=== PATIENT | male | born 1950 | race Caucasian/White ===

== ENCOUNTER 2020-09-20 13:28 | Outpatient (CLI) | payer OTHER, SELFPAY ==
--- NOTE | 2020-09-20 13:32 | US_ITS ---
WS: [id number] ULTRASOUND RENAL TECHNIQUE: Ultrasound examination of both kidneys. CLINICAL INFORMATION: CHRONIC KIDNEY DZ-STAGE 4 COMPARISON: None. FINDINGS: RIGHT: Right kidney is normal in size and appearance. Echogenicity: Normal. Cortical thickness: 1.3 cm; Normal. Hydronephrosis: None. Perinephric fluid: None. Right kidney measures: 10.4 cm x 4.6 cm x 5.7 cm. LEFT: Small left renal cyst measuring 1.1 x 0.8 x 0.9 cm Left kidney is normal in size and appearance. Echogenicity: Normal. Cortical thickness: 1.1 cm; Normal. Hydronephrosis: None. Perinephric fluid: None. Left kidney measures: 12.1 cm x 4.2 cm x 5.7 cm. Normal visualized aorta. Diffuse bladder wall thickening can be seen with chronic cystitis or bladder outlet obstruction. Enlarged prostate measuring 4.1 x 2.9 x 4.3 cm. Recommend correlation PSA. US/US renal BI* [id number] IMPRESSION: 1. No hydronephrosis in either kidney. 2. Diffuse bladder wall thickening can be seen with chronic cystitis or bladde r outlet obstruction. 3. Enlarged prostate measuring 4.1 x 2.9 x 4.3 CM. Recommend correlation PSA. 4. Small left renal cyst measuring 1.1 x 0.8 x 0.9 cm
== END 2020-09-20 13:29 | disposition home or self-care (01) ==
LOC: RAD 13:30
PROVIDERS: Visit Provider Internal Medicine Nephrology
DX: N18.4 Chronic kidney disease, stage 4 (severe) (principal); N40.0 Benign prostatic hyperplasia without lower urinary tract symptoms; N28.1 Cyst of kidney, acquired
CPT/HCPCS: 76770

== ENCOUNTER → 2023-02-15 08:50 | Outpatient (BNVA) | payer OTHER, SELFPAY | PROVIDERS: Visit Provider Podiatrist Foot & Ankle Surgery | DX: I73.9 Peripheral vascular disease, unspecified (principal); B35.1 Tinea unguium; G62.9 Polyneuropathy, unspecified | CPT/HCPCS: 11721; 99203 ==

== ENCOUNTER → 2023-03-30 12:38 | Outpatient (BNVA) | payer OTHER, SELFPAY | PROVIDERS: Visit Provider Internal Medicine Pulmonary Disease | DX: R06.02 Shortness of breath (principal); R63.5 Abnormal weight gain; Z68.35 Body mass index [BMI] 35.0-35.9, adult; Z99.81 Dependence on supplemental oxygen | CPT/HCPCS: 99204 ==

== ENCOUNTER 2023-04-22 09:01 | Outpatient (CLI) | payer OTHER, SELFPAY ==
[2023-04-22 09:24] VITALS: PULSE 56; RESP 18; O2SAT 98
[2023-04-22] MEDS: albuterol 2.5 mg/3 mL Neb INHALATION (09:24)
[2023-04-22 09:29] VITALS: PULSE 55
== END 2023-04-22 09:02 | disposition home or self-care (01) ==
PROVIDERS: PCP Emergency Medicine Emergency Medical Services; Visit Provider Internal Medicine Pulmonary Disease
DX: J98.8 Other specified respiratory disorders (principal)
CPT/HCPCS: 94060; 94618; 94729; 99204; J7613

== ENCOUNTER → 2023-04-26 10:55 | Outpatient (BNVA) | payer OTHER, SELFPAY | PROVIDERS: PCP Emergency Medicine Emergency Medical Services; Visit Provider Podiatrist Foot & Ankle Surgery | DX: I73.9 Peripheral vascular disease, unspecified (principal); B35.1 Tinea unguium; G62.9 Polyneuropathy, unspecified; L84 Corns and callosities; E11.9 Type 2 diabetes mellitus without complications; Z79.4 Long term (current) use of insulin | CPT/HCPCS: 11056; 11721 ==

== ENCOUNTER → 2023-05-11 11:15 | Outpatient (BNVA) | payer OTHER, SELFPAY | PROVIDERS: PCP Emergency Medicine Emergency Medical Services; Visit Provider Internal Medicine Pulmonary Disease | DX: J44.9 Chronic obstructive pulmonary disease, unspecified (principal); Z99.81 Dependence on supplemental oxygen; R63.5 Abnormal weight gain; Z68.35 Body mass index [BMI] 35.0-35.9, adult | CPT/HCPCS: 99214 ==

== ENCOUNTER → 2023-07-05 07:47 | Outpatient (BNVA) | payer OTHER, SELFPAY | PROVIDERS: PCP Emergency Medicine Emergency Medical Services; Visit Provider Podiatrist Foot & Ankle Surgery | DX: B35.1 Tinea unguium (principal); I73.9 Peripheral vascular disease, unspecified; G62.9 Polyneuropathy, unspecified; L84 Corns and callosities; E11.42 Type 2 diabetes mellitus with diabetic polyneuropathy; Z79.4 Long term (current) use of insulin | CPT/HCPCS: 11056; 11721 ==

== ENCOUNTER → 2023-12-13 10:05 | Outpatient (BNVA) | payer OTHER, SELFPAY | PROVIDERS: PCP Emergency Medicine Emergency Medical Services; Visit Provider Internal Medicine Pulmonary Disease | DX: J44.89 Other specified chronic obstructive pulmonary disease (principal); Z87.891 Personal history of nicotine dependence | CPT/HCPCS: 99214 ==

== ENCOUNTER 2024-10-18 11:21 | Emergency (ER) | payer OTHER, SELFPAY ==
[2024-10-18] VITALS (8 sets, daily range): BP systolic 141–172; BP diastolic 80–107; PULSE 80–93; RESP 17–22; TEMP 36.6; O2SAT 93–96; BMI 36.4
--- NOTE | 2024-10-18 11:51 | PC.PHAR ---
[facility], [facility] fax at [id number] will follow up when they send that back
--- NOTE | 2024-10-18 12:08 | XR_ITS ---
WS: [id number] XR chest 1V portable [id number] REASON FOR EXAM: dyspnea FINDINGS: Chest is unchanged compared to 09/18/2022. Thoracic aorta and mediastinum are within normal limits. Mild cardiomegaly. Calcified granulomas disease bilaterally. No acute pulmonary parenchymal or pleural disease noted. XR/XR chest 1V portable [id number] IMPRESSION: Mild cardiomegaly without acute chest abnormality.
--- NOTE | 2024-10-18 12:28 | ECG_ITS ---
[facility]24[facility]18 Pat Name: Roberta Rouse Department: Room: Gender: Male Zipper Measurer: : 1950 Requested By: Quintin Armstrong Order Number: [id number] Adam MD: Michael Lynne M.D. Measurements Intervals [place] Rate: 89 P: 0 DC: 0 QRS: 54 QRSD: 144 T: 32 QT: 358 QTc: 438 Interpretive Statements ATRIAL FIBRILLATION RIGHT BUNDLE BRANCH BLOCK [120+ ms QRS DURATION, UPRIGHT V1, 40+ ms S IN I/aVL/V4/V5/V6] No previous ECG available for comparison Electronically Signed On 10-18-2024 19:30:27 CABLE BRAIDER by Michael Lynne M.D. [email or web address]
--- NOTE | 2024-10-18 13:02 | ED_ITS ---
HPI - SOB/Dyspnea 2 General: Chief Complaint: Shortness of Breath/Dyspnea Stated Complaint: SOB Time Seen by Provider: 10/18/24 11:24 History of Present Illness: HPI Narrative: 74-year-old male former smoker with a hi story of COPD asthma overlap syndrome who presents to the emergency department with shortness of breath that is slowly been getting worse for about 1 month. Patient reports he did run out of his inhalers. [facility]. He called them and they are sending in refills for him. Patient reports clear sputum production. He does not weigh himself daily. He feels like he is slowly been gaining fluid weight for several weeks now. He does not know whether he has congestive heart failure but does take furosemide 20 mg daily and takes diltiazem. Patient denies any history of DVT or PE. No hemoptysis. No fever or chills. He feels better sitting up to breathe. He denies using a CPAP or BiPAP. He does use oxygen at home periodically. Lately he has been having to use it more often. Related Data Home Medications Medication Instructions Recorded Confirmed atorvastatin 80 mg tablet 80 mg PO DAILY 02/15/23 10/18/24 cetirizine 10 mg capsule (All Day 10 mg PO DAILY PRN allergies 02/15/23 10/18/24 Allergy (cetirizine)) cholecalciferol (vitamin D3) 50 50 mcg PO DAILY 02/15/23 10/18/24 mcg (2,000 unit) capsule diltiazem HCl 240 mg 240 mg PO DAILY 02/15/23 10/18/24 capsule,extended release 24 hr fluoxetine 20 mg capsule 20 mg PO DAILY 02/15/23 10/18/24 fluticasone furoate 50 1 inh inhalation DAILY 02/15/23 10/18/24 mcg/actuation blister powder for inhalation furosemide 20 mg tablet 20 mg PO DAILY 02/15/23 10/18/24 insulin lispro 100 unit/mL 5 unit SUBCUT BID 02/15/23 10/18/24 subcutaneous solution (Humalog U-100 Insulin) mirtazapine 30 mg tablet 30 mg PO DAILY 02/15/23 10/18/24 mometasone 110 mcg/actuation(30 2 inh inhalation DAILY 02/15/23 10/18/24 doses) breath activated powder inhaler tamsulosin 0.4 mg capsule 0.4 mg PO DAILY 02/15/23 10/18/24 empagliflozin 10 mg tablet 10 mg PO DAILY 12/13/23 10/18/24 (Jardiance) calcitriol 0.25 mcg capsule See Rx Instructions .Route .COMPLEX 10/18/24 10/18/24 insulin glargine-yfgn 100 unit/mL 85 unit SUBCUT DAILY 10/18/24 10/18/24 (3 mL) subcutaneous pen lisinopril 10 mg tablet 10 mg PO DAILY 10/18/24 10/18/24 Previous Rx's Medication Instructions Recorded fluticasone 250 mcg-salmeterol 50 1 inh inhalation BID #60 ea 03/30/23 mcg/dose blistr powdr for inhalation (Wixela Inhub) furosemide 20 mg tablet 20 mg PO BID 7 days #14 tabs 10/18/24 Allergies Allergy/AdvReac Type Severity Reaction Status Date / Time codeine Allergy Unknown rash Verified 10/18/24 11:35 Review of Systems 2 General: Reports: 10 or more systems reviewed and unremarkable except in HPI and below PFSH ED 2 PFSH: Medical History Chronic kidney disease Type 2 diabetes mellitus with diabetic neuropathy, unspecified Physical Exam 2 Const: COMMON NORMALS: no limitations, alert and well nourished EXAM LIMITATIONS: no altered mental status HENMT: COMMON NORMALS: normocephalic, atraumatic and external ears normal H EAD & SCALP: normocephalic and atraumatic EXTERNAL EAR: Yes external ears normal MOUTH: no muffled voice Eye: COMMON NORMALS: conjunctivae normal and no scleral icterus C ONJUNCTIVA: Yes conjunctivae normal Neck/C-Spine: GENERAL: Yes normal visual inspection and Yes trachea midline Resp: OTHER: Increased respiratory rate, use of accessory muscles, diminished breath sounds, wheezing Cardio: COMMON NORMALS: regular rate RATE: regular rate RHYTHM: abnormal rhythm GI: COMMON NORMALS: Soft to palpation and non-tender PALPATION: Yes Soft to palpation and No Guarding due to palpation present (GI) Extremity: OTHER: Bilateral lower extremity pitting edema 1+ to the midshin. Neuro: COMMON NORMALS: moves all extremities, no focal motor deficits and no sensory deficits noted SENSORIUM/ORIENTATION: Yes alert SPEECH: speech normal Psych: COMMON NORMALS: mental status grossly normal, Normal thought process present, cooperative, normal affect and speech normal SPEECH: Yes normal speech THOUGHT PROCESS: Normal thought process present Skin: COMMON NORMALS: no rashes or lesions noted, turgor normal and no jaundice GENERAL SKIN EXAM: no rashes or lesions noted and turgor normal Course 2 Vital Signs: Vital signs: Vital Signs Temperature 97.9 F 10/18/24 11:25 Pulse Rate 88 10/18/24 13:37 Respiratory Rate 22 H 10/18/24 13:31 Blood Pressure 172/83 10/18/24 11:25 Pulse Oximetry 94 10/18/24 13:31 Oxygen Delivery Me thod Nasal Cannula 10/18/24 13:31 Oxygen Flow Rate 2 10/18/24 13:31 MDM - SOB/Dyspnea Medical Decision Making Differential diagnosis includes asthma, COPD, pulmonary hypertension, pleural effusion, congestive heart failure exacerbation, arrhythmia, renal failure, electrolyte disturbances, chronic respiratory failure, obesity hypoventilation syndrome, other. EKG obtained at 11:39 AM. EP interpretation. This appears to be coarse atrial fibrillation or possibly ventricular flutter. Ventricular rate is 89. There is a right bundle branch block with a QRS duration of the 144 ms, no overtly concerning ischemic ST or T changes. Unfortunately, we do not have a lot of the patient's records because he goes to the [place]. He does not know his medical history very well. It is unclear if this is new or chronic A-fib. Patient is on diltiazem which would make me think it is chronic. I do not see any anticoagulants. His [id number] score would be elevated. It appears to me that the patient's symptoms are due in part to fluid retention and congestive heart failure. I am going to get his kidney function and electrolytes. If he can tolerate it, we will put him on furosemide 20 mg twice daily instead of daily. I will then have him follow[facility] with [facility] with a diagnosis of atrial fibrillation, congestive heart failure exacerbation, and COPD with chronic hypoxic respiratory failure. Update Creatinine 1.3. BUN 16. We do not have any comparison. Potassium 3.9. I think patient can handle taking Lasix 20 mg twice a day as the benefit outweighs the risk at this time. We will initiate this for 1 week. He is informed to weigh himself daily. He was given specific return precautions. In regards to his atrial fibrillation and possible need for anticoagulation; [facility] He says he is in contact with them frequently, including today. I am going to have him call them and inquire whether this is new or chronic and let his primary care team decide about anticoagulation. Lab Data 10/18/24 12:47 10/18/24 12:47 Labs/Radiology: Radiology Impressions Chest X-Ray 10/18/24 12:08 IMPRESSION: Mild cardiomegaly without acute chest abnormality. Laboratory Results WBC 5.56 10^3/uL (3.29-11.43) 10/18/24 12:47 RBC 4.20 10^6/uL (3.85-5.65) 10/18/24 12:47 Hgb 12.20 g/dL (11.27-16.99) 10/18/24 12:47 Hct 40.4 % (37-53) 10/18/24 12:47 MCV 96.2 fl (82-101) 10/18/24 12:47 MCH 29.0 pg (27-33) 10/18/24 12:47 MCHC 30.2 g/dL (30-55) 10/18/24 12:47 RDW 14.1 % (12.1-15.1) 10/18/24 12:47 Plt Count 214 10^3/cmm (157-399) 10/18/24 12:47 MPV 10.1 fL (7.4-10.4) 10/18/24 12:47 Neut % (Auto) 69.7 % 10/18/24 12:47 Lymph % (Auto) 13.8 % 10/18/24 12:47 Walker % (Auto) 14.7 % 10/18/24 12:47 Eos % (Auto) 0.9 % 10/18/24 12:47 Baso % (Auto) 0.2 % 10/18/24 12:47 Neut # (Auto) 3.87 10^3/uL (1.8-7.7) 10/18/24 12:47 Lymph # (Auto) 0.8 10^3/uL (0.8-4.8) 10/18/24 12:47 Walker # (Auto) 0.8 10^3/uL (0.2-0.9) 10/18/24 12:47 Eos # (Auto) 0.1 10^3/uL (0.0-0.8) 10/18/24 12:47 Baso # (Auto) 0.0 10^3/uL (0.0-0.1) 10/18/24 12:47 Nucleated RBC % (auto) 0 % 10/18/24 12:47 Nucleated RBCs # 0.0 /100WBC 10/18/24 12:47 Sodium 139 mmol/L (136-145) 10/18/24 12:47 Potassium 3.9 mmol/L (3.5-5.1) 10/18/24 12:47 Chloride 98 mmol/L (98-107) 10/18/24 12:47 Carbon Dioxide 29 mmol/L (22-29) 10/18/24 12:47 Anion Gap 15.9 (5-19) 10/18/24 12:47 BUN 16 mg/dL (8-23) 10/18/24 12:47 Creatinine 1.3 mg/dL (0.7-1.2) H 10/18/24 12:47 GFR Calculation Not Reportable 10/18/24 12:47 Glucose 46 mg/dL (65-115) L 10/18/24 12:47 Calculated Osmolality 286 mOsm/kg (285-295) 10/18/24 12:47 Calcium 8.7 mg/dL (8.5-10.5) 10/18/24 12:47 Total Bilirubin 0.4 mg/dL (0.15-1.2) 10/18/24 12:47 AST 18 U/L (0-40) 10/18/24 12:47 ALT 16 U/L (0-41) 10/18/24 12:47 Alkaline Phosphatase 95 U/L (40-130) 10/18/24 12:47 NT-Pro-B Natriuret Pep 463 pg/mL (0-450) H 10/18/24 12:47 Total Protein 6.7 g/dL (6.6-8.7) 10/18/24 12:47 Albumin 3.8 g/dL (3.5-5.2) 10/18/24 12:47 Globulin 2.9 g/dL (1.3-4.6) 10/18/24 12:47 All radiology interpretation(s) finalized by discharge ED provider radiology interpretation(s): Chest x-ray 1 view. EP interpretation. Mild cardiomegaly. No significant effusions, no pneumothorax. No focal infiltrates. Discharge Plan Discharge Patient Disposition: Home Clinical Impression: Atrial fibrillation by electrocardiogram, Asthma-COPD overlap syndrome, Diastolic congestive heart failure, Body fluid retention, Wheezing Condition: Stable Prescriptions: New furosemide 20 mg tablet 20 mg PO BID 7 Days Qty: 14 0RF No Action fluticasone propion-salmeterol [Wixela Inhub] 250-50 mcg/dose blister with device 1 inh inhalation BID Qty: 60 6RF atorvastatin 80 mg tablet 80 mg PO DAILY cholecalciferol (vitamin D3) 50 mcg (2,000 unit) capsule 50 mcg PO DAILY fluoxetine 20 mg capsule 20 mg PO DAILY insulin lispro [Humalog U-100 Insulin] 100 unit/mL solution 5 unit SUBCUT BID Rx Instructions: inject 5 units under the skin 2 times daily before meals give 30 mins before food, do not give dose if sugar is under 100 mometasone 110 mcg/ actuation (30) aerosol powdr breath activated 2 inh inhalation DAILY Rx Instructions: administer 1 hour before bedtime All Day Allergy (cetirizine) 10 mg capsule 10 mg PO DAILY PRN (Reason: allergies) diltiazem HCl 240 mg capsule,extended release 24hr 240 mg PO DAILY fluticasone furoate 50 mcg/actuation blister with device 1 inh inhalation DAILY furosemide 20 mg tablet 20 mg PO DAILY mirtazapine 30 mg tablet 30 mg PO DAILY tamsulosin 0.4 mg capsule 0.4 mg PO DAILY Jardiance 10 mg tablet 10 mg PO DAILY lisinopril 10 mg Tablet 10 mg PO DAILY calcitriol 0.25 mcg Capsule See Rx Instructions .ROUTE .COMPLEX Rx Instructions: take 1 capsule by mouth on mondays and wednesday insulin glargine-yfgn 100 unit/mL (3 mL) Insulin Pen 85 unit SUBCUT DAILY Discharge Orders: Discharge ED (Routine); Ordered 10/18/24 Ordered By: Quintin Armstrong Referrals: Adán Lino, [Primary Care Provider] - Activity Restrictions/Additional Instructions: Please call the [facility] clinic. Please speak with your doctor or nurse about your ER visit. We found that you have signs of atrial fibrillation. It is unclear whether this abnormal heart rhythm is new or old. It can lead to shortness of breath, fluid retention, and wheezing. Additionally, most patients with atrial fibrillation take blood thinners. We do not see a blood thinner on your medication list. Please inquire with your [facility] team whether your atrial fibrillation is new or not and whether you need to be on a blood thinner. Please take furosemide (Lasix) 20 mg twice a day for 1 week. After 1 week, you may back go back down to 20 mg daily. In 7 to 10 days you should have your electrolytes and kidney function re-checked with a basic metabolic panel Return to the emergency department if you have worsening shortness of breath, chest pain, poor urine output, passing out, or other emergent symptoms. 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
[2024-10-18 13:11] LABS: Basophils % 0.2 %; Eosinophils # 0.1 10^3/uL (0.0-0.8); Eosinophils % 0.9 %; Hematocrit 40.4 % (37-53); Lymphocytes # 0.8 10^3/uL (0.8-4.8); Lymphocytes % 13.8 %; Mean Corpuscular HGB Conc 30.2 g/dL (30-55); Mean Corpuscular Volume 96.2 fl (82-101); Mean Platelet Volume 10.1 fL (7.4-10.4); Monocytes # 0.8 10^3/uL (0.2-0.9); Monocytes % 14.7 %; Neutrophils # 3.87 10^3/uL (1.8-7.7); Neutrophils % 69.7 %; Nucleated Red Blood Cells % 0 %; Platelet Count 214 10^3/cmm (157-399); Red Cell Distribution Width 14.1 % (12.1-15.1); White Blood Count 5.56 10^3/uL (3.29-11.43)
[2024-10-18] MEDS: methylPREDNISolone sod succ 125 mg/2 mL INJ IV (13:11)
[2024-10-18] MEDS: ipratropium-albuterol 3 mL Neb INHALATION (13:25)
[2024-10-18 13:47] LABS: Alanine Aminotransferase 16 U/L (0-41); Albumin Level 3.8 g/dL (3.5-5.2); Alkaline Phosphatase 95 U/L (40-130); Anion Gap 15.9 (5-19); Aspartate Amino Transferase 18 U/L (0-40); Blood Urea Nitrogen 16 mg/dL (8-23); Calcium 8.7 mg/dL (8.5-10.5); Carbon Dioxide 29 mmol/L (22-29); Chloride 98 mmol/L (98-107); Creatinine Clr Calc Pharmacy 65.2078; Globulin 2.9 g/dL (1.3-4.6); Glucose 46 mg/dL (65-115); NT Pro B Type Natriuretic Pept 463 pg/mL (0-450); Osmolality Calculated 286 mOsm/kg (285-295); Potassium 3.9 mmol/L (3.5-5.1); Sodium 139 mmol/L (136-145); Total Bilirubin 0.4 mg/dL (0.15-1.2); Total Protein 6.7 g/dL (6.6-8.7)
[2024-10-18] MEDS: FUROsemide 20 mg Tablet PO (14:10)
== END 2024-10-18 15:09 | disposition home or self-care (01) ==
PROVIDERS: Emergency Provider Emergency Medicine; PCP Emergency Medicine Emergency Medical Services
DX: I48.91 Unspecified atrial fibrillation (principal); J44.89 Other specified chronic obstructive pulmonary disease; E11.22 Type 2 diabetes mellitus with diabetic chronic kidney disease; N18.9 Chronic kidney disease, unspecified; I50.30 Unspecified diastolic (congestive) heart failure; R60.9 Edema, unspecified; R06.2 Wheezing; Z79.4 Long term (current) use of insulin
CPT/HCPCS: 36415; 71045; 80053; 83880; 85025; 93005; 94640; 96374; 99285; J2919

== ENCOUNTER 2024-11-16 16:32 | Inpatient (IN) | payer OTHER, SELFPAY ==
[2024-11-16] VITALS (33 sets, daily range): BP systolic 114–145; BP diastolic 41–60; PULSE 29–83; RESP 7–32; TEMP 36.1–36.8; O2SAT 85–97; BMI 35.6; BMI 37.0
--- NOTE | 2024-11-16 16:40 | PC.PHAR ---
[facility] is [facility] list 11/16/23 4:40pm. Last completed Med rec done on 10/18/24 with [facility].
--- NOTE | 2024-11-16 16:41 | XRR_ITS ---
PROCEDURE INFORMATION: Exam: XR Chest Exam date and time: 11/16/2024 4:52 PM Age: 74 years old Clinical indication: Shortness of breath TECHNIQUE: Imaging protocol: Radiologic exam of the chest. Views: 1 view. COMPARISON: CR XR chest 1V portable [id number] 10/18/2024 12:15 PM FINDINGS: Lungs: Unremarkable. No consolidation or mass. Pleural spaces: Unremarkable. No pleural effusion. No pneumothorax. Heart/Mediastinum: Unremarkable. No cardiomegaly. Bones/joints: Unremarkable. XR/XR chest 1V portable [id number] IMPRESSION: No acute findings.
--- NOTE | 2024-11-16 16:42 | ECG_ITS ---
[facility]16 Pat Name: Roberta Rouse Department: Room: Gender: Male Environmental Advisor: : 1950 Requested By: Sofiya Carranza Order Number: [id number] Adam MD: Michael Lynne M.D. Measurements Intervals [place] Rate: 35 P: 0 TX: 0 QRS: 84 QRSD: 150 T: 58 QT: 483 QTc: 369 Interpretive Statements ATRIAL FLUTTER/TACHYCARDIA WITH SLOW VENTRICULAR RESPONSE RIGHT BUNDLE BRANCH BLOCK [120+ ms QRS DURATION, UPRIGHT V1, 40+ ms S IN I/aVL/V4/V5/V6] CRITICAL TEST RESULT Compared to ECG 10/18/2024 11:39:29 Atrial fibrillation no longer present Electronically Signed On 11-17-2024 21:37:31 RURAL ELECTRIFICATION ENGINEER by Michael Lynne M.D. [email or web address]
--- NOTE | 2024-11-16 16:55 | W.ED.SOB ---
HPI - SOB/Dyspnea General: Chief Complaint: Shortness of Breath/Dyspnea Stated Complaint: a flutter, blue Time Seen by Provider: 11/16/24 16:37 History of Present Illness: HPI Narrative: 74-year-old man with a history of obesity, diabetes, hypertension and he says just a single episode of A-fib in the past but looking at his med list he is on diltiazem, however no blood thinners who presents the emergency room by ambulance with complaint of shortness of breath. He says this been going on for the last 2 days. Orthopnea and exertional dyspnea. No chest pain. No abdominal pain. No nausea or vomiting. No altered mental status. No fevers. No cough. No dysuria. EMS reports heart rate was in the 30s on their arrival. His blood pressure initially was soft in the 90s. They had given atropine with no change in symptoms or heart rate. On arrival here his blood pressures in the 130s systolic with a rate ranging between 39 and 45. He is in A- flutter with slow ventricular response. No confusion. No altered mental status. No increased work of breathing. Has some mild edema in his lower extremities. He says this is maybe a little different than usual. Related Data Home Medications Medication Instructions Recorded Confirmed atorvastatin 80 mg tablet 80 mg PO DAILY 02/15/23 10/18/24 cetirizine 10 mg capsule (All Day 10 mg PO DAILY PRN allergies 02/15/23 10/18/24 Allergy (cetirizine)) cholecalciferol (vitamin D3) 50 50 mcg PO DAILY 02/15/23 10/18/24 mcg (2,000 unit) capsule diltiazem HCl 240 mg 240 mg PO DAILY 02/15/23 10/18/24 capsule,extended release 24 hr fluoxetine 20 mg capsule 20 mg PO DAILY 02/15/23 10/18/24 fluticasone furoate 50 1 inh inhalation DAILY 02/15/23 10/18/24 mcg/actuation blister powder for inhalation furosemide 20 mg tablet 20 mg PO DAILY 02/15/23 10/18/24 insulin lispro 100 unit/mL 5 unit SUBCUT BID 02/15/23 10/18/24 subcutaneous solution (Humalog U-100 Insulin) mirtazapine 30 mg tablet 30 mg PO DAILY 02/15/23 10/18/24 mometasone 110 mcg/actuation(30 2 inh inhalation DAILY 02/15/23 10/18/24 doses) breath activated powder inhaler tamsulosin 0.4 mg capsule 0.4 mg PO DAILY 02/15/23 10/18/24 empagliflozin 10 mg tablet 10 mg PO DAILY 12/13/23 10/18/24 (Jardiance) calcitriol 0.25 mcg capsule See Rx Instructions .Route .COMPLEX 10/18/24 10/18/24 insulin glargine-yfgn 100 unit/mL 85 unit SUBCUT DAILY 10/18/24 10/18/24 (3 mL) subcutaneous pen lisinopril 10 mg tablet 10 mg PO DAILY 10/18/24 10/18/24 Previous Rx's Medication Instructions Recorded fluticasone 250 mcg-salmeterol 50 1 inh inhalation BID #60 ea 03/30/23 mcg/dose blistr powdr for inhalation (Wixela Inhub) Allergies Allergy/AdvReac Type Severity Reaction Status Date / Time codeine Allergy Unknown rash Verified 10/18/24 11:35 Review of Systems Narrative: Constitutional symptoms: Negative except as documented in HPI. Skin symptoms: Negative except as documented in HPI. Eye symptoms: Negative except as documented in HPI. ENMT symptoms: Negative except as documented in HPI. Respiratory symptoms: Negative except as documented in HPI. Cardiovascular symptoms: Negative except as documented in HPI. Gastrointestinal symptoms: Negative except as documented in HPI. Genitourinary symptoms: Negative except as documented in HPI. Musculoskeletal symptoms: Negative except as documented in HPI. Neurologic symptoms: Negative except as documented in HPI. Psychiatric symptoms: Negative except as documented in HPI. Endocrine symptoms: Negative except as documented in HPI. [facility] ED PFSH: Medical History Chronic kidney disease Type 2 diabetes mellitus with diabetic neuropathy, unspecified Physical Exam Narrative: EXAM NARRATIVE: General: Alert, no acute distress. Skin: Warm, dry. Head: Normocephalic, atraumatic. Neck: Supple, trachea midline. Eye: Extraocular movements are intact. Ears, nose, mouth and throat: mucosa moist. Cardiovascular: Irregular, bradycardic, normal peripheral perfusion. Respiratory: Lungs are clear to auscultation, respirations are non-labored, breath sounds are equal, Symmetrical chest wall expansion. Gastrointestinal: Soft, Nontender, Non distended Musculoskeletal: Normal ROM, no deformity. Neurological: Alert and oriented, No focal neurological deficit observed. Psychiatric: Cooperative, appropriate mood & affect. Course Vital Signs: Vital signs: Vital Signs Temperature 98.2 F 11/16/24 16:36 Pulse Rate 37 L 11/16/24 18:10 Respiratory Rate 25 H 11/16/24 18:10 Blood Pressure 126/41 11/16/24 18:15 Pulse Oximetry 88 L 11/16/24 18:10 Oxygen Delivery Me thod Nasal Cannula 11/16/24 16:36 Oxygen Flow Rate 2 11/16/24 16:36 MDM - SOB/Dyspnea Medical Decision Making Differential diagnosis for patient with shortness of breath includes but is not limited to and based on the above HPI, review of systems and physical exam: Pneumonia. Bronchitis. Asthma or COPD with acute exacerbation. Acute coronary syndrome / CT. Pulmonary embolism. Anxiety. Congestive heart failure. Viral infections including influenza and Covid-19. Atrial fibrillation. Anxiety. Pleural effusion. Pneumothorax. Orders placed to evaluate differential diagnosis based on the above differential, HPI and physical exam EKG: Time 1636. Rate 35. Atrial flutter with significant bradycardia. No ST-T changes, no ectopy, This was reviewed and interpreted by myself the ER physician at 1637. Consultation: I spoke with Dr. Lynne. He does recommend dopamine if pressure drops again. Initially it was elevated but has dropped. Dopamine has been ordered. He recommends admission to the hospitalist service for now. Chest x-ray: No acute process. No infiltrate. No pneumothorax. This was reviewed and interpreted by myself the emergency room physician. I also reviewed the radiology report. Repeat EKG: Time 1844. Rate 40. Atrial flutter with significant bradycardia. No ST-T changes, no ectopy, This was reviewed and interpreted by myself the ER physician at 1850. No significant changes from EKG done earlier today in the emergency room. Lab Review: Laboratory results were reviewed and interpreted by myself the emergency room physician. No leukocytosis. No anemia. Patient does have significant renal failure with a BUN and creatinine of 63 and 6.3. Last measurement here was 1.3 for his creatinine. I reviewed the patient's medical record. Reexamination: Patient has remained asymptomatic throughout. He has exertional dyspnea but no dyspnea at rest. He has no chest pain. He has not been lightheaded or altered at all while he has been here. Has required some dopamine as his pressure got a little bit low. Even then he says he did not feel dizzy or have any symptoms. Consultation: I spoke with Dr. Boudreaux who is on-call for the hospitalist service who agrees to admission. Admitting to the ICU. Assessment and plan: Bradycardia Atrial flutter Acute on chronic renal failure Hypotension ?2 L normal saline bolus and a dopamine drip at been initiated. -I discussed the patient with the hospitalist on-call who is admitting the patient. - Discussed findings and plan with patient. Answered any questions. - All laboratory values were reviewed and interpreted personally by myself, the ER physician - All imaging was reviewed and interpreted personally by myself, the ER physician. - Evaluation and treatment of this problem were appropriate in the emergency setting Critical care -I spent a total of >35 minutes of critical care time managing the patient, independent of any other practitioner. -The time involved in the performance of separately reportable procedures was not counted towards critical care time. Lab Data 11/16/24 16:45 11/16/24 16:45 Labs/Radiology: Radiology Impressions Chest X-Ray 11/16/24 16:41 IMPRESSION: No acute findings. Abdomen/Pelvis CT 11/16/24 17:54 IMPRESSION: 1. No acute findings. 2. Prostate enlargement with chronic bladder wall thickening 3. Umbilical hernia 4. Cholelithiasis Laboratory Results WBC 6.25 10^3/uL (3.29-11.43) 11/16/24 16:45 RBC 3.51 10^6/uL (3.85-5.65) L 11/16/24 16:45 Hgb 10.30 g/dL (11.27-16.99) L 11/16/24 16:45 Hct 34.1 % (37-53) L 11/16/24 16:45 MCV 97.2 fl (82-101) 11/16/24 16:45 MCH 29.3 pg (27-33) 11/16/24 16:45 MCHC 30.2 g/dL (30-55) 11/16/24 16:45 RDW 13.9 % (12.1-15.1) 11/16/24 16:45 Plt Count 189 10^3/cmm (157-399) 11/16/24 16:45 MPV 11.3 fL (7.4-10.4) H 11/16/24 16:45 Neut % (Auto) 67.5 % 11/16/24 16:45 Lymph % (Auto) 20.3 % 11/16/24 16:45 Frio % (Auto) 10.7 % 11/16/24 16:45 Eos % (Auto) 0.5 % 11/16/24 16:45 Baso % (Auto) 0.2 % 11/16/24 16:45 Neut # (Auto) 4.22 10^3/uL (1.8-7.7) 11/16/24 16:45 Lymph # (Auto) 1.3 10^3/uL (0.8-4.8) 11/16/24 16:45 Frio # (Auto) 0.7 10^3/uL (0.2-0.9) 11/16/24 16:45 Eos # (Auto) 0.0 10^3/uL (0.0-0.8) 11/16/24 16:45 Baso # (Auto) 0.0 10^3/uL (0.0-0.1) 11/16/24 16:45 Nucleated RBC % (auto) 0 % 11/16/24 16:45 Nucleated RBCs # 0.0 /100WBC 11/16/24 16:45 Sodium 140 mmol/L (136-145) 11/16/24 16:45 Potassium 5.3 mmol/L (3.5-5.1) H 11/16/24 16:45 Chloride 103 mmol/L (98-107) 11/16/24 16:45 Carbon Dioxide 24 mmol/L (22-29) 11/16/24 16:45 Anion Gap 18.3 (5-19) 11/16/24 16:45 BUN 63 mg/dL (8-23) H 11/16/24 16:45 Creatinine 6.3 mg/dL (0.7-1.2) H* 11/16/24 16:45 GFR Calculation Not Reportable 11/16/24 16:45 Glucose 108 mg/dL (65-115) 11/16/24 16:45 Calculated Osmolality 309 mOsm/kg (285-295) H 11/16/24 16:45 Lactic Acid 1.7 mmol/L (0.5-2.2) 11/16/24 16:45 Calcium 8.1 mg/dL (8.5-10.5) L 11/16/24 16:45 Phosphorus 5.2 mg/dL (2.5-4.5) H 11/16/24 16:45 Magnesium 1.4 mg/dL (1.7-2.3) L 11/16/24 16:45 Total Bilirubin 0.3 mg/dL (0.15-1.2) 11/16/24 16:45 AST 24 U/L (0-40) 11/16/24 16:45 ALT 23 U/L (0-41) 11/16/24 16:45 Alkaline Phosphatase 90 U/L (40-130) 11/16/24 16:45 Troponin T Baseline 74 ng/L (0-15) H 11/16/24 16:45 NT-Pro-B Natriuret Pep 1936 pg/mL (0-450) H 11/16/24 16:45 Total Protein 5.8 g/dL (6.6-8.7) L 11/16/24 16:45 Albumin 3.6 g/dL (3.5-5.2) 11/16/24 16:45 Globulin 2.2 g/dL (1.3-4.6) 11/16/24 16:45 TSH 1.85 uIU/mL (0.27-4.20) 11/16/24 16:45 All radiology interpretation(s) finalized by discharge Discharge Plan Discharge Patient Disposition: Admitted As Inpatient Admit Provider: Dimas Boudreaux Clinical Impression: Bradycardia, Atrial flutter, Hypotension, Acute on chronic renal failure Condition: Stable Coding Level of Care Code 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
[2024-11-16 17:00] LABS: Basophils % 0.2 %; Eosinophils % 0.5 %; Hematocrit 34.1 % (37-53); Lymphocytes # 1.3 10^3/uL (0.8-4.8); Lymphocytes % 20.3 %; Mean Corpuscular HGB Conc 30.2 g/dL (30-55); Mean Corpuscular Hemoglobin 29.3 pg (27-33); Mean Corpuscular Volume 97.2 fl (82-101); Mean Platelet Volume 11.3 fL (7.4-10.4); Monocytes # 0.7 10^3/uL (0.2-0.9); Monocytes % 10.7 %; Neutrophils # 4.22 10^3/uL (1.8-7.7); Neutrophils % 67.5 %; Nucleated Red Blood Cells % 0 %; Platelet Count 189 10^3/cmm (157-399); Red Blood Count 3.51 10^6/uL (3.85-5.65); Red Cell Distribution Width 13.9 % (12.1-15.1); White Blood Count 6.25 10^3/uL (3.29-11.43)
[2024-11-16] MEDS: DOPamine drip 400 MG/250 ML PREMIX 22.96 MG IV (17:23)
[2024-11-16 17:25] LABS: Lactic Sepsis W/Reflex 1.7 mmol/L (0.5-2.2)
[2024-11-16 17:29] LABS: Troponin(5th) Baseline 74 ng/L (0-15)
[2024-11-16 17:38] LABS: Alanine Aminotransferase 23 U/L (0-41); Albumin Level 3.6 g/dL (3.5-5.2); Alkaline Phosphatase 90 U/L (40-130); Anion Gap 18.3 (5-19); Aspartate Amino Transferase 24 U/L (0-40); Blood Urea Nitrogen 63 mg/dL (8-23); Calcium 8.1 mg/dL (8.5-10.5); Carbon Dioxide 24 mmol/L (22-29); Chloride 103 mmol/L (98-107); Creatinine Clr Calc Pharmacy 13.6759; Globulin 2.2 g/dL (1.3-4.6); Glucose 108 mg/dL (65-115); Magnesium 1.4 mg/dL (1.7-2.3); NT Pro B Type Natriuretic Pept 1936 pg/mL (0-450); Osmolality Calculated 309 mOsm/kg (285-295); Phosphorus 5.2 mg/dL (2.5-4.5); Potassium 5.3 mmol/L (3.5-5.1); Sodium 140 mmol/L (136-145); Thyroid Stimulating Hormone 1.85 uIU/mL (0.27-4.20); Total Bilirubin 0.3 mg/dL (0.15-1.2); Total Protein 5.8 g/dL (6.6-8.7)
--- NOTE | 2024-11-16 17:54 | CTR_ITS ---
PROCEDURE INFORMATION: Exam: CT Abdomen And Pelvis Without Contrast Exam date and time: 11/16/2024 6:17 PM Age: 74 years old Clinical indication: Condition or disease; Kidney or ureter condition; Acute renal insufficiency; Additional info: Renal failure, R/O obstructive uropathy per hospitalist TECHNIQUE: Imaging protocol: Computed tomography of the abdomen and pelvis without contrast. Radiation optimization: All CT scans at this facility use at least one of these dose optimization techniques: automated exposure control; mA and/or kV adjustment per patient size (includes targeted exams where dose is matched to clinical indication); or iterative reconstruction. COMPARISON: US renal BI* [id number] 09/20/2020 1:54 PM RADIATION DOSE METRICS: Total DLP (mGy-cm): 1138.03 FINDINGS: Lungs: Lung bases are clear. No pleural effusion. Liver: Normal. No mass. Gallbladder and biliary ducts: Multiple gallstones are noted in the gallbladder but the gallbladder does not appear inflamed and demonstrates normal wall thickness. Pancreas: Normal. No ductal dilation. Spleen: Normal. No splenomegaly. Adrenal glands: Normal. No mass. Kidneys and ureters: Normal. No hydronephrosis. Stomach and bowel: Unremarkable. No obstruction. No mucosal thickening. Appendix: No evidence of appendicitis. Intraperitoneal space: Unremarkable. No free air. No significant fluid collection. Vasculature: Unremarkable. No abdominal aortic aneurysm. Lymph nodes: Unremarkable. No enlarged lymph nodes. Urinary bladder: There is diffuse bladder wall thickening. Reproductive: The prostate gland is abnormally enlarged. Bones/joints: Unremarkable. No acute fracture. Soft tissues: There is a small umbilical hernia containing mesenteric fat. CT/CT abdomen pelvis wo con [id number] IMPRESSION: 1. No acute findings. 2. Prostate enlargement with chronic bladder wall thickening 3. Umbilical hernia 4. Cholelithiasis
[2024-11-16] MEDS: sodium chloride 0.9% 1,000 ML 999 ML IV ×2 (18:12→20:22)
--- NOTE | 2024-11-16 18:44 | ECG_ITS ---
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 Measurements Intervals [place] Rate: 40 P: 0 MN: 0 QRS: 81 QRSD: 140 T: 36 QT: 450 QTc: 370 Interpretive Statements ATRIAL FLUTTER/TACHYCARDIA WITH SLOW VENTRICULAR RESPONSE RIGHT BUNDLE BRANCH BLOCK [120+ ms QRS DURATION, UPRIGHT V1, 40+ ms S IN I/aVL/V4/V5/V6] CRITICAL TEST RESULT Compared to ECG 11/16/2024 16:36:02 No significant changes Electronically Signed On 11-18-2024 21:37:36 FITNESS SALES ASSOCIATE by Michael Lynne M.D. [email or web address]
--- NOTE | 2024-11-16 19:24 | P.HP_ITS ---
Providers/Chief Complaint 2 Admitting Physician: Dimas Boudreaux Primary Care Provider: Adán Lino DO Chief Complaint: a flutter, blue History of Present Illness Pleasant 74-year-old gentleman with history of atrial fibrillation, diabetes, hypertension, BPH, CKD, presents to the hospital due to dyspnea on exertion over the last 2 days, orthopnea, and ER found to have heart rates in the 30s, systolic blood pressure in the 90s, he received atropine by EMS and route, with no change in heart rate. Remains in atrial flutter with slow ventricular response. In ER he denies chest pain or pressure. Started on dopamine drip. He is found to have acute kidney injury on chronic kidney disease, BUN 63, creatinine 6.3, potassium 5.3. Phosphorus 5.2. Magnesium 1.4. Review of Systems 2 Const: Denies: fever(s), chills, body aches or malaise ENMT: Denies: throat pain Card: Reports: dyspnea on exertion; Denies: chest pain, edema or pre-syncope Resp: Denies: productive cough, change in phlegm color or hemoptysis GI: Denies: abdominal pain, nausea, vomiting, diarrhea, constipation, hematochezia or melena : Denies: flank pain, difficulty urinating, urinary frequency or hematuria Musc: Denies: back pain, joint swelling or joint redness Skin/Breast: Denies: rash Neuro: Denies: headache(s) or confusion Endo: Denies: polyuria Medications/Allergies Home Medications Medication Instructions Recorded Confirmed Last Taken Type atorvastatin 80 mg tablet 80 mg PO DAILY 02/15/23 10/18/24 Unknown History cetirizine 10 mg capsule (All Day 10 mg PO DAILY PRN allergies 02/15/23 10/18/24 Unknown History Allergy (cetirizine)) cholecalciferol (vitamin D3) 50 50 mcg PO DAILY 02/15/23 10/18/24 Unknown History mcg (2,000 unit) capsule diltiazem HCl 240 mg 240 mg PO DAILY 02/15/23 10/18/24 Unknown History capsule,extended release 24 hr fluoxetine 20 mg capsule 20 mg PO DAILY 02/15/23 10/18/24 Unknown History fluticasone furoate 50 1 inh inhalation DAILY 02/15/23 10/18/24 Unknown History mcg/actuation blister powder for inhalation furosemide 20 mg tablet 20 mg PO DAILY 02/15/23 10/18/24 Unknown History insulin lispro 100 unit/mL 5 unit SUBCUT BID 02/15/23 10/18/24 Unknown History subcutaneous solution (Humalog U-100 Insulin) mirtazapine 30 mg tablet 30 mg PO DAILY 02/15/23 10/18/24 Unknown History mometasone 110 mcg/actuation(30 2 inh inhalation DAILY 02/15/23 10/18/24 Unknown History doses) breath activated powder inhaler tamsulosin 0.4 mg capsule 0.4 mg PO DAILY 02/15/23 10/18/24 Unknown History fluticasone 250 mcg-salmeterol 50 1 inh inhalation BID #60 ea 03/30/23 10/18/24 Unknown Rx mcg/dose blistr powdr for inhalation (Wixela Inhub) empagliflozin 10 mg tablet 10 mg PO DAILY 12/13/23 10/18/24 Unknown History (Jardiance) calcitriol 0.25 mcg capsule See Rx Instructions .Route .COMPLEX 10/18/24 10/18/24 Unknown History insulin glargine-yfgn 100 unit/mL 85 unit SUBCUT DAILY 10/18/24 10/18/24 Unknown History (3 mL) subcutaneous pen lisinopril 10 mg tablet 10 mg PO DAILY 10/18/24 10/18/24 Unknown History Allergies Allergy/AdvReac Type Severity Reaction Status Date / Time codeine Allergy Unknown rash Verified 10/18/24 11:35 PFSH Acute 2 PFSH: Medical History Chronic kidney disease Type 2 diabetes mellitus with diabetic neuropathy, unspecified Vitals/I&O/Wt Last Vital Signs Temp 98.2 F 11/16/24 16:36 Pulse 37 L 11/16/24 18:10 Resp 25 H 11/16/24 18:10 BP 126/41 11/16/24 18:15 Pulse Ox 88 L 11/16/24 18:10 O2 Del Method Nasal Cannula 11/16/24 16:36 O2 Flow Rate 2 11/16/24 16:36 11/16/24 11/16/24 11/16/24 06:59 14:59 22:59 Intake Total 60.854 / 60.854 Balance 60.854 / 60.854 Weight last 48 hrs Weight 122.47 kg Physical Exam 2 Const: COMMON NORMALS: patient oriented x3 and alert GENERAL APPEARANCE: c ooperative ORIENTATION/CONSCIOUSNESS: Yes awake HENMT: COMMON NORMALS: oropharynx normal Neck/C-Spine: COMMON NORMALS: no JVD Resp: COMMON NORMALS: normal respiratory effort and clear to auscultation bilaterally AUSCULTATION: clear to auscultation bilaterally Cardio: COMMON NORMALS: no JVD, regular rhythm, S1 normal heart sound present, S2 normal heart sound present and No murmurs present (Cardio) RHYTHM: regular rhythm HEART SOUNDS: S1 normal heart sound present and S2 normal heart sound present GI: COMMON NORMALS: Normal to inspection, nondistended, normoactive bowel sounds present, Soft to palpation and non-tender PALPATION: Yes Soft to palpation Extremity: COMMON NORMALS: no joint enlargement OTHER: Bilateral chronic stasis dermatitis. Trace edema. Neuro: COMMON NORMALS: patient oriented x3 and moves all extremities S ENSORIUM/ORIENTATION: Yes alert Skin: COMMON NORMALS: no rashes or lesions noted GENERAL SKIN EXAM: no rashes or lesions noted Data 11/16/24 16:45 11/16/24 16:45 Micro: Microbiology 11/16/24 17:20 Blood Culture - Preliminary Blood SPECIMEN COLLECTED 11/16/24 17:20 Blood Culture - Preliminary Blood SPECIMEN COLLECTED A&P Assessment and plan (1) Diastolic congestive heart failure: Acutely decompensated suspected diastolic congestive heart failure secondary to severe bradycardia also with hypotension, monitor for development of cardiogenic shock. Complicated by acute kidney injury. Monitor for progression to acute renal failure. Started on dobutamine drip, monitor heart rates. Hold diltiazem. Support hemodynamics, monitor oxygenation. Monitor for risk of tachycardia, hypertension with dopamine drip. (2) Bradycardia: Severe bradycardia, heart rate down into the 30s. With hypotension. Complicated by acute kidney injury. On diltiazem at home. Hold diltiazem. Started on dopamine. Continue infusion in ICU. Hold lisinopril with mild hyperkalemia.Supplements hypomagnesemia. Reviewed vitals, CBC, CMP, magnesium, TSH, troponin, NT proBNP, chest x-ray, CT abdomen pelvis, EKG, on my interpretation atrial flutter with slow ventricular response, right bundle branch block, pending official read. Reviewed ER provider note, discussed with ER provider. (3) Hypotension: Monitor for risk of development of cardiogenic shock. Continue dopamine in the ICU. (4) Acute kidney injury superimposed on CKD: Possible acute renal failure, monitor intake and output. Reassess chemistry. Phosphorus. Magnesium. Noted BUN 63, creatinine 6.3, hyperkalemia 5.3, phosphorus 5.2. CT abdomen pelvis without obstructive uropathy. Continue Flomax for BPH. Hold lisinopril, Lasix. Hold statin, check CK. Continue hemodynamic support as above. (5) Hypomagnesemia: Supplement. Recheck follow-up with (6) Anemia: Normocytic anemia, hemoglobin 10.3. Not on anticoagulation. Repeat CBC. (7) BPH (benign prostatic hyperplasia): Continue Flomax Attestations 2 Medical Necessity Statement*: Admission of over 2 midnights anticipated for assessment and management of severe bradycardia with hypotension, acute decompensated diastolic congestive heart failure, AIDA. Coding Level of Care Code Critical Care >/= 30 minutes Critical care time (in minutes): 35 The high probability of a clinically significant, sudden or life threatening deterioration, as referenced in this documentation, required my full and direct attention, intervention and personal management. The critical care time shown is in addition to time spent performing any reported separately billable procedures and includes the following: [x] Data and vital sign review and interpretation [x ] Patient assessment, examination and intervention [x] Medication orders and management [x] Patient/Family updates as able [x] Care Coordination and Documentation. Diagnoses Diastolic congestive heart failure I50.30 Bradycardia R00.1 Hypotension I95.9 Acute kidney injury superimposed on CKD N17.9; N18.9 Hypomagnesemia E83.42 Anemia D64.9 BPH (benign prostatic hyperplasia) N40.0
[2024-11-16 19:26] LABS: Troponin 5 2HR 79.34 ng/L (0-15); Troponin 5 2HR Delta 5.34 ABS# (0-10)
--- NOTE | 2024-11-16 19:45 | PC.NURSE ---
Patient refused tracey catheter.
[2024-11-16] MEDS: magnesium sulfate premix 1 GM/100 ML PIGGYBACK IV (20:11)
[2024-11-16] MEDS: enoxaparin 30 mg/0.3 mL Syringe SUBCUT (20:11)
[2024-11-16 20:34] LABS: Creatine Phosphokinase 200 U/L (39-308)
--- NOTE | 2024-11-16 20:37 | PC.NURSE ---
Patient restless in bed. Attempted to help patient reposition and patient pulled away and tried to get out of bed. Patient stated just leave me alone.
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
[2024-11-16] MEDS: LORazepam 2 mg/mL INJ 1 mL 1 MG IVP (21:27)
[2024-11-16] MEDS: DOPamine drip 400 MG/250 ML PREMIX 68.89 MG IV (21:43)
--- NOTE | 2024-11-16 22:29 | PC.NURSE ---
Patient IV catheter out from right arm. Site ok. no bleeding or swelling.
[2024-11-16] MEDS: OLANZapine 10 mg VIAL 5 MG IM ×2 (22:35→22:40)
--- NOTE | 2024-11-16 22:42 | ECG_ITS ---
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 Measurements Intervals [place] Rate: 44 P: 0 SD: 0 QRS: 105 QRSD: 134 T: 76 QT: 410 QTc: 354 Interpretive Statements ATRIAL FLUTTER/TACHYCARDIA WITH SLOW VENTRICULAR RESPONSE RIGHT AXIS DEVIATION [QRS AXIS > 100] RIGHT BUNDLE BRANCH BLOCK [120+ ms QRS DURATION, UPRIGHT V1, 40+ ms S IN I/aVL/V4/V5/V6] SEPTAL MYOCARDIAL INFARCTION , OF INDETERMINATE AGE [40+ ms Q WAVE IN V1/V2] Compared to ECG 11/16/2024 18:44:50 Right-axis deviation now present Myocardial infarct finding now present Electronically Signed On 11-18-2024 21:37:52 SUPPORT WORKER by Michael Lynne M.D. [email or web address]
--- NOTE | 2024-11-16 22:51 | PC.NURSE ---
Attempted to slide patient up in bed with the asistance of another nurse. Patient say leave me alone. go away . Still unable to obtain BP readings as patient swings his arm out and around when inflating the BP cuff.
[2024-11-16 23:17] LABS: Glucose Point of Care 199 mg/dL (70-110)
[2024-11-17] VITALS (73 sets, daily range): BP systolic 107–202; BP diastolic 42–102; PULSE 34–65; RESP 7–36; TEMP 36.1–37; O2SAT 85–100
[2024-11-17] MEDS: DOPamine drip 400 MG/250 ML PREMIX 68.89 MG IV (01:13)
--- NOTE | 2024-11-17 03:30 | PC.NURSE ---
Physician notified that patient is more restless, having hallucinations and O2 saturations are 85%. Order received for Abg's.
[2024-11-17 03:49] LABS: ABG PCO2 55.8 mmHg (35-45); Alveolar-Arterial Oxygen Gradi 2.9 mmHg (5-10); Arterial Blood Gas Hematocrit 34.1 % (42-52); Base Excess ABG -6.7 mmol/L (-2.0-2.0); Blood Gas Operator Identificat JDB; Blood Gas Sample Site Brachial, right; Blood Gas Sample Type Arterial; Carboxyhemoglobin 0.9 %THgb (0.4-20.1); HCO3 ABG 21.7 mmol/L (22-26); HGB O2 Sat 87.2 % (95-100); Ionized Calcium Level - ABG 1.1 mmol/L (1.1-1.4); Methemoglobin 1.2 % (0.4-1.5); Oxygen Device NC; PO2 ABG 61.3 mmHg (80.0-100.0); Potassium Level - ABG 5.7 mmol/L (3.5-5.0); Total Hemoglobin 11.1 g/dL (14-18)
[2024-11-17] MEDS: DOPamine drip 400 MG/250 ML PREMIX 57.41 MG IV ×2 (04:42→08:38)
[2024-11-17] MEDS: morphine 4 mg/mL SDV 1 mL 2 MG IVP (05:16)
--- NOTE | 2024-11-17 05:28 | PC.NURSE ---
Physician notified of patient's continued restlessness / agitation. Patient now has skin tear on left elbow. Optifoam dressing placed. Order rec'd for MS 2mg IVP.
[2024-11-17 06:44] LABS: ABG PCO2 57.3 mmHg (35-45); Arterial Blood Gas Hematocrit 33.8 % (42-52); Base Excess ABG -5.8 mmol/L (-2.0-2.0); Blood Gas Allen Test Pos; Blood Gas Sample Type Arterial; Carboxyhemoglobin 0.7 %THgb (0.4-20.1); HCO3 ABG 22.5 mmol/L (22-26); HGB O2 Sat 96.9 % (95-100); Ionized Calcium Level - ABG 1.1 mmol/L (1.1-1.4); Methemoglobin 1.3 % (0.4-1.5); Oxygen Saturation ABG 98.9
[2024-11-17 06:45] LABS: Alveolar-Arterial Oxygen Gradi 20.7 mmHg (5-10); Blood Gas Operator Identificat JDB; Blood Gas Sample Site Radial, right; Oxygen Device BIPAP; PO2 FiO2 Ratio Arterial Blood 262
[2024-11-17 07:26] LABS: Troponin 5 6HR 111.6 ng/L (0-15)
[2024-11-17 07:27] LABS: Troponin 5 6HR Delta 62.4 ng/L (0-12)
[2024-11-17 08:19] LABS: Basophils % 0.2 %; Lymphocytes # 1.6 10^3/uL (0.8-4.8); Lymphocytes % 15.6 %; Mean Corpuscular HGB Conc 30.9 g/dL (30-55); Mean Corpuscular Hemoglobin 29.8 pg (27-33); Mean Corpuscular Volume 96.4 fl (82-101); Mean Platelet Volume 11.3 fL (7.4-10.4); Monocytes # 1.2 10^3/uL (0.2-0.9); Neutrophils # 7.22 10^3/uL (1.8-7.7); Neutrophils % 71.3 %; Nucleated Red Blood Cells % 0 %; Platelet Count 228 10^3/cmm (157-399); Red Blood Count 3.63 10^6/uL (3.85-5.65); Red Cell Distribution Width 13.6 % (12.1-15.1); White Blood Count 10.13 10^3/uL (3.29-11.43)
[2024-11-17 08:37] LABS: Alanine Aminotransferase 22 U/L (0-41); Albumin Level 3.6 g/dL (3.5-5.2); Alkaline Phosphatase 93 U/L (40-130); Anion Gap 22.9 (5-19); Aspartate Amino Transferase 17 U/L (0-40); Blood Urea Nitrogen 74 mg/dL (8-23); Calcium 8.2 mg/dL (8.5-10.5); Carbon Dioxide 22 mmol/L (22-29); Chloride 99 mmol/L (98-107); Glucose 231 mg/dL (65-115); Magnesium 1.7 mg/dL (1.7-2.3); Osmolality Calculated 315 mOsm/kg (285-295); Potassium 5.9 mmol/L (3.5-5.1); Sodium 138 mmol/L (136-145); Total Bilirubin 0.4 mg/dL (0.15-1.2); Total Protein 6.6 g/dL (6.6-8.7)
[2024-11-17] MEDS: insulin lispro 100 unit/1 mL SUBCUT ×2 (08:38→20:43)
[2024-11-17 08:40] LABS: Creatinine Clr Calc Pharmacy 13.2568
[2024-11-17 09:17] LABS: Glucose Point of Care 228 mg/dL (70-110)
[2024-11-17 09:21] LABS: ABG PCO2 58.7 mmHg (35-45); ABG PH Result 7.19 (7.35-7.45); Alveolar-Arterial Oxygen Gradi 11.5 mmHg (5-10); Arterial Blood Gas Hematocrit 33.9 % (42-52); Base Excess ABG -6.1 mmol/L (-2.0-2.0); Blood Gas Allen Test Pos; Blood Gas Operator Identificat GD; Blood Gas Sample Site Radial, right; Blood Gas Sample Type Arterial; Carboxyhemoglobin 0.9 %THgb (0.4-20.1); HCO3 ABG 22.5 mmol/L (22-26); HGB O2 Sat 88.3 % (95-100); Ionized Calcium Level - ABG 1.1 mmol/L (1.1-1.4); Methemoglobin 1.3 % (0.4-1.5); Oxygen Device BIPAP; Oxygen Saturation ABG 90.3; PO2 ABG 64.4 mmHg (80.0-100.0); PO2 FiO2 Ratio Arterial Blood 207; Potassium Level - ABG 5.6 mmol/L (3.5-5.0); Total Hemoglobin 11.1 g/dL (14-18)
[2024-11-17 09:35] LABS: Bilirubin Urine Negative (Negative); Blood Urine 3+ (Negative); Glucose Urine UA 3+ (Normal); Ketones Urine Trace (Negative); Leukocyte Esterase Urine Trace (Negative); Nitrate Urine Negative (Negative); Protein Urine 2+ (Negative); Specific Gravity, Urine 1.017 (1.005-1.030); Urine Appearance Cloudy (CLEAR); Urine Color Yellow (Yellow)
[2024-11-17 09:40] LABS: Bacteria Urine Trace /hpf; Hyaline Casts Urine 43.84 /lpf; RBC Urine >100 /hpf (0-2)
--- NOTE | 2024-11-17 09:49 | XRR_ITS ---
PROCEDURE INFORMATION: Exam: XR Chest Exam date and time: 11/17/2024 10:06 AM Age: 74 years old Clinical indication: Device placement; Ett placement (vent status); Additional info: Intubation TECHNIQUE: Imaging protocol: Radiologic exam of the chest. Views: 1 view. COMPARISON: CR (CHEST, ) 11/16/2024 4:52 PM FINDINGS: Tubes, catheters and devices: Patient has undergone placement of an ET tube situated proximally 5 cm above the corazon in adequate position. There is an NG tube coursing below the GE junction into the proximal portion of the stomach. Lungs: Visualized lung irizarry are aerated and clear. Pleural spaces: Unremarkable. No pleural effusion. No pneumothorax. Heart/Mediastinum: Cardiac silhouette is mildly enlarged, unchanged. Bones/joints: No acute bony abnormalities detected. XR/XR chest 1V portable [id number] IMPRESSION: 1. Interval placement of ET tube in satisfactory position. 2. NG tube appears to terminate a few cm below the GE junction in the proximal stomach. Consider advancing tube and additional 10 cm for more optimal placement.
[2024-11-17] MEDS: propofol 1,000 MG/100 ML INJ 3.68 MG IV (09:56)
[2024-11-17] MEDS: fentaNYL 1,000 MCG/100 ML BAG 2.5 MCG IV (09:56)
--- NOTE | 2024-11-17 10:00 | P.CONIM_ITS ---
Providers/Reason For Consult 2 Consulting Physician/Specialty*: tammi spencer md / telenephrology Reason for Consult*: AIDA, hyperkalemia Requesting Physician: Dr Sousa Attending Physician: Dimas Boudreaux Primary Care Provider: Adán Lino DO History of Present Illness History of Present Illness Roberta Rouse is a 74 year old male w/ past med hx of a fib, DM, HTN, BPH. Pt presented w/ weakness, lethargy, orthopnea, dyspnea. In ER he was found to have AIDA, k 5.3 and bradycardic to 30's w/ SBP of 90. He was started on a dopamine drip, given ivf. he was oon bipap. he has been oliguric. He was just intubated for hypercapneic resp acidosis. He remains bradycarduc. Review of Systems 2 Narrative: unable to obtain as intubated Medications/Allergies Home Medications Medication Instructions Recorded Confirmed Last Taken Type cetirizine 10 mg capsule (All Day 10 mg PO DAILY PRN allergies 02/15/23 11/17/24 Unknown History Allergy (cetirizine)) cholecalciferol (vitamin D3) 50 50 mcg PO DAILY 02/15/23 11/17/24 Unknown History mcg (2,000 unit) capsule diltiazem HCl 240 mg 240 mg PO DAILY 02/15/23 11/17/24 Unknown History capsule,extended release 24 hr fluoxetine 20 mg capsule 20 mg PO DAILY 02/15/23 11/17/24 Unknown History fluticasone furoate 50 1 inh inhalation BID 02/15/23 11/17/24 Unknown History mcg/actuation blister powder for inhalation furosemide 20 mg tablet 20 mg PO DAILY 02/15/23 11/17/24 Unknown History insulin lispro 100 unit/mL 5 unit SUBCUT BID 02/15/23 11/17/24 Unknown History subcutaneous solution (Humalog U-100 Insulin) mirtazapine 30 mg tablet 30 mg PO DAILY 02/15/23 11/17/24 Unknown History tamsulosin 0.4 mg capsule 0.4 mg PO DAILY 02/15/23 11/17/24 Unknown History fluticasone 250 mcg-salmeterol 50 1 inh inhalation BID #60 ea 03/30/23 11/17/24 Unknown Rx mcg/dose blistr powdr for inhalation (Wixela Inhub) empagliflozin 10 mg tablet 10 mg PO DAILY 12/13/23 11/17/24 Unknown History (Jardiance) calcitriol 0.25 mcg capsule See Rx Instructions .Route .COMPLEX 10/18/24 11/17/24 Unknown History insulin glargine-yfgn 100 unit/mL 85 unit SUBCUT DAILY 10/18/24 11/17/24 Unknown History (3 mL) subcutaneous pen lisinopril 10 mg tablet 10 mg PO DAILY 10/18/24 11/17/24 Unknown History albuterol sulfate 90 mcg/actuation 2 puff inhalation QID 11/17/24 11/17/24 Unknown History aerosol inhaler atorvastatin 40 mg tablet 40 mg PO QPM 11/17/24 11/17/24 Unknown History Allergies Allergy/AdvReac Type Severity Reaction Status Date / Time codeine Allergy Unknown rash Verified 10/18/24 11:35 Current Medications Generic Name Dose Route Start Last Admin Trade Name Freq PRN Reason Stop Dose Admin Enoxaparin Sodium 30 mg 11/16/24 19:45 11/16/24 20:11 Enoxaparin 30 Mg/0.3 Ml Syringe SUBCUT 30 mg Q24H COREY Administration Dopamine HCl/Dextrose 400 mg in 250 mls @ 22.963 mls/hr 11/16/24 17:15 11/17/24 08:38 Intropin Drip IV 12.5 mcg/kg/min CONT COREY 57.41 mls/hr Administration Protocol 5 MCG/KG/MIN Insulin Human Lispro 0 unit 11/16/24 21:00 11/17/24 08:38 Insulin Lispro 100 Unit/1 Ml SUBCUT 8 unit WM&BEDTIME COREY Administration Protocol PFSH Acute 2 PFSH: Medical History Chronic kidney disease Type 2 diabetes mellitus with diabetic neuropathy, unspecified Vitals/I&O/Wt Last Vital Signs Temp 97.0 F L 11/17/24 06:00 Pulse 45 L 11/17/24 07:40 Resp 19 H 11/17/24 06:00 BP 113/98 11/17/24 06:00 Pulse Ox 99 11/17/24 07:40 O2 Del Method BiPAP 11/17/24 04:00 O2 Flow Rate 2 11/16/24 16:36 FiO2 30 01/03/25 07:40 11/16/24 11/17/24 11/17/24 22:59 06:59 14:59 Intake Total 1243.413 / 1243.413 577.150 / 1820.563 144.669 / 144.669 Balance 1243.413 / 1243.413 577.150 / 1820.563 144.669 / 144.669 Weight last 48 hrs Weight 122.5 kg Weight 127.5 kg Weight 122.47 kg Physical Exam 2 Narrative: intubated, obese, dopamine bradycardic heent- nc/a lungs clear heart irreg + bradycardic abd soft, + bs ext no edema neuro sedated Urinary Catheter Management: Solomon: Cath Placed During This Visit: yes Urinary Catheter Date of Insertion: 11/17/24 Urinary Catheter Time of Insertion: 07:10 Data 11/17/24 08:00 11/17/24 08:00 Micro: Microbiology 11/16/24 17:20 Blood Culture - Preliminary Blood SPECIMEN COLLECTED 11/16/24 17:20 Blood Culture - Preliminary Blood SPECIMEN COLLECTED CT Abd/Pel: My impression: no hydronephrsois, chronic baldder wall thickening A&P Assessment and plan (1) Acute kidney injury superimposed on CKD: 74 year old male w/ past med hx of a fib, DM, HTN, BPH. Pt presented w/ weakness, lethargy, orthopnea, dyspnea. In ER he was found to have AIDA, k 5.3 and bradycardic to 30's w/ SBP of 90. He was started on a dopamine drip, given ivf. 1. resp acidosis and metabolic acidosis from aida- aG of 17 -lactate only 1.7- inc AGMA from AIDA -await urine studies -glucose 231- unlikely DKA 2. AIDA- no hydronephrosis. send urine studies, ur electrolytes, ur microalbumin, ur pr, cr check ck -meds and not eating are a risk for AIDA 3. CKD stage 3- based on cr 1.3 in oct 2024- try to get old labs- risks are obesity, htn, dm 4. bradycardia- unlikely from hyperkalemia- as k was 5.3 on admission plan- ivf -as he is oliguric, bradycardic- discussed w/ Dr Sousa- will attempt HD to see if helps clear meds and can help w/ bradycardia seen and examined with the aide of a nurse using A/V equipment I called his son Ashish Rouse -[phone]- I left a message Plan as above Consult Attestations 2 Medical Necessity Statement: hyperkalemia, aida, met acidosis Time Spent in Patient Care: Greater than 35 minutes (>than 50% of time spent in counselling and/or direct pt care on unit) . Coding Level of Care Code Acute Code for Chg Fwd Diagnoses Acute kidney injury superimposed on CKD N17.9; N18.9
[2024-11-17 10:11] LABS: Add Urine Culture? Yes
[2024-11-17] MEDS: pantoprazole 40 mg SDV IVP (10:25)
[2024-11-17] MEDS: etomidate 2 mg/mL INJ SDV 10 mL 25 MG IVP (10:25)
[2024-11-17] MEDS: lactated ringers 500 ML 999 ML IV (10:26)
[2024-11-17] MEDS: rocuronium 10 mg/mL INJ 5mL 75 MG IVP (10:26)
[2024-11-17 10:50] LABS: Hepatitis B Surface AB < 3.5 (11.5-1000); Hepatitis B Surface Antigen Non-Reactive (Nonreactive); Hepatitis C Virus Antibody Non-Reactive (Nonreactive)
[2024-11-17 10:56] LABS: Creatine Phosphokinase 242 U/L (39-308); Uric Acid 8.9 mg/dL (3.4-7.0)
[2024-11-17 11:02] LABS: Complement C3 145 mg/dL (90-180)
--- NOTE | 2024-11-17 11:19 | P.CONIM_ITS ---
Providers/Reason For Consult 2 Consulting Physician/Specialty*: Dr. Markham general surgery Reason for Consult*: Dialysis catheter placement Attending Physician: Dimas Boudreaux Primary Care Provider: Adán Lino DO History of Present Illness History of Present Illness Roberta Rouse is a 74 year old male whom surgery got consulted for temporary dialysis placement. Patient is intubated and fluid overloaded. Nephrology recommended dialysis. Discussed with son who agreed to proceed with dialysis catheter placement. Medications/Allergies Home Medications Medication Instructions Recorded Confirmed Last Taken Type cetirizine 10 mg capsule (All Day 10 mg PO DAILY PRN allergies 02/15/23 11/17/24 Unknown History Allergy (cetirizine)) cholecalciferol (vitamin D3) 50 50 mcg PO DAILY 02/15/23 11/17/24 Unknown History mcg (2,000 unit) capsule diltiazem HCl 240 mg 240 mg PO DAILY 02/15/23 11/17/24 Unknown History capsule,extended release 24 hr fluoxetine 20 mg capsule 20 mg PO DAILY 02/15/23 11/17/24 Unknown History fluticasone furoate 50 1 inh inhalation BID 02/15/23 11/17/24 Unknown History mcg/actuation blister powder for inhalation furosemide 20 mg tablet 20 mg PO DAILY 02/15/23 11/17/24 Unknown History insulin lispro 100 unit/mL 5 unit SUBCUT BID 02/15/23 11/17/24 Unknown History subcutaneous solution (Humalog U-100 Insulin) mirtazapine 30 mg tablet 30 mg PO DAILY 02/15/23 11/17/24 Unknown History tamsulosin 0.4 mg capsule 0.4 mg PO DAILY 02/15/23 11/17/24 Unknown History fluticasone 250 mcg-salmeterol 50 1 inh inhalation BID #60 ea 03/30/23 11/17/24 Unknown Rx mcg/dose blistr powdr for inhalation (Wixela Inhub) empagliflozin 10 mg tablet 10 mg PO DAILY 12/13/23 11/17/24 Unknown History (Jardiance) calcitriol 0.25 mcg capsule See Rx Instructions .Route .COMPLEX 10/18/24 11/17/24 Unknown History insulin glargine-yfgn 100 unit/mL 85 unit SUBCUT DAILY 10/18/24 11/17/24 Unknown History (3 mL) subcutaneous pen lisinopril 10 mg tablet 10 mg PO DAILY 10/18/24 11/17/24 Unknown History albuterol sulfate 90 mcg/actuation 2 puff inhalation QID 11/17/24 11/17/24 Unknown History aerosol inhaler atorvastatin 40 mg tablet 40 mg PO QPM 11/17/24 11/17/24 Unknown History Allergies Allergy/AdvReac Type Severity Reaction Status Date / Time codeine Allergy Unknown rash Verified 10/18/24 11:35 Current Medications Generic Name Dose Route Start Last Admin Trade Name Delia PRN Reason Stop Dose Admin Enoxaparin Sodium 30 mg 11/16/24 19:45 11/16/24 20:11 Enoxaparin 30 Mg/0.3 Ml Syringe SUBCUT 30 mg Q24H COREY Administration Dopamine HCl/Dextrose 400 mg in 250 mls @ 22.963 mls/hr 11/16/24 17:15 11/17/24 08:38 Intropin Drip IV 12.5 mcg/kg/min CONT COREY 57.41 mls/hr Administration Protocol 5 MCG/KG/MIN Propofol 1,000 mg in 100 mls @ 0 mls/hr 11/17/24 09:45 11/17/24 10:32 Diprivan IV 10 mcg/kg/min .Q0M COREY 7.35 mls/hr Titration Protocol Per Protocol Fentanyl 1,000 mcg in 100 mls @ 0 mls/hr 11/17/24 09:45 11/17/24 10:32 Sublimaze IV 50 mcg/hr .Q0M COREY 5 mls/hr Titration Protocol Per Protocol Insulin Glargine 40 unit 11/17/24 09:00 11/17/24 10:20 Insulin Glargine 100 Units/1 Ml SUBCUT Not Given DAILY COREY Insulin Human Lispro 0 unit 11/16/24 21:00 11/17/24 08:38 Insulin Lispro 100 Unit/1 Ml SUBCUT 8 unit WM&BEDTIME COREY Administration Protocol Pantoprazole Sodium 40 mg 11/17/24 09:50 11/17/24 10:25 Pantoprazole 40 Mg Sdv IVP 40 mg DAILY COREY Administration Tamsulosin HCl 0.4 mg 11/17/24 09:00 11/17/24 10:21 Tamsulosin 0.4 Mg Capsule PO Not Given DAILY COREY PFSH Acute 2 PFSH: Medical History Chronic kidney disease Type 2 diabetes mellitus with diabetic neuropathy, unspecified Vitals/I&O/Wt Last Vital Signs Temp 97.0 F L 11/17/24 06:00 Pulse 45 L 11/17/24 07:40 Resp 16 11/17/24 10:15 BP 113/98 11/17/24 06:00 Pulse Ox 100 11/17/24 10:15 O2 Del Method BiPAP 11/17/24 04:00 O2 Flow Rate 2 11/16/24 16:36 FiO2 100 11/17/24 10:15 11/16/24 11/17/24 11/17/24 22:59 06:59 14:59 Intake Total 1243.413 / 1243.413 577.150 / 1820.563 148.377 / 148.377 Balance 1243.413 / 1243.413 577.150 / 1820.563 148.377 / 148.377 Weight last 48 hrs Weight 270 lb 1.06 oz Weight 281 lb 1.43 oz Weight 270 lb Physical Exam 2 Narrative: On vent Heart: bradycardic Abdomen: Soft, nontender, distended Urinary Catheter Management: Solomon: Cath Placed During This Visit: yes Urinary Catheter Date of Insertion: 11/17/24 Urinary Catheter Time of Insertion: 07:10 Data 11/17/24 08:00 11/17/24 08:00 Micro: Microbiology 11/16/24 17:20 Blood Culture - Preliminary Blood SPECIMEN COLLECTED 11/16/24 17:20 Blood Culture - Preliminary Blood SPECIMEN COLLECTED A&P Assessment and plan (1) Acute renal failure: Plan 74-year-old male whom surgery was consulted for placement of temporary dialysis catheter. I have discussed the risks and benefits of temporary dialysis catheter placement with the son and he agrees to proceed. Patient is intubated and therefore cannot consent for himself. Coding Level of Care Code 13637 Diagnoses Acute renal failure N17.9 Time Spent (min) 30
--- NOTE | 2024-11-17 11:21 | PM.ACPR ---
Procedure/Consent Time out: Time Out Performed: Yes Consent: Consent for Procedure: Consent obtained from other (indicate) (son) Procedure Narrative: Left groin was prepped and draped in the usual sterile fashion. The left common femoral vein was visualized using ultrasound. A finder needle was used to gain access to the left common femoral vein. I then threaded a guidewire through the finder needle. I confirmed the location of the guidewire using ultrasound (left common femoral vein). I then proceeded to make a small cut next of the guidewire. I serially dilated the tract using 2 dilators. I then placed a 20 cm temporary dialysis catheter using the Seldinger technique. I was able to draw from both channels easily and I flushed easily as well. Catheter was secured with sutures and a sterile dressing was applied. Catheter is ready for immediate use. Acute Procedures Epistaxis Control: Time out performed: Yes
[2024-11-17 11:24] LABS: Potassium, Radom Urine 43 mmol/L; Urine Creatinine 151 mg/dL (39-259); Urine Random Chloride 21 mmol/L; Urine Random Sodium 27 mmol/L
[2024-11-17 11:25] LABS: Creatinine Urine, Random 148 mg/dL (39-259)
[2024-11-17 11:41] LABS: Microalbum Creatinine Ratio Ur 574 mg/dL (0-20); Microalbumin Random Urine 85 ug/dL (0-20); Urine Protein Random 144 mg/dL
[2024-11-17 11:53] LABS: ABG PCO2 51.7 mmHg (35-45); ABG PH Result 7.26 (7.35-7.45); Alveolar-Arterial Oxygen Gradi 45.7 mmHg (5-10); Arterial Blood Gas Hematocrit 35.9 % (42-52); Base Excess ABG -4.1 mmol/L (-2.0-2.0); Blood Gas Operator Identificat GD; Blood Gas Sample Site Brachial, right; Blood Gas Sample Type Arterial; Blood Gas Tidal Volume 0.55; Carboxyhemoglobin 0.6 %THgb (0.4-20.1); HCO3 ABG 23.3 mmol/L (22-26); HGB O2 Sat 98.3 % (95-100); Ionized Calcium Level - ABG 1.1 mmol/L (1.1-1.4); Methemoglobin 1.2 % (0.4-1.5); Oxygen Device VENT; Oxygen Saturation ABG > 99.1; PO2 FiO2 Ratio Arterial Blood 302; Potassium Level - ABG 5.7 mmol/L (3.5-5.0); Total Hemoglobin 11.7 g/dL (14-18)
[2024-11-17] MEDS: lactated ringers 1,000 ML 100 ML IV (11:53)
[2024-11-17] MEDS: ipratropium-albuterol 3 mL Neb INHALATION ×4 (12:01→23:42)
[2024-11-17] MEDS: heparin, porcine 1,000 unit/mL INJ 10 mL 2000 UNIT HE (12:20)
[2024-11-17 13:01] LABS: Glucose Point of Care 140 mg/dL (70-110)
[2024-11-17] MEDS: heparin, porcine 1,000 unit/mL INJ 10 mL 10000 UNIT INTRACATH (13:04)
[2024-11-17] MEDS: DOPamine drip 400 MG/250 ML PREMIX 22.96 MG IV ×2 (13:39→19:23)
--- NOTE | 2024-11-17 13:48 | PC.NURSE ---
699 -- Received report from PAVITHRA Reyes. 709 -- 16 F tracey placed as ordered without difficulty. 744 -- Notified Dr. Boudreaux of critical troponin level. Patient not responsive with tremors and just kicking around in the bed with no purposeful movement. 0800 -- 18 G IV started to right upper forearm by PAVITHRA Russell via ultrasound. 844 -- Creatinine 6.5 and patient has only produced approx 225mL urine total over night and this morning. Notified Dr. Boudreaux of these findings. Dr. Boudreaux consulted Dr. Rowan for nephrology. 912 -- Dr. Boudreaux to bedside, spoke with eLsly Perkins, sister in law. Called Ashish Rouse, patients son and updated on plan of care and patient condition. 924 -- Dr. Laguna to bedside via telanephrology tablet, patient assessed. 944 -- 25mg Etomidate and 75mg Rocuronium given IVP pre intubation. Dr. Boudreaux and RT x 2 at bedside. Intubated with 8.[address] De Anda without difficulty. Placement verified via, auscultation over epigastric region, bilat lungs, capnography, and chest x-ray. 55 -- NG tube placed to Right nare w/o difficulty. 1005 -- 20 G IV started to right wrist. 1044 -- Dr. Markham to bedside, patients son called and consent obtained to place temporary dialysis cath, consent obtained. Time out performed, HD cath placed to left femoral vein w/o difficulty. Notified Delmy that patient has a line and is ready for dialysis. 1141 -- HD started 1400 -- HD complete, tolerated well.
--- NOTE | 2024-11-17 14:39 | PM.ACPR ---
Acute Procedures Intubation: Sedative: etomidate Mg given: 25 Paralytic: rocuronium Mg given: 75 Laryngoscope: Edmund ET tube size: 8 Tube secured depth (cm): 23 Tube secured location: teeth Tube placement confirmation: visualized tube passing through cords, equal breath sounds bilaterally, no breath sounds over epigastrium and color change noted Patient tolerated procedure: well and no complications
--- NOTE | 2024-11-17 14:42 | P.PN_ITS ---
Subjective 2 Subjective: This morning very confused, restless, swinging arms, legs, moving about in bed. Vitals/I&O/Wt Last Vital Signs Temp 97.8 F 11/17/24 12:00 Pulse 37 L 11/17/24 14:00 Resp 16 11/17/24 14:21 BP 151/59 11/17/24 13:15 Pulse Ox 94 11/17/24 14:21 O2 Del Method Mechanical Ventilation 11/17/24 12:00 O2 Flow Rate 2 11/16/24 16:36 FiO2 50 11/17/24 14:21 11/16/24 11/17/24 11/17/24 22:59 06:59 14:59 Intake Total 1243.413 / 1243.413 577.150 / 1820.563 929.396 / 929.396 Balance 1243.413 / 1243.413 577.150 / 1820.563 929.396 / 929.396 Weight last 48 hrs Weight 122.5 kg Weight 127.5 kg Weight 122.47 kg Physical Exam 2 Const: COMMON NORMALS: negative for patient oriented x3 and negative for alert GENERAL APPEARANCE: cooperative ORIENTATION/CONSCIOUSNESS: Yes confused; not awake HENMT: COMMON NORMALS: oropharynx normal Neck/C-Spine: COMMON NORMALS: no JVD Resp: COMMON NORMALS: normal respiratory effort and clear to auscultation bilaterally AUSCULTATION: clear to auscultation bilaterally Cardio: COMMON NORMALS: no JVD, regular rhythm, S1 normal heart sound present, S2 normal heart sound present and No murmurs present (Cardio) RHYTHM: regular rhythm HEART SOUNDS: S1 normal heart sound present and S2 normal heart sound present GI: COMMON NORMALS: Normal to inspection, nondistended, normoactive bowel sounds present, Soft to palpation and non-tender PALPATION: Yes Soft to palpation Extremity: COMMON NORMALS: no joint enlargement OTHER: Bilateral chronic stasis dermatitis. Trace edema. Neuro: COMMON NORMALS: moves all extremities; negative for patient oriented x3 SENSORIUM/ORIENTATION: No alert Skin: COMMON NORMALS: no rashes or lesions noted GENERAL SKIN EXAM: no rashes or lesions noted Urinary Catheter Management: Solomon: Cath Placed During This Visit: yes Urinary Catheter Date of Insertion: 11/17/24 Urinary Catheter Time of Insertion: 07:10 Data 11/17/24 08:00 11/17/24 08:00 Micro: Microbiology 11/16/24 17:20 Blood Culture - Preliminary Blood SPECIMEN COLLECTED 11/16/24 17:20 Blood Culture - Preliminary Blood SPECIMEN COLLECTED A&P Assessment and plan (1) Acute renal failure: Worsened renal function. Oliguria, overnight produced 200 mL of urine. This morning on review of BUN, creatinine, bicarb, anion gap, potassium, with metabolic acidosis, hyperkalemia. Progressing to acute renal failure. BUN up to 74, creatinine up 6.5. Potassium up to 5.9. ABG was decompensated respiratory failure on review. Discussed with nursing, discussed with respite therapist, discussed with health manager, discussed with the surgeon for consultation for placement of dialysis catheter. Underwent dialysis with plasma exchange earlier today. So far produced about [address] abdomen pelvis without obstructive uropathy. Continue Flomax for BPH. Hold lisinopril, Lasix. Hold statin, reviewed CK. Continue hemodynamic support (2) Respiratory failure: Acute respiratory failure this morning, on review of ABG worsening respiratory on top of metabolic acidosis despite adjustments from BiPAP to AVAPS. Acute encephalopathy, restless in bed. Discussed his condition including respiratory and renal failure with his [id number] as well as his son. As per discussion with his qiebsd-sh-yns, she defers to his son is the next of kin and decision maker. Son's phone number is [phone]. After discussion of risks, benefits, alternatives son is agreeable for intubation, mechanical ventilatory support. Tolerated intubation well. Chest x-ray ordered, reviewed. On reassessment maintaining oxygenation, vitals. Restlessness resolved with sedation with propofol, fentanyl. Later on in the afternoon/early evening with rising pressures, with suspected bronchospasm. Requested additional DuoNebs. Start Solu-Medrol. Also some rise in plateau pressure from 19-29. Stopped LR. Requested repeat chest x-ray. In case of congestive changes on chest x-ray, may benefit from additional dialysis with volume removal. (3) Acute encephalopathy: Acute metabolic encephalopathy with acute renal failure, worsening respiratory cytosis with acute hypercapnic respiratory failure. Treat underlying conditions as above. Improved with sedation after intubation with peripheral, fentanyl. Patient able to provide his own consents. Initially discussed condition with his [id number], but as his condition is worsening, requiring further measures, as per discussion with his [id number]-lde is okay to contact his son to home she defers decision-making. (4) Diastolic congestive heart failure: Continue hemodynamic support. Continue dopamine infusion. Underwent dialysis, for the above reasons. Without improvement in bradycardia as Cardizem is not dialyzable. Continue supportive measures. In case of developing congestive changes/fluid overload may require additional dialysis with volume removal. Acutely decompensated suspected diastolic congestive heart failure secondary to severe bradycardia also with hypotension, monitor for development of cardiogenic shock. Complicated by acute kidney injury. Monitor for progression to acute renal failure. Started on dobutamine drip, monitor heart rates. Hold diltiazem. Support hemodynamics, monitor oxygenation. Monitor for risk of tachycardia, hypertension with dopamine drip. (5) Bradycardia: Continue to hold diltiazem. Continue dopamine infusion. Monitor for risk of tachycardia, hypertension. Severe bradycardia, heart rate down into the 30s. With hypotension. Complicated by acute kidney injury. On diltiazem at home. Hold diltiazem. Started on dopamine. Continue infusion in ICU. Hold lisinopril with mild hyperkalemia.Supplements hypomagnesemia. Reviewed vitals, CBC, CMP, magnesium, TSH, troponin, NT proBNP, chest x-ray, CT abdomen pelvis, EKG, on my interpretation atrial flutter with slow ventricular response, right bundle branch block, pending official read. Reviewed ER provider note, discussed with ER provider. (6) Hypotension: Monitor for risk of development of cardiogenic shock. Continue dopamine in the ICU. (7) Hypomagnesemia: Supplement additional magnesium. Recheck follow-up with (8) Anemia: Normocytic anemia, hemoglobin 10.3. Not on anticoagulation. Repeat CBC. (9) BPH (benign prostatic hyperplasia): Continue Flomax Attestations 2 Medical Necessity Statement*: Continue admission for assessment management of acute renal failure, acute respiratory failure requiring ventilatory support, acute encephalopathy requiring intravenous sedation, cardiac dysfunction with severe bradycardia, hypotension requiring hemodynamic support. Coding Level of Care Code Critical Care >/= 30 minutes Critical care time (in minutes): 85 The high probability of a clinically significant, sudden or life threatening deterioration, as referenced in this documentation, required my full and direct attention, intervention and personal management. The critical care time shown is in addition to time spent performing any reported separately billable procedures and includes the following: [x] Data and vital sign review and interpretation [x ] Patient assessment, examination and intervention [x] Medication orders and management [x] Patient/Family updates as able [x] Care Coordination and Documentation. Diagnoses Acute renal failure N17.9 Respiratory failure J96.90 Acute encephalopathy G93.40 Diastolic congestive heart failure I50.30 Bradycardia R00.1 Hypotension I95.9 Hypomagnesemia E83.42 Anemia D64.9 BPH (benign prostatic hyperplasia) N40.0
[2024-11-17] MEDS: propofol 1,000 MG/100 ML INJ 18.38 MG IV (16:02)
[2024-11-17 16:29] LABS: Base Excess ABG -3.8 mmol/L (-2.0-2.0); Blood Gas Operator Identificat GD; Blood Gas Sample Site Brachial, right; Blood Gas Sample Type Arterial; Ionized Calcium Level - ABG 1.1 mmol/L (1.1-1.4); Oxygen Device VENT; Oxygen Saturation ABG 93.7; Potassium Level - ABG 4.7 mmol/L (3.5-5.0)
[2024-11-17 16:31] LABS: ABG PCO2 46.6 mmHg (35-45); Alveolar-Arterial Oxygen Gradi 30.3 mmHg (5-10); Arterial Blood Gas Hematocrit 34.2 % (42-52); Carboxyhemoglobin 0.8 %THgb (0.4-20.1); HCO3 ABG 22.7 mmol/L (22-26); HGB O2 Sat 92.6 % (95-100); Methemoglobin 0.3 % (0.4-1.5); PO2 ABG 70.9 mmHg (80.0-100.0); PO2 FiO2 Ratio Arterial Blood 141; Total Hemoglobin 11.2 g/dL (14-18)
[2024-11-17] MEDS: fentaNYL 1,000 MCG/100 ML BAG 10 MCG IV (18:20)
[2024-11-17] MEDS: albuterol 2.5 mg/3 mL Neb INHALATION (18:21)
--- NOTE | 2024-11-17 18:24 | XRR_ITS ---
PROCEDURE INFORMATION: Exam: XR Chest Exam date and time: 11/17/2024 6:41 PM Age: 74 years old Clinical indication: Patient HX: Increased vent requirement; Og tube adjustment TECHNIQUE: Imaging protocol: Radiologic exam of the chest. Views: 1 view. COMPARISON: CR XR chest 1V portable [id number] 11/17/2024 10:06 AM FINDINGS: Limitations: Evaluation limited by patient body habitus. Tubes, catheters and devices: Tip of the endotracheal tube projects at least 3.5 cm above the corazon. Enteric tube terminates appropriately in the stomach. Multiple external electrodes are overlying the chest. Lungs: Unchanged minimal bibasilar atelectasis. Pleural spaces: Unremarkable. No pleural effusion. No pneumothorax. Heart/Mediastinum: Cardiomediastinal silhouette is stable. Bones/joints: No acute osseous abnormality. XR/XR chest 1V portable [id number] IMPRESSION: 1. Enteric tube terminates appropriately in the stomach. 2. Unchanged minimal bibasilar atelectasis. 3. Tip of the endotracheal tube projects at least 3.5 cm above the corazon.
[2024-11-17 18:29] LABS: Glucose Point of Care 155 mg/dL (70-110)
[2024-11-17] MEDS: methylPREDNISolone sod succ 125 mg/2 mL INJ 60 MG IVP (18:33)
--- NOTE | 2024-11-17 18:35 | PC.NURSE ---
patient with increased peak pressures and increased plateau pressures on vent despite suctioning, repositioning, breathing treatments, and sedation. Notified Dr. Boudreaux. Order given to stop LR, holf fentanyl, duoneb treatments, and steroids ordered. Dr. Hagan to bedside.
[2024-11-17] MEDS: propofol 1,000 MG/100 ML INJ 25.73 MG IV (20:08)
[2024-11-17] MEDS: enoxaparin 30 mg/0.3 mL Syringe SUBCUT (20:09)
[2024-11-17 20:44] LABS: Glucose Point of Care 162 mg/dL (70-110)
[2024-11-17] MEDS: magnesium sulfate premix 1 GM/100 ML PIGGYBACK IV (22:00)
[2024-11-18] VITALS (85 sets, daily range): BP systolic 88–213; BP diastolic 39–104; PULSE 35–71; RESP 16; TEMP 36.1–36.7; O2SAT 90–98
[2024-11-18] MEDS: propofol 1,000 MG/100 ML INJ 25.73 MG IV (00:23)
[2024-11-18] MEDS: methylPREDNISolone sod succ 125 mg/2 mL INJ 60 MG IVP ×4 (00:45→17:11)
[2024-11-18] MEDS: DOPamine drip 400 MG/250 ML PREMIX 22.96 MG IV ×2 (02:40→14:18)
[2024-11-18] MEDS: hyDRALAzine 20 mg/mL INJ 1 mL 10 MG IVP (03:08)
[2024-11-18] MEDS: ipratropium-albuterol 3 mL Neb INHALATION ×6 (03:48→23:09)
[2024-11-18] MEDS: propofol 1,000 MG/100 ML INJ 22.05 MG IV ×5 (05:00→20:59)
[2024-11-18 05:16] LABS: Basophils % 0.1 %; Hematocrit 34.2 % (37-53); Lymphocytes # 0.2 10^3/uL (0.8-4.8); Lymphocytes % 2.8 %; Mean Corpuscular HGB Conc 31.9 g/dL (30-55); Mean Corpuscular Hemoglobin 29.5 pg (27-33); Mean Corpuscular Volume 92.4 fl (82-101); Mean Platelet Volume 11.2 fL (7.4-10.4); Monocytes # 0.1 10^3/uL (0.2-0.9); Monocytes % 1.2 %; Neutrophils # 8.22 10^3/uL (1.8-7.7); Nucleated Red Blood Cells % 0 %; Platelet Count 204 10^3/cmm (157-399); Red Cell Distribution Width 13.3 % (12.1-15.1); White Blood Count 8.65 10^3/uL (3.29-11.43)
[2024-11-18 05:48] LABS: Parathyroid Hormone 301.2 pg/mL (15-65)
[2024-11-18 05:50] LABS: Calcium 8.4 mg/dL (8.5-10.5)
[2024-11-18 06:06] LABS: 25 Hydroxy Vitamin D 35 ng/mL (30-100); Alanine Aminotransferase 22 U/L (0-41); Albumin Level 3.3 g/dL (3.5-5.2); Alkaline Phosphatase 86 U/L (40-130); Aspartate Amino Transferase 17 U/L (0-40); Blood Urea Nitrogen 57 mg/dL (8-23); Calcium 8.5 mg/dL (8.5-10.5); Carbon Dioxide 19 mmol/L (22-29); Chloride 98 mmol/L (98-107); Creatinine Clr Calc Pharmacy 11.6153; Ferritin 272 ng/mL (30-400); Globulin 3.1 g/dL (1.3-4.6); Glucose 275 mg/dL (65-115); Iron 26 ug/dL (59-158); Magnesium 1.8 mg/dL (1.7-2.3); Osmolality Calculated 304 mOsm/kg (285-295); Percent Saturation 10.1 % (20-50); Phosphorus 5.2 mg/dL (2.5-4.5); Sodium 134 mmol/L (136-145); Total Bilirubin 0.4 mg/dL (0.15-1.2); Total Iron Binding Capacity 255 mcg/dl; Total Protein 6.4 g/dL (6.6-8.7); Unsaturated Iron Binding 229 ug/dL (112-347)
[2024-11-18 06:07] LABS: Anion Gap 22.2 (5-19); Potassium 5.2 mmol/L (3.5-5.1)
[2024-11-18 07:10] LABS: Glucose Point of Care 258 mg/dL (70-110)
[2024-11-18] MEDS: fentaNYL 1,000 MCG/100 ML BAG 10 MCG IV ×3 (07:50→17:47)
[2024-11-18] MEDS: pantoprazole 40 mg SDV IVP (08:11)
[2024-11-18] MEDS: insulin lispro 100 unit/1 mL SUBCUT ×4 (08:12→20:49)
[2024-11-18] MEDS: tamsulosin 0.4 mg Capsule PO (09:13)
[2024-11-18] MEDS: insulin glargine 100 units/1 mL 10 UNIT SUBCUT (10:01)
[2024-11-18] MEDS: FUROsemide 10 mg/mL SDV 10mL 60 MG IVP ×2 (10:08→21:00)
--- NOTE | 2024-11-18 10:19 | P.PN_ITS ---
Subjective 2 Subjective: seen intubated in icu. Hr 48-52. can not obtain a ROS Medications: Reviewed: Yes Medication Review Details: Current Medications Acetaminophen (Acetaminophen 325 Mg Tablet) 650 mg PO Q6H PRN PRN Reason: Mild/Mod Pain Or Temp >/= 101 Albuterol Sulfate (Albuterol 2.5 Mg/3 Ml Neb) 2.5 mg INHALATION Q6H.RESP PRN PRN Reason: SHORTNESS OF BREATH Last Admin: 11/17/24 18:21 Dose: 2.5 mg Albuterol/Ipratropium (Ipratropium-Albuterol 3 Ml Neb) 3 ml INHALATION Q4H.RESPIRATORY COREY Last Admin: 11/18/24 08:16 Dose: 3 ml Enoxaparin Sodium (Enoxaparin 30 Mg/0.3 Ml Syringe) 30 mg SUBCUT Q24H C[facility] Last Admin: 11/17/24 20:09 Dose: 30 mg Furosemide (Furosemide 10 Mg/Ml Sdv 10ml) 60 mg IVP Q12H C[facility] Last Admin: 11/18/24 10:08 Dose: 60 mg Glucagon (Glucagon 1 Mg/Ml Kit 1 Ml) 1 mg IM ONCE PRN; Protocol PRN Reason: Adult Acute Hypoglycemia Nursing Prot. Dopamine HCl/Dextrose (Intropin Drip) 400 mg in 250 mls @ 22.963 mls/hr IV CONT C[facility]; Protocol Last Admin: 11/18/24 02:40 Dose: 5 mcg/kg/min, 22.96 mls/hr Dextrose (D5w) 500 mls @ 0 mls/hr IV ONCE PRN; Protocol PRN Reason: Adult Acute Hypoglycemia Prot Dextrose (D10w) 125 mls @ 750 mls/hr IV PRN PRN; Protocol PRN Reason: Adult Acute Hypoglycemia Nursing Protocol Dextrose (D10w) 250 mls @ 1,000 mls/hr IV PRN PRN; Protocol PRN Reason: Adult Acute Hypoglycemia Nursing Protocol Propofol (Diprivan) 1,000 mg in 100 mls @ 0 mls/hr IV .Q0M [facility]; Protocol Last Admin: 11/18/24 08:10 Dose: 30 mcg/kg/min, 22.05 mls/hr Fentanyl (Sublimaze) 1,000 mcg in 100 mls @ 0 mls/hr IV .Q0M [facility]; Protocol Last Admin: 11/18/24 08:11 Dose: 100 mcg/hr, 10 mls/hr Albumin Human (Albumin) 12.5 gm in 50 mls @ 60 mls/hr IV PRN PRN PRN Reason: Hypotension and/or symptomatic Insulin Glargine (Insulin Glargine 100 Units/1 Ml) 10 unit SUBCUT DAILY [facility] Last Admin: 11/18/24 10:01 Dose: 10 unit Insulin Human Lispro (Insulin Lispro 100 Unit/1 Ml) 0 unit SUBCUT WM&BEDTIME C[facility]; Protocol Last Admin: 11/18/24 08:12 Dose: 8 unit Methylprednisolone Sodium Succinate (Methylprednisolone Sod Succ 125 Mg/2 Ml Inj) 60 mg IVP Q6H C[facility] Last Admin: 11/18/24 06:42 Dose: 60 mg Ondansetron HCl (Ondansetron 2 Mg/Ml Sdv 2 Ml) 4 mg IVP Q8H PRN PRN Reason: vomiting, or N/V if npo Pantoprazole Sodium (Pantoprazole 40 Mg Sdv) 40 mg IVP DAILY [facility] Last Admin: 11/18/24 08:11 Dose: 40 mg Tamsulosin HCl (Tamsulosin 0.4 Mg Capsule) 0.4 mg PO DAILY [facility] Last Admin: 11/18/24 09:13 Dose: 0.4 mg Vitals/I&O/Wt Last Vital Signs Temp 98.1 F 11/18/24 04:00 Pulse 53 L 11/18/24 09:30 Resp 16 11/18/24 08:17 BP 188/71 11/18/24 09:30 Pulse Ox 96 11/18/24 09:30 O2 Del Method Mechanical Ventilation 11/18/24 08:17 O2 Flow Rate 50 11/18/24 02:00 FiO2 50 11/18/24 08:17 11/17/24 11/18/24 11/18/24 22:59 06:59 14:59 Intake Total 985.914 / 1962.840 510.599 / 2473.439 93.325 / 93.325 Output Total 1597 / 1597 500 / 2097 Balance -611.086 / 365.840 10.599 / 376.439 93.325 / 93.325 Weight last 48 hrs Weight 72.892 kg Weight 118 kg Weight 122.5 kg Weight 127.5 kg Weight 122.47 kg Physical Exam 2 Narrative: intubated, obese, dopamine bradycardic heent- nc/a lungs clear heart irreg + bradycardic abd soft, + bs ext no edema neuro sedated Urinary Catheter Management: Solomon: Cath Placed During This Visit: yes Reason for Continuing Indwelling Catheter: Accurate Measurement of Urinary Output in Critically Ill Patients Urinary Catheter Date of Insertion: 11/17/24 Urinary Catheter Time of Insertion: 07:10 Data 11/18/24 04:52 11/18/24 04:52 Micro: Microbiology 11/16/24 17:20 Blood Culture - Preliminary Blood NEGATIVE TO DATE 11/16/24 17:20 Blood Culture - Preliminary Blood NEGATIVE TO DATE 11/17/24 10:03 Gram Stain - Final Sputum - Endotracheal Tube Aspirate A&P Assessment and plan (1) Acute kidney injury superimposed on CKD: 74 year old male w/ past med hx of a fib, DM, HTN, BPH. Pt presented w/ weakness, lethargy, orthopnea, dyspnea. In ER he was found to have AIDA, k 5.3 and bradycardic to 30's w/ SBP of 90. He was started on a dopamine drip, given ivf. 1. bradycardia- would consult cardiology. k is now 5.2- should not cause arrythmia 2. AIDA- no hydronephrosis. low ur na - can be cardio-renal syndrome -ur microalb/ cr 574 -u/a cloudy, 2+ protein, 3+ glu, 3+ blood, >100 rbc, 11-20 wbc -normal complements hep negative check anca, abti-gbm studies, ur electrolytes, ur microalbumin, ur pr, cr check ck -meds and not eating are a risk for AIDA -give lasix and monitor for renal recovery 3. CKD stage 3- based on cr 1.3 in oct 2024- try to get old labs- risks are obesity, htn, dm pth 301- repeat in 4 weeks 4. bradycardia- unlikely from hyperkalemia- as k was 5.3 on admission 5. anemia- iv iron plan- lasix monitor uop and labs seen and examined with the aide of a nurse using A/V equipment I called his son Ashish Rouse -[phone]- he consulted to dialysis yesterday Plan as above Attestations 2 Medical Necessity Statement*: VDRF, aida, bradycardia Time Spent in Patient Care: 16 - 35 minutes (>than 50% of time sp ent in counselling and/or direct pt care on unit) . Coding Level of Care Code Acute Code for Chg Fwd Diagnoses Acute kidney injury superimposed on CKD N17.9; N18.9
[2024-11-18 11:03] LABS: Creatine Phosphokinase 133 U/L (39-308)
[2024-11-18 11:23] LABS: Glucose Point of Care 349 mg/dL (70-110)
--- NOTE | 2024-11-18 13:59 | PC.NUTR ---
Received consult for tube feeding recommendations. Nepro 1.8 to begin at 20mls/hr increasing 10 mls Q8H as tolerated to goal rate of 40mls/hr with water flushes 120mls Q4H or per MD discretion. If Nepro 1.8 unavailable, recommend Glucerna 1.5 beginning at 15mls/hr increasing 15mls Q8H as tolerated until goal rate of 45 mls/hr is reached with water flushes of 150mls Q6H or per MD discretion.
[2024-11-18 17:13] LABS: Glucose Point of Care 267 mg/dL (70-110)
--- NOTE | 2024-11-18 19:31 | P.PN_ITS ---
Subjective 2 Subjective: Intubated, sedated, mechanically ventilated. Vitals/I&O/Wt Last Vital Signs Temp 97 F L 11/18/24 11:30 Pulse 36 L 11/18/24 16:18 Resp 16 11/18/24 17:24 BP 208/76 11/18/24 16:00 Pulse Ox 98 11/18/24 17:24 O2 Del Method Mechanical Ventilation 11/18/24 15:58 O2 Flow Rate 50 11/18/24 02:00 FiO2 50 11/18/24 17:24 11/18/24 11/18/24 11/18/24 06:59 14:59 22:59 Intake Total 510.599 / 2473.439 1426.747 / 1426.747 185.303 / 1612.050 Output Total 500 / 2097 1075 / 1075 Balance 10.599 / 336.416 4004.747 / 1426.747 -889.697 / 537.050 Weight last 48 hrs Weight 72.892 kg Weight 118 kg Weight 122.5 kg Physical Exam 2 Narrative: On second visit accompanied by his son and [id number]. Const: COMMON NORMALS: negative for patient oriented x3 and negative for alert GENERAL APPEARANCE: cooperative ORIENTATION/CONSCIOUSNESS: Yes confused; not awake HENMT: COMMON NORMALS: oropharynx normal Neck/C-Spine: COMMON NORMALS: no JVD Resp: COMMON NORMALS: normal respiratory effort and clear to auscultation bilaterally AUSCULTATION: clear to auscultation bilaterally Cardio: COMMON NORMALS: no JVD, regular rhythm, S1 normal heart sound present, S2 normal heart sound present and No murmurs present (Cardio) RHYTHM: regular rhythm HEART SOUNDS: S1 normal heart sound present and S2 normal heart sound present GI: COMMON NORMALS: Normal to inspection, nondistended, normoactive bowel sounds present, Soft to palpation and non-tender PALPATION: Yes Soft to palpation Extremity: COMMON NORMALS: no joint enlargement OTHER: Bilateral chronic stasis dermatitis. Neuro: COMMON NORMALS: moves all extremities; negative for patient oriented x3 SENSORIUM/ORIENTATION: No alert Skin: COMMON NORMALS: no rashes or lesions noted GENERAL SKIN EXAM: no rashes or lesions noted Urinary Catheter Management: Solomon: Cath Placed During This Visit: yes Reason for Continuing Indwelling Catheter: Accurate Measurement of Urinary Output in Critically Ill Patients Urinary Catheter Date of Insertion: 11/17/24 Urinary Catheter Time of Insertion: 07:10 Data 11/18/24 04:52 11/18/24 04:52 Micro: Microbiology 11/17/24 10:03 Gram Stain - Final Sputum - Endotracheal Tube Aspirate Sputum Culture - Preliminary 11/17/24 09:15 Urine Culture - Preliminary Urine,Clean Catch 11/16/24 17:20 Blood Culture - Preliminary Blood NEGATIVE TO DATE 11/16/24 17:20 Blood Culture - Preliminary Blood NEGATIVE TO DATE A&P Assessment and plan (1) Respiratory failure: Yesterday with bronchospasm, required additional nebulization treatments. Started on IV steroid. Reviewed chest x-ray. Today with improvement, wheezing with improvement. Pressures with improvement on review of mechanical ventilation. Airway resistance with improvement. Continue Solu-Medrol. DuoNebs. Still on 50% FiO2. Continue treatment. Reassess. Obtain echocardiogram. Lung compliance with some decrease. He is in positive balance. Receiving Lasix today. Started trophic tube feeds. Has been NPO. Did not receive insulin yesterday. Adjusted first dose of Lantus to 10 units for now. Continue sliding scale. Reassess. Prophylactic PPI. Lovenox DVT prophylaxis. (2) Acute encephalopathy: Continue management of underlying issues with renal failure, respiratory failure, bradycardia. Will obtain CT head. Has history of PTSD, depression. Remote history of alcohol use disorder, many years ago. Wean sedation daily to reassess mental status. Breathing trials. Acute metabolic encephalopathy with acute renal failure, worsening respiratory cytosis with acute hypercapnic respiratory failure. Treat underlying conditions as above. Improved with sedation after intubation with peripheral, fentanyl. Patient able to provide his own consents. Initially discussed condition with his [id number], but as his condition is worsening, requiring further measures, as per discussion with his [id number] is okay to contact his son to home she defers decision-making. Son's phone number is [phone]. (3) Bradycardia: Continue to hold diltiazem. Continue dopamine infusion. Monitor for risk of tachycardia, hypertension. Today with worsening hypertension, received hydralazine overnight. Bradycardia with some improvement as he was able to come down to 5 mcg/kg/min on dopamine. Not dialyzable. Continue supportive measures. Started on low rate tube feeds as well. Continue with scheduled hydralazine for hypertension. In case lack of improvement over the next day or so may need pacemaker for which he would need transfer. Severe bradycardia, heart rate down into the 30s. With hypotension. Complicated by acute kidney injury. On diltiazem at home. Hold diltiazem. Started on dopamine. Continue infusion in ICU. Hold lisinopril with mild hyperkalemia.Supplements hypomagnesemia. Reviewed vitals, CBC, CMP, magnesium, TSH, troponin, NT proBNP, chest x-ray, CT abdomen pelvis, EKG, on my interpretation atrial flutter with slow ventricular response, right bundle branch block, pending official read. Reviewed ER provider note, discussed with ER provider. (4) Acute renal failure: Status post dialysis catheter placement and plasma exchange. Reviewed intake and output, BUN, creatinine, potassium, bicarb and anion gap, phosphorus, and exam. Noted with some improvement in renal function today, producing urine. Reviewed nephrology note. Given a dose of Lasix. Continue to monitor intake and output. Recheck chemistry, Phos, mag. He is still confused. BUN with improvement down to 57. CT abdomen pelvis without obstructive uropathy. Continue Flomax for BPH. Hold lisinopril, Lasix. Hold statin, reviewed CK. Continue hemodynamic support (5) Diastolic congestive heart failure: Continue hemodynamic support. Continue dopamine infusion. Underwent dialysis, for the above reasons. Without improvement in bradycardia as Cardizem is not dialyzable. Continue supportive measures. In case of developing congestive changes/fluid overload may require additional dialysis with volume removal. Acutely decompensated suspected diastolic congestive heart failure secondary to severe bradycardia also with hypotension, monitor for development of cardiogenic shock. Complicated by acute kidney injury. Monitor for progression to acute renal failure. Started on dobutamine drip, monitor heart rates. Hold diltiazem. Support hemodynamics, monitor oxygenation. Monitor for risk of tachycardia, hypertension with dopamine drip. (6) Hypotension: Monitor for risk of development of cardiogenic shock. Continue dopamine in the ICU. (7) Hypomagnesemia: Supplement additional magnesium. Recheck follow-up with (8) Anemia: Normocytic anemia, hemoglobin 10.3. Not on anticoagulation. Repeat CBC. (9) BPH (benign prostatic hyperplasia): Continue Flomax Plan Atrial flutter: With slow ventricular response as above. Diltiazem on hold currently. Was not on anticoagulation, on presentation with renal failure, uremia, consider for increased risk of bleeding. Currently renal function appears to be showing some gradual improvement. Will add aspirin for now, check INR. Consider anticoagulation for stroke risk reduction. Appears new diagnosis with moderate troponin elevation. Unknown possible underlying coronary disease. Would benefit from further risk stratification once able to. Obtain echocardiogram. DM2: Continue Lantus, started at 10 units as he has been n.p.o. and with yesterday's Lantus not administered blood glucose in the 200s. Sliding scale insulin. Increase Lantus dose based on blood glucose/response. Started on low rate tube feeds. Monitor for risk of hyperglycemia with methylprednisolone. CKD History of depression, PTSD Discussed with patient's son and [id number]. Attestations 2 Medical Necessity Statement*: Continue admission for assessment management of respiratory failure, renal failure, encephalopathy, severe bradycardia. Coding Level of Care Code Critical Care >/= 30 minutes Critical care time (in minutes): 45 The high probability of a clinically significant, sudden or life threatening deterioration, as referenced in this documentation, required my full and direct attention, intervention and personal management. The critical care time shown is in addition to time spent performing any reported separately billable procedures and includes the following: [x] Data and vital sign review and interpretation [x ] Patient assessment, examination and intervention [x] Medication orders and management [x] Patient/Family updates as able [x] Care Coordination and Documentation. Diagnoses Respiratory failure J96.90 Acute encephalopathy G93.40 Bradycardia R00.1 Acute renal failure N17.9 Diastolic congestive heart failure I50.30 Hypotension I95.9 Hypomagnesemia E83.42 Anemia D64.9 BPH (benign prostatic hyperplasia) N40.0
--- NOTE | 2024-11-18 19:52 | CTR_ITS ---
PROCEDURE INFORMATION: Exam: CT Head Without Contrast Exam date and time: 11/19/2024 3:39 AM Age: 74 years old Clinical indication: Altered mental status/memory loss; Patient HX: Persistent AMS despite weaning sedation; Additional info: Encephalopathy, persistent AMS TECHNIQUE: Imaging protocol: Computed tomography of the head without contrast. Radiation optimization: All CT scans at this facility use at least one of these dose optimization techniques: automated exposure control; mA and/or kV adjustment per patient size (includes targeted exams where dose is matched to clinical indication); or iterative reconstruction. COMPARISON: No relevant prior studies available. RADIATION DOSE METRICS: Total DLP (mGy-cm): 1211.08 FINDINGS: Brain: Periventricular white matter lucency represents atherosclerotic encephalopathic changes. No abnormal blood, edema, mass effect, or midline shift. No encephalomalacia. Cerebral ventricles: No ventriculomegaly. Ventricular prominence disproportionate to the degree of atrophy observed. Paranasal sinuses: Visualized sinuses are unremarkable. No fluid levels. Mastoid air cells: Visualized mastoid air cells are well aerated. Bones: Unremarkable. No acute fracture. Soft tissues: Unremarkable. CT/CT head wo con* [id number] IMPRESSION: No acute intracranial pathology.
[2024-11-18] MEDS: hyDRALAzine 20 mg/mL INJ 1 mL 5 MG IVP (20:40)
[2024-11-18] MEDS: enoxaparin 30 mg/0.3 mL Syringe SUBCUT (20:41)
--- NOTE | 2024-11-18 22:30 | PC.NURSE ---
Patient with hypoactive bowel sounds x 4 quadrants on assessment, abd distended compared to yesterday pm shift. Tube feeding going at 25 ml /hr. Residual checked 250 ml stomache contents aspirated then returned. Tube feeding stopped at this time. Plan to contact md after medication rounds. Post rounds residual rechecked now 285 contents returned to stomache. Dr. Nascimento called and updated with situation. Instructions to continue to hold tube feedings at this time.
[2024-11-18 23:16] LABS: Glucose Point of Care 261 mg/dL (70-110)
[2024-11-19] VITALS (93 sets, daily range): BP systolic 96–150; BP diastolic 38–81; PULSE 48–75; RESP 16; TEMP 36.4–37; O2SAT 92–99
[2024-11-19] MEDS: methylPREDNISolone sod succ 125 mg/2 mL INJ 60 MG IVP ×4 (00:13→17:26)
[2024-11-19] MEDS: propofol 1,000 MG/100 ML INJ 18.38 MG IV ×4 (01:55→18:13)
[2024-11-19] MEDS: ipratropium-albuterol 3 mL Neb INHALATION ×5 (03:15→20:04)
[2024-11-19] MEDS: fentaNYL 1,000 MCG/100 ML BAG 7.5 MCG IV ×2 (05:27→16:54)
[2024-11-19 05:36] LABS: Basophils % 0.1 %; Hematocrit 32.6 % (37-53); Lymphocytes # 0.3 10^3/uL (0.8-4.8); Lymphocytes % 3.4 %; Mean Corpuscular HGB Conc 32.5 g/dL (30-55); Mean Corpuscular Volume 95.3 fl (82-101); Mean Platelet Volume 11.2 fL (7.4-10.4); Monocytes # 0.3 10^3/uL (0.2-0.9); Neutrophils # 7.28 10^3/uL (1.8-7.7); Neutrophils % 91.5 %; Nucleated Red Blood Cells % 0 %; Platelet Count 227 10^3/cmm (157-399); Red Blood Count 3.42 10^6/uL (3.85-5.65); Red Cell Distribution Width 13.7 % (12.1-15.1); White Blood Count 7.96 10^3/uL (3.29-11.43)
[2024-11-19 05:53] LABS: Albumin Level 2.7 g/dL (3.5-5.2); Alkaline Phosphatase 76 U/L (40-130); Anion Gap 31.4 (5-19); Blood Urea Nitrogen 70 mg/dL (8-23); Calcium 8.3 mg/dL (8.5-10.5); Carbon Dioxide 18 mmol/L (22-29); Chloride 89 mmol/L (98-107); Glucose 305 mg/dL (65-115); Magnesium 1.9 mg/dL (1.7-2.3); Osmolality Calculated 310 mOsm/kg (285-295); Potassium 4.4 mmol/L (3.5-5.1); Sodium 134 mmol/L (136-145); Total Bilirubin 0.3 mg/dL (0.15-1.2); Total Protein 5.7 g/dL (6.6-8.7)
[2024-11-19 05:59] LABS: Phosphorus 5.7 mg/dL (2.5-4.5)
[2024-11-19 06:06] LABS: Alanine Aminotransferase < 5 U/L (0-41); Aspartate Amino Transferase 5 U/L (0-40)
[2024-11-19 07:37] LABS: Glucose Point of Care 302 mg/dL (70-110)
[2024-11-19] MEDS: aspirin 81 mg EC Tablet 162 MG PO (08:11)
[2024-11-19] MEDS: pantoprazole 40 mg SDV IVP (08:12)
[2024-11-19] MEDS: insulin glargine 100 units/1 mL 10 UNIT SUBCUT (08:12)
[2024-11-19] MEDS: tamsulosin 0.4 mg Capsule PO (08:12)
[2024-11-19] MEDS: insulin lispro 100 unit/1 mL SUBCUT ×4 (08:12→20:33)
--- NOTE | 2024-11-19 09:48 | PM.PN ---
Subjective Subjective: remains intubated, awake, remains bradycardic- HR 36-72 a fib Medications: Reviewed: Yes Medication Review Details: Current Medications Acetaminophen (Acetaminophen 325 Mg Tablet) 650 mg PO Q6H PRN PRN Reason: Mild/Mod Pain Or Temp >/= 101 Albuterol Sulfate (Albuterol 2.5 Mg/3 Ml Neb) 2.5 mg INHALATION Q6H.RESP PRN PRN Reason: SHORTNESS OF BREATH Last Admin: 11/17/24 18:21 Dose: 2.5 mg Albuterol/Ipratropium (Ipratropium-Albuterol 3 Ml Neb) 3 ml INHALATION Q4H.RESPIRATORY COREY Last Admin: 11/19/24 08:10 Dose: 3 ml Aspirin (Aspirin 81 Mg Ec Tablet) 162 mg PO DAILY [facility] Last Admin: 11/19/24 08:11 Dose: 162 mg Enoxaparin Sodium (Enoxaparin 30 Mg/0.3 Ml Syringe) 30 mg SUBCUT Q24H [facility] Last Admin: 11/18/24 20:41 Dose: 30 mg Furosemide (Furosemide 10 Mg/Ml Sdv 10ml) 60 mg IVP Q12H [facility] Last Admin: 11/18/24 21:00 Dose: 60 mg Glucagon (Glucagon 1 Mg/Ml Kit 1 Ml) 1 mg IM ONCE PRN; Protocol PRN Reason: Adult Acute Hypoglycemia Nursing Prot. Hydralazine HCl (Hydralazine 20 Mg/Ml Inj 1 Ml) 5 mg IVP Q4H [facility] Last Admin: 11/19/24 04:28 Dose: Not Given Dopamine HCl/Dextrose (Intropin Drip) 400 mg in 250 mls @ 22.963 mls/hr IV CONT [facility]; Protocol Last Titration: 11/18/24 23:00 Dose: Infused Dextrose (D5w) 500 mls @ 0 mls/hr IV ONCE PRN; Protocol PRN Reason: Adult Acute Hypoglycemia Prot Dextrose (D10w) 125 mls @ 750 mls/hr IV PRN PRN; Protocol PRN Reason: Adult Acute Hypoglycemia Nursing Protocol Dextrose (D10w) 250 mls @ 1,000 mls/hr IV PRN PRN; Protocol PRN Reason: Adult Acute Hypoglycemia Nursing Protocol Propofol (Diprivan) 1,000 mg in 100 mls @ 0 mls/hr IV .Q0M [facility]; Protocol Last Admin: 11/19/24 07:23 Dose: 25 mcg/kg/min, 18.38 mls/hr Fentanyl (Sublimaze) 1,000 mcg in 100 mls @ 0 mls/hr IV .Q0M [facility]; Protocol Last Admin: 11/19/24 05:27 Dose: 75 mcg/hr, 7.5 mls/hr Albumin Human (Albumin) 12.5 gm in 50 mls @ 60 mls/hr IV PRN PRN PRN Reason: Hypotension and/or symptomatic Insulin Glargine (Insulin Glargine 100 Units/1 Ml) 10 unit SUBCUT DAILY [facility] Last Admin: 11/19/24 08:12 Dose: 10 unit Insulin Human Lispro (Insulin Lispro 100 Unit/1 Ml) 0 unit SUBCUT WM&BEDTIME ON [facility]; Protocol Last Admin: 11/19/24 08:12 Dose: 12 unit Methylprednisolone Sodium Succinate (Methylprednisolone Sod Succ 125 Mg/2 Ml Inj) 60 mg IVP Q6H [facility] Last Admin: 11/19/24 05:38 Dose: 60 mg Ondansetron HCl (Ondansetron 2 Mg/Ml Sdv 2 Ml) 4 mg IVP Q8H PRN PRN Reason: vomiting, or N/V if npo Pantoprazole Sodium (Pantoprazole 40 Mg Sdv) 40 mg IVP DAILY [facility] Last Admin: 11/19/24 08:12 Dose: 40 mg Tamsulosin HCl (Tamsulosin 0.4 Mg Capsule) 0.4 mg PO DAILY [facility] Last Admin: 11/19/24 08:12 Dose: 0.4 mg Vitals/I&O/Wt Last Vital Signs Temp 97.6 F 11/19/24 04:30 Pulse 66 11/19/24 08:30 Resp 16 11/19/24 08:11 BP 135/52 11/19/24 08:30 Pulse Ox 97 11/19/24 08:30 O2 Del Method Mechanical Ventilation 11/19/24 08:11 O2 Flow Rate 50 11/18/24 02:00 FiO2 50 11/19/24 08:11 11/18/24 11/19/24 11/19/24 22:59 06:59 14:59 Intake Total 509.135 / 1935.882 244.007 / 2179.889 100 / 100 Output Total 1525 / 1525 400 / 1925 Balance -1015.865 / 410.882 -155.993 / 254.889 100 / 100 Weight last 48 hrs Weight 119 kg Weight 72.892 kg Weight 118 kg Physical Exam Narrative: intubated, obese, awake on dopamine vent settings PEEP 8, RR 14, Fio2=50% heent- nc/at, anicteric lungs dull bases and diminished heart irreg + bradycardic abd soft, + bs ext - b/l trace leg edema neuro -awake, responsive to voice and touch Urinary Catheter Management: Solomon: Cath Placed During This Visit: yes Reason for Continuing Indwelling Catheter: Accurate Measurement of Urinary Output in Critically Ill Patients Urinary Catheter Date of Insertion: 11/17/24 Urinary Catheter Time of Insertion: 07:10 Data 11/19/24 05:16 11/19/24 05:16 Micro: Microbiology 11/17/24 10:03 Gram Stain - Final Sputum - Endotracheal Tube Aspirate Sputum Culture - Preliminary 11/17/24 09:15 Urine Culture - Preliminary Urine,Clean Catch A&P Assessment and plan (1) Acute kidney injury superimposed on CKD: 74 year old male w/ past med hx of a fib, DM, HTN, BPH. Pt presented w/ weakness, lethargy, orthopnea, dyspnea. In ER he was found to have AIDA, k 5.3 and bradycardic to 30's w/ SBP of 90. He was started on a dopamine drip, given ivf. 1. bradycardia- would consult cardiology. k is now 4.4- should not cause arrythmia 2. AIDA- no hydronephrosis. low ur na - can be cardio-renal syndrome -ur microalb/ cr 574 -u/a cloudy, 2+ protein, 3+ glu, 3+ blood, >100 rbc, 11-20 wbc -normal complements hep b and C are negative -anca, anti-gbm are pending studies, ur electrolytes, ur microalbumin, ur pr, cr check ck -meds and not eating are a risk for AIDA -dec lasix and monitor for renal recovery -phos improving -cont to hold dialysis 3. CKD stage 3- based on cr 1.3 in oct 2024- try to get old labs- risks are obesity, htn, dm pth 301- repeat in 4 weeks 4. bradycardia- unlikely from hyperkalemia- as k was 5.3 on admission 5. anemia- iv iron plan- lasix monitor uop and labs 6. hyponatemia from AIDA seen and examined with the aide of a nurse using A/V equipment I called his son Ashish Rouse -[phone]- he consulted to dialysis yesterday Plan as above Attestations Medical Necessity Statement*: VDR, bradycardia, AIDA Time Spent in Patient Care: 16 - 35 minutes (>than 50% of time spent in counselling and/or direct pt care on unit). Coding Level of Care Code Acute Code for Chg Fwd Diagnoses Acute kidney injury superimposed on CKD N17.9; N18.9
[2024-11-19] MEDS: FUROsemide 10 mg/mL SDV 10mL 60 MG IVP (09:51)
[2024-11-19 11:40] LABS: Glucose Point of Care 326 mg/dL (70-110)
[2024-11-19 17:17] LABS: Glucose Point of Care 321 mg/dL (70-110)
[2024-11-19] MEDS: FUROsemide 10 mg/mL SDV 4mL 40 MG IVP (17:26)
--- NOTE | 2024-11-19 17:58 | P.PN_ITS ---
Subjective 2 Subjective: Intubated, sedated, weaning down sedation to reassess mental status. Has been still appearing confused. Currently not in distress. Vitals/I&O/Wt Last Vital Signs Temp 97.6 F 11/19/24 04:30 Pulse 67 11/19/24 16:15 Resp 16 11/19/24 17:12 BP 134/60 11/19/24 16:15 Pulse Ox 96 11/19/24 17:12 O2 Del Method Mechanical Ventilation 11/19/24 15:52 O2 Flow Rate 50 11/18/24 02:00 FiO2 50 11/19/24 17:12 11/19/24 11/19/24 11/19/24 06:59 14:59 22:59 Intake Total 244.007 / 2179.889 270 / 270 85.875 / 355.875 Output Total 400 / 1925 400 / 400 250 / 650 Balance -155.993 / 254.889 -130 / -130 -164.125 / -294.125 Weight last 48 hrs Weight 119 kg Weight 72.892 kg Weight 118 kg Physical Exam 2 Const: GENERAL APPEARANCE: cooperative ORIENTATION/CONSCIOUSNESS: Yes confused; not awake HENMT: COMMON NORMALS: oropharynx normal Neck/C-Spine: COMMON NORMALS: no JVD Resp: COMMON NORMALS: normal respiratory effort AUSCULTATION: diminished lung sounds (Slightly better entry, without wheezing today.) Cardio: COMMON NORMALS: no JVD, regular rhythm, S1 normal heart sound present, S2 normal heart sound present and No murmurs present (Cardio) RHYTHM: regular rhythm HEART SOUNDS: S1 normal heart sound present and S2 normal heart sound present GI: COMMON NORMALS: Normal to inspection, nondistended, normoactive bowel sounds present, Soft to palpation and non-tender PALPATION: Yes Soft to palpation Extremity: COMMON NORMALS: no joint enlargement OTHER: Bilateral chronic stasis dermatitis. Neuro: COMMON NORMALS: moves all extremities Skin: COMMON NORMALS: no rashes or lesions noted GENERAL SKIN EXAM: no rashes or lesions noted Urinary Catheter Management: Solomon: Cath Placed During This Visit: yes Reason for Continuing Indwelling Catheter: Accurate Measurement of Urinary Output in Critically Ill Patients Urinary Catheter Date of Insertion: 11/17/24 Urinary Catheter Time of Insertion: 07:10 Data 11/19/24 05:16 11/19/24 05:16 Micro: Microbiology 11/17/24 10:03 Gram Stain - Final Sputum - Endotracheal Tube Aspirate Sputum Culture - Preliminary 11/17/24 09:15 Urine Culture - Final Urine,Clean Catch A&P Assessment and plan (1) Respiratory failure: With slightly improved air entry, today no wheezing. Reviewed ventilator settings. Slightly improved lung compliance. He is still having confusion. Will try to come down on Solu-Medrol dose to 40 mg. Weaning down on sedation to reassess mental status. CT head reviewed, unremarkable. Reassess mental status, breathing trial in the morning. Chest x-ray reviewed, with minimal bibasilar atelectasis. On 11/17 with bronchospasm, required additional nebulization treatments. Started on IV steroid. Reviewed chest x-ray. Continue DuoNebs. Still on 50% FiO2. Continue treatment. Reassess. Wean O2 as tolerating. Reviewed echocardiogram. EF 60 [place], no gross wall motion normality. Mild biatrial enlargement. Trivial pericardial effusion. Tube feeds were held overnight. Attempt to restart low rate feeds. Monitor for intolerance. Increase Lantus dose to 15 units. Continue sliding scale. Reassess POC glucose. Prophylactic PPI. Lovenox DVT prophylaxis. (2) Acute encephalopathy: Continue management of underlying issues with renal failure, respiratory failure, bradycardia. Reviewed CT head, unremarkable. Wean down sedation to reassess mental status, wean sedation, reassess mental status, breathing trial in the morning as well. Will attempt to decrease steroid dose. Has history of PTSD, depression. Remote history of alcohol use disorder, many years ago. Wean sedation daily to reassess mental status. Breathing trials. Acute metabolic encephalopathy with acute renal failure, worsening respiratory cytosis with acute hypercapnic respiratory failure. Treat underlying conditions as above. Improved with sedation after intubation with peripheral, fentanyl. Patient able to provide his own consents. Initially discussed condition with his [id number], but as his condition is worsening, requiring further measures, as per discussion with his [id number] is okay to contact his son to home she defers decision-making. Son's phone number is [phone]. (3) Bradycardia: Continue to hold diltiazem. Heart rate with gradual improvement. Now into the 60s. Consideration was given to possibly needing a pacemaker, however, dopamine could be discontinued. Continue supportive measures. Started on low rate tube feeds as well. Monitor for intolerance. Continue with scheduled hydralazine for hypertension. Atrial flutter with slow ventricular response. With uremia, had not been started on anticoagulation. Pending reassessment, today with worsening BUN up to 70, creatinine up to 6.1. Possible dialysis tomorrow. With uremia, risk of bleeding, for now anticoagulation has not been initiated beyond renally dosed prophylactic Lovenox dose, aspirin has been added. But once this is improving, consider anticoagulation for stroke risk reduction as well. (4) Acute renal failure: Still producing urine. Today with some worsening renal parameters. BUN up to 70, creatinine of 6.1. Bicarb 18, anion gap 31.4. Phosphorus 5.7. Reviewed nephrology note. CT abdomen pelvis without obstructive uropathy. Continue Flomax for BPH. Hold lisinopril, Lasix. Hold statin, reviewed CK. Continue hemodynamic support as needed, although so far was able to wean off dopamine with improving bradycardia with gradual clearance of Cardizem. (5) Diastolic congestive heart failure: Bradycardia so far improved. Came off dopamine. Maintaining blood pressure. Producing urine, but still with some worsening renal function. Pending reassessment. In case of developing congestive changes/fluid overload may require additional dialysis with volume removal. On presentation with component of acutely decompensated suspected diastolic congestive heart failure secondary to severe bradycardia also with hypotension, monitor for development of cardiogenic shock. Complicated by acute kidney injury. Monitor for progression to acute renal failure. Was on dopamine drip. Hold diltiazem. (6) Hypotension: Resolved with improving bradycardia. Last night very hypertensive, small dose hydralazine was added, but blood pressure subsequently soft so no longer requiring it. Hydralazine discontinued. (7) Hypomagnesemia: Replaced. Recheck follow-up (8) Anemia: Normocytic anemia, hemoglobin 10.3. Not on anticoagulation. Repeat CBC. (9) BPH (benign prostatic hyperplasia): Continue Flomax Plan Atrial flutter: With slow ventricular response as above. With uremia, had not been started on anticoagulation. Pending reassessment, today with worsening BUN up to 70, creatinine up to 6.1. Possible dialysis tomorrow. With uremia, risk of bleeding, for now anticoagulation has not been initiated beyond renally dosed prophylactic Lovenox dose, aspirin has been added. But once this is improving, consider anticoagulation for stroke risk reduction as well. Added aspirin for now. Consider anticoagulation for stroke risk reduction. Appears new diagnosis with moderate troponin elevation. Unknown possible underlying coronary disease. Would benefit from further risk stratification once able to. Reviewed echocardiogram. No regional wall motion abnormality. DM2: Increased Lantus dose to 15 units. Increase Lantus dose based on blood glucose/response. Started on low rate tube feeds but they were paused last night. Monitor for risk of hyperglycemia with methylprednisolone. CKD History of depression, PTSD Attestations 2 Medical Necessity Statement*: Continue admission for assessment and management of respiratory failure, renal failure, encephalopathy, severe bradycardia. Coding Level of Care Code Critical Care >/= 30 minutes Critical care time (in minutes): 40 The high probability of a clinically significant, sudden or life threatening deterioration, as referenced in this documentation, required my full and direct attention, intervention and personal management. The critical care time shown is in addition to time spent performing any reported separately billable procedures and includes the following: [x] Data and vital sign review and interpretation [x ] Patient assessment, examination and intervention [x] Medication orders and management [x] Patient/Family updates as able [x] Care Coordination and Documentation. Diagnoses Respiratory failure J96.90 Acute encephalopathy G93.40 Bradycardia R00.1 Acute renal failure N17.9 Diastolic congestive heart failure I50.30 Hypotension I95.9 Hypomagnesemia E83.42 Anemia D64.9 BPH (benign prostatic hyperplasia) N40.0
--- NOTE | 2024-11-19 20:08 | USCV_ITS ---
Roberta Rouse Age: 74 Gender: M : 1950 Exam Date: 11/19/2024 09:05 Ordering Phys: Dimas Boudreaux MD Technologist: Deacon Alvarado Exam Location: [facility] – [place] Indication: bradycardia a flutter BP: 134 / 56 HR: 67 Rhythm: Atrial flutter Technical Quality: Adequate MEASUREMENTS (Male / Female) Normal Values 2D ECHO LV Diastolic Diameter PLAX 3.6 cm 4.2 - 5.9 / 3.9 - 5.3 cm IVS Diastolic Thickness 1.5 cm 0.6 - 1.0 / 0.6 - 0.9 cm IVS Systolic Thickness 2.2 cm LVPW Diastolic Thickness 2.0 cm 0.6 - 1.0 / 0.6 - 0.9 cm LVPW Systolic Thickness 2.1 cm LVOT Diameter 2.2 cm LV Ejection Fraction 2D Teich 82.8 % LV Ejection Fraction MOD 4C 82.4 % LV Ejection Fraction MOD 2C 65.5 % LV Ejection Fraction 2C AL 65.1 % RA Systolic Volume 4C AL 71.6 ml RA Systolic Volume 4C MOD 69.3 ml LA Sys Volume AL 76.6 cm cubed LA Sys Volume Index AL 30.7 cm cubed/m squared IVC Diameter 1.8 cm M-MODE LA Ao Ratio MM 1.6 AV Cusp Separation MM 2.0 cm DOPPLER AV Peak Velocity 153.0 cm/s LVOT Peak Velocity 140.0 cm/s AV Area Cont Eq vti 2.7 cm squared AV Area Cont Eq pk 3.4 cm squared MV Peak Velocity 120.0 cm/s MV Area PHT 5.2 cm squared Mitral E to A Ratio 2.3 TV Peak Velocity 134.0 cm/s TR Peak Velocity 144.0 cm/s TR Peak Gradient 8.3 mmHg TR Mean Velocity 109.0 cm/s TR Mean Gradient 4.9 mmHg TR Velocity Time Integral 30.7 cm PV Peak Velocity 93.0 cm/s RV Ejection Time 0.2 s FINDINGS Left Ventricle Normal left ventricular size and systolic function, EF 66%.. No regional wall motion abnormalities. Right Ventricle Normal right ventricular size and systolic function. Right Atrium Mildly increased right atrial size. Left Atrium Mildly increased left atrial size. Mitral Valve Mild mitral annular calcification. Aortic Valve No gross abnormalities noted Tricuspid Valve No gross abnormalities noted Pulmonic Valve Pulmonic valve not well visualized. Pericardium Trivial pericardial effusion. Aorta Normal aortic annulus size. IVC Inferior vena cava not visualized. CONCLUSIONS Normal left ventricular size and systolic function, EF 66%.. No gross wall motion abnormalities Mild biatrial enlargement Mild mitral annular calcification. Trivial pericardial effusion. No similar previous studies are available for comparison Dr Michael Lynne MD [facility] (Electronically Signed) Final Date: 19 November 2024 14:01 S
[2024-11-19] MEDS: enoxaparin 30 mg/0.3 mL Syringe SUBCUT (20:15)
[2024-11-19 20:54] LABS: Glucose Point of Care 310 mg/dL (70-110)
[2024-11-19] MEDS: methylPREDNISolone sod succ 40 mg/mL INJ IVP (22:30)
[2024-11-19] MEDS: propofol 1,000 MG/100 ML INJ 22.05 MG IV (23:30)
[2024-11-20] VITALS (110 sets, daily range): BP systolic 129–173; BP diastolic 52–126; PULSE 67–84; RESP 16–705; TEMP 36.4–37.3; O2SAT 94–98; BMI 35.3
[2024-11-20] MEDS: ipratropium-albuterol 3 mL Neb INHALATION ×7 (00:14→23:46)
[2024-11-20] MEDS: propofol 1,000 MG/100 ML INJ 22.05 MG IV ×5 (04:21→22:30)
[2024-11-20] MEDS: fentaNYL 1,000 MCG/100 ML BAG 7.5 MCG IV (05:04)
[2024-11-20] MEDS: FUROsemide 10 mg/mL SDV 4mL 40 MG IVP (05:19)
[2024-11-20] MEDS: methylPREDNISolone sod succ 40 mg/mL INJ IVP ×3 (05:19→21:13)
[2024-11-20 05:55] LABS: Basophils % 0.1 %; Hematocrit 31.2 % (37-53); Lymphocytes # 0.3 10^3/uL (0.8-4.8); Lymphocytes % 4.5 %; Mean Corpuscular HGB Conc 32.7 g/dL (30-55); Mean Corpuscular Hemoglobin 29.7 pg (27-33); Mean Corpuscular Volume 90.7 fl (82-101); Mean Platelet Volume 11.5 fL (7.4-10.4); Monocytes # 0.3 10^3/uL (0.2-0.9); Monocytes % 3.5 %; Neutrophils # 6.35 10^3/uL (1.8-7.7); Neutrophils % 89.6 %; Nucleated Red Blood Cells % 0.3 %; Platelet Count 240 10^3/cmm (157-399); Red Blood Count 3.44 10^6/uL (3.85-5.65); Red Cell Distribution Width 14.3 % (12.1-15.1); White Blood Count 7.09 10^3/uL (3.29-11.43)
[2024-11-20 06:10] LABS: Alanine Aminotransferase 22 U/L (0-41); Albumin Level 3.2 g/dL (3.5-5.2); Alkaline Phosphatase 66 U/L (40-130); Anion Gap 21.8 (5-19); Aspartate Amino Transferase 11 U/L (0-40); Calcium 8.6 mg/dL (8.5-10.5); Carbon Dioxide 21 mmol/L (22-29); Chloride 97 mmol/L (98-107); Creatinine Clr Calc Pharmacy 14.1541; Globulin 2.9 g/dL (1.3-4.6); Glucose 311 mg/dL (65-115); Osmolality Calculated 318 mOsm/kg (285-295); Phosphorus 5.9 mg/dL (2.5-4.5); Potassium 4.8 mmol/L (3.5-5.1); Sodium 135 mmol/L (136-145); Total Bilirubin 0.2 mg/dL (0.15-1.2); Total Protein 6.1 g/dL (6.6-8.7)
[2024-11-20 06:35] LABS: Blood Urea Nitrogen 86 mg/dL (8-23)
[2024-11-20] MEDS: pantoprazole 40 mg SDV IVP (08:18)
[2024-11-20] MEDS: aspirin 81 mg EC Tablet 162 MG PO (08:19)
[2024-11-20] MEDS: tamsulosin 0.4 mg Capsule PO (08:19)
[2024-11-20] MEDS: insulin lispro 100 unit/1 mL SUBCUT ×4 (08:19→22:51)
[2024-11-20] MEDS: insulin glargine 100 units/1 mL 15 UNIT SUBCUT (09:20)
--- NOTE | 2024-11-20 10:22 | P.PN_ITS ---
Subjective 2 Subjective: still intubated, swollen, controlled a flutter at 71 not able to geta ROS Medications: Reviewed: Yes Medication Review Details: Current Medications Acetaminophen (Acetaminophen 325 Mg Tablet) 650 mg PO Q6H PRN PRN Reason: Mild/Mod Pain Or Temp >/= 101 Albuterol Sulfate (Albuterol 2.5 Mg/3 Ml Neb) 2.5 mg INHALATION Q6H.RESP PRN PRN Reason: SHORTNESS OF BREATH Last Admin: 11/17/24 18:21 Dose: 2.5 mg Albuterol/Ipratropium (Ipratropium-Albuterol 3 Ml Neb) 3 ml INHALATION Q4H.RESPIRATORY COREY Last Admin: 11/20/24 07:56 Dose: 3 ml Aspirin (Aspirin 81 Mg Ec Tablet) 162 mg PO DAILY COREY Last Admin: 11/20/24 08:19 Dose: 162 mg Enoxaparin Sodium (Enoxaparin 30 Mg/0.3 Ml Syringe) 30 mg SUBCUT Q24H CORE[facility] Last Admin: 11/19/24 20:15 Dose: 30 mg Furosemide (Furosemide 10 Mg/Ml Sdv 4ml) 40 mg IVP Q12H C[facility] Last Admin: 11/20/24 05:19 Dose: 40 mg Glucagon (Glucagon 1 Mg/Ml Kit 1 Ml) 1 mg IM ONCE PRN; Protocol PRN Reason: Adult Acute Hypoglycemia Nursing Prot. Hydralazine HCl (Hydralazine 20 Mg/Ml Inj 1 Ml) 5 mg IVP Q4H CORE[facility] Last Admin: 11/19/24 04:28 Dose: Not Given Dopamine HCl/Dextrose (Intropin Drip) 400 mg in 250 mls @ 22.963 mls/hr IV CONT COREY; Protocol Last Titration: 11/18/24 23:00 Dose: 0 mcg/kg/min, 0 mls/hr Dextrose (D5w) 500 mls @ 0 mls/hr IV ONCE PRN; Protocol PRN Reason: Adult Acute Hypoglycemia Prot Dextrose (D10w) 125 mls @ 750 mls/hr IV PRN PRN; Protocol PRN Reason: Adult Acute Hypoglycemia Nursing Protocol Dextrose (D10w) 250 mls @ 1,000 mls/hr IV PRN PRN; Protocol PRN Reason: Adult Acute Hypoglycemia Nursing Protocol Propofol (Diprivan) 1,000 mg in 100 mls @ 0 mls/hr IV .Q0M [facility]; Protocol Last Admin: 11/20/24 09:20 Dose: 30 mcg/kg/min, 22.05 mls/hr Fentanyl (Sublimaze) 1,000 mcg in 100 mls @ 0 mls/hr IV .Q0M [facility]; Protocol Last Titration: 11/20/24 05:45 Dose: 50 mcg/hr, 5 mls/hr Albumin Human (Albumin) 12.5 gm in 50 mls @ 60 mls/hr IV PRN PRN PRN Reason: Hypotension and/or symptomatic Insulin Glargine (Insulin Glargine 100 Units/1 Ml) 15 unit SUBCUT DAILY [facility] Last Admin: 11/20/24 09:20 Dose: 15 unit Insulin Human Lispro (Insulin Lispro 100 Unit/1 Ml) 0 unit SUBCUT WM&BEDTIME [facility]; Protocol Last Admin: 11/20/24 08:19 Dose: 12 unit Methylprednisolone Sodium Succinate (Methylprednisolone Sod Succ 40 Mg/Ml Inj) 40 mg IVP Q6H [facility] Last Admin: 11/20/24 05:19 Dose: 40 mg Ondansetron HCl (Ondansetron 2 Mg/Ml Sdv 2 Ml) 4 mg IVP Q8H PRN PRN Reason: vomiting, or N/V if npo Pantoprazole Sodium (Pantoprazole 40 Mg Sdv) 40 mg IVP DAILY [facility] Last Admin: 11/20/24 08:18 Dose: 40 mg Tamsulosin HCl (Tamsulosin 0.4 Mg Capsule) 0.4 mg PO DAILY [facility] Last Admin: 11/20/24 08:19 Dose: 0.4 mg Vitals/I&O/Wt Last Vital Signs Temp 98.5 F 11/20/24 07:15 Pulse 71 11/20/24 08:45 Resp 16 11/20/24 10:13 BP 132/108 11/20/24 08:45 Pulse Ox 97 11/20/24 10:13 O2 Del Method Mechanical Ventilation 11/20/24 07:45 O2 Flow Rate 50 11/18/24 02:00 FiO2 50 11/20/24 10:13 11/19/24 11/20/24 11/20/24 22:59 06:59 14:59 Intake Total 220.968 / 490.968 267.752 / 758.720 100 / 100 Output Total 250 / 650 525 / 1175 Balance -29.032 / -159.032 -257.248 / -416.280 100 / 100 Weight last 48 hrs Weight 121.5 kg Weight 119 kg Physical Exam 2 Narrative: intubated, obese, awake on dopamine vent settings PEEP 8, RR 14, Fio2=50% [id number] heent- nc/at, anicteric lungs dull bases and diminished heart irreg +s1, s2 abd soft, + bs ext - b/l 1+ leg edema neuro -more lethargic then yesterday + femoral dialysis catheter Urinary Catheter Management: Solomon: Cath Placed During This Visit: yes Reason for Continuing Indwelling Catheter: Accurate Measurement of Urinary Output in Critically Ill Patients Urinary Catheter Date of Insertion: 11/17/24 Urinary Catheter Time of Insertion: 07:10 Data 11/20/24 05:19 11/20/24 05:19 Micro: Microbiology 11/17/24 10:03 Gram Stain - Final Sputum - Endotracheal Tube Aspirate Sputum Culture - Preliminary 11/17/24 09:15 Urine Culture - Final Urine,Clean Catch A&P Assessment and plan (1) Acute kidney injury superimposed on CKD: 74 year old male w/ past med hx of a fib, DM, HTN, BPH. Pt presented w/ weakness, lethargy, orthopnea, dyspnea. In ER he was found to have AIDA, k 5.3 and bradycardic to 30's w/ SBP of 90. He was started on a dopamine drip, given ivf. 1. bradycardia- improved- now a flutter at 72 2. AIDA- no hydronephrosis. low ur na - can be cardio-renal syndrome -ur microalb/ cr 574 -u/a cloudy, 2+ protein, 3+ glu, 3+ blood, >100 rbc, 11-20 wbc -normal complements hep b and C are negative -anca, anti-gbm are pending -normal ck 133 -meds and not eating are a risk for AIDA -dc lasix and monitor for renal recovery and check cxr- if in chf- consider repeat dialysis -hyperphosphatemia- from AIDA 3. CKD stage 3- based on cr 1.3 in oct 2024- try to get old labs- risks are obesity, htn, dm pth 301- repeat in 4 weeks 4. anemia- iv iron 5. hyponatremia from AIDA-na stable repeat ur electrolytes seen and examined with the aide of a nurse using A/V equipment I called his son Ashish Rouse -[phone]- he consulted to dialysis yesterday Plan as above Attestations 2 Medical Necessity Statement*: aida, vdrf Time Spent in Patient Care: 16 - 35 minutes (>than 50% of time sp ent in counselling and/or direct pt care on unit) . Coding Level of Care Code Acute Code for Chg Fwd Diagnoses Acute kidney injury superimposed on CKD N17.9; N18.9
--- NOTE | 2024-11-20 10:29 | XRR_ITS ---
PROCEDURE INFORMATION: Exam: XR Chest Exam date and time: 11/20/2024 10:35 AM Age: 74 years old Clinical indication: Condition or disease; Other: Leodan; Additional info: Leodan, vdrf TECHNIQUE: Imaging protocol: Radiologic exam of the chest. Views: 1 view. COMPARISON: CR (CHEST, ) 11/17/2024 6:41 PM FINDINGS: Lungs: Slightly increased bibasilar infiltrates. Pleural spaces: Unremarkable. No pleural effusion. No pneumothorax. Heart/Mediastinum: Unremarkable. No cardiomegaly. Bones/joints: Unremarkable. Other findings: Support lines unchanged. XR/XR chest 1V portable [id number] IMPRESSION: Slightly increased bibasilar infiltrates.
--- NOTE | 2024-11-20 11:45 | PC.NURSE ---
Solomon flushed per order
[2024-11-20] MEDS: magnesium hydroxide 30 mL UDC PO (12:03)
[2024-11-20] MEDS: sodium chloride 0.9% 1,000 ML 100 ML IV ×2 (12:04→21:13)
[2024-11-20 12:11] LABS: Estmated Average Glucose 174; Hemoglobin A1C 7.7 % (4.0-6.0)
[2024-11-20 12:20] LABS: Potassium, Radom Urine 43 mmol/L; Urine Creatinine 107 mg/dL (39-259); Urine Random Chloride 22 mmol/L; Urine Random Sodium 24 mmol/L
[2024-11-20 12:34] LABS: Procalcitonin 0.82 ng/mL (0-0.5); Vitamin B12 433 pg/mL (232-1245)
[2024-11-20 12:47] LABS: ABG PCO2 43.4 mmHg (35-45); ABG PH Result 7.33 (7.35-7.45); Alveolar-Arterial Oxygen Gradi 19.2 mmHg (5-10); Base Excess ABG -2.9 mmol/L (-2.0-2.0); Blood Gas Operator Identificat GD; Blood Gas Sample Site Brachial, right; Blood Gas Sample Type Arterial; Blood Gas Tidal Volume 0.62; Carboxyhemoglobin 0.6 %THgb (0.4-20.1); HCO3 ABG 22.9 mmol/L (22-26); HGB O2 Sat 93.6 % (95-100); Ionized Calcium Level - ABG 1.1 mmol/L (1.1-1.4); Methemoglobin 1.5 % (0.4-1.5); Oxygen Device VENT; Oxygen Saturation ABG 95.7; PO2 ABG 85.4 mmHg (80.0-100.0); PO2 FiO2 Ratio Arterial Blood 213; Potassium Level - ABG 4.6 mmol/L (3.5-5.0); Total Hemoglobin 10.4 g/dL (14-18)
--- NOTE | 2024-11-20 14:31 | PC.SOCIAL ---
IMM updated IMM dated and initialed, copy given to patient and copy placed in chart.
--- NOTE | 2024-11-20 17:23 | P.PN_ITS ---
Subjective 2 Subjective: Hospital course, labs appreciated. On examination today patient is awake, alert, comfortable. On minimal ventilator settings. Dopamine has been weaned off. Heart rate running in 70s. Blood pressures appreciated. Vitals/I&O/Wt Last Vital Signs Temp 99.1 F 11/20/24 12:00 Pulse 70 11/20/24 16:15 Resp 16 11/20/24 15:59 BP 149/62 11/20/24 16:15 Pulse Ox 95 11/20/24 16:15 O2 Del Method Mechanical Ventilation 11/20/24 15:37 O2 Flow Rate 50 11/18/24 02:00 FiO2 40 11/20/24 15:59 11/20/24 11/20/24 11/20/24 06:59 14:59 22:59 Intake Total 267.752 / 758.720 182.688 / 182.688 Output Total 525 / 1175 Balance -257.248 / -416.280 182.688 / 182.688 Weight last 48 hrs Weight 121.5 kg Weight 119 kg Physical Exam 2 Narrative: General: Intubated, sedated, comfortable, AOx3, following directions HEENT: PERRLA, pupils bilaterally equal and reactive Chest: Normal vesicular breath sounds, no added sounds, equal good air entry bilaterally CVS: S1-S2 irregularly irregular, no murmurs, no tachycardia, no gallops, no rubs Abdomen: Soft, nontender, no organomegaly, bowel sounds present Neuro: No focal deficits, no facial deformity, AO x3, power 5/5 in all limbs Urinary Catheter Management: Solomon: Cath Placed During This Visit: yes Reason for Continuing Indwelling Catheter: Accurate Measurement of Urinary Output in Critically Ill Patients Urinary Catheter Date of Insertion: 11/17/24 Urinary Catheter Time of Insertion: 07:10 Data 11/20/24 05:19 11/20/24 05:19 Micro: Microbiology 11/17/24 10:03 Gram Stain - Final Sputum - Endotracheal Tube Aspirate Sputum Culture - Preliminary A&P Assessment and plan (1) Respiratory failure: Most likely in setting of COPD exacerbation along with respiratory failure in setting of severe bradycardia on admission. Currently on mechanical ventilation. Minimal ventilator settings. Continue sedation with propofol and fentanyl. Plan for sedation vacation today. Wean off propofol in a.m. with possibility of extubation if RSBI is sufficient. Oxygen supplementation keeping saturation over 90%. Daily ABGs. Pulmicort twice daily, DuoNeb every 4 hour. Wean Solu-Medrol to 40 mg every 8 hourly. Will plan to wean aggressively within next 24 to 48 hours. (2) Bradycardia: Unknown cause. Currently improving while holding Cardizem. Cardiology on board. Does seem to have baseline a flutter. Dopamine weaned off. Target heart rate more than 60. Will discuss with patient regarding anticoagulation once more awake given concerns for baseline a flutter. Echocardiogram shows EF of 66% with no regional wall motion abnormality, mild MR, biatrial enlargement. (3) Acute renal failure: Baseline creatinine around 1.3. CKD stage III. Worsening acute kidney injury most likely in setting of bradycardia. Hemodialysis as per nephrology. Does have mild uremia. Start on normal saline at 100 cc/h. Appreciate urine output. Medical reconciliation done for nephrotoxic drugs. Holding off on lisinopril and Lasix. Continue with Flomax. (4) Acute encephalopathy: Most likely in setting of bradycardia along with acute kidney injury. Continue to monitor. Plan to extubate within next 24 to 48 hours. (5) Diastolic congestive heart failure: Currently slightly dehydrated. IV fluid as above. Watch for fluid overload. Chest x-ray in a.m. (6) Hypotension: Resolved with improving bradycardia. Last night very hypertensive, small dose hydralazine was added, but blood pressure subsequently soft so no longer requiring it. Hydralazine discontinued. (7) Hypomagnesemia: Replaced. Recheck follow-up (8) Anemia: Normocytic anemia, hemoglobin 10.3. Not on anticoagulation. Repeat CBC. (9) BPH (benign prostatic hyperplasia): Continue Flomax Plan Atrial flutter: With slow ventricular response as above. With uremia, had not been started on anticoagulation. Pending reassessment, today with worsening BUN up to 70, creatinine up to 6.1. Possible dialysis tomorrow. With uremia, risk of bleeding, for now anticoagulation has not been initiated beyond renally dosed prophylactic Lovenox dose, aspirin has been added. But once this is improving, consider anticoagulation for stroke risk reduction as well. Added aspirin for now. Consider anticoagulation for stroke risk reduction. Elevated troponin: On admission. Could be in setting of type II AR from bradycardia. No regional wall motion abnormality on echo. Will benefit from outpatient stress test. DM2: A1c of 7.7. Continue with Lantus 15 units every morning, lispro Q6 hourly. Monitor for hyperglycemia. Hypertension: Goal blood pressure less than 140/90 mmHg. Blood pressure slightly elevated today. Restart hydralazine 5 mg every 4-hour as needed for systolic blood pressure of more than 160 mmHg. Full code N.p.o. Lovenox for DVT prophylaxis Protonix OPD prophylaxis Patient able to provide his own consents. Initially discussed condition with his [id number], but as his condition is worsening, requiring further measures, as per discussion with his [id number] is okay to contact his son to home she defers decision-making. Son's phone number is [phone]. Attestations 2 Medical Necessity Statement*: Requires further hospitalization for management of respiratory failure in setting of severe bradycardia with baseline A-flutter, acute kidney injury requiring hemodialysis Critical Care Time: The high probability of a clinically significant, sudden or life threatening deterioration of the patient's [cardiac, renal, pulmonary, neurological] s ystem(s) required my full and direct attention, intervention and personal management. The critical care time is as shown. This time is in addition to time spent performing any reported procedures but includes the following: [x] Data and vital sign review and interpretation [x] Patient assessment, examination and intervention [x] Documentation [x] Medication orders and management Critical Care Time (min): 90 Coding Level of Care Code Critical Care >/= 30 minutes Critical care time (in minutes): 90 The high probability of a clinically significant, sudden or life threatening deterioration, as referenced in this documentation, required my full and direct attention, intervention and personal management. The critical care time shown is in addition to time spent performing any reported separately billable procedures and includes the following: [x] Data and vital sign review and interpretation [x ] Patient assessment, examination and intervention [x] Medication orders and management [x] Patient/Family updates as able [x] Care Coordination and Documentation. Other Coding Information This patient has a high probability of clinically significant, sudden or life threatening deterioration of the patient's (neurological/pulmonary/cardiac/renal/ID/endocrine) systems required my full, direct attention, the highest level of physician preparedness for urgent intervention and personal management. I managed/supervised life or organ supporting interventions that required frequent physician assessment. I devoted my full attention in the ICU to the direct care of this patient for the period of time indicated above. Time I spent with family or surrogate(s) is included only if the patient was incapable of providing necessary information or participating in decision making. This time includes the following services provided: Telemetry review Mechanical Ventilation Hemodynamic interpretation, assessment and management Review and interpretation of CXR Review and interpretation of lab values Review and interpretation of microbiologic data and culture results Review of medications and administration Review and interpretation of Nutrition requirements and management Discussion of management with other consultants and services Clinical update to family members Diagnoses Respiratory failure J96.90 Bradycardia R00.1 Acute renal failure N17.9 Acute encephalopathy G93.40 Diastolic congestive heart failure I50.30 Hypotension I95.9 Hypomagnesemia E83.42 Anemia D64.9 BPH (benign prostatic hyperplasia) N40.0
[2024-11-20] MEDS: enoxaparin 30 mg/0.3 mL Syringe SUBCUT (21:13)
[2024-11-20] MEDS: fentaNYL 1,000 MCG/100 ML BAG 5 MCG IV (23:42)
[2024-11-20] MEDS: hyDRALAzine 20 mg/mL INJ 1 mL 5 MG IVP (23:52)
[2024-11-21] VITALS (111 sets, daily range): BP systolic 115–180; BP diastolic 54–89; PULSE 66–90; RESP 14–17; TEMP 36.3–38; O2SAT 76–99
[2024-11-21] MEDS: propofol 1,000 MG/100 ML INJ 18.38 MG IV ×2 (03:51→18:47)
[2024-11-21] MEDS: ipratropium-albuterol 3 mL Neb INHALATION ×6 (04:30→23:06)
[2024-11-21 04:49] LABS: Basophils % 0.1 %; Hematocrit 33.4 % (37-53); Lymphocytes # 0.3 10^3/uL (0.8-4.8); Mean Corpuscular HGB Conc 31.4 g/dL (30-55); Mean Corpuscular Hemoglobin 29.6 pg (27-33); Mean Corpuscular Volume 94.1 fl (82-101); Mean Platelet Volume 10.8 fL (7.4-10.4); Monocytes # 0.5 10^3/uL (0.2-0.9); Monocytes % 6.2 %; Neutrophils # 7.34 10^3/uL (1.8-7.7); Neutrophils % 87.3 %; Nucleated Red Blood Cells % 0 %; Platelet Count 249 10^3/cmm (157-399); Red Blood Count 3.55 10^6/uL (3.85-5.65); Red Cell Distribution Width 14.4 % (12.1-15.1); White Blood Count 8.41 10^3/uL (3.29-11.43)
[2024-11-21 05:17] LABS: Alanine Aminotransferase 17 U/L (0-41); Albumin Level 3.3 g/dL (3.5-5.2); Alkaline Phosphatase 71 U/L (40-130); Anion Gap 24.1 (5-19); Aspartate Amino Transferase 6 U/L (0-40); Calcium 8.4 mg/dL (8.5-10.5); Carbon Dioxide 22 mmol/L (22-29); Chloride 99 mmol/L (98-107); Creatinine Clr Calc Pharmacy 14.3022; Globulin 2.8 g/dL (1.3-4.6); Glucose 273 mg/dL (65-115); Magnesium 2.2 mg/dL (1.7-2.3); Osmolality Calculated 331 mOsm/kg (285-295); Phosphorus 7.4 mg/dL (2.5-4.5); Potassium 5.1 mmol/L (3.5-5.1); Sodium 140 mmol/L (136-145); Total Bilirubin 0.2 mg/dL (0.15-1.2); Total Protein 6.1 g/dL (6.6-8.7)
[2024-11-21 05:33] LABS: Folate Level 4.7 ng/mL (4.5-32.2)
[2024-11-21 05:38] LABS: Blood Urea Nitrogen 101 mg/dL (8-23)
--- NOTE | 2024-11-21 06:00 | XRR_ITS ---
PROCEDURE INFORMATION: Exam: XR Chest Exam date and time: 11/21/2024 7:10 AM Age: 74 years old Clinical indication: Device placement; Ett placement (vent status); Additional info: Intubated TECHNIQUE: Imaging protocol: Radiologic exam of the chest. Views: 1 view. COMPARISON: CR XR chest 1V portable [id number] 11/20/2024 10:35 AM FINDINGS: Tubes, catheters and devices: Endotracheal tube tip terminates 3.2 cm above the corazon. Enteric tube side port overlies the stomach with tip out of the field of view. Lungs: Bibasilar atelectasis/collapse. Pleural spaces: Small bilateral pleural effusions. Heart/Mediastinum: No cardiomegaly. Bones/joints: Unremarkable. XR/XR chest 1V portable [id number] IMPRESSION: No interval change.
[2024-11-21 06:14] LABS: ABG PCO2 48.9 mmHg (35-45); ABG PH Result 7.26 (7.35-7.45); Alveolar-Arterial Oxygen Gradi 18.2 mmHg (5-10); Arterial Blood Gas Hematocrit 37.5 % (42-52); Base Excess ABG -5.5 mmol/L (-2.0-2.0); Blood Gas Operator Identificat SAM; Blood Gas Sample Site Brachial, right; Blood Gas Sample Type Arterial; Carboxyhemoglobin 0.5 %THgb (0.4-20.1); HCO3 ABG 21.8 mmol/L (22-26); Ionized Calcium Level - ABG 1.1 mmol/L (1.1-1.4); Methemoglobin 0.2 % (0.4-1.5); Oxygen Device VENT; Oxygen Saturation ABG 95.7; PO2 FiO2 Ratio Arterial Blood 222; Potassium Level - ABG 4.9 mmol/L (3.5-5.0); Total Hemoglobin 12.2 g/dL (14-18)
[2024-11-21] MEDS: methylPREDNISolone sod succ 40 mg/mL INJ IVP ×3 (06:33→18:28)
[2024-11-21] MEDS: insulin lispro 100 unit/1 mL SUBCUT ×4 (06:37→23:20)
[2024-11-21] MEDS: sodium chloride 0.9% 1,000 ML 100 ML IV (07:20)
--- NOTE | 2024-11-21 08:21 | PM.PN ---
Subjective Subjective: intubated. not giving a ros. does respond and follow some simple commands. Medications: Reviewed: Yes Medication Review Details: Current Medications Acetaminophen (Acetaminophen 325 Mg Tablet) 650 mg PO Q6H PRN PRN Reason: Mild/Mod Pain Or Temp >/= 101 Albuterol Sulfate (Albuterol 2.5 Mg/3 Ml Neb) 2.5 mg INHALATION Q6H.RESP PRN PRN Reason: SHORTNESS OF BREATH Last Admin: 11/17/24 18:21 Dose: 2.5 mg Albuterol/Ipratropium (Ipratropium-Albuterol 3 Ml Neb) 3 ml INHALATION Q4H.RESPIRATORY COREY Last Admin: 11/21/24 04:30 Dose: 3 ml Aspirin (Aspirin 81 Mg Ec Tablet) 162 mg PO DAILY C[facility] Last Admin: 11/20/24 08:19 Dose: 162 mg Enoxaparin Sodium (Enoxaparin 30 Mg/0.3 Ml Syringe) 30 mg SUBCUT Q24H [facility] Last Admin: 11/20/24 21:13 Dose: 30 mg Fluoxetine HCl (Fluoxetine 20 Mg Capsule) 20 mg PO DAILY [facility] Glucagon (Glucagon 1 Mg/Ml Kit 1 Ml) 1 mg IM ONCE PRN; Protocol PRN Reason: Adult Acute Hypoglycemia Nursing Prot. Hydralazine HCl (Hydralazine 20 Mg/Ml Inj 1 Ml) 5 mg IVP Q4H PRN PRN Reason: Systolic blood pressure more than 160 mmHg Last Admin: 11/20/24 23:52 Dose: 5 mg Dopamine HCl/Dextrose (Intropin Drip) 400 mg in 250 mls @ 22.963 mls/hr IV CONT COREY; Protocol Last Titration: 11/18/24 23:00 Dose: 0 mcg/kg/min, 0 mls/hr Dextrose (D5w) 500 mls @ 0 mls/hr IV ONCE PRN; Protocol PRN Reason: Adult Acute Hypoglycemia Prot Dextrose (D10w) 125 mls @ 750 mls/hr IV PRN PRN; Protocol PRN Reason: Adult Acute Hypoglycemia Nursing Protocol Dextrose (D10w) 250 mls @ 1,000 mls/hr IV PRN PRN; Protocol PRN Reason: Adult Acute Hypoglycemia Nursing Protocol Propofol (Diprivan) 1,000 mg in 100 mls @ 0 mls/hr IV .Q0M [facility]; Protocol Last Titration: 11/21/24 06:27 Dose: 15 mcg/kg/min, 11.03 mls/hr Fentanyl (Sublimaze) 1,000 mcg in 100 mls @ 0 mls/hr IV .Q0M [facility]; Protocol Last Admin: 11/20/24 23:42 Dose: 50 mcg/hr, 5 mls/hr Albumin Human (Albumin) 12.5 gm in 50 mls @ 60 mls/hr IV PRN PRN PRN Reason: Hypotension and/or symptomatic Sodium Chloride (Sodium Chloride 0.9%) 1,000 mls @ 100 mls/hr IV .Q10H [facility] Last Admin: 11/21/24 07:20 Dose: 100 mls/hr Insulin Glargine (Insulin Glargine 100 Units/1 Ml) 15 unit SUBCUT DAILY [facility] Last Admin: 11/20/24 09:20 Dose: 15 unit Insulin Human Lispro (Insulin Lispro 100 Unit/1 Ml) 0 unit SUBCUT Q6H [facility]; Protocol Last Admin: 11/21/24 06:37 Dose: 8 unit Methylprednisolone Sodium Succinate (Methylprednisolone Sod Succ 40 Mg/Ml Inj) 40 mg IVP Q8H [facility] Last Admin: 11/21/24 06:33 Dose: 40 mg Ondansetron HCl (Ondansetron 2 Mg/Ml Sdv 2 Ml) 4 mg IVP Q8H PRN PRN Reason: vomiting, or N/V if npo Pantoprazole Sodium (Pantoprazole 40 Mg Sdv) 40 mg IVP DAILY [facility] Last Admin: 11/20/24 08:18 Dose: 40 mg Tamsulosin HCl (Tamsulosin 0.4 Mg Capsule) 0.4 mg PO DAILY [facility] Last Admin: 11/20/24 08:19 Dose: 0.4 mg Vitals/I&O/Wt Last Vital Signs Temp 97.4 F L 11/21/24 04:00 Pulse 90 11/21/24 06:15 Resp 17 11/21/24 06:28 BP 132/72 11/21/24 06:15 Pulse Ox 93 11/21/24 06:28 O2 Del Method Mechanical Ventilation 11/21/24 05:00 O2 Flow Rate 50 11/18/24 02:00 FiO2 40 11/21/24 06:28 01/06/25 01/07/25 01/07/25 22:59 06:59 14:59 Intake Total 1115 / 1297.688 236.284 / 2358.132 7249 / 1000 Output Total 850 / 850 350 / 1200 Balance 265 / 447.688 -113.716 / 540.036 7334 / 1000 Weight last 48 hrs Weight 123 kg Weight 121.5 kg Physical Exam Narrative: intubated, obese, awake on dopamine vent Fio2=50% heent- nc/at, anicteric lungs dull bases and diminished heart irreg +s1, s2 abd soft, + bs ext - b/l 1+ leg edema neuro -responsive + femoral dialysis catheter Urinary Catheter Management: Solomon: Cath Placed During This Visit: yes Reason for Continuing Indwelling Catheter: Accurate Measurement of Urinary Output in Critically Ill Patients Urinary Catheter Date of Insertion: 11/17/24 Urinary Catheter Time of Insertion: 07:10 Data 11/21/24 04:34 11/21/24 04:34 A&P Assessment and plan (1) Acute kidney injury superimposed on CKD: 74 year old male w/ past med hx of a fib, DM, HTN, BPH. Pt presented w/ weakness, lethargy, orthopnea, dyspnea. In ER he was found to have AIDA, k 5.3 and bradycardic to 30's w/ SBP of 90. He was started on a dopamine drip, given ivf. 1. bradycardia- improved- now a flutter at 72 2. AIDA- no hydronephrosis. low ur na - can be cardio-renal syndrome -ur microalb/ cr 574 -u/a cloudy, 2+ protein, 3+ glu, 3+ blood, >100 rbc, 11-20 wbc -normal complements hep b and C are negative -anca, anti-gbm are pending -hyperphosphatemia- from AIDA -as bun, phos rising. having difficulty w/ vent- attempt HD and see if helps 3. CKD stage 3- based on cr 1.3 in oct 2024- try to get old labs- risks are obesity, htn, dm pth 301- repeat in 4 weeks 4. anemia- iv iron 5. hyponatremia from AIDA-na stable -normalized seen and examined with the aide of a nurse using A/V equipment I called his son Ashish Rouse -[phone]- he consulted to dialysis yesterday Plan as above Attestations Medical Necessity Statement*: vdrf Time Spent in Patient Care: 16 - 35 minutes Coding Level of Care Code Acute Code for Chg Fwd Diagnoses Acute kidney injury superimposed on CKD N17.9; N18.9
[2024-11-21] MEDS: aspirin 81 mg EC Tablet 162 MG PO (09:25)
[2024-11-21] MEDS: tamsulosin 0.4 mg Capsule PO (09:25)
[2024-11-21] MEDS: pantoprazole 40 mg SDV IVP (09:25)
[2024-11-21] MEDS: fluoxetine 20 mg Capsule PO (09:25)
[2024-11-21] MEDS: insulin glargine 100 units/1 mL 15 UNIT SUBCUT (09:26)
[2024-11-21] MEDS: propofol 1,000 MG/100 ML INJ 11.03 MG IV (10:19)
[2024-11-21 11:26] LABS: Glucose Point of Care 281 mg/dL (70-110)
[2024-11-21 11:26] LABS: Glucose Point of Care 259 mg/dL (70-110)
[2024-11-21 11:26] LABS: Glucose Point of Care 269 mg/dL (70-110)
[2024-11-21 11:45] LABS: Glucose Point of Care 342 mg/dL (70-110)
[2024-11-21 11:45] LABS: Glucose Point of Care 348 mg/dL (70-110)
[2024-11-21 11:45] LABS: Glucose Point of Care 326 mg/dL (70-110)
[2024-11-21 11:45] LABS: Glucose Point of Care 236 mg/dL (70-110)
[2024-11-21 12:15] LABS: Glucose Point of Care 266 mg/dL (70-110)
[2024-11-21] MEDS: heparin, porcine 1,000 unit/mL INJ 10 mL 1000 UNIT IV (12:48)
--- NOTE | 2024-11-21 17:00 | P.PN_ITS ---
Subjective 2 Subjective: No acute events overnight. Patient has remained hemodynamically stable and afebrile. Heart rate has remained stable. No need for pressors. Continues to remain on 15 of propofol, 50 of fentanyl. Undergoing dialysis today. Appreciate ABG on FiO2 of 40%, PEEP of 8, tidal volume of 620. Showing respiratory acidosis. Vitals/I&O/Wt Last Vital Signs Temp 100.4 F H 11/21/24 12:58 Pulse 70 11/21/24 15:24 Resp 16 11/21/24 15:24 BP 122/64 11/21/24 14:15 Pulse Ox 94 11/21/24 15:24 O2 Del Method Mechanical Ventilation 11/21/24 15:24 O2 Flow Rate 50 11/18/24 02:00 FiO2 35 11/21/24 15:24 11/21/24 11/21/24 11/21/24 06:59 14:59 22:59 Intake Total 236.284 / 1849.463 1206.982 / 1440.982 Output Total 350 / 1200 Balance -113.716 / 409.665 4281.982 / 1440.982 Weight last 48 hrs Weight 123 kg Weight 121.5 kg Physical Exam 2 Narrative: General: Intubated, sedated, comfortable, AOx3, following directions HEENT: PERRLA, pupils bilaterally equal and reactive Chest: Normal vesicular breath sounds, no added sounds, equal good air entry bilaterally CVS: S1-S2 irregularly irregular, no murmurs, no tachycardia, no gallops, no rubs Abdomen: Soft, nontender, no organomegaly, bowel sounds present Neuro: No focal deficits, no facial deformity, AO x3, power 5/5 in all limbs Urinary Catheter Management: Solomon: Cath Placed During This Visit: yes Reason for Continuing Indwelling Catheter: Accurate Measurement of Urinary Output in Critically Ill Patients Urinary Catheter Date of Insertion: 11/17/24 Urinary Catheter Time of Insertion: 07:10 Data 11/21/24 04:34 11/21/24 04:34 Micro: Microbiology 11/17/24 10:03 Gram Stain - Final Sputum - Endotracheal Tube Aspirate Sputum Culture - Final Staphylococcus lugdunensis A&P Assessment and plan (1) Respiratory failure: Most likely in setting of COPD exacerbation along with respiratory failure in setting of severe bradycardia on admission. Currently on mechanical ventilation. Minimal ventilator settings. Continue sedation with propofol and fentanyl. Plan for sedation vacation today. Wean off propofol in a.m. with possibility of extubation if RSBI is sufficient. Oxygen supplementation keeping saturation over 90%. Daily ABGs. Pulmicort twice daily, DuoNeb every 4 hour. Wean Solu-Medrol to 40 mg every 8 hourly. Will plan to wean aggressively within next 24 to 48 hours. (2) Bradycardia: Unknown cause. Currently improving while holding Cardizem. Cardiology on board. Does seem to have baseline a flutter. Dopamine weaned off. Target heart rate more than 60. Will discuss with patient regarding anticoagulation once more awake given concerns for baseline a flutter. Echocardiogram shows EF of 66% with no regional wall motion abnormality, mild MR, biatrial enlargement. (3) Acute renal failure: Baseline creatinine around 1.3. CKD stage III. Worsening acute kidney injury most likely in setting of bradycardia. Hemodialysis as per nephrology. Does have mild uremia. Start on normal saline at 100 cc/h. Appreciate urine output. Medical reconciliation done for nephrotoxic drugs. Holding off on lisinopril and Lasix. Continue with Flomax. (4) Acute encephalopathy: Most likely in setting of bradycardia along with acute kidney injury. Continue to monitor. Plan to extubate within next 24 to 48 hours. (5) Diastolic congestive heart failure: Currently slightly dehydrated. IV fluid as above. Watch for fluid overload. Chest x-ray in a.m. (6) Hypotension: Resolved with improving bradycardia. Last night very hypertensive, small dose hydralazine was added, but blood pressure subsequently soft so no longer requiring it. Hydralazine discontinued. (7) Hypomagnesemia: Replaced. Recheck follow-up (8) Anemia: Normocytic anemia, hemoglobin 10.3. Not on anticoagulation. Repeat CBC. (9) BPH (benign prostatic hyperplasia): Continue Flomax Plan Atrial flutter: With slow ventricular response as above. With uremia, had not been started on anticoagulation. Pending reassessment, today with worsening BUN up to 70, creatinine up to 6.1. Possible dialysis tomorrow. With uremia, risk of bleeding, for now anticoagulation has not been initiated beyond renally dosed prophylactic Lovenox dose, aspirin has been added. But once this is improving, consider anticoagulation for stroke risk reduction as well. Added aspirin for now. Consider anticoagulation for stroke risk reduction. Elevated troponin: On admission. Could be in setting of type II CT from bradycardia. No regional wall motion abnormality on echo. Will benefit from outpatient stress test. DM2: A1c of 7.7. Continue with Lantus 15 units every morning, lispro Q6 hourly. Monitor for hyperglycemia. Hypertension: Goal blood pressure less than 140/90 mmHg. Blood pressure slightly elevated today. Restart hydralazine 5 mg every 4-hour as needed for systolic blood pressure of more than 160 mmHg. Full code N.p.o. Lovenox for DVT prophylaxis Protonix OPD prophylaxis Patient able to provide his own consents. Initially discussed condition with his [id number], but as his condition is worsening, requiring further measures, as per discussion with his [id number] is okay to contact his son to home she defers decision-making. Son's phone number is [phone]. Plan for the day: Continue mechanical ventilation for now. Sedation medication. Will plan to transfer back to full sedation at night for patient to rest. Patient again developed metabolic acidosis with uremia and worsening renal functions today. Potassium 5.1. Plan for dialysis today. Will confirm with nephrology before extubation about possible need for tunneled catheter placement for long-term dialysis. Will extubate accordingly. If no plan for tunneled catheter can plan to extubate within next 24 hours. Patient has remained hemodynamically stable. Heart rate stable. Continue to monitor. Continue to hold off on antiarrhythmic. Continue with home dose of Prozac. Insulin sliding scale. Sputum culture growing Staphylococcus lugdunensis. Blood cultures negative. Start on linezolid 600 mg twice daily. Will plan to cover for at least 5 to 7 days. Stop IV fluids. Attestations 2 Medical Necessity Statement*: Requires further hospitalization for management of respiratory failure in setting of acute kidney injury requiring hemodialysis, bradycardia in setting of Cardizem, Staphylococcus pneumonia as patient remains ventilator dependent Critical Care Time: The high probability of a clinically significant, sudden or life threatening deterioration of the patient's [ cardiac, pulmonary, renal] system(s) required my full and direct attention, intervention and personal management. The critical care time is as shown. This time is in addition to time spent performing any reported procedures but includes the following: [x] Data and vital sign review and interpretation [x] Patient assessment, examination and intervention [x] Documentation [x] Medication orders and management Critical Care Time (min): 90 Coding Level of Care Code Critical Care >/= 30 minutes Critical care time (in minutes): 90 The high probability of a clinically significant, sudden or life threatening deterioration, as referenced in this documentation, required my full and direct attention, intervention and personal management. The critical care time shown is in addition to time spent performing any reported separately billable procedures and includes the following: [x] Data and vital sign review and interpretation [x ] Patient assessment, examination and intervention [x] Medication orders and management [x] Patient/Family updates as able [x] Care Coordination and Documentation. Other Coding Information This patient has a high probability of clinically significant, sudden or life threatening deterioration of the patient's (neurological/pulmonary/cardiac/renal/ID/endocrine) systems required my full, direct attention, the highest level of physician preparedness for urgent intervention and personal management. I managed/supervised life or organ supporting interventions that required frequent physician assessment. I devoted my full attention in the ICU to the direct care of this patient for the period of time indicated above. Time I spent with family or surrogate(s) is included only if the patient was incapable of providing necessary information or participating in decision making. This time includes the following services provided: Telemetry review Mechanical Ventilation Hemodynamic interpretation, assessment and management Review and interpretation of CXR Review and interpretation of lab values Review and interpretation of microbiologic data and culture results Review of medications and administration Review and interpretation of Nutrition requirements and management Discussion of management with other consultants and services Clinical update to family members Diagnoses Respiratory failure J96.90 Bradycardia R00.1 Acute renal failure N17.9 Acute encephalopathy G93.40 Diastolic congestive heart failure I50.30 Hypotension I95.9 Hypomagnesemia E83.42 Anemia D64.9 BPH (benign prostatic hyperplasia) N40.0
[2024-11-21] MEDS: linezolid premix 600 MG/300 ML PREMIX 300 MG IV (17:23)
[2024-11-21 17:41] LABS: Glucose Point of Care 179 mg/dL (70-110)
[2024-11-21] MEDS: fentaNYL 1,000 MCG/100 ML BAG 5 MCG IV (18:47)
[2024-11-21] MEDS: enoxaparin 30 mg/0.3 mL Syringe SUBCUT (20:13)
--- NOTE | 2024-11-21 22:22 | PC.NURSE ---
Patient is increasingly agitated and uncooperative with treatment. PO medications and lovenox refused, telemetry refused, BP cuff frequently pulled off. Dr. Nascimento notified.
[2024-11-21] MEDS: propofol 1,000 MG/100 ML INJ 36.75 MG IV (22:35)
[2024-11-21 23:25] LABS: Glucose Point of Care 243 mg/dL (70-110)
[2024-11-22] VITALS (101 sets, daily range): BP systolic 137–201; BP diastolic 54–138; PULSE 66–106; RESP 11–32; TEMP 36.9–37.7; O2SAT 89–96
[2024-11-22] MEDS: hyDRALAzine 20 mg/mL INJ 1 mL 5 MG IVP ×2 (00:20→20:04)
[2024-11-22] MEDS: propofol 1,000 MG/100 ML INJ 40.43 MG IV ×3 (00:51→05:35)
[2024-11-22] MEDS: ipratropium-albuterol 3 mL Neb INHALATION ×5 (04:20→20:05)
[2024-11-22 04:44] LABS: ABG PCO2 40.5 mmHg (35-45); ABG PH Result 7.39 (7.35-7.45); Alveolar-Arterial Oxygen Gradi 17.8 mmHg (5-10); Arterial Blood Gas Hematocrit 34.4 % (42-52); Base Excess ABG -0.4 mmol/L (-2.0-2.0); Blood Gas Operator Identificat SAM; Blood Gas Sample Site Brachial, right; Blood Gas Sample Type Arterial; Blood Gas Tidal Volume 0.62; Carboxyhemoglobin 0.6 %THgb (0.4-20.1); HCO3 ABG 24.5 mmol/L (22-26); HGB O2 Sat 90.3 % (95-100); Ionized Calcium Level - ABG 1.1 mmol/L (1.1-1.4); Methemoglobin 1.3 % (0.4-1.5); Oxygen Device VENT; PO2 FiO2 Ratio Arterial Blood 188; Potassium Level - ABG 4.9 mmol/L (3.5-5.0); Total Hemoglobin 11.2 g/dL (14-18)
[2024-11-22 05:05] LABS: Glucose Point of Care 257 mg/dL (70-110)
[2024-11-22] MEDS: insulin lispro 100 unit/1 mL SUBCUT ×3 (05:05→22:52)
[2024-11-22] MEDS: linezolid premix 600 MG/300 ML PREMIX 300 MG IV ×2 (05:06→17:39)
[2024-11-22 05:32] LABS: Alanine Aminotransferase 14 U/L (0-41); Albumin Level 3.1 g/dL (3.5-5.2); Alkaline Phosphatase 59 U/L (40-130); Anion Gap 22.1 (5-19); Aspartate Amino Transferase 7 U/L (0-40); Calcium 8.1 mg/dL (8.5-10.5); Carbon Dioxide 22 mmol/L (22-29); Chloride 95 mmol/L (98-107); Creatinine Clr Calc Pharmacy 19.0696; Globulin 2.7 g/dL (1.3-4.6); Glucose 261 mg/dL (65-115); Magnesium 2.4 mg/dL (1.7-2.3); Osmolality Calculated 313 mOsm/kg (285-295); Phosphorus 6.5 mg/dL (2.5-4.5); Potassium 5.1 mmol/L (3.5-5.1); Sodium 134 mmol/L (136-145); Total Bilirubin 0.3 mg/dL (0.15-1.2); Total Protein 5.8 g/dL (6.6-8.7)
[2024-11-22 05:56] LABS: Blood Urea Nitrogen 84 mg/dL (8-23)
--- NOTE | 2024-11-22 06:00 | XRR_ITS ---
PROCEDURE INFORMATION: Exam: XR Chest Exam date and time: 11/22/2024 5:25 AM Age: 74 years old Clinical indication: Other: Intubated TECHNIQUE: Imaging protocol: Radiologic exam of the chest. Views: 1 view. COMPARISON: CR XR chest 1V portable [id number] 11/21/2024 7:10 AM FINDINGS: Lungs: Stable life-support lines. Stable infiltrates plus effusions, right greater than left. Pleural spaces: Unremarkable. No pleural effusion. No pneumothorax. Heart/Mediastinum: See Vasculature finding. Vasculature: Mild cardiomegaly and uncoiling of thoracic aorta unchanged. Bones/joints: Unremarkable. XR/XR chest 1V portable [id number] IMPRESSION: No significant change.
--- NOTE | 2024-11-22 08:15 | PM.PN ---
Subjective Subjective: intubated, sedated on vent Medications: Reviewed: Yes Medication Review Details: Current Medications Acetaminophen (Acetaminophen 325 Mg Tablet) 650 mg PO Q6H PRN PRN Reason: Mild/Mod Pain Or Temp >/= 101 Albuterol Sulfate (Albuterol 2.5 Mg/3 Ml Neb) 2.5 mg INHALATION Q6H.RESP PRN PRN Reason: SHORTNESS OF BREATH Last Admin: 11/17/24 18:21 Dose: 2.5 mg Albuterol/Ipratropium (Ipratropium-Albuterol 3 Ml Neb) 3 ml INHALATION Q4H.[facility] Last Admin: 11/22/24 04:20 Dose: 3 ml Aspirin (Aspirin 81 Mg Ec Tablet) 162 mg PO DAILY [facility] Last Admin: 11/21/24 09:25 Dose: 162 mg Enoxaparin Sodium (Enoxaparin 30 Mg/0.3 Ml Syringe) 30 mg SUBCUT Q24H [facility] Last Admin: 11/21/24 20:13 Dose: 30 mg Fluoxetine HCl (Fluoxetine 20 Mg Capsule) 20 mg PO DAILY [facility] Last Admin: 11/21/24 09:25 Dose: 20 mg Glucagon (Glucagon 1 Mg/Ml Kit 1 Ml) 1 mg IM ONCE PRN; Protocol PRN Reason: Adult Acute Hypoglycemia Nursing Prot. Hydralazine HCl (Hydralazine 20 Mg/Ml Inj 1 Ml) 5 mg IVP Q4H PRN PRN Reason: Systolic blood pressure more than 160 mmHg Last Admin: 11/22/24 00:20 Dose: 5 mg Dopamine HCl/Dextrose (Intropin Drip) 400 mg in 250 mls @ 22.963 mls/hr IV CONT [facility]; Protocol Last Admin: 11/21/24 17:20 Dose: Not Given Dextrose (D5w) 500 mls @ 0 mls/hr IV ONCE PRN; Protocol PRN Reason: Adult Acute Hypoglycemia Prot Dextrose (D10w) 125 mls @ 750 mls/hr IV PRN PRN; Protocol PRN Reason: Adult Acute Hypoglycemia Nursing Protocol Dextrose (D10w) 250 mls @ 1,000 mls/hr IV PRN PRN; Protocol PRN Reason: Adult Acute Hypoglycemia Nursing Protocol Propofol (Diprivan) 1,000 mg in 100 mls @ 0 mls/hr IV .Q0M [facility]; Protocol Last Titration: 11/22/24 07:15 Dose: 40 mcg/kg/min, 29.4 mls/hr Fentanyl (Sublimaze) 1,000 mcg in 100 mls @ 0 mls/hr IV .Q0M [facility]; Protocol Last Admin: 11/21/24 18:47 Dose: 50 mcg/hr, 5 mls/hr Albumin Human (Albumin) 12.5 gm in 50 mls @ 60 mls/hr IV PRN PRN PRN Reason: Hypotension and/or symptomatic Linezolid (Zyvox Premix) 600 mg in 300 mls @ 300 mls/hr IV Q12H [facility]; Protocol Last Admin: 11/22/24 05:06 Dose: 300 mls/hr Insulin Glargine (Insulin Glargine 100 Units/1 Ml) 15 unit SUBCUT DAILY [facility] Last Admin: 11/21/24 09:26 Dose: 15 unit Insulin Human Lispro (Insulin Lispro 100 Unit/1 Ml) 0 unit SUBCUT Q6H [facility]; Protocol Last Admin: 11/22/24 05:05 Dose: 8 unit Methylprednisolone Sodium Succinate (Methylprednisolone Sod Succ 40 Mg/Ml Inj) 40 mg IVP BID [facility] Last Admin: 11/21/24 18:28 Dose: 40 mg Ondansetron HCl (Ondansetron 2 Mg/Ml Sdv 2 Ml) 4 mg IVP Q8H PRN PRN Reason: vomiting, or N/V if npo Pantoprazole Sodium (Pantoprazole 40 Mg Sdv) 40 mg IVP DAILY [facility] Last Admin: 11/21/24 09:25 Dose: 40 mg Tamsulosin HCl (Tamsulosin 0.4 Mg Capsule) 0.4 mg PO DAILY [facility] Last Admin: 11/21/24 09:25 Dose: 0.4 mg Vitals/I&O/Wt Last Vital Signs Temp 98.5 F 11/22/24 04:00 Pulse 68 11/22/24 06:00 Resp 16 11/22/24 04:20 BP 151/70 11/22/24 06:00 Pulse Ox 94 11/22/24 06:00 O2 Del Method Mechanical Ventilation 11/22/24 06:00 O2 Flow Rate 50 11/18/24 02:00 FiO2 35 11/22/24 07:15 11/21/24 11/22/24 11/22/24 22:59 06:59 14:59 Intake Total 1095.417 / 2536.399 330.077 / 2866.476 29.772 / 29.772 Output Total 2300 / 2300 200 / 2500 Balance -1204.583 / 236.399 130.077 / 366.476 29.772 / 29.772 Weight last 48 hrs Weight 121.5 kg Weight 121.5 kg Weight 123 kg Physical Exam Narrative: intubated, obese, vent Fio2=35% peep 8 tv 620 heent- nc/at, anicteric lungs improved air movement b/l heart irreg +s1, s2 abd soft, + bs ext - b/l 1+ leg edema neuro -responsive + femoral dialysis catheter Urinary Catheter Management: Solomon: Cath Placed During This Visit: yes Reason for Continuing Indwelling Catheter: Accurate Measurement of Urinary Output in Critically Ill Patients Urinary Catheter Date of Insertion: 11/17/24 Urinary Catheter Time of Insertion: 07:10 Data 11/21/24 04:34 11/22/24 04:57 Micro: Microbiology 11/16/24 17:20 Blood Culture - Final Blood NO GROWTH AFTER 5 DAYS 11/16/24 17:20 Blood Culture - Final Blood NO GROWTH AFTER 5 DAYS 11/17/24 10:03 Gram Stain - Final Sputum - Endotracheal Tube Aspirate Sputum Culture - Final Staphylococcus lugdunensis A&P Assessment and plan (1) Acute kidney injury superimposed on CKD: 74 year old male w/ past med hx of a fib, DM, HTN, BPH. Pt presented w/ weakness, lethargy, orthopnea, dyspnea. In ER he was found to have AIDA, k 5.3 and bradycardic to 30's w/ SBP of 90. He was started on a dopamine drip, given ivf. 1. AIDA- no hydronephrosis. low ur na - can be cardio-renal syndrome -ur microalb/ cr 574 -u/a cloudy, 2+ protein, 3+ glu, 3+ blood, >100 rbc, 11-20 wbc -normal complements hep b and C are negative -anca, anti-gbm are pending -most likely atn and should improve. however, we need do not know how long it will take for renal recovery 3. CKD stage 3- based on cr 1.3 in oct 2024- try to get old labs- risks are obesity, htn, dm pth 301- repeat in 4 weeks 4. anemia- iv iron 5. hyponatremia from AIDA-monitor na seen and examined with the aide of a nurse using A/V equipment I called his son Ashish Rouse -[phone]- he consulted to dialysis yesterday Plan as above monitor uop and chemistries for renal recovery vs further HD needs Attestations Medical Necessity Statement*: VDRF, AIDA Time Spent in Patient Care: 16 - 35 minutes (>than 50% of time spent in counselling and/or direct pt care on unit). Coding Level of Care Code Acute Code for [facility] F[facility] Diagnoses Acute kidney injury superimposed on CKD N17.9; N18.9
[2024-11-22 08:18] LABS: Glucose Point of Care 286 mg/dL (70-110)
[2024-11-22] MEDS: methylPREDNISolone sod succ 40 mg/mL INJ IVP (08:55)
[2024-11-22] MEDS: fluoxetine 20 mg Capsule PO (08:55)
[2024-11-22] MEDS: tamsulosin 0.4 mg Capsule PO (08:55)
[2024-11-22] MEDS: pantoprazole 40 mg SDV IVP (08:55)
[2024-11-22] MEDS: aspirin 81 mg EC Tablet 162 MG PO (08:55)
[2024-11-22] MEDS: insulin glargine 100 units/1 mL 15 UNIT SUBCUT (08:55)
[2024-11-22] MEDS: propofol 1,000 MG/100 ML INJ 29.4 MG IV (08:59)
[2024-11-22] MEDS: fentaNYL 1,000 MCG/100 ML BAG 5 MCG IV (10:01)
--- NOTE | 2024-11-22 11:32 | P.PN_ITS ---
Subjective 2 Subjective: No events overnight. Underwent dialysis yesterday. Tolerated well. Has remained hemodynamically stable and afebrile. On ventilator setting with FiO2 of 30%, PEEP of 8, tidal volume of 620. Currently on propofol of 30 coming down from 40 with fentanyl 50. Urine output improving. Vitals/I&O/Wt Last Vital Signs Temp 98.8 F 11/22/24 10:45 Pulse 68 11/22/24 10:45 Resp 16 11/22/24 10:19 BP 153/71 11/22/24 10:45 Pulse Ox 94 11/22/24 10:45 O2 Del Method Mechanical Ventilation 11/22/24 10:45 O2 Flow Rate 50 11/18/24 02:00 FiO2 35 11/22/24 10:45 11/21/24 11/22/24 11/22/24 22:59 06:59 14:59 Intake Total 1095.417 / 2536.399 330.077 / 2866.476 162.330 / 162.330 Output Total 2300 / 2300 200 / 2500 Balance -1204.583 / 236.399 130.077 / 366.476 162.330 / 162.330 Weight last 48 hrs Weight 121.5 kg Weight 121.5 kg Weight 123 kg Physical Exam 2 Narrative: General: Intubated, sedated, comfortable, AOx3, following directions HEENT: PERRLA, pupils bilaterally equal and reactive Chest: Normal vesicular breath sounds, no added sounds, equal good air entry bilaterally CVS: S1-S2 irregularly irregular, no murmurs, no tachycardia, no gallops, no rubs Abdomen: Soft, nontender, no organomegaly, bowel sounds present Neuro: No focal deficits, no facial deformity, AO x3, power 5/5 in all limbs Urinary Catheter Management: Solomon: Cath Placed During This Visit: yes Reason for Continuing Indwelling Catheter: Accurate Measurement of Urinary Output in Critically Ill Patients Urinary Catheter Date of Insertion: 11/17/24 Urinary Catheter Time of Insertion: 07:10 Data 11/21/24 04:34 11/22/24 04:57 Micro: Microbiology 11/16/24 17:20 Blood Culture - Final Blood NO GROWTH AFTER 5 DAYS 11/16/24 17:20 Blood Culture - Final Blood NO GROWTH AFTER 5 DAYS 11/17/24 10:03 Gram Stain - Final Sputum - Endotracheal Tube Aspirate Sputum Culture - Final Staphylococcus lugdunensis A&P Assessment and plan (1) Respiratory failure: Most likely in setting of COPD exacerbation along with respiratory failure in setting of severe bradycardia on admission. Currently on mechanical ventilation. Minimal ventilator settings. Continue sedation with propofol and fentanyl. Plan for sedation vacation today. Wean off propofol in a.m. with possibility of extubation if RSBI is sufficient. Oxygen supplementation keeping saturation over 90%. Daily ABGs. Pulmicort twice daily, DuoNeb every 4 hour. Wean Solu-Medrol to 40 mg every 8 hourly. Will plan to wean aggressively within next 24 to 48 hours. (2) Bradycardia: Unknown cause. Currently improving while holding Cardizem. Cardiology on board. Does seem to have baseline a flutter. Dopamine weaned off. Target heart rate more than 60. Will discuss with patient regarding anticoagulation once more awake given concerns for baseline a flutter. Echocardiogram shows EF of 66% with no regional wall motion abnormality, mild MR, biatrial enlargement. (3) Acute renal failure: Baseline creatinine around 1.3. CKD stage III. Worsening acute kidney injury most likely in setting of bradycardia. Hemodialysis as per nephrology. Does have mild uremia. Start on normal saline at 100 cc/h. Appreciate urine output. Medical reconciliation done for nephrotoxic drugs. Holding off on lisinopril and Lasix. Continue with Flomax. (4) Acute encephalopathy: Most likely in setting of bradycardia along with acute kidney injury. Continue to monitor. Plan to extubate within next 24 to 48 hours. (5) Diastolic congestive heart failure: Currently slightly dehydrated. IV fluid as above. Watch for fluid overload. Chest x-ray in a.m. (6) Hypotension: Resolved with improving bradycardia. Last night very hypertensive, small dose hydralazine was added, but blood pressure subsequently soft so no longer requiring it. Hydralazine discontinued. (7) Hypomagnesemia: Replaced. Recheck follow-up (8) Anemia: Normocytic anemia, hemoglobin 10.3. Not on anticoagulation. Repeat CBC. (9) BPH (benign prostatic hyperplasia): Continue Flomax Plan Atrial flutter: With slow ventricular response as above. With uremia, had not been started on anticoagulation. Pending reassessment, today with worsening BUN up to 70, creatinine up to 6.1. Possible dialysis tomorrow. With uremia, risk of bleeding, for now anticoagulation has not been initiated beyond renally dosed prophylactic Lovenox dose, aspirin has been added. But once this is improving, consider anticoagulation for stroke risk reduction as well. Added aspirin for now. Consider anticoagulation for stroke risk reduction. Elevated troponin: On admission. Could be in setting of type II KS from bradycardia. No regional wall motion abnormality on echo. Will benefit from outpatient stress test. DM2: A1c of 7.7. Continue with Lantus 15 units every morning, lispro Q6 hourly. Monitor for hyperglycemia. Hypertension: Goal blood pressure less than 140/90 mmHg. Blood pressure slightly elevated today. Restart hydralazine 5 mg every 4-hour as needed for systolic blood pressure of more than 160 mmHg. Full code N.p.o. Lovenox for DVT prophylaxis Protonix OPD prophylaxis Patient able to provide his own consents. Initially discussed condition with his [id number], but as his condition is worsening, requiring further measures, as per discussion with his [id number] is okay to contact his son to home she defers decision-making. Son's phone number is [phone]. Plan for the day: Discussed in detail with nephrology. Will like to wait to see if his renal functions improved. For now no plans for long-term dialysis. Review labs every day and decide about dialysis accordingly. Plan for weaning of sedation and weaning trial to possible extubation today. Monitor BMP daily. Heart rate stable. Blood sugars elevated. Most likely in setting of Solu-Medrol. Wean to 50 mg IV daily. For now continue with current dose of Lantus and sliding scale. Continue with linezolid for Staphylococcus lugdunensis pneumonia. Will finish her 7-day course. Attestations 2 Medical Necessity Statement*: Requires further hospitalization for management of AIDA requiring temporary dialysis in a patient admitted for significant bradycardia with cardiogenic shock as patient is ventilator dependent for respiratory failure Coding Level of Care Code Critical Care >/= 30 minutes Critical care time (in minutes): 70 The high probability of a clinically significant, sudden or life threatening deterioration, as referenced in this documentation, required my full and direct attention, intervention and personal management. The critical care time shown is in addition to time spent performing any reported separately billable procedures and includes the following: [x] Data and vital sign review and interpretation [x ] Patient assessment, examination and intervention [x] Medication orders and management [x] Patient/Family updates as able [x] Care Coordination and Documentation. Other Coding Information This patient has a high probability of clinically significant, sudden or life threatening deterioration of the patient's (neurological/pulmonary/cardiac/renal/ID/endocrine) systems required my full, direct attention, the highest level of physician preparedness for urgent intervention and personal management. I managed/supervised life or organ supporting interventions that required frequent physician assessment. I devoted my full attention in the ICU to the direct care of this patient for the period of time indicated above. Time I spent with family or surrogate(s) is included only if the patient was incapable of providing necessary information or participating in decision making. This time includes the following services provided: Telemetry review Mechanical Ventilation Hemodynamic interpretation, assessment and management Review and interpretation of CXR Review and interpretation of lab values Review and interpretation of microbiologic data and culture results Review of medications and administration Review and interpretation of Nutrition requirements and management Discussion of management with other consultants and services Clinical update to family members Diagnoses Respiratory failure J96.90 Bradycardia R00.1 Acute renal failure N17.9 Acute encephalopathy G93.40 Diastolic congestive heart failure I50.30 Hypotension I95.9 Hypomagnesemia E83.42 Anemia D64.9 BPH (benign prostatic hyperplasia) N40.0
[2024-11-22 12:03] LABS: Glucose Point of Care 268 mg/dL (70-110)
--- NOTE | 2024-11-22 13:47 | PC.NURSE ---
Patient was extubated successfully at 1347 by respiratory therapist.
--- NOTE | 2024-11-22 15:19 | PC.NURSE ---
This nurse along with Kenan RN, waisted: Propofol-39.288 mls Fentanyl-82.5 mls
[2024-11-22 17:24] LABS: Glucose Point of Care 192 mg/dL (70-110)
[2024-11-22] MEDS: enoxaparin 30 mg/0.3 mL Syringe SUBCUT (19:49)
[2024-11-22 21:07] LABS: Glucose Point of Care 236 mg/dL (70-110)
[2024-11-22 22:52] LABS: Glucose Point of Care 216 mg/dL (70-110)
[2024-11-23] VITALS (64 sets, daily range): BP systolic 114–199; BP diastolic 56–131; PULSE 71–102; RESP 2–30; TEMP 37.1–37.2; O2SAT 88–96; BMI 35.2
[2024-11-23] MEDS: ipratropium-albuterol 3 mL Neb INHALATION ×7 (00:25→23:34)
[2024-11-23] MEDS: hyDRALAzine 20 mg/mL INJ 1 mL 5 MG IVP (00:39)
[2024-11-23 04:54] LABS: Glucose Point of Care 105 mg/dL (70-110)
[2024-11-23] MEDS: linezolid premix 600 MG/300 ML PREMIX 300 MG IV ×2 (04:54→16:18)
[2024-11-23 05:27] LABS: Hematocrit 35.3 % (37-53); Mean Corpuscular HGB Conc 30.9 g/dL (30-55); Mean Corpuscular Hemoglobin 29.2 pg (27-33); Mean Corpuscular Volume 94.6 fl (82-101); Mean Platelet Volume 11.2 fL (7.4-10.4); Platelet Count 277 10^3/cmm (157-399); Red Blood Count 3.73 10^6/uL (3.85-5.65); Red Cell Distribution Width 14.3 % (12.1-15.1); White Blood Count 13.56 10^3/uL (3.29-11.43)
[2024-11-23 05:52] LABS: Alanine Aminotransferase 18 U/L (0-41); Albumin Level 3.3 g/dL (3.5-5.2); Alkaline Phosphatase 61 U/L (40-130); Anion Gap 24.1 (5-19); Aspartate Amino Transferase 14 U/L (0-40); Calcium 8.7 mg/dL (8.5-10.5); Carbon Dioxide 22 mmol/L (22-29); Chloride 98 mmol/L (98-107); Creatinine Clr Calc Pharmacy 18.2203; Glucose 101 mg/dL (65-115); Magnesium 2.5 mg/dL (1.7-2.3); Osmolality Calculated 321 mOsm/kg (285-295); Phosphorus 7.3 mg/dL (2.5-4.5); Potassium 5.1 mmol/L (3.5-5.1); Sodium 139 mmol/L (136-145); Total Bilirubin 0.4 mg/dL (0.15-1.2); Total Protein 6.3 g/dL (6.6-8.7)
--- NOTE | 2024-11-23 06:00 | XRR_ITS ---
PROCEDURE INFORMATION: Exam: XR Chest Exam date and time: 11/23/2024 5:32 AM Age: 74 years old Clinical indication: Shortness of breath; Additional info: Et tube removed, on cpap/bipap now, f/u TECHNIQUE: Imaging protocol: Radiologic exam of the chest. Views: 1 view. COMPARISON: CR (CHEST, ) 11/22/2024 5:25 AM FINDINGS: Tubes, catheters and devices: Query placement of left-sided PICC tube with tip not visualized. Interval removal of endotracheal and enteric tube. Lungs: Unremarkable. No consolidation. Pleural spaces: Small bilateral pleural effusions, [id number]-left with associated compressive atelectasis. Heart/Mediastinum: Unremarkable. No cardiomegaly. Bones/joints: Unremarkable. XR/XR chest 1V portable [id number] IMPRESSION: Interval removal of endotracheal and enteric tubes. Query placement of left-sided PICC tube with tip not visualized secondary to cardiac leads at the center of the chest. Stable bilateral pleural effusions , [id number]-left with associated compressive atelectasis, grossly similar to prior. Superimposed infection is not excluded.
[2024-11-23 06:04] LABS: Slide Review Slide Review Perform
[2024-11-23 06:05] LABS: Absolute Segmented Neutrophil 9.5 10/cmm (1.6-7.1); Eosinophils 0 %; Lymphocytes 11 %; Monocytes Absolute 1.8 10^3/cmm (0.1-0.6); Platelet Estimate Normal (Normal); Segmented Neutrophils 70 %; Total Cells Counted 100 (0-100)
[2024-11-23 06:13] LABS: Blood Urea Nitrogen 105 mg/dL (8-23)
[2024-11-23 06:16] LABS: ABG PH Result 7.35 (7.35-7.45); Alveolar-Arterial Oxygen Gradi 17.9 mmHg (5-10); Arterial Blood Gas Hematocrit 39.1 % (42-52); Base Excess ABG -1.5 mmol/L (-2.0-2.0); Blood Gas Operator Identificat SAM; Blood Gas Sample Site Brachial, left; Blood Gas Sample Type Arterial; Carboxyhemoglobin 0.5 %THgb (0.4-20.1); HCO3 ABG 24.2 mmol/L (22-26); HGB O2 Sat 96.6 % (95-100); Ionized Calcium Level - ABG 1.1 mmol/L (1.1-1.4); Oxygen Device BIPAP; PO2 FiO2 Ratio Arterial Blood 237; Potassium Level - ABG 4.8 mmol/L (3.5-5.0); Total Hemoglobin 12.7 g/dL (14-18)
[2024-11-23 07:57] LABS: Glucose Point of Care 136 mg/dL (70-110)
--- NOTE | 2024-11-23 08:26 | P.PN_ITS ---
Subjective 2 Subjective: extubated on bipap. responds to voice and touch. not following commands Medications: Reviewed: Yes Medication Review Details: Current Medications Acetaminophen (Acetaminophen 325 Mg Tablet) 650 mg PO Q6H PRN PRN Reason: Mild/Mod Pain Or Temp >/= 101 Albuterol Sulfate (Albuterol 2.5 Mg/3 Ml Neb) 2.5 mg INHALATION Q6H.RESP PRN PRN Reason: SHORTNESS OF BREATH Last Admin: 11/17/24 18:21 Dose: 2.5 mg Albuterol/Ipratropium (Ipratropium-Albuterol 3 Ml Neb) 3 ml INHALATION Q4H.RESPIRATORY [facility] Last Admin: 11/23/24 08:24 Dose: 3 ml Aspirin (Aspirin 81 Mg Ec Tablet) 162 mg PO DAILY ON [facility] OF [facility] Last Admin: 11/22/24 08:55 Dose: 162 mg Enoxaparin Sodium (Enoxaparin 30 Mg/0.3 Ml Syringe) 30 mg SUBCUT Q24H [facility] Last Admin: 11/22/24 19:49 Dose: 30 mg Fluoxetine HCl (Fluoxetine 20 Mg Capsule) 20 mg PO DAILY [facility] Last Admin: 11/22/24 08:55 Dose: 20 mg Glucagon (Glucagon 1 Mg/Ml Kit 1 Ml) 1 mg IM ONCE PRN; Protocol PRN Reason: Adult Acute Hypoglycemia Nursing Prot. Hydralazine HCl (Hydralazine 20 Mg/Ml Inj 1 Ml) 5 mg IVP Q4H PRN PRN Reason: Systolic blood pressure more than 160 mmHg Last Admin: 11/23/24 00:39 Dose: 5 mg Dextrose (D5w) 500 mls @ 0 mls/hr IV ONCE PRN; Protocol PRN Reason: Adult Acute Hypoglycemia Prot Dextrose (D10w) 125 mls @ 750 mls/hr IV PRN PRN; Protocol PRN Reason: Adult Acute Hypoglycemia Nursing Protocol Dextrose (D10w) 250 mls @ 1,000 mls/hr IV PRN PRN; Protocol PRN Reason: Adult Acute Hypoglycemia Nursing Protocol Propofol (Diprivan) 1,000 mg in 100 mls @ 0 mls/hr IV .Q0M ON [facility]; Protocol Last Titration: 11/22/24 15:20 Dose: Infused Albumin Human (Albumin) 12.5 gm in 50 mls @ 60 mls/hr IV PRN PRN PRN Reason: Hypotension and/or symptomatic Linezolid (Zyvox Premix) 600 mg in 300 mls @ 300 mls/hr IV Q12H ON [facility]; Protocol Last Admin: 11/23/24 04:54 Dose: 300 mls/hr Insulin Glargine (Insulin Glargine 100 Units/1 Ml) 15 unit SUBCUT DAILY ON [facility] Last Admin: 11/22/24 08:55 Dose: 15 unit Insulin Human Lispro (Insulin Lispro 100 Unit/1 Ml) 0 unit SUBCUT Q6H ON [facility]; Protocol Last Admin: 11/23/24 04:56 Dose: Not Given Methylprednisolone Sodium Succinate (Methylprednisolone Sod Succ 40 Mg/Ml Inj) 40 mg IVP DAILY ON [facility] Ondansetron HCl (Ondansetron 2 Mg/Ml Sdv 2 Ml) 4 mg IVP Q8H PRN PRN Reason: vomiting, or N/V if npo Pantoprazole Sodium (Pantoprazole 40 Mg Sdv) 40 mg IVP DAILY ON [facility] Last Admin: 11/22/24 08:55 Dose: 40 mg Tamsulosin HCl (Tamsulosin 0.4 Mg Capsule) 0.4 mg PO DAILY ON [facility] Last Admin: 11/22/24 08:55 Dose: 0.4 mg Vitals/I&O/Wt Last Vital Signs Temp 99.0 F 11/23/24 04:15 Pulse 77 11/23/24 06:15 Resp 21 H 11/23/24 06:15 BP 172/91 11/23/24 06:15 Pulse Ox 95 11/23/24 06:15 O2 Del Method BiPAP 11/23/24 06:15 O2 Flow Rate 4 11/23/24 04:30 FiO2 40 11/23/24 06:15 11/22/24 11/23/24 11/23/24 22:59 06:59 14:59 Intake Total 300 / 524.302 Output Total 750 / 1550 Balance 300 / -275.698 -750 / -1025.698 Weight last 48 hrs Weight 121 kg Weight 121.5 kg Weight 121.5 kg Physical Exam 2 Narrative: obese man in bed on bipap heent- nc/at, anicteric neck supple lungs - good air movement b/l heart irreg +s1, s2 abd soft, + bs ext - b/l 1+ leg edema neuro: lethargic on bipap + femoral dialysis catheter Urinary Catheter Management: Solomon: Cath Placed During This Visit: yes Reason for Continuing Indwelling Catheter: Accurate Measurement of Urinary Output in Critically Ill Patients Urinary Catheter Date of Insertion: 11/17/24 Urinary Catheter Time of Insertion: 07:10 Data 11/23/24 04:15 11/23/24 04:15 A&P Assessment and plan (1) Acute kidney injury superimposed on CKD: 74 year old male w/ past med hx of a fib, DM, HTN, BPH. Pt presented w/ weakness, lethargy, orthopnea, dyspnea. In ER he was found to have AIDA, k 5.3 and bradycardic to 30's w/ SBP of 90. He was started on a dopamine drip, given ivf. 1. AIDA- no hydronephrosis. low ur na - can be cardio-renal syndrome -ur microalb/ cr 574 -u/a cloudy, 2+ protein, 3+ glu, 3+ blood, >100 rbc, 11-20 wbc -normal complements hep b and C are negative -anca, anti-gbm are pending -most likely atn and should improve. -cr dora from 4.5 to 4.7- monitor. hold hd for now -if he is not eating and drinking, then please give ivf 3. CKD stage 3- based on cr 1.3 in oct 2024- try to get old labs- risks are obesity, htn, dm pth 301- repeat in 4 weeks 4. anemia- iv iron 5. hyponatremia from AIDA-improved lower steroids as able seen and examined with the aide of a nurse using A/V equipment Plan as above monitor uop and chemistries for renal recovery Attestations 2 Medical Necessity Statement*: AIDA, Bipap dependent Time Spent in Patient Care: 16 - 35 minutes (>than 50% of time sp ent in counselling and/or direct pt care on unit) . Coding Level of Care Code Acute Code for [facility] Fwd Diagnoses Acute kidney injury superimposed on CKD N17.9; N18.9
[2024-11-23] MEDS: methylPREDNISolone sod succ 40 mg/mL INJ IVP (08:28)
[2024-11-23] MEDS: pantoprazole 40 mg SDV IVP (08:28)
[2024-11-23] MEDS: aspirin 81 mg EC Tablet 162 MG PO (08:28)
[2024-11-23] MEDS: fluoxetine 20 mg Capsule PO (08:29)
[2024-11-23] MEDS: tamsulosin 0.4 mg Capsule PO (08:29)
[2024-11-23] MEDS: insulin glargine 100 units/1 mL 15 UNIT SUBCUT (08:42)
[2024-11-23] MEDS: sennosides-docusate Tablet 1 TAB PO (08:49)
[2024-11-23] MEDS: magnesium hydroxide 30 mL UDC PO (08:49)
[2024-11-23] MEDS: sodium chloride 0.45% 1,000 ML 75 ML IV (08:51)
--- NOTE | 2024-11-23 09:01 | XR_ITS ---
WS: [id number] Portable AP semiupright chest, 11/23/2024, 0923 hours Clinical Data: dr order Comparison: Portable chest, 11/23/2024, 0535 hours Findings: Bilateral lower lobe opacities remain the same. Again this may represent effusion, atelecta sis and/or pneumonia. The heart is enlarged. The aortic arch shows calcification and tortuosity. No p neumothorax is seen. The left PICC line and monitor leads remain in position. XR/XR chest 1V portable [id number] Impression: No change from earlier portable chest.
[2024-11-23] MEDS: hyDRALAzine 20 mg/mL INJ 1 mL 10 MG IVP ×2 (11:13→15:21)
[2024-11-23 11:23] LABS: Glucose Point of Care 136 mg/dL (70-110)
--- NOTE | 2024-11-23 12:44 | P.PN_ITS ---
Subjective 2 Subjective: Patient was extubated yesterday to 4 L of oxygen supplementation. Overnight has remained on BiPAP. Today morning on examination is comfortable on 4 L with some level of difficulty in breathing. Complaining of back pain. Not too much conversant is aggravated. Blood pressure is elevated. Saturation has maintained over 90%. Appreciate urine output of around 700 cc. Vitals/I&O/Wt Last Vital Signs Temp 99.0 F 11/23/24 04:15 Pulse 89 11/23/24 11:31 Resp 16 11/23/24 11:30 BP 187/68 11/23/24 10:00 Pulse Ox 93 11/23/24 11:30 O2 Del Method BiPAP 11/23/24 11:30 O2 Flow Rate 4 11/23/24 08:00 FiO2 40 11/23/24 11:30 11/22/24 11/23/24 11/23/24 22:59 06:59 14:59 Intake Total 300 / 524.302 Output Total 750 / 1550 Balance 300 / -275.698 -750 / -1025.698 Weight last 48 hrs Weight 121 kg Weight 121.5 kg Weight 121.5 kg Physical Exam 2 Narrative: General: No acute distress, AO x 3, aggravated HEENT: PERRLA, pupils bilaterally equal and reactive Chest: Normal vesicular breath sounds, no added sounds, equal good air entry bilaterally CVS: S1-S2 irregularly irregular, no murmurs, no tachycardia, no gallops, no rubs Abdomen: Soft, nontender, no organomegaly, bowel sounds present Neuro: No focal deficits, no facial deformity, AO x3, power 5/5 in all limbs Urinary Catheter Management: Solomon: Cath Placed During This Visit: yes Reason for Continuing Indwelling Catheter: Accurate Measurement of Urinary Output in Critically Ill Patients Urinary Catheter Date of Insertion: 11/17/24 Urinary Catheter Time of Insertion: 07:10 Data 11/23/24 04:15 11/23/24 04:15 A&P Assessment and plan (1) Respiratory failure: Most likely in setting of COPD exacerbation along with respiratory failure in setting of severe bradycardia on admission. Extubated 11/22. Oxygen supplementation keeping saturation over 90%. BiPAP as needed. Pulmicort twice daily, DuoNeb every 4 hour. Continue with Solu-Medrol 40 mg daily. Continue with treatment for Staphylococcus lugdunensis and sputum culture. Plan for linezolid overall for 5 to 7-day course. (2) Bradycardia: Unknown cause. Stable. Continue to hold off on Cardizem. Appreciate cardiology recommendations. Not on pressors. Target heart rate more than 60. Will discuss with patient regarding anticoagulation once more awake given concerns for baseline a flutter. Echocardiogram shows EF of 66% with no regional wall motion abnormality, mild MR, biatrial enlargement. (3) Acute renal failure: Baseline creatinine around 1.3. CKD stage III. Worsening acute kidney injury most likely in setting of bradycardia. Hemodialysis as needed as per nephrology. Continues to have uremia. Potassium of 5.1. Creatinine stable around 4.7. IV fluids as per nephrology team. Watch for fluid overload. Medical reconciliation done for nephrotoxic drugs. Holding off on lisinopril and Lasix. Continue with Flomax. (4) Acute encephalopathy: Most likely in setting of bradycardia along with acute kidney injury. Currently resolved. Continue to monitor. (5) Diastolic congestive heart failure: Currently slightly dehydrated. IV fluid as above. Watch for fluid overload. Chest x-ray in a.m. (6) Hypotension: Resolved with improving bradycardia. Last night very hypertensive, small dose hydralazine was added, but blood pressure subsequently soft so no longer requiring it. Hydralazine discontinued. (7) Hypomagnesemia: Replaced. Recheck follow-up (8) Anemia: Normocytic anemia, hemoglobin 10.3. Not on anticoagulation. Repeat CBC. (9) BPH (benign prostatic hyperplasia): Continue Flomax Plan Atrial flutter: With slow ventricular response as above. With uremia, had not been started on anticoagulation. Pending reassessment, today with worsening BUN up to 70, creatinine up to 6.1. Possible dialysis tomorrow. With uremia, risk of bleeding, for now anticoagulation has not been initiated beyond renally dosed prophylactic Lovenox dose, aspirin has been added. But once this is improving, consider anticoagulation for stroke risk reduction as well. Added aspirin for now. Consider anticoagulation for stroke risk reduction. Elevated troponin: On admission. Could be in setting of type II [place] from bradycardia. No regional wall motion abnormality on echo. Will benefit from outpatient stress test. DM2: A1c of 7.7. Continue with Lantus 15 units every morning, lispro Q6 hourly. Monitor for hyperglycemia. Once patient is able to eat by mouth we will change to ACHS. Hypertension: Goal blood pressure less than 140/90 mmHg. Blood pressure is elevated today. Patient unable to take orally for now. Hydralazine 10 mg every 4 hours as needed for systolic of more than 160 mmHg. If blood pressures continue to remain high can plan for clonidine patch. Physical therapy. Speech evaluation. Advance diet accordingly. Currently NPO. Analgesia: Morphine 2 mg every 4 hours as needed, once able to take orally will start on [place]. Glycemic control: Lantus 15 units every morning, lispro every 6 hours low-dose protocol Nutrition: NPO. Start diet as per speech evaluation. CODE STATUS: Full code PUD prophylaxis: Protonix DVT prophylaxis: Lovenox for DVT prophylaxis. Discharge planning: Home with home health versus SNF depending on physical therapy evaluation with or without long-term dialysis. Continue with care at This documentation was created by [employer] hall clerk software. Every effort was made to ensure accuracy of hall clerk. Any obvious errors or omissions should be clarified with the author of the document. Patient able to provide his own consents. Initially discussed condition with his [id number], but as his condition is worsening, requiring further measures, as per discussion with his [id number] is okay to contact his son to home she defers decision-making. Son's phone number is [phone]. Attestations 2 Medical Necessity Statement*: Requires further hospitalization for management of hypoxic respiratory failure postextubation, acute kidney injury requiring hemodialysis in a patient admitted with concerns for bradycardia in setting of baseline atrial fibrillation on Cardizem, uncontrolled hypertension Diagnoses Respiratory failure J96.90 Bradycardia R00.1 Acute renal failure N17.9 Acute encephalopathy G93.40 Diastolic congestive heart failure I50.30 Hypotension I95.9 Hypomagnesemia E83.42 Anemia D64.9 BPH (benign prostatic hyperplasia) N40.0
[2024-11-23 15:10] LABS: Glomerular Bsmt Membrane IGG <1.0 AI
[2024-11-23] MEDS: cloNIDine 0.1 mg/24 hr Patch 1 PATCH TRANSDERMA (15:29)
[2024-11-23] MEDS: morphine 4 mg/mL SDV 1 mL 2 MG IVP ×2 (15:29→23:06)
[2024-11-23 16:08] LABS: Glucose Point of Care 192 mg/dL (70-110)
--- NOTE | 2024-11-23 16:41 | PC.NURSE ---
BP has been persistently elevated, multiple orders received see MAR
[2024-11-23] MEDS: cloNIDine 0.3 mg/24 hr Patch 1 PATCH TRANSDERMA (17:12)
[2024-11-23] MEDS: insulin lispro 100 unit/1 mL SUBCUT ×2 (17:12→23:06)
[2024-11-23 18:28] LABS: NT Pro B Type Natriuretic Pept 3820 pg/mL (0-450)
[2024-11-23] MEDS: lidocaine 5% Patch 1 PATCH TOPICAL (20:46)
[2024-11-23] MEDS: enoxaparin 30 mg/0.3 mL Syringe SUBCUT (20:47)
[2024-11-23 22:08] LABS: Glucose Point of Care 133 mg/dL (70-110)
[2024-11-23 23:03] LABS: Glucose Point of Care 143 mg/dL (70-110)
[2024-11-24] VITALS (62 sets, daily range): BP systolic 131–204; BP diastolic 58–115; PULSE 73–109; RESP 21–30; TEMP 36.9–37.5; O2SAT 91–98; BMI 34.0
[2024-11-24] MEDS: hyDRALAzine 20 mg/mL INJ 1 mL 10 MG IVP ×4 (00:33→15:10)
[2024-11-24 03:33] LABS: Basophils # 0.1 10^3/uL (0.0-0.1); Basophils % 0.4 %; Eosinophils % 0.1 %; Hematocrit 33.7 % (37-53); Lymphocytes # 0.7 10^3/uL (0.8-4.8); Lymphocytes % 5.7 %; Mean Corpuscular HGB Conc 30.9 g/dL (30-55); Mean Corpuscular Hemoglobin 29.5 pg (27-33); Mean Corpuscular Volume 95.7 fl (82-101); Monocytes # 1.1 10^3/uL (0.2-0.9); Monocytes % 9.4 %; Neutrophils # 9.32 10^3/uL (1.8-7.7); Neutrophils % 77.3 %; Nucleated Red Blood Cells % 0 %; Platelet Count 224 10^3/cmm (157-399); Red Blood Count 3.52 10^6/uL (3.85-5.65); Red Cell Distribution Width 14.2 % (12.1-15.1); White Blood Count 12.06 10^3/uL (3.29-11.43)
[2024-11-24 03:48] LABS: Alanine Aminotransferase 19 U/L (0-41); Albumin Level 3.2 g/dL (3.5-5.2); Alkaline Phosphatase 55 U/L (40-130); Anion Gap 24.7 (5-19); Aspartate Amino Transferase 18 U/L (0-40); Calcium 8.5 mg/dL (8.5-10.5); Carbon Dioxide 20 mmol/L (22-29); Chloride 102 mmol/L (98-107); Creatinine Clr Calc Pharmacy 19.9152; Globulin 2.7 g/dL (1.3-4.6); Glucose 122 mg/dL (65-115); Magnesium 2.5 mg/dL (1.7-2.3); Osmolality Calculated 328 mOsm/kg (285-295); Potassium 5.7 mmol/L (3.5-5.1); Sodium 141 mmol/L (136-145); Total Bilirubin 0.5 mg/dL (0.15-1.2); Total Protein 5.9 g/dL (6.6-8.7)
[2024-11-24] MEDS: ipratropium-albuterol 3 mL Neb INHALATION ×6 (03:48→23:30)
[2024-11-24 04:09] LABS: Slide Review Slide Review Perform
[2024-11-24 04:14] LABS: Blood Urea Nitrogen 110 mg/dL (8-23); Phosphorus 7.6 mg/dL (2.5-4.5)
[2024-11-24] MEDS: linezolid premix 600 MG/300 ML PREMIX 300 MG IV ×2 (04:31→17:56)
[2024-11-24] MEDS: sodium chloride 0.45% 1,000 ML 75 ML IV (04:32)
[2024-11-24 05:07] LABS: Glucose Point of Care 149 mg/dL (70-110)
[2024-11-24] MEDS: insulin lispro 100 unit/1 mL SUBCUT ×4 (05:10→23:34)
[2024-11-24] MEDS: aspirin 81 mg EC Tablet 162 MG PO (08:28)
[2024-11-24] MEDS: fluoxetine 20 mg Capsule PO (08:28)
[2024-11-24] MEDS: tamsulosin 0.4 mg Capsule PO (08:28)
[2024-11-24] MEDS: pantoprazole 40 mg SDV IVP (08:29)
[2024-11-24] MEDS: methylPREDNISolone sod succ 40 mg/mL INJ IVP (08:29)
[2024-11-24] MEDS: lidocaine 5% Patch 1 PATCH TOPICAL (08:30)
[2024-11-24] MEDS: sennosides-docusate Tablet 1 TAB PO (08:31)
[2024-11-24] MEDS: insulin glargine 100 units/1 mL 15 UNIT SUBCUT (09:27)
[2024-11-24 09:45] LABS: ANCA Screen NEGATIVE (NEGATIVE)
--- NOTE | 2024-11-24 10:08 | P.PN_ITS ---
Subjective 2 Subjective: no new complaints on 4L o2 Medications: Reviewed: Yes Vitals/I&O/Wt Last Vital Signs Temp 98.5 F 11/24/24 04:30 Pulse 96 11/24/24 09:00 Resp 24 H 11/24/24 09:00 BP 156/71 11/24/24 09:00 Pulse Ox 95 11/24/24 09:00 O2 Del Method BiPAP 11/24/24 07:45 O2 Flow Rate 4 11/23/24 22:00 FiO2 35 11/24/24 07:56 11/23/24 11/24/24 11/24/24 22:59 06:59 14:59 Intake Total 300 / 300 1000 / 1300 Output Total 1200 / 1200 1100 / 2300 Balance -900 / -900 -100 / -1000 Weight last 48 hrs Weight 117 kg Weight 121 kg Physical Exam 2 Narrative: General: No acute distress, AO x 3, aggravated HEENT: PERRLA, pupils bilaterally equal and reactive Chest: Normal vesicular breath sounds, no added sounds, equal good air entry bilaterally CVS: S1-S2 irregularly irregular, no murmurs, no tachycardia, no gallops, no rubs Abdomen: Soft, nontender, no organomegaly, bowel sounds present Neuro: No focal deficits, no facial deformity, AO x3, power 5/5 in all limbs Urinary Catheter Management: Solomon: Cath Placed During This Visit: yes Reason for Continuing Indwelling Catheter: Accurate Measurement of Urinary Output in Critically Ill Patients Urinary Catheter Date of Insertion: 11/17/24 Urinary Catheter Time of Insertion: 07:10 Data 11/24/24 03:17 11/24/24 03:17 A&P Assessment and plan (1) Acute kidney injury superimposed on CKD: 74 year old male w/ past med hx of a fib, DM, HTN, BPH. Pt presented w/ weakness, lethargy, orthopnea, dyspnea. In ER he was found to have AIDA, k 5.3 and bradycardic to 30's w/ SBP of 90. He was started on a dopamine drip, given ivf. 1. AIDA- no hydronephrosis. -most likely atn and should improve. low ur na - can be cardio-renal syndrome -ur microalb/ cr 574, -u/a cloudy, 2+ protein, 3+ glu, 3+ blood, >100 rbc, 11- 20 wbc -serological w/u : normal complementshep b and C are negative-anca, anti-gbm are pending -Cr slightly better , UOP picked up , K remains high , will give a dose of lasix - hold off on HD for now 3. CKD stage 3- based on cr 1.3 in oct 2024- try to get old labs- risks are obesity, htn, dm pth 301- repeat in 4 weeks 4. anemia- iv iron 5. hyponatremia from AIDA-improved 6. Hyperkalemia - low k diet , lasix seen and examined with the aide of a nurse using A/V equipment Plan as above monitor uop and chemistries for renal recovery Attestations 2 Medical Necessity Statement*: per zahraa Coding Level of Care Code Acute Code for Chg Fwd Diagnoses Acute kidney injury superimposed on CKD N17.9; N18.9
[2024-11-24 11:32] LABS: Glucose Point of Care 156 mg/dL (70-110)
[2024-11-24] MEDS: FUROsemide 10 mg/mL SDV 10mL 60 MG IVP (11:50)
[2024-11-24] MEDS: albumin 25 G/100 ML BAG 60 G IV (11:51)
[2024-11-24] MEDS: morphine 4 mg/mL SDV 1 mL 2 MG IVP (15:44)
--- NOTE | 2024-11-24 16:37 | P.PN_ITS ---
Subjective 2 Subjective: No acute vents overnight. Patient remained on BiPAP. Today morning was taken down to 4 L of oxygen supplementation but had to be placed back on BiPAP because of episodes of tachypnea. Patient has remained confused on and off. Not worked with physical therapy or speech therapy. Heart rate has remained stable. Blood pressures elevated being managed with as needed hydralazine. Vitals/I&O/Wt Last Vital Signs Temp 98.5 F 11/24/24 04:30 Pulse 101 H 11/24/24 15:41 Resp 28 H 11/24/24 15:44 BP 175/93 11/24/24 15:00 Pulse Ox 96 11/24/24 15:44 O2 Del Method BiPAP 11/24/24 15:30 O2 Flow Rate 4 11/24/24 11:15 FiO2 35 11/24/24 15:40 11/24/24 11/24/24 11/24/24 06:59 14:59 22:59 Intake Total 1000 / 1300 Output Total 1100 / 2300 Balance -100 / -1000 Weight last 48 hrs Weight 117 kg Weight 121 kg Physical Exam 2 Narrative: General: No acute distress, AAOx2. occasionally confused and aggravated HEENT: PERRLA, pupils bilaterally equal and reactive Chest: Bilateral bronchial breath with oral lung irizarry occasional rhonchi, coarse breath present bilaterally CVS: S1-S2 irregularly irregular, no murmurs, no tachycardia, no gallops, no rubs Abdomen: Soft, nontender, no organomegaly, bowel sounds present Neuro: No focal deficits, no facial deformity, power 5/5 in all limbs Urinary Catheter Management: Solomon: Cath Placed During This Visit: yes Reason for Continuing Indwelling Catheter: Accurate Measurement of Urinary Output in Critically Ill Patients Urinary Catheter Date of Insertion: 11/17/24 Urinary Catheter Time of Insertion: 07:10 Data 11/24/24 03:17 11/24/24 03:17 A&P Assessment and plan (1) Respiratory failure: Most likely in setting of COPD exacerbation along with respiratory failure in setting of severe bradycardia on admission. Extubated 11/22. Oxygen supplementation keeping saturation over 90%. BiPAP as needed. Pulmicort twice daily, DuoNeb every 4 hour. Continue with Solu-Medrol 40 mg daily. Concerns for fluid overload given acute kidney injury. Patient has not had a dialysis over last 48 to 72 hours. Remained on fluid yesterday. Appreciate proBNP. Possible need of Lasix. Will discuss with nephrology. Hold off on IV fluids for now. Will plan for CT chest without contrast. D-dimer. Continue with treatment for Staphylococcus lugdunensis and sputum culture. Plan for linezolid overall for 5 to 7-day course. (2) Bradycardia: Unknown cause. Stable. Continue to hold off on Cardizem. Occasional episodes of tachycardia now. Will continue to monitor. Hold off on rate limiting medications for now. Appreciate cardiology recommendations. Not on pressors. Target heart rate more than 60. Will discuss with patient regarding anticoagulation once more awake given concerns for baseline a flutter. Echocardiogram shows EF of 66% with no regional wall motion abnormality, mild MR, biatrial enlargement. (3) Acute renal failure: Baseline creatinine around 1.3. CKD stage III. Worsening acute kidney injury most likely in setting of bradycardia. Hemodialysis as needed as per nephrology. Uremia continues to worsen. Potassium 5.7 today. Creatinine stable around 4.3. Will discuss with nephrology regarding possible need for hemodialysis versus Lasix. Stopping IV fluids. Repeat BMP in evening. Medical reconciliation done for nephrotoxic drugs. Holding off on lisinopril and Lasix. Continue with Flomax. (4) Acute encephalopathy: Most likely in setting of bradycardia along with acute kidney injury. Continues to have occasional episode of confusion. Persistence could be in setting of uremia. Will check CT head without contrast. Patient might benefit from MRI as well to rule out subacute stroke versus press syndrome. Patient not able to get his home duloxetine and mirtazapine for now as he remains NPO. Not working well with PT of speech therapy for now. Continue to monitor. (5) Diastolic congestive heart failure: As above. Lasix. (6) Hypotension: Resolved with improving bradycardia. Last night very hypertensive, small dose hydralazine was added, but blood pressure subsequently soft so no longer requiring it. Hydralazine discontinued. (7) Hypomagnesemia: Replaced. Recheck follow-up (8) Anemia: Normocytic anemia, hemoglobin 10.3. Not on anticoagulation. Repeat CBC. (9) BPH (benign prostatic hyperplasia): Continue Flomax (10) Goals of care, counseling/discussion: (11) Physical deconditioning: Plan Atrial flutter: With slow ventricular response as above. With uremia, had not been started on anticoagulation. Pending reassessment, today with worsening BUN up to 70, creatinine up to 6.1. Possible dialysis tomorrow. With uremia, risk of bleeding, for now anticoagulation has not been initiated beyond renally dosed prophylactic Lovenox dose, aspirin has been added. But once this is improving, consider anticoagulation for stroke risk reduction as well. Added aspirin for now. Consider anticoagulation for stroke risk reduction. Patient's hemoglobin and platelet count has remained stable. If continues to remain the same most likely can start on heparin drip within next 48 hours. Elevated troponin: On admission. Could be in setting of type II [place] from bradycardia. No regional wall motion abnormality on echo. Will benefit from outpatient stress test. DM2: A1c of 7.7. Continue with Lantus 15 units every morning, lispro Q6 hourly. Monitor for hyperglycemia. Once patient is able to eat by mouth we will change to ACHS. Hypertension: Goal blood pressure less than 140/90 mmHg. Blood pressure is elevated today. Patient unable to take orally for now. Continue with clonidine patch 0.3. Would benefit from oral antihypertensive once able to take orally. Hydralazine 10 mg every 4 hours as needed for systolic of more than 160 mmHg. If blood pressures continue to remain high can plan for clonidine patch. Working very limited with physical therapy and speech therapy given episodes of altered status and agitation. Not following directions regularly. Willing to continue to monitor. Analgesia: Morphine 2 mg every 4 hours as needed, once able to take orally will start on [place]. Glycemic control: Lantus 15 units every morning, lispro every 6 hours low-dose protocol Nutrition: NPO. Start diet as per speech evaluation. CODE STATUS: Full code PUD prophylaxis: Protonix DVT prophylaxis: Lovenox for DVT prophylaxis. Continue with care at ICU. This documentation was created by [employer] stamp press operator software. Every effort was made to ensure accuracy of stamp press operator. Any obvious errors or omissions should be clarified with the author of the document. Patient able to provide his own consents. Initially discussed condition with his [id number], but as his condition is worsening, requiring further measures, as per discussion with his [id number]-ox-tse is okay to contact his son to home she defers decision-making. Son's phone number is [phone]. Discharge planning: Discussed discharge planning in detail with patient's son over the phone. We discussed that unfortunately patient would definitely require physical therapy going forward which could be provided to him at home with home health versus SNF or [facility]. We discussed unfortunately given his deconditioning it would not be safe for him to go home as he lives by himself. Son verbalizes understanding and would like to think further and discuss further with his other siblings about SNF versus [facility] and will get back to us. Attestations 2 Medical Necessity Statement*: Requires further hospitalization for management of respiratory failure, postextubation, acute kidney injury requiring dialysis, uncontrolled hypertension who was initially admitted for severe bradycardia leading to cardiogenic shock Diagnoses Respiratory failure J96.90 Bradycardia R00.1 Acute renal failure N17.9 Acute encephalopathy G93.40 Diastolic congestive heart failure I50.30 Hypotension I95.9 Hypomagnesemia E83.42 Anemia D64.9 BPH (benign prostatic hyperplasia) N40.0 Goals of care, counseling/discussion Z71.89 Physical deconditioning R53.81
[2024-11-24 17:08] LABS: Anion Gap 25.1 (5-19); Calcium 9.1 mg/dL (8.5-10.5); Carbon Dioxide 19 mmol/L (22-29); Chloride 101 mmol/L (98-107); Creatinine Clr Calc Pharmacy 20.5398; Glucose 179 mg/dL (65-115); Potassium 6.1 mmol/L (3.5-5.1); Sodium 139 mmol/L (136-145)
[2024-11-24 17:42] LABS: Osmolality Calculated 331 mOsm/kg (285-295)
[2024-11-24 17:43] LABS: Blood Urea Nitrogen 120 mg/dL (8-23)
[2024-11-24] MEDS: dextrose 10% 250 ML 1000 ML IV (17:56)
[2024-11-24] MEDS: calcium gluconate 0.9% NaCL 1 GM/50 ML PREMIX IV (17:56)
[2024-11-24] MEDS: insulin regular-human 100 units/1 mL 10 UNIT IVP (17:56)
[2024-11-24 18:48] LABS: D Dimer 1.59 ug/mLFEU (0-0.59)
[2024-11-24] MEDS: enoxaparin 30 mg/0.3 mL Syringe SUBCUT (20:22)
[2024-11-24] MEDS: lanolin oint 7 gm 1 APPLIC TOPICAL (20:22)
[2024-11-24 22:48] LABS: Anion Gap 22.7 (5-19); Calcium 8.9 mg/dL (8.5-10.5); Carbon Dioxide 21 mmol/L (22-29); Chloride 101 mmol/L (98-107); Creatinine Clr Calc Pharmacy 20.5398; Glucose 200 mg/dL (65-115); Potassium 5.7 mmol/L (3.5-5.1); Sodium 139 mmol/L (136-145)
[2024-11-24 22:54] LABS: Blood Urea Nitrogen 120 mg/dL (8-23); Osmolality Calculated 332 mOsm/kg (285-295)
[2024-11-25] VITALS (60 sets, daily range): BP systolic 101–192; BP diastolic 60–122; PULSE 73–148; RESP 13–36; TEMP 36.9–37.7; O2SAT 93–98
[2024-11-25] MEDS: hyDRALAzine 20 mg/mL INJ 1 mL 10 MG IVP ×2 (00:22→22:04)
[2024-11-25] MEDS: morphine 4 mg/mL SDV 1 mL 2 MG IVP (03:05)
[2024-11-25] MEDS: ipratropium-albuterol 3 mL Neb INHALATION ×6 (03:28→23:35)
[2024-11-25 03:54] LABS: Basophils # 0.1 10^3/uL (0.0-0.1); Basophils % 0.7 %; Eosinophils % 0.2 %; Hematocrit 34.2 % (37-53); Lymphocytes # 0.6 10^3/uL (0.8-4.8); Lymphocytes % 5.6 %; Mean Corpuscular HGB Conc 29.8 g/dL (30-55); Mean Corpuscular Hemoglobin 29.1 pg (27-33); Mean Corpuscular Volume 97.7 fl (82-101); Mean Platelet Volume 11.1 fL (7.4-10.4); Monocytes # 1.3 10^3/uL (0.2-0.9); Monocytes % 11.1 %; Neutrophils # 8.38 10^3/uL (1.8-7.7); Neutrophils % 74.1 %; Nucleated Red Blood Cells % 0 %; Platelet Count 243 10^3/cmm (157-399); White Blood Count 11.31 10^3/uL (3.29-11.43)
[2024-11-25 04:01] LABS: Alanine Aminotransferase 24 U/L (0-41); Albumin Level 3.2 g/dL (3.5-5.2); Alkaline Phosphatase 52 U/L (40-130); Anion Gap 24.4 (5-19); Aspartate Amino Transferase 18 U/L (0-40); Carbon Dioxide 21 mmol/L (22-29); Chloride 103 mmol/L (98-107); Creatinine Clr Calc Pharmacy 21.0533; Globulin 2.9 g/dL (1.3-4.6); Glucose 122 mg/dL (65-115); Magnesium 2.7 mg/dL (1.7-2.3); Phosphorus 7.4 mg/dL (2.5-4.5); Potassium 5.4 mmol/L (3.5-5.1); Sodium 143 mmol/L (136-145); Total Bilirubin 0.5 mg/dL (0.15-1.2); Total Protein 6.1 g/dL (6.6-8.7)
[2024-11-25 04:20] LABS: Osmolality Calculated 337 mOsm/kg (285-295)
[2024-11-25 04:27] LABS: Slide Review Slide Review Perform
[2024-11-25] MEDS: linezolid premix 600 MG/300 ML PREMIX 300 MG IV ×2 (04:33→17:49)
[2024-11-25 04:37] LABS: Blood Urea Nitrogen 123 mg/dL (8-23)
[2024-11-25] MEDS: insulin lispro 100 unit/1 mL SUBCUT ×3 (05:50→17:49)
[2024-11-25 05:56] LABS: Glucose Point of Care 192 mg/dL (70-110)
[2024-11-25 05:56] LABS: Glucose Point of Care 172 mg/dL (70-110)
[2024-11-25 05:56] LABS: Glucose Point of Care 179 mg/dL (70-110)
[2024-11-25] MEDS: heparin, porcine 1,000 unit/mL INJ 10 mL 1000 UNIT IV (09:05)
[2024-11-25] MEDS: fluoxetine 20 mg Capsule PO (09:58)
[2024-11-25] MEDS: lidocaine 5% Patch 1 PATCH TOPICAL (09:58)
[2024-11-25] MEDS: aspirin 81 mg EC Tablet 162 MG PO (09:58)
[2024-11-25] MEDS: nicotine 21 mg Patch 1 PATCH TRANSDERMA (09:58)
[2024-11-25] MEDS: sennosides-docusate Tablet 1 TAB PO ×2 (09:58→17:49)
[2024-11-25] MEDS: methylPREDNISolone sod succ 40 mg/mL INJ IVP (09:58)
[2024-11-25] MEDS: pantoprazole 40 mg SDV IVP (09:59)
[2024-11-25] MEDS: insulin glargine 100 units/1 mL 15 UNIT SUBCUT (09:59)
[2024-11-25] MEDS: tamsulosin 0.4 mg Capsule PO (09:59)
--- NOTE | 2024-11-25 11:41 | P.PN_ITS ---
Subjective 2 Subjective: no improvement in mental status Medications: Reviewed: Yes Vitals/I&O/Wt Last Vital Signs Temp 98.4 F 11/25/24 09:23 Pulse 84 11/25/24 10:20 Resp 19 H 11/25/24 09:23 BP 159/119 11/25/24 09:23 Pulse Ox 93 11/25/24 10:20 O2 Del Method BiPAP 11/25/24 08:36 O2 Flow Rate 4 11/25/24 04:00 FiO2 35 11/25/24 10:20 11/24/24 11/25/24 11/25/24 22:59 06:59 14:59 Intake Total 1700 / 1700 300 / 2000 Output Total 2700 / 2700 725 / 3425 Balance -1000 / -1000 -425 / -1425 Weight last 48 hrs Weight 119 kg Weight 117 kg Physical Exam 2 Narrative: General: No acute distress, HEENT: PERRLA, pupils bilaterally equal and reactive Chest: Normal vesicular breath sounds, no added sounds, equal good air entry bilaterally CVS: S1-S2 irregularly irregular, no murmurs, no tachycardia, no gallops, no rubs Abdomen: Soft, nontender, no organomegaly, bowel sounds prese Urinary Catheter Management: Solomon: Cath Placed During This Visit: yes Reason for Continuing Indwelling Catheter: Acute Urinary Retention or Obstruction Urinary Catheter Date of Insertion: 11/17/24 Urinary Catheter Time of Insertion: 07:10 Data 11/25/24 03:29 11/25/24 03:29 A&P Assessment and plan (1) Acute kidney injury superimposed on CKD: 74 year old male w/ past med hx of a fib, DM, HTN, BPH. Pt presented w/ weakness, lethargy, orthopnea, dyspnea. In ER he was found to have AIDA, k 5.3 and bradycardic to 30's w/ SBP of 90. He was started on a dopamine drip, given ivf. 1. AIDA- no hydronephrosis. -most likely atn and should improve. low ur na - can be cardio-renal syndrome -ur microalb/ cr 574, -u/a cloudy, 2+ protein, 3+ glu, 3+ blood, >100 rbc, 11- 20 wbc -serological w/u : normal complementshep b and C are negative-anca, anti-gbm are pending -HD today due to uremia and Hyperkalemia 3. CKD stage 3- based on cr 1.3 in oct 2024- try to get old labs- risks are obesity, htn, dm pth 301- repeat in 4 weeks 4. anemia- iv iron 5. hyponatremia from AIDA-improved 6. Hyperkalemia - low k diet , lasix seen and examined with the aide of a nurse using A/V equipment Plan as above monitor uop and chemistries for renal recovery Attestations 2 Medical Necessity Statement*: per zahraa Coding Level of Care Code Acute Code for Chg Fwd Diagnoses Acute kidney injury superimposed on CKD N17.9; N18.9
--- NOTE | 2024-11-25 12:20 | PC.HD ---
Treatment terminated after 2 hours due to temporary femoral HD catheter dysfunction. Patient unable to follow instructions to lie still; constantly moving about the bed, which caused machine AP pressure alarms. Was able to run treatment with frequent repositioning, but at the end, alarms were constant and treatment was not able to continue. UF goal was 3L, removed 1.6L. Dr. Polk aware, advised this RN to terminate treatment. Patient mentation unchanged.
[2024-11-25 12:57] LABS: Glucose Point of Care 177 mg/dL (70-110)
--- NOTE | 2024-11-25 13:00 | CTR_ITS ---
PROCEDURE INFORMATION: Exam: CT Head Without Contrast Exam date and time: 11/25/2024 1:11 PM Age: 74 years old Clinical indication: Altered mental status/memory loss; Additional info: AMS TECHNIQUE: Imaging protocol: Computed tomography of the head without contrast. Radiation optimization: All CT scans at this facility use at least one of these dose optimization techniques: automated exposure control; mA and/or kV adjustment per patient size (includes targeted exams where dose is matched to clinical indication); or iterative reconstruction. COMPARISON: MR head wo con* [id number] 11/25/2024 12:44 PM RADIATION DOSE METRICS: Total DLP (mGy-cm): 964.88 FINDINGS: Brain: There is volume loss and periventricular low density compatible with chronic small vessel disease changes. There is no acute intracranial hemorrhage, edema or mass effect. Cerebral ventricles: No ventriculomegaly. Paranasal sinuses: Visualized sinuses are unremarkable. No fluid levels. Mastoid air cells: There is a right mastoid effusion. The left mastoid air cells are clear. Bones: Unremarkable. No acute fracture. Soft tissues: Unremarkable. CT/CT head wo con* [id number] IMPRESSION: 1. No acute intracranial abnormality. 2. There is a right mastoid effusion/right mastoiditis.
--- NOTE | 2024-11-25 13:00 | MRR_ITS ---
PROCEDURE INFORMATION: Exam: MR Head Without Contrast Exam date and time: 11/25/2024 12:44 PM Age: 74 years old Clinical indication: Altered mental status/memory loss; Confusion or disorientation; Additional info: AMS TECHNIQUE: Imaging protocol: Magnetic resonance imaging of the head without contrast. COMPARISON: CT head wo con* [id number] 11/19/2024 3:39 AM FINDINGS: Brain: Mild diffuse volume loss. Periventricular and subcortical T2/FLAIR bright signal intensities compatible with chronic small vessel disease changes. No acute infarct. No hemorrhage. No significant white matter disease. No edema. Cerebral ventricles: Normal. No ventriculomegaly. Bones: Unremarkable. Paranasal sinuses: Normal as visualized. No acute sinusitis. Mastoid air cells: Right mastoid effusion. Left mastoid air cells are clear. Orbital cavities: Unremarkable. Soft tissues: Unremarkable. Other findings: The exam is limited by extensive motion artifact. MR/MR head wo con* [id number] IMPRESSION: 1. No acute abnormality. Chronic volume loss and small vessel disease changes are noted. 2. Right mastoid effusion. 3. The exam is limited by extensive motion artifact.
--- NOTE | 2024-11-25 13:00 | CTR_ITS ---
PROCEDURE INFORMATION: Exam: CT Chest Without Contrast; Diagnostic Exam date and time: 11/25/2024 1:13 PM Age: 74 years old Clinical indication: Shortness of breath; Additional info: Respiratory failure TECHNIQUE: Imaging protocol: Diagnostic computed tomography of the chest without contrast. Radiation optimization: All CT scans at this facility use at least one of these dose optimization techniques: automated exposure control; mA and/or kV adjustment per patient size (includes targeted exams where dose is matched to clinical indication); or iterative reconstruction. COMPARISON: CR XR chest 1V portable [id number] 11/23/2024 9:21 AM RADIATION DOSE METRICS: Total DLP (mGy-cm): 754.75 FINDINGS: Lungs: Nonspecific bibasilar consolidation is present, consistent with atelectasis, edema, or pneumonia. Mild emphysematous changes. Pleural spaces: There are small bilateral pleural effusions. Heart: The heart is enlarged. There is trace pericardial fluid. Coronary arteries: There is moderate atherosclerotic calcification of the coronary arteries. Lymph nodes: Unremarkable. No enlarged lymph nodes. Vasculature: Unremarkable. No aortic aneurysm. Gallbladder and biliary ducts: Multiple calcified gallstones are present. There is no wall thickening or pericholecystic fluid to suggest cholecystitis. There is no common bile duct dilation. Bones/joints: There were acute bony abnormality. There are moderate degenerative changes in the spine and shoulders. Soft tissues: Unremarkable. CT/CT chest con [id number] IMPRESSION: 1. There are small bilateral pleural effusions. 2. Nonspecific bibasilar consolidation is present, consistent with atelectasis, edema, or pneumonia. Mild emphysematous changes. 3. Incidental cholelithiasis without cholecystitis. COMMENTS: The presence of pulmonary emphysema on CT is an independent risk factor for lung cancer. In the absence of a history or active diagnosis of lung cancer, it is recommended that this patient with emphysema be evaluated for enrollment in a low dose CT lung cancer screening program.
--- NOTE | 2024-11-25 13:20 | PC.SLP ---
Attempted to see pt; pt unavailable and not responsive for feeding trials.
[2024-11-25 14:33] LABS: Alanine Aminotransferase 28 U/L (0-41); Albumin Level 3.6 g/dL (3.5-5.2); Alkaline Phosphatase 63 U/L (40-130); Anion Gap 27.1 (5-19); Aspartate Amino Transferase 24 U/L (0-40); Calcium 9.1 mg/dL (8.5-10.5); Carbon Dioxide 19 mmol/L (22-29); Chloride 99 mmol/L (98-107); Creatinine Clr Calc Pharmacy 25.6808; Globulin 3.4 g/dL (1.3-4.6); Glucose 210 mg/dL (65-115); Osmolality Calculated 324 mOsm/kg (285-295); Potassium 6.1 mmol/L (3.5-5.1); Sodium 139 mmol/L (136-145); Total Bilirubin 0.8 mg/dL (0.15-1.2)
[2024-11-25 14:35] LABS: Blood Urea Nitrogen 95 mg/dL (8-23)
--- NOTE | 2024-11-25 15:17 | PM.PN ---
Subjective Subjective: No acute events overnight. Patient seen multiple times daily today. Today morning patient seen laying comfortably in bed on BiPAP having HD. Has remained hemodynamically stable and afebrile. Blood pressures better than yesterday. When later seen again postdialysis patient is more awake and alert, able to have complete conversation alert to self, being in the hospital asking for water. Denies any new complaints. States he is feeling a lot better now. Vitals/I&O/Wt Last Vital Signs Temp 98.6 F 11/25/24 12:18 Pulse 80 11/25/24 12:18 Resp 20 H 11/25/24 12:18 BP 147/65 11/25/24 12:30 Pulse Ox 94 11/25/24 12:03 O2 Del Method BiPAP 11/25/24 12:30 O2 Flow Rate 4 11/25/24 04:00 FiO2 35 11/25/24 12:30 11/25/24 11/25/24 11/25/24 06:59 14:59 22:59 Intake Total 300 / 2000 530 / 530 Output Total 725 / 3425 2119 / 2119 Balance -425 / -1425 -1589 / -1589 Weight last 48 hrs Weight 118.5 kg Weight 119 kg Weight 117 kg Physical Exam Narrative: General: AOx3, no acute distress, occasional confusion, nasal cannula HEENT: PERRLA, pupils bilaterally equal and reactive Chest: Bilateral bronchial breath with oral lung irizarry occasional rhonchi, coarse breath present bilaterally CVS: S1-S2 irregularly irregular, no murmurs, no tachycardia, no gallops, no rubs Abdomen: Soft, nontender, no organomegaly, bowel sounds present Neuro: No focal deficits, no facial deformity, power 5/5 in all limbs Urinary Catheter Management: Solomon: Cath Placed During This Visit: yes Reason for Continuing Indwelling Catheter: Acute Urinary Retention or Obstruction Urinary Catheter Date of Insertion: 11/17/24 Urinary Catheter Time of Insertion: 07:10 Data 11/25/24 03:29 11/25/24 13:59 A&P Assessment and plan (1) Respiratory failure: Most likely in setting of COPD exacerbation along with respiratory failure in setting of severe bradycardia on admission. Extubated 11/22. Oxygen supplementation keeping saturation over 90%. BiPAP as needed. Pulmicort twice daily, DuoNeb every 4 hour. Continue with Solu-Medrol 40 mg daily. Post 60 mg IV Lasix yesterday. Appreciate urine output of from 3.4 L in last 24 hours. Getting dialysis today. Appreciate CT chest with concerns for emphysema Continue with treatment for Staphylococcus lugdunensis and sputum culture. Plan for linezolid overall for 5 to 7-day course. (2) Bradycardia: Unknown cause. Stable. Continue to hold off on Cardizem. Occasional episodes of tachycardia now. Will continue to monitor. Hold off on rate limiting medications for now. Appreciate cardiology recommendations. Not on pressors. Target heart rate more than 60. Will discuss with patient regarding anticoagulation once more awake given concerns for baseline a flutter. Echocardiogram shows EF of 66% with no regional wall motion abnormality, mild MR, biatrial enlargement. (3) Acute renal failure: Baseline creatinine around 1.3. CKD stage III. Worsening acute kidney injury most likely in setting of bradycardia. Hemodialysis as needed as per nephrology. Undergoing dialysis on 11/25 with concerns for mild fluid load and the uremia. Repeat CMP after dialysis. Hold off on fluids. High concerns for patient requiring dialysis long-term for at least next 6 months. Medical reconciliation done for nephrotoxic drugs. Holding off on lisinopril and Lasix. Continue with Flomax. (4) Acute encephalopathy: Most likely in setting of bradycardia along with acute kidney injury initially now persistent in setting of possible uremia. Appreciate CT head and MRI brain negative for concerns of stroke or press syndrome. More awake and alert for now both dialysis. Start on diet accordingly. Watch for aspiration. Continue with home dose of duloxetine and mirtazapine as patient able to intake orally now. Frequent reorientation. (5) Diastolic congestive heart failure: As above. Lasix. (6) Hypotension: Resolved with improving bradycardia. Last night very hypertensive, small dose hydralazine was added, but blood pressure subsequently soft so no longer requiring it. Hydralazine discontinued. (7) Hypomagnesemia: Replaced. Recheck follow-up (8) Anemia: Normocytic anemia, hemoglobin 10.3. Not on anticoagulation. Repeat CBC. (9) BPH (benign prostatic hyperplasia): Continue Flomax (10) Goals of care, counseling/discussion: (11) Physical deconditioning: Plan Atrial flutter: With slow ventricular response as above. With uremia, had not been started on anticoagulation. Pending reassessment, today with worsening BUN up to 70, creatinine up to 6.1. Possible dialysis tomorrow. With uremia, risk of bleeding, for now anticoagulation has not been initiated beyond renally dosed prophylactic Lovenox dose, aspirin has been added. But once this is improving, consider anticoagulation for stroke risk reduction as well. Added aspirin for now. Consider anticoagulation for stroke risk reduction. Patient's hemoglobin and platelet count has remained stable. If continues to remain the same most likely can start on heparin drip within next 48 hours. Elevated troponin: On admission. Could be in setting of type II NC from bradycardia. No regional wall motion abnormality on echo. Will benefit from outpatient stress test. DM2: A1c of 7.7. Continue with Lantus 15 units every morning, lispro Q6 hourly. Monitor for hyperglycemia. Once patient is able to eat by mouth we will change to ACHS. Hypertension: Goal blood pressure less than 140/90 mmHg. Blood pressure is elevated today. Patient unable to take orally for now. Continue with clonidine patch 0.3. Would benefit from oral antihypertensive once able to take orally. Hydralazine 10 mg every 4 hours as needed for systolic of more than 160 mmHg. If blood pressures continue to remain high can plan for clonidine patch. Patient more awake and alert today. If persistently able to tolerate orally will start on oral antihypertensive from tomorrow. Working very limited with physical therapy and speech therapy given episodes of altered status and agitation. Not following directions regularly. Willing to continue to monitor. Analgesia: Morphine 2 mg every 4 hours as needed, once able to take orally will start on [place]. Glycemic control: Lantus 15 units every morning, lispro every 6 hours low-dose protocol Nutrition: NPO. Start diet as per speech evaluation. CODE STATUS: Full code PUD prophylaxis: Protonix DVT prophylaxis: Lovenox for DVT prophylaxis. Continue with care at ICU. This documentation was created by [employer] hand cutter software. Every effort was made to ensure accuracy of hand cutter. Any obvious errors or omissions should be clarified with the author of the document. Patient able to provide his own consents. Initially discussed condition with his [id number], but as his condition is worsening, requiring further measures, as per discussion with his [id number] is okay to contact his son to home she defers decision-making. Son's phone number is [phone]. Discharge planning: Discussed discharge planning in detail with patient's son over the phone. We discussed that unfortunately patient would definitely require physical therapy going forward which could be provided to him at home with home health versus SNF or [facility]. We discussed unfortunately given his deconditioning it would not be safe for him to go home as he lives by himself. Son verbalizes understanding and would like to think further and discuss further with his other siblings about SNF versus [facility] and will get back to us. Attestations Medical Necessity Statement*: Requires further hospitalization for management of respiratory failure in setting of COPD exacerbation, encephalopathy in setting of uremia in a patient with concerns for AIDA on hemodialysis was initially admitted for bradycardia, cardiogenic shock, postextubation Diagnoses Respiratory failure J96.90 Bradycardia R00.1 Acute renal failure N17.9 Acute encephalopathy G93.40 Diastolic congestive heart failure I50.30 Hypotension I95.9 Hypomagnesemia E83.42 Anemia D64.9 BPH (benign prostatic hyperplasia) N40.0 Goals of care, counseling/discussion Z71.89 Physical deconditioning R53.81
[2024-11-25 15:58] LABS: Vit D 1,25 (Oh)2, Total 12 pg/mL (18-72); Vit D2 1,25 (Oh)2 <8 pg/mL; Vit D3 1,25 (Oh)2 12 pg/mL
[2024-11-25] MEDS: calcium gluconate 0.9% NaCL 1 GM/50 ML PREMIX IV ×2 (17:49→18:52)
[2024-11-25] MEDS: lanolin oint 7 gm 1 APPLIC TOPICAL (17:53)
--- NOTE | 2024-11-25 19:44 | PC.NURSE ---
Shift summary: Pt rested in the bed throughout shift. he did work with PT some this afternoon and sat on side of bed. He was alert to self and not responding much this am. HD started 1.6 liters removed. No mentation changed noted after HD so decision was made to MRI and CT his head. Immediately after the MRI pt wide awake; What the f--- is going on? I do not understand Multiple attempts to inform and reorient him made, he then started Well they must have been poisoning me, trying to kill me , referring to his family. He finally settled somewhat, then became very tearful I am thankful to be alive we called his son so he could speak to him. Pt remains in A fib. He was on BiPap this am, now using 4 lpm/NC. He does have a large abdomen, that he uses to breath when lying supine. umbilical hernia noted. His urine output was 900 ml, gerda with sediment. No Bm noted.
[2024-11-25 20:02] LABS: Glucose Point of Care 201 mg/dL (70-110)
[2024-11-25] MEDS: enoxaparin 30 mg/0.3 mL Syringe SUBCUT (21:22)
[2024-11-25 23:11] LABS: Glucose Point of Care 138 mg/dL (70-110)
[2024-11-26] VITALS (64 sets, daily range): BP systolic 94–182; BP diastolic 47–137; PULSE 77–117; RESP 14–29; TEMP 36.2–37.7; O2SAT 91–97; BMI 34.0
[2024-11-26] MEDS: ipratropium-albuterol 3 mL Neb INHALATION ×6 (03:40→23:49)
[2024-11-26] MEDS: linezolid premix 600 MG/300 ML PREMIX 300 MG IV ×2 (04:24→17:46)
[2024-11-26] MEDS: hyDRALAzine 20 mg/mL INJ 1 mL 10 MG IVP ×2 (05:14→09:00)
[2024-11-26] MEDS: insulin lispro 100 unit/1 mL SUBCUT ×3 (05:23→17:45)
[2024-11-26 05:41] LABS: Basophils # 0.1 10^3/uL (0.0-0.1); Basophils % 0.7 %; Eosinophils # 0.1 10^3/uL (0.0-0.8); Eosinophils % 0.6 %; Hematocrit 37.2 % (37-53); Lymphocytes % 8.2 %; Mean Corpuscular HGB Conc 29.6 g/dL (30-55); Mean Corpuscular Hemoglobin 29.3 pg (27-33); Mean Corpuscular Volume 99.2 fl (82-101); Mean Platelet Volume 11.9 fL (7.4-10.4); Monocytes # 1.2 10^3/uL (0.2-0.9); Monocytes % 10.3 %; Neutrophils # 8.62 10^3/uL (1.8-7.7); Nucleated Red Blood Cells % 0 %; Platelet Count 174 10^3/cmm (157-399); Red Blood Count 3.75 10^6/uL (3.85-5.65); Red Cell Distribution Width 13.7 % (12.1-15.1); White Blood Count 11.64 10^3/uL (3.29-11.43)
[2024-11-26 06:01] LABS: Alanine Aminotransferase 28 U/L (0-41); Albumin Level 3.4 g/dL (3.5-5.2); Alkaline Phosphatase 53 U/L (40-130); Calcium 9.3 mg/dL (8.5-10.5); Carbon Dioxide 21 mmol/L (22-29); Chloride 102 mmol/L (98-107); Creatinine Clr Calc Pharmacy 24.9255; Globulin 3.1 g/dL (1.3-4.6); Glucose 190 mg/dL (65-115); Magnesium 2.6 mg/dL (1.7-2.3); Osmolality Calculated 323 mOsm/kg (285-295); Phosphorus 5.7 mg/dL (2.5-4.5); Sodium 139 mmol/L (136-145); Total Bilirubin 0.6 mg/dL (0.15-1.2); Total Protein 6.5 g/dL (6.6-8.7)
[2024-11-26 06:06] LABS: Anion Gap 21.4 (5-19); Aspartate Amino Transferase 19 U/L (0-40); Potassium 5.4 mmol/L (3.5-5.1)
[2024-11-26 06:08] LABS: Blood Urea Nitrogen 97 mg/dL (8-23)
[2024-11-26 06:13] LABS: Slide Review Slide Review Perform
[2024-11-26] MEDS: lidocaine 5% Patch 1 PATCH TOPICAL ×2 (08:39→21:08)
[2024-11-26] MEDS: nicotine 21 mg Patch 1 PATCH TRANSDERMA (08:39)
[2024-11-26] MEDS: pantoprazole 40 mg SDV IVP (08:40)
[2024-11-26 08:43] LABS: Glucose Point of Care 208 mg/dL (70-110)
[2024-11-26] MEDS: insulin glargine 100 units/1 mL 15 UNIT SUBCUT (08:43)
[2024-11-26] MEDS: methylPREDNISolone sod succ 40 mg/mL INJ IVP (09:00)
[2024-11-26] MEDS: heparin, porcine 1,000 unit/mL INJ 10 mL 1000 UNIT IV (10:40)
--- NOTE | 2024-11-26 12:04 | P.PN_ITS ---
Subjective 2 Subjective: BIPAPA -->on 4l nc Medications: Reviewed: Yes Vitals/I&O/Wt Last Vital Signs Temp 98.6 F 11/26/24 11:04 Pulse 106 H 11/26/24 11:51 Resp 27 H 11/26/24 11:40 BP 171/137 11/26/24 11:04 Pulse Ox 94 11/26/24 11:50 O2 Del Method BiPAP 11/26/24 11:40 O2 Flow Rate 4 11/26/24 02:30 FiO2 35 11/26/24 11:50 11/25/24 11/26/24 11/26/24 22:59 06:59 14:59 Intake Total 870 / 1400 290 / 1690 300 / 300 Output Total 900 / 3019 1000 / 4019 Balance -30 / -1619 -710 / -2329 300 / 300 Weight last 48 hrs Weight 117 kg Weight 118.5 kg Weight 119 kg Physical Exam 2 Narrative: General: No acute distress, HEENT: PERRLA, pupils bilaterally equal and reactive Chest: Normal vesicular breath sounds, no added sounds, equal good air entry bilaterally CVS: S1-S2 irregularly irregular, no murmurs, no tachycardia, no gallops, no rubs Abdomen: Soft, nontender, no organomegaly, bowel sounds prese Urinary Catheter Management: Solomon: Cath Placed During This Visit: yes Reason for Continuing Indwelling Catheter: Accurate Measurement of Urinary Output in Critically Ill Patients Urinary Catheter Date of Insertion: 11/17/24 Urinary Catheter Time of Insertion: 07:10 Data 11/26/24 05:14 11/26/24 05:14 A&P Assessment and plan (1) Acute kidney injury superimposed on CKD: 74 year old male w/ past med hx of a fib, DM, HTN, BPH. Pt presented w/ weakness, lethargy, orthopnea, dyspnea. In ER he was found to have AIDA, k 5.3 and bradycardic to 30's w/ SBP of 90. He was started on a dopamine drip, given ivf. 1. AIDA- no hydronephrosis. -most likely atn and should improve. low ur na - can be cardio-renal syndrome -ur microalb/ cr 574, -u/a cloudy, 2+ protein, 3+ glu, 3+ blood, >100 rbc, 11- 20 wbc -serological w/u : normal complementshep b and C are negative-anca, anti-gbm are pending -HD today due to uremia and Hyperkalemia -will wait another 1-2 days and monitor UOP and Cr --> if no improvement , will request tunnelled catheter placement 3. CKD stage 3- based on cr 1.3 in oct 2024- try to get old labs- risks are obesity, htn, dm pth 301- repeat in 4 weeks 4. anemia- iv iron 5. hyponatremia from AIDA-improved 6. Hyperkalemia - low k diet , lasix seen and examined with the aide of a nurse using A/V equipment Plan as above monitor uop and chemistries for renal recovery Attestations 2 Medical Necessity Statement*: per zahraa Coding Level of Care Code Acute Code for Chg Fwd Diagnoses Acute kidney injury superimposed on CKD N17.9; N18.9
--- NOTE | 2024-11-26 14:17 | PC.NURSE ---
Restraints: Released at this time, Dialysis completed. He is no longer trying to pull line.
--- NOTE | 2024-11-26 14:24 | PC.NURSE ---
Morning PO meds: Scanned at admin time, pt refusing and is being uncooperative. Held to try again after HD, as h is mentation greatly improved after HD yesterday. At this time, marked PO am pills non-administered as pt still uncooperative with aleted mental status.
--- NOTE | 2024-11-26 14:35 | P.PN_ITS ---
Subjective 2 Subjective: No acute events overnight. Overnight patient was on BiPAP. Today morning seen on 4 L of oxygen supplementation. Patient is awake and alert but confused. He is able to tell his name, being in the hospital but is not sure why he is in the hospital. Questioning the reasoning for being in the hospital. Vitals/I&O/Wt Last Vital Signs Temp 98.6 F 11/26/24 11:04 Pulse 102 H 11/26/24 14:10 Resp 27 H 11/26/24 11:40 BP 171/137 11/26/24 11:04 Pulse Ox 94 11/26/24 11:50 O2 Del Method BiPAP 11/26/24 11:40 O2 Flow Rate 4 11/26/24 02:30 FiO2 35 11/26/24 11:50 11/25/24 11/26/24 11/26/24 22:59 06:59 14:59 Intake Total 870 / 1400 290 / 1690 300 / 300 Output Total 900 / 3019 1000 / 4019 Balance -30 / -1619 -710 / -2329 300 / 300 Weight last 48 hrs Weight 117 kg Weight 118.5 kg Weight 119 kg Physical Exam 2 Narrative: General: No acute distress, confused, AO x 2 to 3 today HEENT: PERRLA, pupils bilaterally equal and reactive Chest: Bilateral bronchial breath with oral lung irizarry occasional rhonchi, coarse breath present bilaterally CVS: S1-S2 irregularly irregular, no murmurs, no tachycardia, no gallops, no rubs Abdomen: Soft, nontender, no organomegaly, bowel sounds present Neuro: No focal deficits, no facial deformity, power 5/5 in all limbs Urinary Catheter Management: Solomon: Cath Placed During This Visit: yes Reason for Continuing Indwelling Catheter: Accurate Measurement of Urinary Output in Critically Ill Patients Urinary Catheter Date of Insertion: 11/17/24 Urinary Catheter Time of Insertion: 07:10 Data 11/26/24 05:14 11/26/24 05:14 A&P Assessment and plan (1) Respiratory failure: Most likely in setting of COPD exacerbation along with respiratory failure in setting of severe bradycardia on admission. Extubated 11/22. Oxygen supplementation keeping saturation over 90%. BiPAP as needed. Pulmicort twice daily, DuoNeb every 4 hour. Continue with Solu-Medrol 40 mg daily. Post 60 mg IV Lasix yesterday. Appreciate urine output of from 3.4 L in last 24 hours. Getting dialysis today. Appreciate CT chest with concerns for emphysema Continue with treatment for Staphylococcus lugdunensis and sputum culture. Plan for linezolid overall for 5 to 7-day course. (2) Bradycardia: Unknown cause. Stable. Continue to hold off on Cardizem. Occasional episodes of tachycardia now. Will continue to monitor. Hold off on rate limiting medications for now. Appreciate cardiology recommendations. Not on pressors. Target heart rate more than 60. Will discuss with patient regarding anticoagulation once more awake given concerns for baseline a flutter. Echocardiogram shows EF of 66% with no regional wall motion abnormality, mild MR, biatrial enlargement. (3) Acute renal failure: Baseline creatinine around 1.3. CKD stage III. Worsening acute kidney injury most likely in setting of bradycardia. Hemodialysis as needed as per nephrology. Undergoing dialysis on 11/25 with concerns for mild fluid load and the uremia. Repeat CMP after dialysis. Hold off on fluids. High concerns for patient requiring dialysis long-term for at least next 6 months. Medical reconciliation done for nephrotoxic drugs. Holding off on lisinopril and Lasix. Continue with Flomax. (4) Acute encephalopathy: Most likely in setting of bradycardia along with acute kidney injury initially now persistent in setting of possible uremia. Appreciate CT head and MRI brain negative for concerns of stroke or press syndrome. More awake and alert for now both dialysis. Start on diet accordingly. Watch for aspiration. Continue with home dose of duloxetine and mirtazapine as patient able to intake orally now. Frequent reorientation. (5) Diastolic congestive heart failure: As above. Lasix. (6) Hypotension: Resolved with improving bradycardia. Last night very hypertensive, small dose hydralazine was added, but blood pressure subsequently soft so no longer requiring it. Hydralazine discontinued. (7) Hypomagnesemia: Replaced. Recheck follow-up (8) Anemia: Normocytic anemia, hemoglobin 10.3. Not on anticoagulation. Repeat CBC. (9) BPH (benign prostatic hyperplasia): Continue Flomax (10) Goals of care, counseling/discussion: (11) Physical deconditioning: Plan Atrial flutter: With slow ventricular response as above. With uremia, had not been started on anticoagulation. Pending reassessment, today with worsening BUN up to 70, creatinine up to 6.1. Possible dialysis tomorrow. With uremia, risk of bleeding, for now anticoagulation has not been initiated beyond renally dosed prophylactic Lovenox dose, aspirin has been added. But once this is improving, consider anticoagulation for stroke risk reduction as well. Added aspirin for now. Consider anticoagulation for stroke risk reduction. Patient's hemoglobin and platelet count has remained stable. If continues to remain the same most likely can start on heparin drip within next 48 hours. Elevated troponin: On admission. Could be in setting of type II [place] from bradycardia. No regional wall motion abnormality on echo. Will benefit from outpatient stress test. DM2: A1c of 7.7. Continue with Lantus 15 units every morning, lispro Q6 hourly. Monitor for hyperglycemia. Once patient is able to eat by mouth we will change to ACHS. Hypertension: Goal blood pressure less than 140/90 mmHg. Blood pressure is elevated today. Patient unable to take orally for now. Continue with clonidine patch 0.3. Would benefit from oral antihypertensive once able to take orally. Hydralazine 10 mg every 4 hours as needed for systolic of more than 160 mmHg. If blood pressures continue to remain high can plan for clonidine patch. Patient more awake and alert today. If persistently able to tolerate orally will start on oral antihypertensive from tomorrow. Working very limited with physical therapy and speech therapy given episodes of altered status and agitation. Not following directions regularly. Willing to continue to monitor. Analgesia: Morphine 2 mg every 4 hours as needed, once able to take orally will start on [place]. Glycemic control: Lantus 15 units every morning, lispro every 6 hours low-dose protocol Nutrition: NPO. Start diet as per speech evaluation. CODE STATUS: Full code PUD prophylaxis: Protonix DVT prophylaxis: Lovenox for DVT prophylaxis. Continue with care at ICU. This documentation was created by [facility] can dragger software. Every effort was made to ensure accuracy of can dragger. Any obvious errors or omissions should be clarified with the author of the document. Patient able to provide his own consents. Initially discussed condition with his [id number], but as his condition is worsening, requiring further measures, as per discussion with his [id number] is okay to contact his son to home she defers decision-making. Son's phone number is [phone]. Discharge planning: Discussed discharge planning in detail with patient's son over the phone. We discussed that unfortunately patient would definitely require physical therapy going forward which could be provided to him at home with home health versus SNF or select. We discussed unfortunately given his deconditioning it would not be safe for him to go home as he lives by himself. Son verbalizes understanding and would like to think further and discuss further with his other siblings about SNF versus [facility] and will get back to us. Plan for the day: Continue with oxygen supplementation keeping saturation over 90%. BiPAP as needed. Getting repeat cycle of dialysis today. Uremia improved after dialysis yesterday down to 90s. Today again having BUN of more than 90 with creatinine persistently at around 3.4, hyperkalemia with potassium of 5.4. Appreciate nephrology recommendations. Possibly will decide within next 2 to 3 days about long-term plan of dialysis. For now we will hold off on surgical consultation for tunneled catheter. Heart rate has remained stable to slightly elevated. If needed for confusion can try low-dose Precedex. Hold off on any other rate limiting medication as patient was admitted for severe bradycardia. Encephalopathy most likely in setting of uremia versus possible ing. Stroke ruled out with negative MRI. Goal blood pressure less than 140/90 mmHg. Continue with clonidine 0.3 daily along with hydralazine 10 mg every 4 hours as needed. Speech evaluation and start on diet accordingly. Once patient is able to take orally we will start on oral antihypertensives. Physical therapy. If patient continues to remain n.p.o. for next 24 hours we will consider possible TPN. Continue with IV linezolid to finish a 7-day course. Blood culture negative. Sputum culture growing Staphylococcus lugdunensis. Care discussed in detail with patient's son/DPOA Mr. Hinojosa over the phone. All the questions were answered. Discussed patient's stable poor renal functions, repeated need of dialysis, poor mentation most likely in setting of uremia versus possibly with possible anoxic brain injury with bradycardia on presentation though also discussed anoxic brain injury will be a diagnosis of exclusion. Son inquired about possible placement of feeding tube. We discussed for now it is possible that his mentation would improve and there is a risk of patient pulling out on the feeding tube so we will hold off. Attestations 2 Medical Necessity Statement*: Requires further hospitalization for management of metabolic encephalopathy in setting of uremia, AIDA as patient requires dialysis, respiratory failure as patient requires BiPAP, and the patient was initially admitted for bradycardia leading to cardiogenic shock and respiratory failure requiring intubation postextubation on 11/23. Diagnoses Respiratory failure J96.90 Bradycardia R00.1 Acute renal failure N17.9 Acute encephalopathy G93.40 Diastolic congestive heart failure I50.30 Hypotension I95.9 Hypomagnesemia E83.42 Anemia D64.9 BPH (benign prostatic hyperplasia) N40.0 Goals of care, counseling/discussion Z71.89 Physical deconditioning R53.81
--- NOTE | 2024-11-26 14:47 | PC.HD ---
Treatment terminated early due to clotting of dialysis circuit. UF goal was 2.5L; 2.35L removed. Medical Or Surgical Instrument Maker aware. Temporary L femoral HD catheter runs very poorly with very frequent machine AP alarms, primarily due to patient moving about the bed and struggling.
[2024-11-26 15:42] LABS: Glucose Point of Care 167 mg/dL (70-110)
[2024-11-26 18:16] LABS: Glucose Point of Care 168 mg/dL (70-110)
--- NOTE | 2024-11-26 19:35 | PC.NURSE ---
Constantine summary: Pt on Bipap this am. His mentation level much like yesterday am's. He responded to sound. He would get agitated with care, telling this nurse to leave him alone. HD done again today. He required medical restraints to complete HD. A-fib noted on monitor throughout the shift. He only required PRN hydralazine once this am, prior to HD. He was not alert or cooperative enough to take his oral medications even after HD. He refused his Senna tablet this evening. He did allow his blood sugar to be checked and did not jerk away from the insulin syringe this evening as he did at lunch time. He has removed the Bipap mask twice this shift. The last time around 1700 he was switched to nasal cannula , 4lpm. He was confused but pleasantly conversing this evening. he sung some too. His urine color changed to tea colored with dark blood streaks and sediment. Output much lower today: [address] Crowley was notified. No Bm. noted. Pt does frequently shrug his shoulders, as if attempting to get comfortable but denied pain today.
[2024-11-26] MEDS: enoxaparin 30 mg/0.3 mL Syringe SUBCUT (21:06)
[2024-11-27] VITALS (56 sets, daily range): BP systolic 96–183; BP diastolic 54–116; PULSE 66–103; RESP 13–28; TEMP 36.7–37.1; O2SAT 91–98
[2024-11-27] MEDS: ipratropium-albuterol 3 mL Neb INHALATION ×6 (03:14→23:56)
[2024-11-27] MEDS: linezolid premix 600 MG/300 ML PREMIX 300 MG IV ×2 (05:12→17:48)
[2024-11-27 05:29] LABS: Glucose Point of Care 140 mg/dL (70-110)
--- NOTE | 2024-11-27 07:05 | XR_ITS ---
WS: [id number] PORTABLE CHEST HISTORY: wheezing, sob COMPARISON: 11/23/2024 Areas of subsegmental atelectasis at the lung bases greatest on the LEFT. RIGHT lower lobe opacification has improved. Mild diffuse interstitial edema remains. No pleural effu nona or pneumothorax. Cardiac size: Normal. Mediastinum/Aorta: Mild atherosclerosis aorta. No osseous abnormality seen. XR/XR chest 1V portable [id number] IMPRESSION: 1. Improved aeration at the RIGHT lung base. Resolved pneumonitis or atelectas is. 2. Subsegmental atelectasis persists at the LEFT lung base. 3. Mild interstitial edema.
[2024-11-27 07:31] LABS: Glucose Point of Care 170 mg/dL (70-110)
--- NOTE | 2024-11-27 07:43 | P.PN_ITS ---
Subjective 2 Subjective: seen and examined. confused in bed, Denies complaints, but appears short of breath Medications: Reviewed: Yes Medication Review Details: Current Medications Acetaminophen (Acetaminophen 325 Mg Tablet) 650 mg PO Q6H PRN PRN Reason: Mild/Mod Pain Or Temp >/= 101 Albuterol Sulfate (Albuterol 2.5 Mg/3 Ml Neb) 2.5 mg INHALATION Q6H.RESP PRN PRN Reason: SHORTNESS OF BREATH Last Admin: 11/17/24 18:21 Dose: 2.5 mg Albuterol/Ipratropium (Ipratropium-Albuterol 3 Ml Neb) 3 ml INHALATION Q4H.RESPIRATORY [facility] Last Admin: 11/27/24 03:14 Dose: 3 ml Aspirin (Aspirin 81 Mg Ec Tablet) 162 mg PO DAILY [facility] Last Admin: 11/26/24 14:24 Dose: Not Given Clonidine HCl (Clonidine 0.3 Mg/24 Hr Patch) 1 patch TRANSDERMA Q7D [facility] Last Admin: 11/23/24 17:12 Dose: 1 patch Enoxaparin Sodium (Enoxaparin 30 Mg/0.3 Ml Syringe) 30 mg SUBCUT Q24H [facility] Last Admin: 11/26/24 21:06 Dose: 30 mg Fluoxetine HCl (Fluoxetine 20 Mg Capsule) 20 mg PO DAILY [facility] Last Admin: 11/26/24 14:24 Dose: Not Given Glucagon (Glucagon 1 Mg/Ml Kit 1 Ml) 1 mg IM ONCE PRN; Protocol PRN Reason: Adult Acute Hypoglycemia Nursing Prot. Hydralazine HCl (Hydralazine 20 Mg/Ml Inj 1 Ml) 10 mg IVP Q4H PRN PRN Reason: Systolic blood pressure more than 160 mmHg Last Admin: 11/26/24 09:00 Dose: 10 mg Dextrose (D5w) 500 mls @ 0 mls/hr IV ONCE PRN; Protocol PRN Reason: Adult Acute Hypoglycemia Prot Dextrose (D10w) 125 mls @ 750 mls/hr IV PRN PRN; Protocol PRN Reason: Adult Acute Hypoglycemia Nursing Protocol Dextrose (D10w) 250 mls @ 1,000 mls/hr IV PRN PRN; Protocol PRN Reason: Adult Acute Hypoglycemia Nursing Protocol Albumin Human (Albumin) 12.5 gm in 50 mls @ 60 mls/hr IV PRN PRN PRN Reason: Hypotension and/or symptomatic Linezolid (Zyvox Premix) 600 mg in 300 mls @ 300 mls/hr IV Q12H [facility]; Protocol Last Admin: 11/27/24 05:12 Dose: 300 mls/hr Sodium Chloride (Sodium Chloride 0.9%) 1,000 mls @ 0 mls/hr IV .Q0M PRN PRN Reason: hypotension or symptomatic Albumin Human (Albumin) 12.5 gm in 50 mls @ 60 mls/hr IV PRN PRN PRN Reason: Hypotension and/or symptomatic Sodium Chloride (Sodium Chloride 0.9%) 1,000 mls @ 0 mls/hr IV .Q0M PRN PRN Reason: hypotension or symptomatic Albumin Human (Albumin) 12.5 gm in 50 mls @ 60 mls/hr IV PRN PRN PRN Reason: Hypotension and/or symptomatic Insulin Glargine (Insulin Glargine 100 Units/1 Ml) 15 unit SUBCUT DAILY [facility] Last Admin: 11/26/24 08:43 Dose: 15 unit Insulin Human Lispro (Insulin Lispro 100 Unit/1 Ml) 0 unit SUBCUT Q6H [facility]; Protocol Last Admin: 11/27/24 05:43 Dose: Not Given Lanolin (Lanolin Oint 7 Gm) 1 applic TOPICAL PRN PRN PRN Reason: DRYNESS Last Admin: 11/25/24 17:53 Dose: 1 applic Lidocaine (Lidocaine 5% Patch) 1 patch TOPICAL [id number] [facility] Last Admin: 11/26/24 21:08 Dose: 1 patch Magnesium Hydroxide (Magnesium Hydroxide 30 Ml Udc) 30 ml PO DAILY PRN PRN Reason: CONSTIPATION Methylprednisolone Sodium Succinate (Methylprednisolone Sod Succ 40 Mg/Ml Inj) 20 mg IVP DAILY [facility] Morphine Sulfate (Morphine 4 Mg/Ml Sdv 1 Ml) 2 mg IVP Q4H PRN PRN Reason: SEVERE PAIN Last Admin: 11/25/24 03:05 Dose: 2 mg Nicotine (Nicotine 21 Mg Patch) 1 patch TRANSDERMA DAILY [facility] Last Admin: 11/26/24 08:39 Dose: 1 patch Ondansetron HCl (Ondansetron 2 Mg/Ml Sdv 2 Ml) 4 mg IVP Q8H PRN PRN Reason: vomiting, or N/V if npo Pantoprazole Sodium (Pantoprazole 40 Mg Sdv) 40 mg IVP DAILY [facility] Last Admin: 11/26/24 08:40 Dose: 40 mg Senna/Docusate Sodium (Sennosides-Docusate Tablet) 1 tab PO BID [facility] Last Admin: 11/26/24 17:45 Dose: Not Given Tamsulosin HCl (Tamsulosin 0.4 Mg Capsule) 0.4 mg PO DAILY [facility] Last Admin: 11/26/24 14:23 Dose: Not Given Vitals/I&O/Wt Last Vital Signs Temp 98.1 F 11/27/24 05:00 Pulse 103 H 11/27/24 06:00 Resp 21 H 11/27/24 06:00 BP 144/84 11/27/24 05:30 Pulse Ox 96 11/27/24 06:00 O2 Del Method BiPAP 11/27/24 03:14 O2 Flow Rate 4 11/26/24 18:30 FiO2 35 11/27/24 03:17 11/26/24 11/27/24 11/27/24 22:59 06:59 14:59 Intake Total 300 / 1200 Output Total 450 / 3398 350 / 3748 Balance -150 / -2198 -350 / -2548 Weight last 48 hrs Weight 113.5 kg Weight 116 kg Weight 117 kg Weight 118.5 kg Physical Exam 2 Narrative: obese man in bed using NC02 heent- nc/at, anicteric neck supple lungs - wheezing b/l heart irreg +s1, s2 abd soft, + bs ext - b/l 1+ leg edema neuro: more awake + femoral dialysis catheter Urinary Catheter Management: Solomon: Cath Placed During This Visit: yes Reason for Continuing Indwelling Catheter: Accurate Measurement of Urinary Output in Critically Ill Patients Urinary Catheter Date of Insertion: 11/17/24 Urinary Catheter Time of Insertion: 07:10 Data 11/26/24 05:14 11/26/24 05:14 A&P Assessment and plan (1) Acute kidney injury superimposed on CKD: 74 year old male w/ past med hx of a fib, DM, HTN, BPH. Pt presented w/ weakness, lethargy, orthopnea, dyspnea. In ER he was found to have AIDA, k 5.3 and bradycardic to 30's w/ SBP of 90. He was started on a dopamine drip, given ivf. 1. AIDA- no hydronephrosis. - low ur na - can be cardio-renal syndrome -ur microalb/ cr 574, -u/a cloudy, 2+ protein, 3+ glu, 3+ blood, >100 rbc, 11- 20 wbc -serological w/u : normal complements, hep b and C are negative-anca, anti-gbm are negative -HD yesterday due to uremia and Hyperkalemia -will wait another 1-2 days and monitor UOP and Cr --> if no improvement , will request tunnelled catheter placement 3. CKD stage 3- based on cr 1.3 in oct 2024- try to get old labs- risks are obesity, htn, dm pth 301- repeat in 4 weeks -if cr does not improve, would consider a renal biopsy 4. anemia- iv iron- hgb improved to 11 5. monitor electrolytes check cxr- may need lasix seen and examined with the aide of a nurse using A/V equipment Plan as above monitor uop and chemistries for renal recovery check cxr Attestations 2 Medical Necessity Statement*: aida Time Spent in Patient Care: 16 - 35 minutes (>than 50% of time sp ent in counselling and/or direct pt care on unit) . Coding Level of Care Code Acute Code for Chg Fwd Diagnoses Acute kidney injury superimposed on CKD N17.9; N18.9
[2024-11-27] MEDS: pantoprazole 40 mg SDV IVP (08:01)
[2024-11-27] MEDS: fluoxetine 20 mg Capsule PO (08:01)
[2024-11-27] MEDS: insulin glargine 100 units/1 mL 15 UNIT SUBCUT (08:01)
[2024-11-27] MEDS: sennosides-docusate Tablet 1 TAB PO ×2 (08:02→17:48)
[2024-11-27] MEDS: tamsulosin 0.4 mg Capsule PO (08:02)
[2024-11-27] MEDS: lidocaine 5% Patch 1 PATCH TOPICAL ×2 (08:02→20:33)
[2024-11-27] MEDS: aspirin 81 mg EC Tablet 162 MG PO (08:02)
[2024-11-27] MEDS: methylPREDNISolone sod succ 40 mg/mL INJ 20 MG IVP (08:02)
[2024-11-27 10:50] LABS: Glucose Point of Care 160 mg/dL (70-110)
[2024-11-27] MEDS: insulin lispro 100 unit/1 mL SUBCUT (11:33)
[2024-11-27 12:00] LABS: Creatine Phosphokinase 134 U/L (39-308)
--- NOTE | 2024-11-27 14:41 | PC.SOCIAL ---
IMM Updated Updated pt on IMM. No questions voiced. Provided pt a copy. Initialed, dated, & timed copy in chart.
[2024-11-27 16:39] LABS: Glucose Point of Care 134 mg/dL (70-110)
--- NOTE | 2024-11-27 18:23 | PC.NURSE ---
Patient has been removing BP cuff. Education provided.
--- NOTE | 2024-11-27 18:48 | P.PN_ITS ---
Subjective 2 Subjective: Patient without complaints. Patient is joking around with me. There are moments when he is difficult to understand but I believe this is due to edentulous status Vitals/I&O/Wt Last Vital Signs Temp 98.4 F 11/27/24 07:00 Pulse 93 11/27/24 18:00 Resp 22 H 11/27/24 18:00 BP 175/106 11/27/24 17:30 Pulse Ox 97 11/27/24 18:00 O2 Del Method Nasal Cannula 11/27/24 16:28 O2 Flow Rate 4 11/27/24 16:28 FiO2 35 11/27/24 03:17 11/27/24 11/27/24 11/27/24 06:59 14:59 22:59 Intake Total 300 / 1500 Output Total 350 / 3748 700 / 700 Balance -50 / -2248 -700 / -700 Weight last 48 hrs Weight 113.5 kg Weight 116 kg Weight 117 kg Physical Exam 2 Narrative: Appears slightly older than stated age of 74 he is alert to self only at this time he answered most of my questions appropriately. Heart regular rate and rhythm normal S1-S2 without murmurs clicks gallops or rubs Lungs clear to auscultation without wheezes rales or rhonchi Abdomen obese soft nontender nondistended positive bowel sounds Extremities mild nonpitting edema to the lower extremities Solomon draining [place] colored urine Urinary Catheter Management: Solomon: Cath Placed During This Visit: yes Reason for Continuing Indwelling Catheter: Accurate Measurement of Urinary Output in Critically Ill Patients Urinary Catheter Date of Insertion: 11/17/24 Urinary Catheter Time of Insertion: 07:10 Data 11/26/24 05:14 11/26/24 05:14 A&P Assessment and plan (1) Acute kidney injury superimposed on CKD: Appreciate nephrology consult and management. Will check labs for tomorrow (2) Bradycardia: Patient's heart rate has stabilized with most recent pulse of 93. Note patient's blood pressure is becoming elevated (3) Atrial flutter: History of A-fib/flutter (4) Asthma-COPD overlap syndrome: Unclear if patient wears oxygen at home (5) Physical deconditioning: PT and OT to work with patient Plan Hospital course. Patient was admitted with bradycardia. Subsequently the patient had respiratory failure was intubated. He was extubated on 11/22/2024. At some point he was on BiPAP but now he refuses. The bradycardia was felt to be due to Cardizem and it took many days before this to can discontinuation showed improvement in heart rate. Blood pressure has also been low at times but this is now stable. Patient has had periods of confusion whether this is related to some underlying dementia he does not carry that diagnosis. Patient also had acute uremia with hyperkalemia and patient was given that hemodialysis treatment yesterday 11/26/2024 Attestations 2 Medical Necessity Statement*: Patient with uremia requiring dialysis yesterday. Patient requires hospital level of care to determine if further dialysis is necessary and if the patient can manage his fluid status. Coding Level of Care Code Acute Code for [facility] Diagnoses Acute kidney injury superimposed on CKD N17.9; N18.9 Bradycardia R00.1 Atrial flutter I48.92 Asthma-COPD overlap syndrome J44.9 Physical deconditioning R53.81
[2024-11-27] MEDS: enoxaparin 30 mg/0.3 mL Syringe SUBCUT (20:32)
[2024-11-27 23:50] LABS: Glucose Point of Care 126 mg/dL (70-110)
[2024-11-28] VITALS (59 sets, daily range): BP systolic 92–164; BP diastolic 44–89; PULSE 68–111; RESP 13–29; TEMP 36.9–37; O2SAT 86–99
[2024-11-28] MEDS: ipratropium-albuterol 3 mL Neb INHALATION ×5 (04:04→20:37)
[2024-11-28 04:25] LABS: Basophils % 0.3 %; Eosinophils # 0.1 10^3/uL (0.0-0.8); Eosinophils % 0.8 %; Hematocrit 34.7 % (37-53); Lymphocytes # 1.4 10^3/uL (0.8-4.8); Mean Corpuscular HGB Conc 30.5 g/dL (30-55); Mean Corpuscular Hemoglobin 29.5 pg (27-33); Mean Corpuscular Volume 96.7 fl (82-101); Mean Platelet Volume 11.5 fL (7.4-10.4); Monocytes # 0.9 10^3/uL (0.2-0.9); Monocytes % 8.8 %; Neutrophils # 7.73 10^3/uL (1.8-7.7); Neutrophils % 72.5 %; Nucleated Red Blood Cells % 0 %; Platelet Count 156 10^3/cmm (157-399); Red Blood Count 3.59 10^6/uL (3.85-5.65); Red Cell Distribution Width 13.2 % (12.1-15.1); White Blood Count 10.67 10^3/uL (3.29-11.43)
[2024-11-28 04:52] LABS: Magnesium 2.4 mg/dL (1.7-2.3); Phosphorus 5.6 mg/dL (2.5-4.5)
[2024-11-28 04:56] LABS: Alanine Aminotransferase 25 U/L (0-41); Albumin Level 3.5 g/dL (3.5-5.2); Alkaline Phosphatase 60 U/L (40-130); Aspartate Amino Transferase 17 U/L (0-40); Carbon Dioxide 23 mmol/L (22-29); Chloride 101 mmol/L (98-107); Creatine Phosphokinase 95 U/L (39-308); Creatinine Clr Calc Pharmacy 21.8339; Globulin 2.1 g/dL (1.3-4.6); Glucose 121 mg/dL (65-115); Osmolality Calculated 319 mOsm/kg (285-295); Sodium 139 mmol/L (136-145); Total Bilirubin 0.6 mg/dL (0.15-1.2); Total Protein 5.6 g/dL (6.6-8.7)
[2024-11-28 05:04] LABS: Anion Gap 19.9 (5-19); Potassium 4.9 mmol/L (3.5-5.1)
[2024-11-28 05:06] LABS: Blood Urea Nitrogen 96 mg/dL (8-23)
[2024-11-28] MEDS: linezolid premix 600 MG/300 ML PREMIX 300 MG IV ×2 (05:26→17:38)
[2024-11-28 05:36] LABS: Glucose Point of Care 115 mg/dL (70-110)
[2024-11-28 07:49] LABS: Glucose Point of Care 161 mg/dL (70-110)
[2024-11-28 09:00] LABS: Glucose Point of Care 143 mg/dL (70-110)
[2024-11-28] MEDS: sennosides-docusate Tablet 1 TAB PO (09:20)
[2024-11-28] MEDS: aspirin 81 mg EC Tablet 162 MG PO (09:20)
[2024-11-28] MEDS: fluoxetine 20 mg Capsule PO (09:20)
[2024-11-28] MEDS: tamsulosin 0.4 mg Capsule PO (09:20)
--- NOTE | 2024-11-28 09:28 | P.PN_ITS ---
Subjective 2 Subjective: uses bipap at night. thirsty, weak, sob, cough. no n/v/f/c/corrales/d Medications: Reviewed: Yes Medication Review Details: Current Medications Acetaminophen (Acetaminophen 325 Mg Tablet) 650 mg PO Q6H PRN PRN Reason: Mild/Mod Pain Or Temp >/= 101 Albuterol Sulfate (Albuterol 2.5 Mg/3 Ml Neb) 2.5 mg INHALATION Q6H.RESP PRN PRN Reason: SHORTNESS OF BREATH Last Admin: 11/17/24 18:21 Dose: 2.5 mg Albuterol/Ipratropium (Ipratropium-Albuterol 3 Ml Neb) 3 ml INHALATION Q4H.RESPIRATORY [facility] Last Admin: 11/28/24 08:25 Dose: 3 ml Aspirin (Aspirin 81 Mg Ec Tablet) 162 mg PO DAILY [facility] Last Admin: 11/28/24 09:20 Dose: 162 mg Clonidine HCl (Clonidine 0.3 Mg/24 Hr Patch) 1 patch TRANSDERMA Q7D [facility] Last Admin: 11/23/24 17:12 Dose: 1 patch Enoxaparin Sodium (Enoxaparin 30 Mg/0.3 Ml Syringe) 30 mg SUBCUT Q24H [facility] Last Admin: 11/27/24 20:32 Dose: 30 mg Fluoxetine HCl (Fluoxetine 20 Mg Capsule) 20 mg PO DAILY [facility] Last Admin: 11/28/24 09:20 Dose: 20 mg Glucagon (Glucagon 1 Mg/Ml Kit 1 Ml) 1 mg IM ONCE PRN; Protocol PRN Reason: Adult Acute Hypoglycemia Nursing Prot. Hydralazine HCl (Hydralazine 20 Mg/Ml Inj 1 Ml) 10 mg IVP Q4H PRN PRN Reason: Systolic blood pressure more than 160 mmHg Last Admin: 11/26/24 09:00 Dose: 10 mg Dextrose (D5w) 500 mls @ 0 mls/hr IV ONCE PRN; Protocol PRN Reason: Adult Acute Hypoglycemia Prot Dextrose (D10w) 125 mls @ 750 mls/hr IV PRN PRN; Protocol PRN Reason: Adult Acute Hypoglycemia Nursing Protocol Dextrose (D10w) 250 mls @ 1,000 mls/hr IV PRN PRN; Protocol PRN Reason: Adult Acute Hypoglycemia Nursing Protocol Albumin Human (Albumin) 12.5 gm in 50 mls @ 60 mls/hr IV PRN PRN PRN Reason: Hypotension and/or symptomatic Linezolid (Zyvox Premix) 600 mg in 300 mls @ 300 mls/hr IV Q12H [facility]; Protocol Last Admin: 11/28/24 05:26 Dose: 300 mls/hr Sodium Chloride (Sodium Chloride 0.9%) 1,000 mls @ 0 mls/hr IV .Q0M PRN PRN Reason: hypotension or symptomatic Albumin Human (Albumin) 12.5 gm in 50 mls @ 60 mls/hr IV PRN PRN PRN Reason: Hypotension and/or symptomatic Sodium Chloride (Sodium Chloride 0.9%) 1,000 mls @ 0 mls/hr IV .Q0M PRN PRN Reason: hypotension or symptomatic Albumin Human (Albumin) 12.5 gm in 50 mls @ 60 mls/hr IV PRN PRN PRN Reason: Hypotension and/or symptomatic Insulin Glargine (Insulin Glargine 100 Units/1 Ml) 15 unit SUBCUT DAILY [facility] Last Admin: 11/27/24 08:01 Dose: 15 unit Insulin Human Lispro (Insulin Lispro 100 Unit/1 Ml) 0 unit SUBCUT Q6H [facility]; Protocol Last Admin: 11/28/24 05:34 Dose: Not Given Lanolin (Lanolin Oint 7 Gm) 1 applic TOPICAL PRN PRN PRN Reason: DRYNESS Last Admin: 11/25/24 17:53 Dose: 1 applic Lidocaine (Lidocaine 5% Patch) 1 patch TOPICAL [id number] [facility] Last Admin: 11/28/24 09:20 Dose: Not Given Morphine Sulfate (Morphine 4 Mg/Ml Sdv 1 Ml) 2 mg IVP Q4H PRN PRN Reason: SEVERE PAIN Last Admin: 11/25/24 03:05 Dose: 2 mg Nicotine (Nicotine 21 Mg Patch) 1 patch TRANSDERMA DAILY [facility] Last Admin: 11/28/24 09:20 Dose: Not Given Ondansetron HCl (Ondansetron 2 Mg/Ml Sdv 2 Ml) 4 mg IVP Q8H PRN PRN Reason: vomiting, or N/V if npo Senna/Docusate Sodium (Sennosides-Docusate Tablet) 1 tab PO BID [facility] Last Admin: 11/28/24 09:20 Dose: 1 tab Tamsulosin HCl (Tamsulosin 0.4 Mg Capsule) 0.4 mg PO DAILY [facility] Last Admin: 11/28/24 09:20 Dose: 0.4 mg Vitals/I&O/Wt Last Vital Signs Temp 98.6 F 11/28/24 04:00 Pulse 71 11/28/24 08:33 Resp 16 11/28/24 08:25 BP 150/86 11/28/24 06:00 Pulse Ox 96 11/28/24 08:27 O2 Del Method BiPAP 11/28/24 08:25 O2 Flow Rate 4 11/27/24 16:28 FiO2 35 11/28/24 08:27 11/27/24 11/28/24 11/28/24 22:59 06:59 14:59 Intake Total 300 / 300 60 / 360 Output Total 700 / 700 500 / 1200 Balance -400 / -400 -440 / -840 Weight last 48 hrs Weight 110 kg Weight 113.5 kg Weight 116 kg Physical Exam 2 Narrative: obese man in bed using NC02 or bipap heent- nc/at, anicteric neck supple lungs - right base dull, left clear heart irreg +s1, s2 abd soft, + bs ext - b/l 1+ leg edema neuro: more awake, follows commands + femoral dialysis catheter Urinary Catheter Management: Solomon: Cath Placed During This Visit: yes Reason for Continuing Indwelling Catheter: Accurate Measurement of Urinary Output in Critically Ill Patients Urinary Catheter Date of Insertion: 11/17/24 Urinary Catheter Time of Insertion: 07:10 Data 11/28/24 03:58 11/28/24 03:58 A&P Assessment and plan (1) Acute kidney injury superimposed on CKD: 74 year old male w/ past med hx of a fib, DM, HTN, BPH. Pt presented w/ weakness, lethargy, orthopnea, dyspnea. In ER he was found to have AIDA, k 5.3 and bradycardic to 30's w/ SBP of 90. He was started on a dopamine drip, given ivf. 1. AIDA- no hydronephrosis. - low ur na - can be cardio-renal syndrome -ur microalb/ cr 574, -u/a cloudy, 2+ protein, 3+ glu, 3+ blood, >100 rbc, 11- 20 wbc -serological w/u : normal complements, hep b and C are negative-anca, anti-gbm are negative -HD last on 11/26/24 -will wait another 1-2 days and monitor UOP and Cr --> if no improvement , will request tunnelled catheter placement 3. CKD stage 3- based on cr 1.3 in oct 2024- try to get old labs- risks are obesity, htn, dm pth 301- repeat in 4 weeks -if cr does not improve, would consider a renal biopsy 4. anemia- iv iron- hgb improved to 11 5. monitor electrolytes check cxr- with pneumonia. no chf may need fluids seen and examined with the aide of a nurse using A/V equipment Plan as above monitor uop and chemistries for renal recovery consider ivf Attestations 2 Medical Necessity Statement*: pna, aida Time Spent in Patient Care: 16 - 35 minutes (>than 50% of time sp ent in counselling and/or direct pt care on unit) . Coding Level of Care Code Acute Code for Chg Fwd Diagnoses Acute kidney injury superimposed on CKD N17.9; N18.9
[2024-11-28] MEDS: insulin glargine 100 units/1 mL 15 UNIT SUBCUT (09:31)
[2024-11-28] MEDS: sodium chloride 0.45% 1,000 ML 75 ML IV (12:00)
[2024-11-28] MEDS: insulin lispro 100 unit/1 mL SUBCUT (12:00)
--- NOTE | 2024-11-28 12:47 | PM.PN ---
Subjective Subjective: Sitting in cardiac chair today. Markedly improved mentation although still with few odd remarks. Denies chest pain shortness of breath abdominal pain. He is asking for a bedside commode to have a bowel movement Vitals/I&O/Wt Last Vital Signs Temp 98.6 F 11/28/24 04:00 Pulse 94 11/28/24 11:42 Resp 17 11/28/24 11:34 BP 150/86 11/28/24 06:00 Pulse Ox 98 11/28/24 11:34 O2 Del Method Nasal Cannula 11/28/24 11:34 O2 Flow Rate 4 11/28/24 11:34 FiO2 35 11/28/24 08:27 11/27/24 11/28/24 11/28/24 22:59 06:59 14:59 Intake Total 300 / 300 60 / 360 Output Total 700 / 700 500 / 1200 Balance -400 / -400 -440 / -840 Weight last 48 hrs Weight 110 kg Weight 113.5 kg Weight 116 kg Physical Exam Narrative: Appears slightly older than stated age of 74 he is alert to self only. Heart regular rate and rhythm normal S1-S2 without murmurs clicks gallops or rubs Lungs diminished throughout but clear clear to auscultation without wheezes rales or rhonchi Abdomen obese soft nontender nondistended positive bowel sounds Extremities mild nonpitting edema to the lower extremities Solomon draining color is improved appears to be more yellow than dark-colored. Urine output is picking up. Urinary Catheter Management: Solomon: Cath Placed During This Visit: yes Reason for Continuing Indwelling Catheter: Accurate Measurement of Urinary Output in Critically Ill Patients Urinary Catheter Date of Insertion: 11/17/24 Urinary Catheter Time of Insertion: 07:10 Data 11/28/24 03:58 11/28/24 03:58 A&P Assessment and plan (1) Acute kidney injury superimposed on CKD: Appreciate nephrology consult and management. Spoke with Dr. Laguna today. Urine output is increasing and urine color is improving. Patient is able to consume oral liquids on his own now he is very thirsty. There are no signs of fluid overload at this time. We discussed a trial of gentle hydration and his own oral intake. His renal functions have stabilized and with the urine output improving we are hopeful that patient will show some renal recovery. Hold off on any plans to dialyze at this time. I talked to case management to tell them for intermediate home placement that he will not need dialysis. (2) Bradycardia: Patient's heart rate has stabilized off Cardizem. His home dose was 240 mg daily. May need to restart a lower dose for heart rate and blood pressure control. I am considering Cardizem 30 mg Q6 or every 8 hours and eventual long-acting dose may be reasonable at half the previous dose. Will await further renal recovery as well as mental recovery before restarting these medications (3) Atrial flutter: History of A-fib/flutter. Currently appears to be in A-fib at this time with overall good rate control (4) Asthma-COPD overlap syndrome: Today patient reports that he does have oxygen at home but unclear how much he wears. (5) Physical deconditioning: PT and OT to work with patient Will require SNF placement Plan Patient is improving. Planning for discharge in next 2 to 3 days likely. He will require SNF placement. I spoke with [id number] who is power of insurance attorney with patient's son. The son will arrive on . If patient's mental capacity can return to baseline it is would likely be beneficial to reassess living well regarding CPR dialysis and mechanical ventilation for the future. As he is high risk for requiring hemodialysis. Attestations Medical Necessity Statement*: Patient with AIDA and requiring current management and close monitoring of laboratory studies. He is severely debilitated and has extensive past medical history leaving him at risk complications. Coding Level of Care Code Acute Code for [facility] Diagnoses Acute kidney injury superimposed on CKD N17.9; N18.9 Bradycardia R00.1 Atrial flutter I48.92 Asthma-COPD overlap syndrome J44.9 Physical deconditioning R53.81
[2024-11-28 17:19] LABS: Glucose Point of Care 255 mg/dL (70-110)
[2024-11-28 17:37] LABS: Glucose Point of Care 112 mg/dL (70-110)
[2024-11-28] MEDS: enoxaparin 30 mg/0.3 mL Syringe SUBCUT (21:00)
[2024-11-28] MEDS: lidocaine 5% Patch 1 PATCH TOPICAL (22:46)
[2024-11-28 23:06] LABS: Glucose Point of Care 130 mg/dL (70-110)
[2024-11-29] VITALS (30 sets, daily range): BP systolic 113–177; BP diastolic 51–99; PULSE 79–104; RESP 13–27; TEMP 36.3–37.1; O2SAT 90–98
[2024-11-29] MEDS: ipratropium-albuterol 3 mL Neb INHALATION ×6 (00:33→20:23)
[2024-11-29 04:25] LABS: Basophils % 0.3 %; Eosinophils # 0.1 10^3/uL (0.0-0.8); Hematocrit 34.2 % (37-53); Lymphocytes # 1.2 10^3/uL (0.8-4.8); Lymphocytes % 9.6 %; Mean Corpuscular HGB Conc 30.1 g/dL (30-55); Mean Corpuscular Hemoglobin 29.6 pg (27-33); Mean Corpuscular Volume 98.3 fl (82-101); Monocytes # 0.9 10^3/uL (0.2-0.9); Monocytes % 7.1 %; Neutrophils # 9.76 10^3/uL (1.8-7.7); Neutrophils % 78.5 %; Nucleated Red Blood Cells % 0 %; Platelet Count 139 10^3/cmm (157-399); Red Blood Count 3.48 10^6/uL (3.85-5.65); Red Cell Distribution Width 13.2 % (12.1-15.1); White Blood Count 12.46 10^3/uL (3.29-11.43)
[2024-11-29 04:55] LABS: Alanine Aminotransferase 31 U/L (0-41); Albumin Level 3.4 g/dL (3.5-5.2); Alkaline Phosphatase 56 U/L (40-130); Anion Gap 19.6 (5-19); Aspartate Amino Transferase 19 U/L (0-40); Calcium 8.7 mg/dL (8.5-10.5); Carbon Dioxide 22 mmol/L (22-29); Chloride 102 mmol/L (98-107); Creatinine Clr Calc Pharmacy 22.0877; Globulin 2.3 g/dL (1.3-4.6); Glucose 130 mg/dL (65-115); Magnesium 2.2 mg/dL (1.7-2.3); Osmolality Calculated 323 mOsm/kg (285-295); Potassium 4.6 mmol/L (3.5-5.1); Sodium 139 mmol/L (136-145); Total Bilirubin 0.5 mg/dL (0.15-1.2); Total Protein 5.7 g/dL (6.6-8.7)
[2024-11-29 05:04] LABS: Blood Urea Nitrogen 105 mg/dL (8-23)
[2024-11-29] MEDS: linezolid premix 600 MG/300 ML PREMIX 300 MG IV ×2 (05:52→17:20)
[2024-11-29 06:02] LABS: Glucose Point of Care 134 mg/dL (70-110)
--- NOTE | 2024-11-29 07:32 | P.PN_ITS ---
Subjective 2 Subjective: feels better, more awake. dec sob. no n/v/f/c/corrales/d. good uop Medications: Reviewed: Yes Medication Review Details: Current Medications Acetaminophen (Acetaminophen 325 Mg Tablet) 650 mg PO Q6H PRN PRN Reason: Mild/Mod Pain Or Temp >/= 101 Albuterol Sulfate (Albuterol 2.5 Mg/3 Ml Neb) 2.5 mg INHALATION Q6H.RESP PRN PRN Reason: SHORTNESS OF BREATH Last Admin: 11/17/24 18:21 Dose: 2.5 mg Albuterol/Ipratropium (Ipratropium-Albuterol 3 Ml Neb) 3 ml INHALATION Q4H.RESPIRATORY [facility] Last Admin: 11/29/24 04:50 Dose: 3 ml Aspirin (Aspirin 81 Mg Ec Tablet) 162 mg PO DAILY [facility] Last Admin: 11/28/24 09:20 Dose: 162 mg Clonidine HCl (Clonidine 0.3 Mg/24 Hr Patch) 1 patch TRANSDERMA Q7D [facility] Last Admin: 11/23/24 17:12 Dose: 1 patch Enoxaparin Sodium (Enoxaparin 30 Mg/0.3 Ml Syringe) 30 mg SUBCUT Q24H [facility] Last Admin: 11/28/24 21:00 Dose: 30 mg Fluoxetine HCl (Fluoxetine 20 Mg Capsule) 20 mg PO DAILY [facility] Last Admin: 11/28/24 09:20 Dose: 20 mg Glucagon (Glucagon 1 Mg/Ml Kit 1 Ml) 1 mg IM ONCE PRN; Protocol PRN Reason: Adult Acute Hypoglycemia Nursing Prot. Hydralazine HCl (Hydralazine 20 Mg/Ml Inj 1 Ml) 10 mg IVP Q4H PRN PRN Reason: Systolic blood pressure more than 160 mmHg Last Admin: 11/26/24 09:00 Dose: 10 mg Dextrose (D5w) 500 mls @ 0 mls/hr IV ONCE PRN; Protocol PRN Reason: Adult Acute Hypoglycemia Prot Dextrose (D10w) 125 mls @ 750 mls/hr IV PRN PRN; Protocol PRN Reason: Adult Acute Hypoglycemia Nursing Protocol Dextrose (D10w) 250 mls @ 1,000 mls/hr IV PRN PRN; Protocol PRN Reason: Adult Acute Hypoglycemia Nursing Protocol Linezolid (Zyvox Premix) 600 mg in 300 mls @ 300 mls/hr IV Q12H [facility]; Protocol Last Admin: 11/29/24 05:52 Dose: 300 mls/hr Sodium Chloride (Sodium Chloride 0.9%) 1,000 mls @ 0 mls/hr IV .Q0M PRN PRN Reason: hypotension or symptomatic Sodium Chloride (Sodium Chloride 0.9%) 1,000 mls @ 0 mls/hr IV .Q0M PRN PRN Reason: hypotension or symptomatic Albumin Human (Albumin) 12.5 gm in 50 mls @ 60 mls/hr IV PRN PRN PRN Reason: Hypotension and/or symptomatic Insulin Glargine (Insulin Glargine 100 Units/1 Ml) 15 unit SUBCUT DAILY [facility] Last Admin: 11/28/24 09:31 Dose: 15 unit Insulin Human Lispro (Insulin Lispro 100 Unit/1 Ml) 0 unit SUBCUT Q6H [facility]; Protocol Last Admin: 11/29/24 06:02 Dose: Not Given Lanolin (Lanolin Oint 7 Gm) 1 applic TOPICAL PRN PRN PRN Reason: DRYNESS Last Admin: 11/25/24 17:53 Dose: 1 applic Lidocaine (Lidocaine 5% Patch) 1 patch TOPICAL [id number] [facility] Last Admin: 11/28/24 22:46 Dose: 1 patch Morphine Sulfate (Morphine 4 Mg/Ml Sdv 1 Ml) 2 mg IVP Q4H PRN PRN Reason: SEVERE PAIN Last Admin: 11/25/24 03:05 Dose: 2 mg Nicotine (Nicotine 21 Mg Patch) 1 patch TRANSDERMA DAILY [facility] Last Admin: 11/28/24 09:20 Dose: Not Given Ondansetron HCl (Ondansetron 2 Mg/Ml Sdv 2 Ml) 4 mg IVP Q8H PRN PRN Reason: vomiting, or N/V if npo Senna/Docusate Sodium (Sennosides-Docusate Tablet) 1 tab PO BID [facility] Last Admin: 11/28/24 17:39 Dose: Not Given Tamsulosin HCl (Tamsulosin 0.4 Mg Capsule) 0.4 mg PO DAILY [facility] Last Admin: 11/28/24 09:20 Dose: 0.4 mg Vitals/I&O/Wt Last Vital Signs Temp 97.3 F L 11/29/24 03:00 Pulse 98 11/29/24 07:00 Resp 16 11/29/24 07:00 BP 161/73 11/29/24 07:00 Pulse Ox 96 11/29/24 07:00 O2 Del Method BiPAP 11/29/24 04:00 O2 Flow Rate 4 11/28/24 15:25 FiO2 35 11/29/24 04:00 11/28/24 11/29/24 11/29/24 22:59 06:59 14:59 Intake Total 600 / 1350 1120 / 2470 Output Total 600 / 600 Balance 600 / 1350 520 / 1870 Weight last 48 hrs Weight 110 kg Weight 110 kg Physical Exam 2 Narrative: obese man in bed comfortable on NC02. heent- nc/at, anicteric neck supple lungs - right base dull, left clear heart irreg +s1, s2 abd soft, + bs ext - b/l 1+ leg edema neuro: a,a, o x 2+, moving, interactive, follwoing commands + femoral dialysis catheter Urinary Catheter Management: Solomon: Cath Placed During This Visit: yes Reason for Continuing Indwelling Catheter: Accurate Measurement of Urinary Output in Critically Ill Patients Urinary Catheter Date of Insertion: 11/17/24 Urinary Catheter Time of Insertion: 07:10 Data 11/29/24 04:12 11/29/24 04:12 A&P Assessment and plan (1) Acute kidney injury superimposed on CKD: 74 year old male w/ past med hx of a fib, DM, HTN, BPH. Pt presented w/ weakness, lethargy, orthopnea, dyspnea. In ER he was found to have AIDA, k 5.3 and bradycardic to 30's w/ SBP of 90. He was started on a dopamine drip, given ivf. 1. AIDA- no hydronephrosis. - low ur na - can be cardio-renal syndrome -ur microalb/ cr 574, -u/a cloudy, 2+ protein, 3+ glu, 3+ blood, >100 rbc, 11- 20 wbc -serological w/u : normal complements, hep b and C are negative-anca, anti-gbm are negative -HD last on 11/26/24 -hopefully renal function is plateauing or improving -please keep overnight to monitor urine outout and chemistries, cr -give gentle ivf -need to emove femoral dialysis cstheter in next couple of days 3. CKD stage 3- based on cr 1.3 in oct 2024- try to get old labs- risks are obesity, htn, dm pth 301- repeat in 4 weeks 4. anemia- iv iron- hgb improved to 11 5. monitor electrolytes cxr- with pneumonia. no chf may need fluids seen and examined with the aide of a nurse using A/V equipment Plan as above monitor uop and chemistries for renal recovery consider ivf Attestations 2 Medical Necessity Statement*: aida on ckd. monitor for renal recovery Time Spent in Patient Care: 16 - 35 minutes (>than 50% of time sp ent in counselling and/or direct pt care on unit) . Coding Level of Care Code Acute Code for Chg Fwd Diagnoses Acute kidney injury superimposed on CKD N17.9; N18.9
[2024-11-29] MEDS: tamsulosin 0.4 mg Capsule PO (09:25)
[2024-11-29] MEDS: fluoxetine 20 mg Capsule PO (09:25)
[2024-11-29] MEDS: aspirin 81 mg EC Tablet 162 MG PO (09:25)
[2024-11-29] MEDS: insulin glargine 100 units/1 mL 15 UNIT SUBCUT (10:19)
[2024-11-29] MEDS: sodium chloride 0.45% 1,000 ML 75 ML IV (10:21)
[2024-11-29] MEDS: lidocaine 5% Patch 1 PATCH TOPICAL ×2 (10:22→21:47)
[2024-11-29] MEDS: insulin lispro 100 unit/1 mL SUBCUT (11:49)
--- NOTE | 2024-11-29 13:19 | PC.SOCIAL ---
IMM Updated Updated pt on IMM. No questions voiced. Provided pt a copy. Initialed, dated, & timed copy in chart.
[2024-11-29 14:40] LABS: Glucose Point of Care 198 mg/dL (70-110)
--- NOTE | 2024-11-29 16:14 | P.PN_ITS ---
Subjective 2 Subjective: He is overall feeling much better. He states he feels he was quite confused earlier, which has been improving. He currently denies pain or discomfort. He denies being previously diagnosed with sleep apnea. His breathing overall has been improving. He was previously normally on 2 L of oxygen. Vitals/I&O/Wt Last Vital Signs Temp 97.3 F L 11/29/24 03:00 Pulse 87 11/29/24 15:18 Resp 16 11/29/24 15:10 BP 135/72 11/29/24 11:00 Pulse Ox 96 11/29/24 15:10 O2 Del Method Nasal Cannula 11/29/24 15:10 O2 Flow Rate 3 11/29/24 15:10 FiO2 35 11/29/24 04:00 11/29/24 11/29/24 11/29/24 06:59 14:59 22:59 Intake Total 1120 / 2470 350 / 350 300 / 650 Output Total 600 / 600 Balance 520 / 1870 350 / 350 300 / 650 Weight last 48 hrs Weight 110 kg Weight 110 kg Physical Exam 2 Narrative: He is awake and alert. Pleasant, conversant. In good spirits. Const: COMMON NORMALS: patient oriented x3 and alert GENERAL APPEARANCE: c ooperative ORIENTATION/CONSCIOUSNESS: Yes awake HENMT: COMMON NORMALS: oropharynx normal Neck/C-Spine: COMMON NORMALS: no JVD Resp: AUSCULTATION: wheezes (Minimal wheeze right lower lobe.) Cardio: COMMON NORMALS: no JVD, regular rhythm, S1 normal heart sound present, S2 normal heart sound present and No murmurs present (Cardio) RHYTHM: regular rhythm HEART SOUNDS: S1 normal heart sound present and S2 normal heart sound present GI: COMMON NORMALS: Normal to inspection, nondistended, normoactive bowel sounds present, Soft to palpation and non-tender PALPATION: Yes Soft to palpation Extremity: COMMON NORMALS: no joint enlargement and no pedal edema Neuro: COMMON NORMALS: patient oriented x3 and moves all extremities S ENSORIUM/ORIENTATION: Yes alert Skin: COMMON NORMALS: no rashes or lesions noted GENERAL SKIN EXAM: no rashes or lesions noted Urinary Catheter Management: Solomon: Cath Placed During This Visit: yes Reason for Continuing Indwelling Catheter: Accurate Measurement of Urinary Output in Critically Ill Patients Urinary Catheter Date of Insertion: 11/17/24 Urinary Catheter Time of Insertion: 07:10 Data 11/29/24 04:12 11/29/24 04:12 A&P Assessment and plan (1) Acute kidney injury superimposed on CKD: Reviewed vitals, CBC, creatinine, BUN, and gap, bicarb, potassium, phosphorus, imaging. Reviewed nephrology note, request for additional reassessment of renal function, urine output, chemistry in the morning with consideration of removal of dialysis catheter. Discussed with therapeutic case manager, likely should not require dialysis after discharge. Otherwise has been approved to proceed to SNF for rehabilitation. He is feeling well, has significantly improved compared to admission. Had a trial of gentle hydration, IV fluid discontinued. As needed albumin infusion. Discussed with nursing. His renal functions have stabilized and with the urine output improving we are hopeful that patient will show some renal recovery. Transfer out of ICU. Phos with mild elevation, change to renal nondialysis diet. (2) Bradycardia: Resolved. Heart rate starting to become on the high side, 90s to low 100s. With right bundle branch block, severe bradycardia on presentation, renal dysfunction, with concerns with resuming Cardizem that he may develop third- degree block versus again developed severe bradycardia. Discussed with him starting oral amiodarone for now. Would benefit from follow-up with cardiology. Patient's heart rate has stabilized off Cardizem. His home dose was 240 mg daily. May need to restart a lower dose for heart rate and blood pressure control. I am considering Cardizem 30 mg Q6 or every 8 hours and eventual long-acting dose may be reasonable at half the previous dose. Will await further renal recovery as well as mental recovery before restarting these medications (3) Atrial flutter: History of A-fib/flutter. Currently appears to be in A-fib at this time with overall good rate control Currently on aspirin. Consider anticoagulation for stroke risk reduction. Added oral amiodarone for now. Would likely not resume Cardizem. Should follow-up with cardiology. (4) Asthma-COPD overlap syndrome: Overall with improvement. Mild wheezing. Air entry has significantly improved. Continue breathing treatments. On linezolid. Sputum culture with staph lugdunensis. Unfortunately procalcitonin would not be helpful. Subjectively he is feeling better. Noted some worsening leukocytosis today up to 12. Repeat blood counts. Reassess vitals. He is otherwise close to baseline oxygen, currently on 3 L, normally on 2 L at home. Additionally he has been on BiPAP nightly here for sleep apnea and COPD. Requested overnight pulse oximetry as he will need a machine of his own after discharge from residential. Discussed with therapeutic case manager. (5) Physical deconditioning: PT and OT SNF arrangements underway and he has received approval so far. Pending reassessment renal function, removal of dialysis catheter. Plan [id number] is power of insurance attorney with patient's son. The son will arrive on . If patient's mental capacity can return to baseline it is would likely be beneficial to reassess living well regarding CPR dialysis and mechanical ventilation for the future. As he is high risk for requiring hemodialysis. Attestations 2 Medical Necessity Statement*: Continue admission for assessment management of slowly improving acute renal failure, optimization of control of atrial fibrillation after severe bradycardia on admission. Post discharge planning and arrangements. and High MDM includes amount and/or complexity of data reviewed/ordered [ previous or external records, resulted lab(s)/test(s), ordered lab(s)/test(s) and other healthcare professional discussion] and described risk of complication, morbidity or mortality of management as documented Diagnoses Acute kidney injury superimposed on CKD N17.9; N18.9 Bradycardia R00.1 Atrial flutter I48.92 Asthma-COPD overlap syndrome J44.9 Physical deconditioning R53.81
[2024-11-29 16:50] LABS: Glucose Point of Care 130 mg/dL (70-110)
[2024-11-29] MEDS: sennosides-docusate Tablet 1 TAB PO (17:19)
[2024-11-29] MEDS: amiodarone 200 mg Tablet PO (17:19)
[2024-11-29] MEDS: enoxaparin 30 mg/0.3 mL Syringe SUBCUT (20:12)
[2024-11-29] MEDS: hyDRALAzine 20 mg/mL INJ 1 mL 10 MG IVP (20:13)
[2024-11-29 20:41] LABS: Glucose Point of Care 130 mg/dL (70-110)
[2024-11-30 01:19] LABS: Glucose Point of Care 109 mg/dL (70-110)
[2024-11-30 01:32] VITALS: BP 151/91
[2024-11-30 04:30] VITALS: BP 155/76; PULSE 84; RESP 16; TEMP 37.1; O2SAT 89
[2024-11-30 04:56] LABS: Glucose Point of Care 109 mg/dL (70-110)
[2024-11-30] MEDS: linezolid premix 600 MG/300 ML PREMIX 300 MG IV (05:01)
[2024-11-30 08:01] VITALS: BP 165/77; PULSE 88; RESP 19; TEMP 37.1; O2SAT 93
[2024-11-30 08:48] VITALS: PULSE 78; RESP 17; O2SAT 94
[2024-11-30] MEDS: ipratropium-albuterol 3 mL Neb INHALATION (08:52)
[2024-11-30 08:57] VITALS: PULSE 79
[2024-11-30 09:29] LABS: Basophils % 0.3 %; Eosinophils # 0.1 10^3/uL (0.0-0.8); Eosinophils % 1.2 %; Hematocrit 33.4 % (37-53); Lymphocytes # 1.4 10^3/uL (0.8-4.8); Lymphocytes % 11.9 %; Mean Corpuscular HGB Conc 31.4 g/dL (30-55); Mean Corpuscular Hemoglobin 29.5 pg (27-33); Mean Corpuscular Volume 93.8 fl (82-101); Mean Platelet Volume 11.5 fL (7.4-10.4); Monocytes # 0.8 10^3/uL (0.2-0.9); Monocytes % 6.6 %; Neutrophils # 9.19 10^3/uL (1.8-7.7); Neutrophils % 77.1 %; Nucleated Red Blood Cells % 0 %; Platelet Count 169 10^3/cmm (157-399); Red Blood Count 3.56 10^6/uL (3.85-5.65); White Blood Count 11.89 10^3/uL (3.29-11.43)
[2024-11-30 09:55] LABS: Alanine Aminotransferase 44 U/L (0-41); Albumin Level 3.4 g/dL (3.5-5.2); Alkaline Phosphatase 60 U/L (40-130); Anion Gap 18.1 (5-19); Aspartate Amino Transferase 27 U/L (0-40); Calcium 8.9 mg/dL (8.5-10.5); Carbon Dioxide 22 mmol/L (22-29); Chloride 101 mmol/L (98-107); Creatinine Clr Calc Pharmacy 24.7792; Globulin 2.5 g/dL (1.3-4.6); Glucose 130 mg/dL (65-115); Osmolality Calculated 313 mOsm/kg (285-295); Potassium 4.1 mmol/L (3.5-5.1); Sodium 137 mmol/L (136-145); Total Bilirubin 0.5 mg/dL (0.15-1.2); Total Protein 5.9 g/dL (6.6-8.7)
[2024-11-30 09:59] LABS: Blood Urea Nitrogen 90 mg/dL (8-23)
--- NOTE | 2024-11-30 10:22 | P.PN_ITS ---
Subjective 2 Subjective: feels better. good appetite. good uop. no n/v/f/c/corrales/d. wants to go home Medications: Reviewed: Yes Medication Review Details: Current Medications Acetaminophen (Acetaminophen 325 Mg Tablet) 650 mg PO Q6H PRN PRN Reason: Mild/Mod Pain Or Temp >/= 101 Albuterol Sulfate (Albuterol 2.5 Mg/3 Ml Neb) 2.5 mg INHALATION Q6H.RESP PRN PRN Reason: SHORTNESS OF BREATH Last Admin: 11/17/24 18:21 Dose: 2.5 mg Albuterol/Ipratropium (Ipratropium-Albuterol 3 Ml Neb) 3 ml INHALATION Q6H.RESP [facility] Last Admin: 11/30/24 08:52 Dose: 3 ml Amiodarone HCl (Amiodarone 200 Mg Tablet) 200 mg PO BID [facility] Aspirin (Aspirin 81 Mg Ec Tablet) 162 mg PO DAILY [facility] Last Admin: 11/29/24 09:25 Dose: 162 mg Enoxaparin Sodium (Enoxaparin 30 Mg/0.3 Ml Syringe) 30 mg SUBCUT Q24H [facility] Last Admin: 11/29/24 20:12 Dose: 30 mg Fluoxetine HCl (Fluoxetine 20 Mg Capsule) 20 mg PO DAILY [facility] Last Admin: 11/29/24 09:25 Dose: 20 mg Glucagon (Glucagon 1 Mg/Ml Kit 1 Ml) 1 mg IM ONCE PRN; Protocol PRN Reason: Adult Acute Hypoglycemia Nursing Prot. Hydralazine HCl (Hydralazine 20 Mg/Ml Inj 1 Ml) 10 mg IVP Q4H PRN PRN Reason: Systolic blood pressure more than 160 mmHg Last Admin: 11/29/24 20:13 Dose: 10 mg Dextrose (D5w) 500 mls @ 0 mls/hr IV ONCE PRN; Protocol PRN Reason: Adult Acute Hypoglycemia Prot Dextrose (D10w) 125 mls @ 750 mls/hr IV PRN PRN; Protocol PRN Reason: Adult Acute Hypoglycemia Nursing Protocol Dextrose (D10w) 250 mls @ 1,000 mls/hr IV PRN PRN; Protocol PRN Reason: Adult Acute Hypoglycemia Nursing Protocol Linezolid (Zyvox Premix) 600 mg in 300 mls @ 300 mls/hr IV Q12H [facility]; Protocol Last Infusion: 11/30/24 06:07 Dose: Infused Sodium Chloride (Sodium Chloride 0.9%) 1,000 mls @ 0 mls/hr IV .Q0M PRN PRN Reason: hypotension or symptomatic Sodium Chloride (Sodium Chloride 0.9%) 1,000 mls @ 0 mls/hr IV .Q0M PRN PRN Reason: hypotension or symptomatic Albumin Human (Albumin) 12.5 gm in 50 mls @ 60 mls/hr IV PRN PRN PRN Reason: Hypotension and/or symptomatic Insulin Glargine (Insulin Glargine 100 Units/1 Ml) 15 unit SUBCUT DAILY [facility] Last Admin: 11/29/24 10:19 Dose: 15 unit Insulin Human Lispro (Insulin Lispro 100 Unit/1 Ml) 0 unit SUBCUT Q6H [facility]; Protocol Last Admin: 11/30/24 04:57 Dose: Not Given Lanolin (Lanolin Oint 7 Gm) 1 applic TOPICAL PRN PRN PRN Reason: DRYNESS Last Admin: 11/25/24 17:53 Dose: 1 applic Lidocaine (Lidocaine 5% Patch) 1 patch TOPICAL [id number] [facility] Last Admin: 11/29/24 21:47 Dose: 1 patch Nicotine (Nicotine 21 Mg Patch) 1 patch TRANSDERMA DAILY [facility] Last Admin: 11/29/24 09:25 Dose: Not Given Ondansetron HCl (Ondansetron 2 Mg/Ml Sdv 2 Ml) 4 mg IVP Q8H PRN PRN Reason: vomiting, or N/V if npo Senna/Docusate Sodium (Sennosides-Docusate Tablet) 1 tab PO BID [facility] Last Admin: 11/29/24 17:19 Dose: 1 tab Tamsulosin HCl (Tamsulosin 0.4 Mg Capsule) 0.4 mg PO DAILY [facility] Last Admin: 11/29/24 09:25 Dose: 0.4 mg t Vitals/I&O/Wt Last Vital Signs Temp 98.8 F 11/30/24 08:01 Pulse 79 11/30/24 08:57 Resp 17 11/30/24 08:48 BP 165/77 11/30/24 08:01 Pulse Ox 94 11/30/24 08:48 O2 Del Method Nasal Cannula 11/30/24 08:48 O2 Flow Rate 2 11/30/24 08:48 FiO2 35 11/29/24 04:00 11/29/24 11/30/24 11/30/24 22:59 06:59 14:59 Intake Total 1213.75 / 1563.75 420 / 1983.75 Output Total 1300 / 1300 800 / 2100 Balance -86.25 / 263.75 -380 / -116.25 Weight last 48 hrs Weight 110.132 kg Weight 110 kg Physical Exam 2 Narrative: obese man in bed comfortable on NC02. heent- nc/at, anicteric neck supple lungs - diminished bases heart irreg +s1, s2 abd soft, + bs ext - b/l trace leg edema neuro: a,a, o x 3, moving, interactive, following commands, moves all extremities + femoral dialysis catheter Urinary Catheter Management: Solomon: Cath Placed During This Visit: yes Reason for Continuing Indwelling Catheter: Other Urinary Catheter Date of Insertion: 11/17/24 Urinary Catheter Time of Insertion: 07:10 Data 11/30/24 09:12 11/30/24 09:12 A&P Assessment and plan (1) Acute kidney injury superimposed on CKD: 74 year old male w/ past med hx of a fib, DM, HTN, BPH. Pt presented w/ weakness, lethargy, orthopnea, dyspnea. In ER he was found to have AIDA, k 5.3 and bradycardic to 30's w/ SBP of 90. He was started on a dopamine drip, given ivf. 1. AIDA- no hydronephrosis. - low ur na - can be cardio-renal syndrome -ur microalb/ cr 574, -u/a cloudy, 2+ protein, 3+ glu, 3+ blood, >100 rbc, 11- 20 wbc -serological w/u : normal complements, hep b and C are negative-anca, anti-gbm are negative -HD last on 11/26/24 -Renal function is improving -d/c femoral dialysis catheter -if possible watch overnight to ensure that renal fxn is stable without IVF. if discharge today then monitor chemistries at rehab twuce weekly 3. CKD stage 3- based on cr 1.3 in oct 2024- try to get old labs- risks are obesity, htn, dm pth 301- repeat in 4 weeks 4. anemia- iv iron- hgb improved to 11 5. monitor electrolytes cxr- with pneumonia. no chf may need fluids seen and examined with the aide of a nurse using A/V equipment Plan as above Attestations 2 Medical Necessity Statement*: aida improving Time Spent in Patient Care: 16 - 35 minutes (>than 50% of time sp ent in counselling and/or direct pt care on unit) . Coding Level of Care Code Acute Code for Chg Fwd Diagnoses Acute kidney injury superimposed on CKD N17.9; N18.9
[2024-11-30] MEDS: tamsulosin 0.4 mg Capsule PO (11:03)
[2024-11-30] MEDS: sennosides-docusate Tablet 1 TAB PO (11:03)
[2024-11-30] MEDS: fluoxetine 20 mg Capsule PO (11:04)
[2024-11-30] MEDS: amiodarone 200 mg Tablet PO (11:04)
[2024-11-30] MEDS: aspirin 81 mg EC Tablet 162 MG PO (11:04)
[2024-11-30] MEDS: lidocaine 5% Patch 1 PATCH TOPICAL (11:05)
[2024-11-30] MEDS: insulin glargine 100 units/1 mL 15 UNIT SUBCUT (11:08)
[2024-11-30 11:24] LABS: Glucose Point of Care 149 mg/dL (70-110)
--- NOTE | 2024-11-30 11:38 | PM.DCS ---
Discharge Providers Date of Admission: 11/16/24 18:43 Date of Discharge: November 30, 2024 Attending Provider at Admission: Dimas Boudreaux Attending Provider at Discharge: Ming Ceja MD Consults: Nephrology Cardiology Primary Care Provider: Adán Lino DO Diagnoses at Discharge Discharge Diagnosis (1) Acute kidney injury superimposed on CKD: Status: Acute (2) Asthma-COPD overlap syndrome: Status: Acute (3) Atrial flutter: Status: Acute Qualifiers: Atrial flutter type: unspecified Qualified Code(s): I48.92 - Unspecified atrial flutter (4) Acute encephalopathy: Status: Acute (5) Bradycardia: Status: Acute (6) Respiratory failure: Status: Acute Qualifiers: Chronicity: acute Respiratory failure complication: hypoxia and hypercapnia Qualified Code(s): J96.01 - Acute respiratory failure with hypoxia; J96.02 - Acute respiratory failure with hypercapnia Reason for Visit Reason for Visit: a flutter, blue Hospital Course Hospital Course In summary, Patient is a 74-year-old gentleman with history of atrial fibrillation, diabetes, hypertension, BPH, CKD who presented for further evaluation of shortness of breath, orthopnea. In the ER, patient was found to be bradycardic and hypotensive. He received atropine by EMS and route, with no change in heart rate. He was noted to be in atrial flutter with slow ventricular response and was started on dopamine drip. His labs are significant for acute kidney injury with creatinine of 6.3, mild hyperkalemia. He was admitted for further evaluation and management. Patient was admitted to the ICU and was managed in consultation with nephrology. He was subsequently intubated due to acute respiratory failure and worsening encephalopathy despite being on BiPAP. Patient also required sessions of dialysis for acute kidney injury, metabolic acidosis. Etiology of bradycardia was not completely clear. Patient was on diltiazem at home which was held. He required dopamine infusion. Patient had improvement in his symptoms and was subsequently extubated. He received antibiotics -linezolid for pneumonia, steroids for COPD exacerbation. His sputum cultures grew staph lugdunensis. His heart rate improved and he was started on amiodarone for atrial flutter/fib. He was started on aspirin and will follow-up with cardiology to discuss long-term anticoagulation for stroke prevention.His kidney function continued to improve and patient will not require long-term hemodialysis at this time. His dialysis catheter was removed. His mental status also continued to improve. CT of the head, MRI of the brain was negative for acute stroke. He required BiPAP at night after extubation for sleep apnea and COPD and will require BiPAP outpatient. Patient was discharged to SNF , will need twice weekly renal function panel to monitor kidney function. He was was started on amlodipine for blood pressure control. He will follow with cardiology and nephrology within 1 week Physical Exam Const: OTHER: Awake, alert, no acute distress, wearing nasal cannula HENMT: COMMON NORMALS: normocephalic, atraumatic, external ears normal, Normal external nose present, moist oral mucous membranes and oropharynx normal HEAD & SCALP: normocephalic and atraumatic NOSE: Normal external nose present EXTERNAL EAR: Yes external ears normal Eye: COMMON NORMALS: Equal, round and reactive pupils present, EOMs intact bilaterally, conjunctivae normal and no scleral icterus CONJUNCTIVA: Yes conjunctivae normal PUPIL: Yes Equal, round and reactive pupils present Neck/C-Spine: COMMON NORMALS: full ROM, no lymphadenopathy and no JVD Chest: COMMONS NORMALS: normal inspection of the chest Resp: COMMON NORMALS: normal respiratory effort and clear to auscultation bilaterally AUSCULTATION: clear to auscultation bilaterally OTHER: No wheezes or crcakles Cardio: COMMON NORMALS: no JVD, S1 normal heart sound present and S2 normal heart sound present (Irregular rhythm) HEART SOUNDS: S1 normal heart sound present and S2 normal heart sound present (Irregular rhythm) GI: COMMON NORMALS: Normal to inspection, nondistended, normoactive bowel sounds present, Soft to palpation and non-tender PALPATION: Yes Soft to palpation Extremity: COMMON NORMALS: normal to inspection (Trace pedal edema) Neuro: OTHER: No gross focal deficits, AAO x3 Urinary Catheter Management: Solomon: Cath Placed During This Visit: yes Reason for Continuing Indwelling Catheter: Other Urinary Catheter Date of Insertion: 11/17/24 Urinary Catheter Time of Insertion: 07:10 Discharge Data Studies Completed and Pending Completed Studies During Hospitalization Category Date Time Status CT abdomen pelvis wo con 51936 Stat Cat Scan 11/16/24 17:[address] chest wo con 20441 Routine Cat Scan 11/25/24 13:[address] head wo con* [id number] Routine Cat Scan 11/18/24 19:[address] head wo con* [id number] Routine Cat Scan 11/25/24 13:00 Completed CXRP [XR chest 1V portable 47724] Routine Exams 11/23/24 09:01 Completed CXRP [XR chest 1V portable 53758] Stat Exams 11/17/24 09:49 Completed CXRP [XR chest 1V portable 13655] Stat Exams 11/17/24 18:24 Completed CXRP [XR chest 1V portable 40136] Stat Exams 11/20/24 10:29 Completed CXRP [XR chest 1V portable [id number]] Stat Exams 11/27/24 07:05 Completed XR chest 1V portable [id number] QAM Exams 11/21/24 06:00 Completed XR chest 1V portable [id number] QAM Exams 11/22/24 06:00 Completed XR chest 1V portable 46960 QAM Exams 11/23/24 06:00 Completed XR chest 1V portable [id number] Stat Exams 11/16/24 16:41 Completed MR head wo con* [id number] Routine MRI 11/25/24 13:00 Completed CV. echo complete* [id number] Routine Ultrasound 11/19/24 20:08 Completed Pending at discharge Category Date Time Status Comprehensive Metabolic Panel AM LABS Lab 12/01/24 04:00 Ordered Comprehensive Metabolic Panel AM LABS Lab 12/02/24 04:00 Ordered Comprehensive Metabolic Panel AM LABS Lab 12/03/24 04:00 Ordered Magnesium AM LABS Lab 12/01/24 04:00 Ordered Magnesium AM LABS Lab 12/02/24 04:00 Ordered Magnesium AM LABS Lab 12/03/24 04:00 Ordered Phosphorus AM LABS Lab 12/01/24 04:00 Ordered Phosphorus AM LABS Lab 12/02/24 04:00 Ordered Phosphorus AM LABS Lab 12/03/24 04:00 Ordered SARS Covid-2 Antigen Routine Lab 11/30/24 10:31 Uncollected Radiology Impressions Abdomen/Pelvis CT 11/16/24 17:54 IMPRESSION: 1. No acute findings. 2. Prostate enlargement with chronic bladder wall thickening 3. Umbilical hernia 4. Cholelithiasis Chest CT 11/25/24 13:00 IMPRESSION: 1. There are small bilateral pleural effusions. 2. Nonspecific bibasilar consolidation is present, consistent with atelectasis, edema, or pneumonia. Mild emphysematous changes. 3. Incidental cholelithiasis without cholecystitis. COMMENTS: The presence of pulmonary emphysema on CT is an independent risk factor for lung cancer. In the absence of a history or active diagnosis of lung cancer, it is recommended that this patient with emphysema be evaluated for enrollment in a low dose CT lung cancer screening program. Head CT 11/25/24 13:00 IMPRESSION: 1. No acute intracranial abnormality. 2. There is a right mastoid effusion/right mastoiditis. Head MRI 11/25/24 13:00 IMPRESSION: 1. No acute abnormality. Chronic volume loss and small vessel disease changes are noted. 2. Right mastoid effusion. 3. The exam is limited by extensive motion artifact. Chest X-Ray 11/27/24 07:05 IMPRESSION: 1. Improved aeration at the RIGHT lung base. Resolved pneumonitis or atelectasis. 2. Subsegmental atelectasis persists at the LEFT lung base. 3. Mild interstitial edema. Laboratory Results WBC 11.89 10^3/uL (3.29-11.43) H 11/30/24 09:12 Corrected WBC [employer] C[employer] 11/25/24 03:29 RBC 3.56 10^6/uL (3.85-5.65) L 11/30/24 09:12 Hgb 10.50 g/dL (11.27-16.99) L 11/30/24 09:12 Hct 33.4 % (37-53) L 11/30/24 09:12 MCV 93.8 fl (82-101) 11/30/24 09:12 MCH 29.5 pg (27-33) 11/30/24 09:12 MCHC 31.4 g/dL (30-55) 11/30/24 09:12 RDW 13.0 % (12.1-15.1) 11/30/24 09:12 Plt Count 169 10^3/cmm (157-399) 11/30/24 09:12 MPV 11.5 fL (7.4-10.4) H 11/30/24 09:12 Gran % [employer] 11/25/24 03:29 Neut % (Auto) 77.1 % 11/30/24 09:12 Lymph % (Auto) 11.9 % 11/30/24 09:12 Mcdonald % (Auto) 6.6 % 11/30/24 09:12 Eos % (Auto) 1.2 % 11/30/24 09:12 Baso % (Auto) 0.3 % 11/30/24 09:12 Neut # (Auto) 9.19 10^3/uL (1.8-7.7) H 11/30/24 09:12 Lymph # (Auto) 1.4 10^3/uL (0.8-4.8) 11/30/24 09:12 Mcdonald # (Auto) 0.8 10^3/uL (0.2-0.9) 11/30/24 09:12 Eos # (Auto) 0.1 10^3/uL (0.0-0.8) 11/30/24 09:12 Baso # (Auto) 0.0 10^3/uL (0.0-0.1) 11/30/24 09:12 Absolute Gran (auto) [employer] 11/25/24 03:29 Nucleated RBC % (auto) 0 % 11/30/24 09:12 Total Counted 100 (0-100) 11/23/24 04:15 Atypical Lymphs % Not Reportable 11/23/24 04:15 Segmented Neutrophils 70 % 11/23/24 04:15 Band Neutrophils Not Reportable 11/23/24 04:15 Lymphocytes (Manual) 11 % 11/23/24 04:15 Monocytes (Manual) 13.0 % 11/23/24 04:15 Absolute Monocytes 1.8 10^3/cmm (0.1-0.6) H 11/23/24 04:15 Eosinophils (Manual) 0 % 11/23/24 04:15 Absolute Eosinophils 0.0 10^3/cmm (0.0-0.7) 11/23/24 04:15 Basophils (Manual) 0.0 % 11/23/24 04:15 Absolute Basophils 0.0 10^3/cmm (0.0-0.2) 11/23/24 04:15 Metamyelocytes 1.0 % 11/23/24 04:15 Myelocytes 5.0 % 11/23/24 04:15 Nucleated RBCs # 0.0 /100WBC 11/30/24 09:12 Platelet Estimate Normal (Normal) 11/23/24 04:15 PT 13.90 SECONDS (12.1-14.9) 11/19/24 05:16 INR 1.00 (0.8-1.2) 11/19/24 05:16 D-Dimer 1.59 ug/mLFEU (0-0.59) H 11/24/24 18:20 Specimen Type Arterial 11/23/24 05:50 Sample Site Brachial, left 11/23/24 05:50 ABG pH 7.35 (7.35-7.45) 11/23/24 05:50 ABG pCO2 44.0 mmHg (35-45) 11/23/24 05:50 ABG pO2 95.0 mmHg (80.0-100.0) 11/23/24 05:50 ABG PO2/FiO2 Ratio 237 11/23/24 05:50 ABG HCO3 24.2 mmol/L (22-26) 11/23/24 05:50 ABG O2 Saturation 97.0 11/23/24 05:50 ABG Base Excess -1.5 mmol/L (-2.0-2.0) 11/23/24 05:50 Severino Test N/a 11/23/24 05:50 A-a O2 Gradient 17.9 mmHg (5-10) H 11/23/24 05:50 Hematocrit 39.1 % (42-52) L 11/23/24 05:50 Hgb O2 Saturation 96.6 % (95-100) 11/23/24 05:50 Carboxyhemoglobin 0.5 %THgb (0.4-20.1) 11/23/24 05:50 Methemoglobin 0.0 % (0.4-1.5) L 11/23/24 05:50 Total Hemoglobin 12.7 g/dL (14-18) L 11/23/24 05:50 Sodium 140.0 mmol/L (131-143) 11/23/24 05:50 Potassium 4.8 mmol/L (3.5-5.0) 11/23/24 05:50 Glucose 147.0 mg/dL (70-115) H 11/23/24 05:50 Ionized Calcium 1.1 mmol/L (1.1-1.4) 11/23/24 05:50 O2 Delivery Device Bipap 11/23/24 05:50 O2 Liters/Min 6.0 % 11/17/24 03:37 FiO2 40.0 % 11/23/24 05:50 Tidal Volume 0.62 11/22/24 04:33 PEEP 8.0 cmH20 11/22/24 04:33 Metal Neutralizer ID Jaron 11/23/24 05:50 Sodium 137 mmol/L (136-145) 11/30/24 09:12 Potassium 4.1 mmol/L (3.5-5.1) 11/30/24 09:12 Chloride 101 mmol/L (98-107) 11/30/24 09:12 Carbon Dioxide 22 mmol/L (22-29) 11/30/24 09:12 Anion Gap 18.1 (5-19) 11/30/24 09:12 BUN 90 mg/dL (8-23) H* 11/30/24 09:12 Creatinine 3.3 mg/dL (0.7-1.2) H 11/30/24 09:12 GFR Calculation Not Reportable 11/30/24 09:12 Glucose 130 mg/dL (65-115) H 11/30/24 09:12 POC Glucose 149 mg/dL (70-110) H 11/30/24 11:06 Estimat Average Glucose 174 11/20/24 05:19 Hemoglobin A1c 7.7 % (4.0-6.0) H 11/20/24 05:19 Calculated Osmolality 313 mOsm/kg (285-295) H 11/30/24 09:12 Lactic Acid 1.7 mmol/L (0.5-2.2) 11/16/24 16:45 Uric Acid 8.9 mg/dL (3.4-7.0) H 11/17/24 08:00 Calcium 8.9 mg/dL (8.5-10.5) 11/30/24 09:12 Phosphorus 4.0 mg/dL (2.5-4.5) 11/30/24 09:12 Magnesium 2.0 mg/dL (1.7-2.3) 11/30/24 09:12 Iron 26 ug/dL (59-158) L 11/18/24 04:52 TIBC 255 mcg/dl 11/18/24 04:52 % Saturation 10.1 % (20-50) L 11/18/24 04:52 Unsat Iron Binding 229 ug/dL (112-347) 11/18/24 04:52 Ferritin 272 ng/mL (30-400) 11/18/24 04:52 Total Bilirubin 0.5 mg/dL (0.15-1.2) 11/30/24 09:12 AST 27 U/L (0-40) 11/30/24 09:12 ALT 44 U/L (0-41) H 11/30/24 09:12 Alkaline Phosphatase 60 U/L (40-130) 11/30/24 09:12 Creatine Kinase 95 U/L (39-308) 11/28/24 03:58 Troponin T Baseline 74 ng/L (0-15) H 11/16/24 16:45 Troponin T 120 Minute 79.34 ng/L (0-15) H 11/16/24 18:45 Delta Troponin T 5.34 ABS# (0-10) 11/16/24 18:45 Troponin T Hi Sens 6Hr 111.6 ng/L (0-15) H 11/17/24 06:51 Troponin T Hi Sens 6Hr Delta 62.4 ng/L (0-12) H* 11/17/24 06:51 NT-Pro-B Natriuret Pep 3820 pg/mL (0-450) H 11/23/24 04:15 Total Protein 5.9 g/dL (6.6-8.7) L 11/30/24 09:12 Albumin 3.4 g/dL (3.5-5.2) L 11/30/24 09:12 Globulin 2.5 g/dL (1.3-4.6) 11/30/24 09:12 Vitamin B12 433 pg/mL (232-1245) 11/20/24 05:19 25-OH Vitamin D Total 35 ng/mL (30-100) 11/18/24 04:52 1,25 Dihydroxy Vit D2 <8 pg/mL 11/17/24 08:00 1,25 Dihydroxy Vit D3 12 pg/mL 11/17/24 08:00 Folate 4.7 ng/mL (4.5-32.2) 11/21/24 04:34 Procalcitonin 0.82 ng/mL (0-0.5) H 11/20/24 05:19 TSH 1.85 uIU/mL (0.27-4.20) 11/16/24 16:45 PTH Intact 301.2 pg/mL (15-65) H 11/18/24 04:52 Calcium (PTH Intact) 8.4 mg/dL (8.5-10.5) L 11/18/24 04:52 Urine Color Cancelled 11/17/24 10:46 Urine Appearance Cancelled 11/17/24 10:46 Urine pH Cancelled 11/17/24 10:46 Ur Specific [place] Cancelled 11/17/24 10:46 Urine Protein Cancelled 11/17/24 10:46 Urine Glucose (UA) Cancelled 11/17/24 10:46 Urine Ketones Cancelled 11/17/24 10:46 Urine Blood Cancelled 11/17/24 10:46 Urine Nitrate Cancelled 11/17/24 10:46 Urine Bilirubin Cancelled 11/17/24 10:46 Prot Sulfosalicylic Acd Cancelled 11/17/24 10:46 Urine Urobilinogen Cancelled 11/17/24 10:46 Ur Leukocyte Esterase Cancelled 11/17/24 10:46 Urine RBC Cancelled 11/17/24 10:46 Urine WBC Cancelled 11/17/24 10:46 Ur Squamous Epith Cells Cancelled 11/17/24 10:46 Ur Transition Epith Cell Cancelled 11/17/24 10:46 Ur Renal Epithelial Cell Cancelled 11/17/24 10:46 Calcium Oxalate Crystal Cancelled 11/17/24 10:46 Uric Acid Crystals Cancelled 11/17/24 10:46 Triple Phos Crystals Cancelled 11/17/24 10:46 Other Crystals Cancelled 11/17/24 10:46 Amorphous Sediment Cancelled 11/17/24 10:46 Urine Bacteria Cancelled 11/17/24 10:46 Hyaline Casts Cancelled 11/17/24 10:46 Fine Granular Casts Cancelled 11/17/24 10:46 Coarse Granular Casts Cancelled 11/17/24 10:46 RBC Casts Cancelled 11/17/24 10:46 Other Casts Cancelled 11/17/24 10:46 Urine Mucus Cancelled 11/17/24 10:46 Urine Trichomonas Cancelled 11/17/24 10:46 Urine Yeast Cancelled 11/17/24 10:46 Urine Sperm Cancelled 11/17/24 10:46 Ur Oval Fat Bodies Cancelled 11/17/24 10:46 Ur Random Microalbumin 85 ug/dL (0-20) H 11/17/24 10:46 U Random Total Protein 144 mg/dL 11/17/24 10:46 Ur Random Sodium 24 mmol/L 11/20/24 11:40 Ur Random Potassium 43 mmol/L 11/20/24 11:40 Ur Random Chloride 22 mmol/L 11/20/24 11:40 Urine Creatinine 107 mg/dL (39-259) 11/20/24 11:40 Microalb/Creat Ratio 574 mg/dL (0-20) H 11/17/24 10:46 ANCA Screen Negative (NEGATIVE) 11/18/24 04:52 ANCA Titer Not Reportable 11/18/24 04:52 Glomerular Base Mem IgG <1.0 AI 11/18/24 04:52 Complement C3 145 mg/dL (90-180) 11/17/24 08:00 Complement C4 29 mg/dL (10-40) 11/17/24 08:00 Hep Bs Antigen Non-reactive (Nonreactive) 11/17/24 08:00 Hep Bs Antibody < 3.5 (11.5-1000) L 11/17/24 08:00 Hepatitis C Antibody Non-reactive (Nonreactive) 11/17/24 08:00 Vitals Last Vital Signs Temp 98.8 F 11/30/24 08:01 Pulse 79 11/30/24 08:57 Resp 17 11/30/24 08:48 BP 165/77 11/30/24 08:01 Pulse Ox 94 11/30/24 08:48 O2 Del Method Nasal Cannula 11/30/24 08:48 O2 Flow Rate 2 11/30/24 08:48 FiO2 35 11/29/24 04:00 Discharge Plan Discharge Patient Disposition: Xfer SNF Condition: Stable Prescriptions: New aspirin 81 mg Tablet,Delayed Release (Dr/Ec) 81 mg PO DAILY Qty: 30 0RF amiodarone [Pacerone] 200 mg Tablet 200 mg PO DAILY 30 Days Qty: 30 0RF amlodipine 5 mg tablet 5 mg PO DAILY Qty: 30 0RF Continued fluticasone propion-salmeterol [Wixela Inhub] 250-50 mcg/dose blister with device 1 inh inhalation BID Qty: 60 6RF cholecalciferol (vitamin D3) 50 mcg (2,000 unit) capsule 50 mcg PO DAILY fluoxetine 20 mg capsule 20 mg PO DAILY insulin lispro [Humalog U-100 Insulin] 100 unit/mL solution 5 unit SUBCUT BID Rx Instructions: inject 5 units under the skin 2 times daily before meals give 30 mins before food, do not give dose if sugar is under 100 All Day Allergy (cetirizine) 10 mg capsule 10 mg PO DAILY PRN (Reason: allergies) fluticasone furoate 50 mcg/actuation blister with device 1 inh inhalation BID mirtazapine 30 mg tablet 30 mg PO DAILY tamsulosin 0.4 mg capsule 0.4 mg PO DAILY calcitriol 0.25 mcg Capsule See Rx Instructions .ROUTE .COMPLEX Rx Instructions: take 1 capsule by mouth on mondays and wednesday atorvastatin 40 mg Tablet 40 mg PO QPM albuterol sulfate 90 mcg/actuation Hfa Aerosol Inhaler 2 puff INHALATION QID Changed insulin glargine-yfgn 100 unit/mL (3 mL) Insulin Pen 15 unit SUBCUT DAILY Qty: 30 0RF Held furosemide 20 mg tablet 20 mg PO DAILY Jardiance 10 mg tablet 10 mg PO DAILY lisinopril 10 mg Tablet 10 mg PO DAILY Discontinued diltiazem HCl 240 mg capsule,extended release 24hr 240 mg PO DAILY Discharge Orders: Discharge Order (Routine); Ordered 11/30/24 Ordered By: Ming Ceja Referrals: Jose Rao MD [Physician] - 1 week Michael Lynne MD [Physician] - 1 week Adán Lino DO [Primary Care Provider] - Discharge Activity: Increase activity as tolerated Patient Instructions: Dialysis Nutrition Plan (DC) Activity Restrictions/Additional Instructions: #Renal function panel twice weekly until discontinued by nephrology #Discuss use of long-term anticoagulation for atrial fibrillation with cardiology # Continue nighttime BiPAP # Renal diet Discharge Attestations Time Spent in Discharge Care*: greater than 30 min Quality Metrics Clinical Quality Measures [ No reported AMI, CVA or VTE this stay] Coding Level of Care Code Acute Code for Chg Fwd Diagnoses Acute kidney injury superimposed on CKD N17.9; N18.9 Asthma-COPD overlap syndrome J44.9 Atrial flutter, unspecified type I48.92 Atrial flutter type: unspecified Acute encephalopathy G93.40 Bradycardia R00.1 Acute respiratory failure with hypoxia and hypercapnia J96.01; J96.02 Chronicity: acute Respiratory failure complication: hypoxia and hypercapnia
[2024-11-30 12:03] VITALS: BP 148/80; PULSE 79; RESP 16; TEMP 37; O2SAT 95
[2024-11-30 12:31] LABS: SARS Covid-2 Antigen Negative (Negative)
== END 2024-11-30 15:30 | disposition skilled nursing facility (03) | DRG 207 ==
LOC: ER 17:02 → ICU 18:44 → MEDSURG 11-29 15:43
PROVIDERS: Internal Medicine; Internal Medicine Nephrology; Student in an Organized Health Care Education/Training Program; Admitting Provider Internal Medicine; Emergency Provider Emergency Medicine; PCP Emergency Medicine Emergency Medical Services; Visit Provider Student in an Organized Health Care Education/Training Program
DX: J96.02 Acute respiratory failure with hypercapnia (principal); I21.A1 Myocardial infarction type 2; J15.29 Pneumonia due to other staphylococcus; I50.33 Acute on chronic diastolic (congestive) heart failure; N17.9 Acute kidney failure, unspecified; I48.92 Unspecified atrial flutter; I13.0 Hypertensive heart and chronic kidney disease with heart failure and stage 1 through stage 4 chronic kidney disease, or unspecified chronic kidney disease; E87.20 Acidosis, unspecified; G93.40 Encephalopathy, unspecified; J44.0 Chronic obstructive pulmonary disease with (acute) lower respiratory infection; J44.1 Chronic obstructive pulmonary disease with (acute) exacerbation; E87.1 Hypo-osmolality and hyponatremia; R00.1 Bradycardia, unspecified; I95.9 Hypotension, unspecified; E11.22 Type 2 diabetes mellitus with diabetic chronic kidney disease; N18.30 Chronic kidney disease, stage 3 unspecified; Z79.4 Long term (current) use of insulin; Z79.84 Long term (current) use of oral hypoglycemic drugs; E11.40 Type 2 diabetes mellitus with diabetic neuropathy, unspecified; N40.0 Benign prostatic hyperplasia without lower urinary tract symptoms; D64.9 Anemia, unspecified; E83.42 Hypomagnesemia; E87.5 Hyperkalemia; I48.91 Unspecified atrial fibrillation; G47.30 Sleep apnea, unspecified; E66.9 Obesity, unspecified; Z68.32 Body mass index [BMI] 32.0-32.9, adult; J98.01 Acute bronchospasm; E86.0 Dehydration; I45.10 Unspecified right bundle-branch block; Z99.81 Dependence on supplemental oxygen; Z11.52 Encounter for screening for COVID-19
CPT/HCPCS: 36415; 36416; 36600; 51702; 51798; 70450; 70551; 71045; 71250; 74176; 80048; 80051; 80053; 81001; 82044; 82306; 82310; 82330; 82436; 82550; 82570; 82607; 82652; 82728; 82746; 82805; 82962; 83036; 83520; 83540; 83550; 83605; 83735; 83880; 83970; 84100; 84133; 84145; 84156; 84300; 84443; 84484; 84550; 85007; 85025; 85378; 85610; 86036; 86160; 86706; 86803; 87040; 87070; 87077; 87086; 87186; 87205; 87340; 87426; 90935; 92507; 92523; 92526; 92610; 93005; 93306; 94002; 94003; 94640; 94660; 94799; 96365; 96366; 96372; 96374; 96376; 97110; 97116; 97163; 97167; 97530; 97535; 99252; 99285; 99291; A4570; J0360; J0612; J1265; J1644; J1650; J1815; J1940; J2020; J2060; J2270; J2470; J2704; J2919; J3010; J3475; J3490; J7030; J7120; J7613; J7799; P9046; Q3014

== ENCOUNTER → 2024-12-07 12:40 | Outpatient (BNVA) | payer OTHER, SELFPAY | PROVIDERS: PCP Emergency Medicine Emergency Medical Services; Visit Provider Internal Medicine Cardiovascular Disease | DX: R00.1 Bradycardia, unspecified (principal); I48.91 Unspecified atrial fibrillation; Z79.01 Long term (current) use of anticoagulants | CPT/HCPCS: 99204 ==

== ENCOUNTER 2024-12-09 09:16 | Inpatient (IN) | payer OTHER, MEDICARE, SELFPAY ==
[2024-12-09] VITALS (77 sets, daily range): BP systolic 89–185; BP diastolic 11–103; PULSE 68–134; RESP 14–27; TEMP 36.7–37.3; O2SAT 87–99; BMI 33.3
--- NOTE | 2024-12-09 09:19 | ED_ITS ---
Documented by User: Raj Velazco, 12/09/24 13:40 HPI - SOB/Dyspnea 2 General: Chief Complaint: Shortness of Breath/Dyspnea Stated Complaint: sob; ams Time Seen by Provider: 12/09/24 09:18 History of Present Illness: HPI Narrative: 74-year-old male presents to the emergen cy room shortness of breath altered mental status from a local usp. His room air O2 sat is in the low 80s. When I came in the room he was on 2 L and still satting 85 to 87%. On arrival patient is obtunded there is no family available. At normal baseline he is up and ambulatory. Per report he is DNAR. No reported fever or chest pain prior to this episode. Associated symptoms: Deny abdominal pain, chest pain or fever(s) Related Data Home Medications Medication Instructions Recorded Confirmed cetirizine 10 mg capsule (All Day 10 mg PO DAILY PRN allergies 02/15/23 12/09/24 Allergy (cetirizine)) fluoxetine 20 mg capsule 20 mg PO DAILY 02/15/23 12/09/24 fluticasone furoate 50 1 inh inhalation BID 02/15/23 12/09/24 mcg/actuation blister powder for inhalation insulin lispro 100 unit/mL 5 unit SUBCUT BID 02/15/23 12/09/24 subcutaneous solution (Humalog U-100 Insulin) mirtazapine 30 mg tablet 30 mg PO DAILY 02/15/23 12/09/24 tamsulosin 0.4 mg capsule 0.4 mg PO DAILY 02/15/23 12/09/24 calcitriol 0.25 mcg capsule See Rx Instructions .Route .COMPLEX 10/18/24 12/09/24 albuterol sulfate 90 mcg/actuation 2 puff inhalation QID 11/17/24 12/09/24 aerosol inhaler atorvastatin 40 mg tablet 40 mg PO QPM 11/17/24 12/09/24 Previous Rx's Medication Instructions Recorded fluticasone 250 mcg-salmeterol 50 1 inh inhalation BID #60 ea 03/30/23 mcg/dose blistr powdr for inhalation (Wixela Inhub) amlodipine 5 mg tablet 5 mg PO DAILY #30 tabs 11/30/24 apixaban 2.5 mg tablet (Eliquis) 2.5 mg PO BID #60 tabs 11/30/24 aspirin 81 mg tablet,delayed 81 mg PO DAILY #30 tabs 11/30/24 release insulin glargine-yfgn 100 unit/mL 15 unit (0.15 mL) SUBCUT DAILY #30 11/30/24 (3 mL) subcutaneous pen mL amiodarone 200 mg tablet (Pacerone) 100 mg (1/2 x 200 mg) PO DAILY #45 12/07/24 tabs diltiazem HCl 120 mg 120 mg PO DAILY #90 caps 12/07/24 capsule,extended release 12 hr Allergies Allergy/AdvReac Type Severity Reaction Status Date / Time codeine Allergy Unknown rash Verified 10/18/24 11:35 Review of Systems 2 Const: Denies: fever(s) or chills Card: Denies: chest pain Resp: Denies: dyspnea GI: Denies: abdominal pain : Denies: dysuria, urinary frequency or urinary urgency Musc: Denies: neck pain or back pain Skin/Breast: Denies: rash PFSH ED 2 PFSH: Medical History Anemia Hypomagnesemia Atrial flutter Chronic obstructive pulmonary disease Other specified arthropathy, lower leg Hyperlipidemia, unspecified Other hyperparathyroidism Hyperpotassemia Intermittent explosive disorder Major depressive disorder, recurrent, unspecified Morbid obesity Post-traumatic stress disorder, chronic Chronic kidney disease Type 2 diabetes mellitus with diabetic neuropathy, unspecified Social History Smoking and tobacco/nicotine status: former use of tobacco/nicotine Physical Exam 2 Const: ORIENTATION/CONSCIOUSNESS: Yes awake, Yes oriented to person, Yes oriented to place and Yes oriented to time HENMT: COMMON NORMALS: normocephalic, atraumatic and hearing grossly normal bilaterally HEAD & SCALP: normocephalic and atraumatic Resp: AUSCULTATION: wheezes and diminished lung sounds Cardio: COMMON NORMALS: regular rate, regular rhythm and No murmurs present (Cardio) RATE: regular rate RHYTHM: regular rhythm GI: COMMON NORMALS: Soft to palpation and No hepatosplenomegaly present A USCULTATION: Yes normoactive bowel sounds PALPATION: Yes Soft to palpation, No Tenderness to palpation present (GI), No Guarding due to palpation present (GI) and Yes No hepatosplenomegaly present Extremity: COMMON NORMALS: normal to inspection, capillary refill normal, no clubbing, cyanosis or edema, no calf tenderness and no pedal edema Neuro: SENSORIUM/ORIENTATION: Yes oriented to person, Yes oriented to place and Yes oriented to time Skin: COMMON NORMALS: no rashes or lesions noted GENERAL SKIN EXAM: no rashes or lesions noted Course 2 Vital Signs: Vital signs: Vital Signs Temperature 98.0 F 12/09/24 09:16 Pulse Rate 122 H 12/09/24 13:39 Respiratory Rate 14 12/09/24 13:39 Blood Pressure 149/80 12/09/24 11:45 Pulse Oximetry 92 12/09/24 13:39 Oxygen Delivery Me thod Mechanical Ventil ation 12/09/24 13:39 Oxygen Flow Rate 4 12/09/24 09:16 Fraction of Inspir ed Oxygen 40 12/09/24 13:39 MDM - SOB/Dyspnea Medical Decision Making Despite several hours of BiPAP patient little to no improvement he was oxygenating better prescribed oxygen was not improving. When initially talked to the family they had listed him at the usp is a Do Not Recussitate and when I talked to the son they were in agreement not to intubate Dr. Robles talked to them and they had changed her mind and stated they would be okay with intubation. We got a third blood gas seeing little to no improvement after discussing a Dr. Robles we opted to intubate. See procedure note, I directly supervised Dr. Junior second-year resident for the intubation.. Orders written for ICU. Medical Records I reviewed the patient's medical records. Lab Data I reviewed the patient's lab results. 12/09/24 09:57 12/09/24 09:57 Labs/Radiology: Radiology Impressions Chest X-Ray 12/09/24 09:34 IMPRESSION: As above. Laboratory Results WBC 10.90 10^3/uL (3.29-11.43) 12/09/24 09:57 RBC 3.49 10^6/uL (3.85-5.65) L 12/09/24 09:57 Hgb 10.20 g/dL (11.27-16.99) L 12/09/24 09:57 Hct 34.9 % (37-53) L 12/09/24 09:57 MCV 100.0 fl (82-101) 12/09/24 09:57 MCH 29.2 pg (27-33) 12/09/24 09:57 MCHC 29.2 g/dL (30-55) L 12/09/24 09:57 RDW 14.0 % (12.1-15.1) 12/09/24 09:57 Plt Count 156 10^3/cmm (157-399) L 12/09/24 09:57 MPV 11.4 fL (7.4-10.4) H 12/09/24 09:57 Neut % (Auto) 85.2 % 12/09/24 09:57 Lymph % (Auto) 6.6 % 12/09/24 09:57 [place] % (Auto) 7.3 % 12/09/24 09:57 Eos % (Auto) 0.1 % 12/09/24 09:57 Baso % (Auto) 0.2 % 12/09/24 09:57 Neut # (Auto) 9.28 10^3/uL (1.8-7.7) H 12/09/24 09:57 Lymph # (Auto) 0.7 10^3/uL (0.8-4.8) L 12/09/24 09:57 [place] # (Auto) 0.8 10^3/uL (0.2-0.9) 12/09/24 09:57 Eos # (Auto) 0.0 10^3/uL (0.0-0.8) 12/09/24 09:57 Baso # (Auto) 0.0 10^3/uL (0.0-0.1) 12/09/24 09:57 Nucleated RBC % (auto) 0 % 12/09/24 09:57 Nucleated RBCs # 0.0 /100WBC 12/09/24 09:57 D-Dimer 0.47 ug/mLFEU (0-0.59) 12/09/24 09:57 Specimen Type Arterial 12/09/24 12:40 Sample Site Brachial, right 12/09/24 12:40 ABG pH 7.21 (7.35-7.45) L 12/09/24 12:40 ABG pCO2 66.1 mmHg (35-45) H* 12/09/24 12:40 ABG pO2 88.9 mmHg (80.0-100.0) 12/09/24 12:40 ABG PO2/FiO2 Ratio 222 12/09/24 12:40 ABG HCO3 26.2 mmol/L (22-26) H 12/09/24 12:40 ABG O2 Saturation 95.9 12/09/24 12:40 ABG Base Excess -2.5 mmol/L (-2.0-2.0) L 12/09/24 12:40 Severino Test Pos 12/09/24 12:40 A-a O2 Gradient 15.4 mmHg (5-10) H 12/09/24 12:40 Hematocrit 31.1 % (42-52) L 12/09/24 12:40 Hgb O2 Saturation 94.0 % (95-100) L 12/09/24 12:40 Carboxyhemoglobin 1.1 %THgb (0.4-20.1) 12/09/24 12:40 Methemoglobin 0.9 % (0.4-1.5) 12/09/24 12:40 Total Hemoglobin 10.2 g/dL (14-18) L 12/09/24 12:40 Sodium 144.0 mmol/L (131-143) H 12/09/24 12:40 Potassium 5.4 mmol/L (3.5-5.0) H 12/09/24 12:40 Glucose 219.0 mg/dL (70-115) H 12/09/24 12:40 Ionized Calcium 1.2 mmol/L (1.1-1.4) 12/09/24 12:40 O2 Delivery Device Bipap 12/09/24 12:40 O2 Liters/Min 4.0 % 12/09/24 09:40 FiO2 40.0 % 12/09/24 12:40 Advanced Practice Professional ID Cak 12/09/24 12:40 Sodium 141 mmol/L (136-145) 12/09/24 09:57 Potassium 4.9 mmol/L (3.5-5.1) 12/09/24 09:57 Chloride 104 mmol/L (98-107) 12/09/24 09:57 Carbon Dioxide 26 mmol/L (22-29) 12/09/24 09:57 Anion Gap 15.9 (5-19) 12/09/24 09:57 BUN 47 mg/dL (8-23) H 12/09/24 09:57 Creatinine 2.8 mg/dL (0.7-1.2) H 12/09/24 09:57 GFR Calculation Not Reportable 12/09/24 09:57 Glucose 185 mg/dL (65-115) H 12/09/24 09:57 Calculated Osmolality 309 mOsm/kg (285-295) H 12/09/24 09:57 Lactic Acid 0.9 mmol/L (0.5-2.2) 12/09/24 09:57 Calcium 8.9 mg/dL (8.5-10.5) 12/09/24 09:57 Total Bilirubin 0.3 mg/dL (0.15-1.2) 12/09/24 09:57 AST 14 U/L (0-40) 12/09/24 09:57 ALT 49 U/L (0-41) H 12/09/24 09:57 Alkaline Phosphatase 104 U/L (40-130) 12/09/24 09:57 NT-Pro-B Natriuret Pep 832 pg/mL (0-450) H 12/09/24 09:57 Total Protein 6.6 g/dL (6.6-8.7) 12/09/24 09:57 Albumin 3.6 g/dL (3.5-5.2) 12/09/24 09:57 Globulin 3.0 g/dL (1.3-4.6) 12/09/24 09:57 Procalcitonin 0.28 ng/mL (0-0.5) 12/09/24 09:57 Urine Color Yellow (Yellow) 12/09/24 10:48 Urine Appearance Clear (CLEAR) 12/09/24 10:48 Urine pH 5.0 (5-7) 12/09/24 10:48 Ur Specific [place] 1.015 (1.005-1.030) 12/09/24 10:48 Urine Protein 1+ (Negative) A 12/09/24 10:48 Urine Glucose (UA) Negative (Normal) 12/09/24 10:48 Urine Ketones Negative (Negative) 12/09/24 10:48 Urine Blood Negative (Negative) 12/09/24 10:48 Urine Nitrate Negative (Negative) 12/09/24 10:48 Urine Bilirubin Negative (Negative) 12/09/24 10:48 Urine Urobilinogen 0.2 mg/dL (Negative) 12/09/24 10:48 Ur Leukocyte Esterase 1+ (Negative) A 12/09/24 10:48 Urine RBC 3-5 /hpf (0-2) 12/09/24 10:48 Urine WBC 21-50 /hpf (0-5) H 12/09/24 10:48 Ur Squamous Epith Cells 0-5 /hpf (0-5) 12/09/24 10:48 Amorphous Sediment Not Reportable 12/09/24 10:48 Urine Bacteria None seen /hpf (NONE) 12/09/24 10:48 Hyaline Casts 9.91 /lpf 12/09/24 10:48 Urine Yeast 1+ /hpf H 12/09/24 10:48 Coronavirus (PCR) Negative (Negative) 12/09/24 09:57 Influenza A (PCR) Negative (Negative) 12/09/24 09:57 Influenza Type B (PCR) Negative (Negative) 12/09/24 09:57 RSV (PCR) Positive (Negative) A 12/09/24 09:57 All radiology interpretation(s) finalized by discharge Discharge Plan Discharge Patient Disposition: Admitted As Inpatient Clinical Impression: Acute on chronic respiratory failure with hypoxia and hypercapnia, Respiratory syncytial virus (RSV), Dementia, Diabetes mellitus Coding Level of Care Code ED Business Records Manager for Chg Fwd Documented by User: JEAN CARLOS [place] STDMICHAEL 12/09/24 13:27 HPI - SOB/Dyspnea 2 General: Chief Complaint: Shortness of Breath/Dyspnea Stated Complaint: sob; ams Time Seen by Provider: 12/09/24 09:18 Related Data Home Medications Medication Instructions Recorded Confirmed cetirizine 10 mg capsule (All Day 10 mg PO DAILY PRN allergies 02/15/23 12/09/24 Allergy (cetirizine)) fluoxetine 20 mg capsule 20 mg PO DAILY 02/15/23 12/09/24 fluticasone furoate 50 1 inh inhalation BID 02/15/23 12/09/24 mcg/actuation blister powder for inhalation insulin lispro 100 unit/mL 5 unit SUBCUT BID 02/15/23 12/09/24 subcutaneous solution (Humalog U-100 Insulin) mirtazapine 30 mg tablet 30 mg PO DAILY 02/15/23 12/09/24 tamsulosin 0.4 mg capsule 0.4 mg PO DAILY 02/15/23 12/09/24 calcitriol 0.25 mcg capsule See Rx Instructions .Route .COMPLEX 10/18/24 12/09/24 albuterol sulfate 90 mcg/actuation 2 puff inhalation QID 11/17/24 12/09/24 aerosol inhaler atorvastatin 40 mg tablet 40 mg PO QPM 11/17/24 12/09/24 Previous Rx's Medication Instructions Recorded fluticasone 250 mcg-salmeterol 50 1 inh inhalation BID #60 ea 03/30/23 mcg/dose blistr powdr for inhalation (Royalxela Inhub) amlodipine 5 mg tablet 5 mg PO DAILY #30 tabs 11/30/24 apixaban 2.5 mg tablet (Eliquis) 2.5 mg PO BID #60 tabs 11/30/24 aspirin 81 mg tablet,delayed 81 mg PO DAILY #30 tabs 11/30/24 release insulin glargine-yfgn 100 unit/mL 15 unit (0.15 mL) SUBCUT DAILY #30 11/30/24 (3 mL) subcutaneous pen mL amiodarone 200 mg tablet (Pacerone) 100 mg (1/2 x 200 mg) PO DAILY #45 12/07/24 tabs diltiazem HCl 120 mg 120 mg PO DAILY #90 caps 12/07/24 capsule,extended release 12 hr Allergies Allergy/AdvReac Type Severity Reaction Status Date / Time codeine Allergy Unknown rash Verified 10/18/24 11:35 PFSH ED 2 PFSH: Medical History Anemia Hypomagnesemia Atrial flutter Chronic obstructive pulmonary disease Other specified arthropathy, lower leg Hyperlipidemia, unspecified Other hyperparathyroidism Hyperpotassemia Intermittent explosive disorder Major depressive disorder, recurrent, unspecified Morbid obesity Post-traumatic stress disorder, chronic Chronic kidney disease Type 2 diabetes mellitus with diabetic neuropathy, unspecified Social History Smoking and tobacco/nicotine status: former use of tobacco/nicotine Procedures Intubation Time out performed: Yes sedative: Etomidate Mg Given: 20 paralytic: Succinylcholine Mg Given: 100 Laryngoscope: fiber optic video scope ET Tube Size: 8.5 ET Tube Uncuffed: No Tube Secured Depth (cm): 25 Tube Secured Location: lips Tube Placement Confirmation: visualized tube passing through cords, equal breath sounds bilaterally, no breath sounds over epigastrium and confirmation by capnometry Patient Tolerated Procedure: well Intubation Complications: none Course 2 Vital Signs: Vital signs: Vital Signs Temperature 98.0 F 12/09/24 09:16 Pulse Rate 122 H 12/09/24 13:39 Respiratory Rate 14 12/09/24 13:39 Blood Pressure 149/80 12/09/24 11:45 Pulse Oximetry 92 12/09/24 13:39 Oxygen Delivery Me thod Mechanical Ventil ation 12/09/24 13:39 Oxygen Flow Rate 4 12/09/24 09:16 Fraction of Inspir ed Oxygen 40 12/09/24 13:39 MDM - SOB/Dyspnea Lab Data 12/09/24 09:57 12/09/24 09:57 Labs/Radiology: Radiology Impressions Chest X-Ray 12/09/24 09:34 IMPRESSION: As above. Laboratory Results WBC 10.90 10^3/uL (3.29-11.43) 12/09/24 09:57 RBC 3.49 10^6/uL (3.85-5.65) L 12/09/24 09:57 Hgb 10.20 g/dL (11.27-16.99) L 12/09/24 09:57 Hct 34.9 % (37-53) L 12/09/24 09:57 MCV 100.0 fl (82-101) 12/09/24 09:57 MCH 29.2 pg (27-33) 12/09/24 09:57 MCHC 29.2 g/dL (30-55) L 12/09/24 09:57 RDW 14.0 % (12.1-15.1) 12/09/24 09:57 Plt Count 156 10^3/cmm (157-399) L 12/09/24 09:57 MPV 11.4 fL (7.4-10.4) H 12/09/24 09:57 Neut % (Auto) 85.2 % 12/09/24 09:57 Lymph % (Auto) 6.6 % 12/09/24 09:57 [place] % (Auto) 7.3 % 12/09/24 09:57 Eos % (Auto) 0.1 % 12/09/24 09:57 Baso % (Auto) 0.2 % 12/09/24 09:57 Neut # (Auto) 9.28 10^3/uL (1.8-7.7) H 12/09/24 09:57 Lymph # (Auto) 0.7 10^3/uL (0.8-4.8) L 12/09/24 09:57 [place] # (Auto) 0.8 10^3/uL (0.2-0.9) 12/09/24 09:57 Eos # (Auto) 0.0 10^3/uL (0.0-0.8) 12/09/24 09:57 Baso # (Auto) 0.0 10^3/uL (0.0-0.1) 12/09/24 09:57 Nucleated RBC % (auto) 0 % 12/09/24 09:57 Nucleated RBCs # 0.0 /100WBC 12/09/24 09:57 D-Dimer 0.47 ug/mLFEU (0-0.59) 12/09/24 09:57 Specimen Type Arterial 12/09/24 12:40 Sample Site Brachial, right 12/09/24 12:40 ABG pH 7.21 (7.35-7.45) L 12/09/24 12:40 ABG pCO2 66.1 mmHg (35-45) H* 12/09/24 12:40 ABG pO2 88.9 mmHg (80.0-100.0) 12/09/24 12:40 ABG PO2/FiO2 Ratio 222 12/09/24 12:40 ABG HCO3 26.2 mmol/L (22-26) H 12/09/24 12:40 ABG O2 Saturation 95.9 12/09/24 12:40 ABG Base Excess -2.5 mmol/L (-2.0-2.0) L 12/09/24 12:40 Severino Test Pos 12/09/24 12:40 A-a O2 Gradient 15.4 mmHg (5-10) H 12/09/24 12:40 Hematocrit 31.1 % (42-52) L 12/09/24 12:40 Hgb O2 Saturation 94.0 % (95-100) L 12/09/24 12:40 Carboxyhemoglobin 1.1 %THgb (0.4-20.1) 12/09/24 12:40 Methemoglobin 0.9 % (0.4-1.5) 12/09/24 12:40 Total Hemoglobin 10.2 g/dL (14-18) L 12/09/24 12:40 Sodium 144.0 mmol/L (131-143) H 12/09/24 12:40 Potassium 5.4 mmol/L (3.5-5.0) H 12/09/24 12:40 Glucose 219.0 mg/dL (70-115) H 12/09/24 12:40 Ionized Calcium 1.2 mmol/L (1.1-1.4) 12/09/24 12:40 O2 Delivery Device Bipap 12/09/24 12:40 O2 Liters/Min 4.0 % 12/09/24 09:40 FiO2 40.0 % 12/09/24 12:40 Advanced Practice Professional ID Cak 12/09/24 12:40 Sodium 141 mmol/L (136-145) 12/09/24 09:57 Potassium 4.9 mmol/L (3.5-5.1) 12/09/24 09:57 Chloride 104 mmol/L (98-107) 12/09/24 09:57 Carbon Dioxide 26 mmol/L (22-29) 12/09/24 09:57 Anion Gap 15.9 (5-19) 12/09/24 09:57 BUN 47 mg/dL (8-23) H 12/09/24 09:57 Creatinine 2.8 mg/dL (0.7-1.2) H 12/09/24 09:57 GFR Calculation Not Reportable 12/09/24 09:57 Glucose 185 mg/dL (65-115) H 12/09/24 09:57 Calculated Osmolality 309 mOsm/kg (285-295) H 12/09/24 09:57 Lactic Acid 0.9 mmol/L (0.5-2.2) 12/09/24 09:57 Calcium 8.9 mg/dL (8.5-10.5) 12/09/24 09:57 Total Bilirubin 0.3 mg/dL (0.15-1.2) 12/09/24 09:57 AST 14 U/L (0-40) 12/09/24 09:57 ALT 49 U/L (0-41) H 12/09/24 09:57 Alkaline Phosphatase 104 U/L (40-130) 12/09/24 09:57 NT-Pro-B Natriuret Pep 832 pg/mL (0-450) H 12/09/24 09:57 Total Protein 6.6 g/dL (6.6-8.7) 12/09/24 09:57 Albumin 3.6 g/dL (3.5-5.2) 12/09/24 09:57 Globulin 3.0 g/dL (1.3-4.6) 12/09/24 09:57 Procalcitonin 0.28 ng/mL (0-0.5) 12/09/24 09:57 Urine Color Yellow (Yellow) 12/09/24 10:48 Urine Appearance Clear (CLEAR) 12/09/24 10:48 Urine pH 5.0 (5-7) 12/09/24 10:48 Ur Specific [place] 1.015 (1.005-1.030) 12/09/24 10:48 Urine Protein 1+ (Negative) A 12/09/24 10:48 Urine Glucose (UA) Negative (Normal) 12/09/24 10:48 Urine Ketones Negative (Negative) 12/09/24 10:48 Urine Blood Negative (Negative) 12/09/24 10:48 Urine Nitrate Negative (Negative) 12/09/24 10:48 Urine Bilirubin Negative (Negative) 12/09/24 10:48 Urine Urobilinogen 0.2 mg/dL (Negative) 12/09/24 10:48 Ur Leukocyte Esterase 1+ (Negative) A 12/09/24 10:48 Urine RBC 3-5 /hpf (0-2) 12/09/24 10:48 Urine WBC 21-50 /hpf (0-5) H 12/09/24 10:48 Ur Squamous Epith Cells 0-5 /hpf (0-5) 12/09/24 10:48 Amorphous Sediment Not Reportable 12/09/24 10:48 Urine Bacteria None seen /hpf (NONE) 12/09/24 10:48 Hyaline Casts 9.91 /lpf 12/09/24 10:48 Urine Yeast 1+ /hpf H 12/09/24 10:48 Coronavirus (PCR) Negative (Negative) 12/09/24 09:57 Influenza A (PCR) Negative (Negative) 12/09/24 09:57 Influenza Type B (PCR) Negative (Negative) 12/09/24 09:57 RSV (PCR) Positive (Negative) A 12/09/24 09:57 Discharge Plan Discharge Patient Disposition: Admitted As Inpatient Clinical Impression: Acute on chronic respiratory failure with hypoxia and hypercapnia, Respiratory syncytial virus (RSV), Dementia, Diabetes mellitus Coding Level of Care Code ED Business Records Manager for Soo Carty
--- NOTE | 2024-12-09 09:34 | XRR_ITS ---
PROCEDURE INFORMATION: Exam: XR Chest Exam date and time: 12/09/2024 9:41 AM Age: 74 years old Clinical indication: Cough and dyspnea; Additional info: Dyspnea/cough TECHNIQUE: Imaging protocol: Radiologic exam of the chest. Views: 1 view. COMPARISON: CR XR chest 1V portable [id number] 11/27/2024 7:14 AM FINDINGS: Lungs: Unremarkable. No consolidation. Pleural spaces: Unremarkable. No pleural effusion. No pneumothorax. Heart/Mediastinum: Cardiomegaly. Bones/joints: Unremarkable. XR/XR chest 1V portable [id number] IMPRESSION: As above.
[2024-12-09] MEDS: albuterol 2.5 mg/3 mL Neb 10 MG INHALATION (09:44)
[2024-12-09 09:51] LABS: ABG PCO2 70.3 mmHg (35-45); ABG PH Result 7.19 (7.35-7.45); Alveolar-Arterial Oxygen Gradi 15.2 mmHg (5-10); Arterial Blood Gas Hematocrit 31.4 % (42-52); Base Excess ABG -2.1 mmol/L (-2.0-2.0); Blood Gas Allen Test Pos; Blood Gas Operator Identificat CAK; Blood Gas Sample Site Radial, left; Blood Gas Sample Type Arterial; Carboxyhemoglobin 1.3 %THgb (0.4-20.1); HGB O2 Sat 84.5 % (95-100); Ionized Calcium Level - ABG 1.3 mmol/L (1.1-1.4); Methemoglobin 1.2 % (0.4-1.5); Oxygen Device NC; Oxygen Saturation ABG 86.7; PO2 ABG 57.9 mmHg (80.0-100.0); PO2 FiO2 Ratio Arterial Blood 160; Potassium Level - ABG 4.8 mmol/L (3.5-5.0); Total Hemoglobin 10.3 g/dL (14-18)
--- NOTE | 2024-12-09 09:55 | ECG_ITS ---
[facility] Test Date: 2024-12-09 Pat Name: Roberta Rouse Department: Room: Gender: Male [employer]eles[employer] Agent: : [id number] Requested By: Raj Carranza Order Number: [id number] Adam MD: Horacio Blackmon M.D. Measurements Intervals [place] Rate: 91 P: 0 NH: 0 QRS: 57 QRSD: 150 T: 39 QT: 403 QTc: 496 Interpretive Statements ATRIAL FIBRILLATION WITH ABERRANT CONDUCTION OR VENTRICULAR PREMATURE COMPLEXES RIGHT BUNDLE BRANCH BLOCK [120+ ms QRS DURATION, UPRIGHT V1, 40+ ms S IN I/aVL/V4/V5/V6] Compared to ECG 11/17/2024 00:10:31 Ventricular premature complex(es) now present Aberrant conduction of supraventricular beat(s) now present Atrial flutter no longer present Right-axis deviation no longer present Myocardial infarct finding no longer present Electronically Signed On 12-09-2024 23:22:58 SESSIONS CLERK by Horacio Blackmon M.D. [email or web address]
[2024-12-09 10:04] LABS: Basophils % 0.2 %; Eosinophils % 0.1 %; Hematocrit 34.9 % (37-53); Lymphocytes # 0.7 10^3/uL (0.8-4.8); Lymphocytes % 6.6 %; Mean Corpuscular HGB Conc 29.2 g/dL (30-55); Mean Corpuscular Hemoglobin 29.2 pg (27-33); Mean Platelet Volume 11.4 fL (7.4-10.4); Monocytes # 0.8 10^3/uL (0.2-0.9); Monocytes % 7.3 %; Neutrophils # 9.28 10^3/uL (1.8-7.7); Neutrophils % 85.2 %; Nucleated Red Blood Cells % 0 %; Platelet Count 156 10^3/cmm (157-399); Red Blood Count 3.49 10^6/uL (3.85-5.65)
[2024-12-09] MEDS: dexamethasone 10 mg/mL INJ IM (10:30)
[2024-12-09 10:34] LABS: Lactic Sepsis W/Reflex 0.9 mmol/L (0.5-2.2)
[2024-12-09 10:40] LABS: Alanine Aminotransferase 49 U/L (0-41); Albumin Level 3.6 g/dL (3.5-5.2); Alkaline Phosphatase 104 U/L (40-130); Anion Gap 15.9 (5-19); Aspartate Amino Transferase 14 U/L (0-40); Blood Urea Nitrogen 47 mg/dL (8-23); Calcium 8.9 mg/dL (8.5-10.5); Carbon Dioxide 26 mmol/L (22-29); Chloride 104 mmol/L (98-107); Creatinine Clr Calc Pharmacy 30.6329; Glucose 185 mg/dL (65-115); NT Pro B Type Natriuretic Pept 832 pg/mL (0-450); Osmolality Calculated 309 mOsm/kg (285-295); Potassium 4.9 mmol/L (3.5-5.1); Sodium 141 mmol/L (136-145); Total Bilirubin 0.3 mg/dL (0.15-1.2); Total Protein 6.6 g/dL (6.6-8.7)
[2024-12-09 11:04] LABS: Covid PCR NEGATIVE (Negative); Influenza A NEGATIVE (Negative); Influenza B NEGATIVE (Negative)
[2024-12-09 11:05] LABS: Respiratory Syncytial Virus Ce POSITIVE (Negative)
[2024-12-09 11:14] LABS: Bilirubin Urine Negative (Negative); Blood Urine Negative (Negative); Glucose Urine UA Negative (Normal); Ketones Urine Negative (Negative); Leukocyte Esterase Urine 1+ (Negative); Nitrate Urine Negative (Negative); Protein Urine 1+ (Negative); Specific Gravity, Urine 1.015 (1.005-1.030); Urine Appearance Clear (CLEAR); Urine Color Yellow (Yellow); Urobilinogen Urine 0.2 mg/dL (Negative)
[2024-12-09 11:19] LABS: Add Urine Microscopic? YES; Bacteria Urine None Seen /hpf; Hyaline Casts Urine 9.91 /lpf; Squamous Epithelial Cell Urine 0-5 /hpf (0-5); WBC Urine 21-50 /hpf (0-5)
[2024-12-09 11:23] LABS: ABG PH Result 7.19 (7.35-7.45); Arterial Blood Gas Hematocrit 31.1 % (42-52); Blood Gas Allen Test Pos; Blood Gas Sample Type Arterial; Carboxyhemoglobin 1.2 %THgb (0.4-20.1); HGB O2 Sat 93.4 % (95-100); Ionized Calcium Level - ABG 1.3 mmol/L (1.1-1.4); Methemoglobin 0.1 % (0.4-1.5); Oxygen Saturation ABG 94.7; Potassium Level - ABG 4.8 mmol/L (3.5-5.0); Total Hemoglobin 10.2 g/dL (14-18)
[2024-12-09 11:24] LABS: ABG PCO2 68.2 mmHg (35-45); Alveolar-Arterial Oxygen Gradi 16.7 mmHg (5-10); Blood Gas Operator Identificat CAK; Blood Gas Sample Site Brachial, left; Oxygen Device BIPAP; PO2 FiO2 Ratio Arterial Blood 192
[2024-12-09 11:34] LABS: Add Urine Culture? Yes; UA Slide Review UA Slide Review Perf
--- NOTE | 2024-12-09 12:41 | CTR_ITS ---
PROCEDURE INFORMATION: Exam: CT Chest Without Contrast; Diagnostic Exam date and time: 12/09/2024 2:59 PM Age: 74 years old Clinical indication: Shortness of breath; Additional info: Copd/pna TECHNIQUE: Imaging protocol: Diagnostic computed tomography of the chest without contrast. Radiation optimization: All CT scans at this facility use at least one of these dose optimization techniques: automated exposure control; mA and/or kV adjustment per patient size (includes targeted exams where dose is matched to clinical indication); or iterative reconstruction. COMPARISON: CT chest wo con [id number] 11/25/2024 1:13 PM RADIATION DOSE METRICS: Total DLP (mGy-cm): 705.81 FINDINGS: Tubes, catheters and devices: Endotracheal tube is present with the tip approximately 4-5 cm above the corazon. Orogastric tube is present with the tip in the distal stomach. Trachea: Unremarkable. Lungs: There are reticulonodular infiltrates within the bilateral lower lobes and posterior right upper and middle lobes. Mild patchy density is seen at the left lung apex, which appears new. Focal dense consolidation was seen within the bilateral lower lobes on the prior study, which is less pronounced on the current exam. Pleural spaces: Previously seen bilateral pleural effusions have resolved. Heart: The heart is mildly enlarged. Trace pericardial effusion is again seen. There is moderate coronary arterial calcification. Mediastinal space: No pathologically enlarged lymph nodes. Lymph nodes: Unremarkable. No enlarged lymph nodes. Vasculature: Unremarkable. No aortic aneurysm. Bones/joints: There are degenerative changes involving the thoracic spine. No acute fracture detected. Soft tissues: Unremarkable. Other findings: Visualized upper abdominal structures are unremarkable. CT/CT chest con [id number] IMPRESSION: 1. Interval placement of endotracheal and orogastric tubes in good position. 2. Reticulonodular infiltrates within the bilateral lower lobes and posterior upper and middle lobes with mild patchy density at the left lung apex compatible with multifocal pneumonia. Previously seen dense consolidation within the bilateral lower lobes is less pronounced compared to the prior study. 3. Interval resolution of bilateral pleural effusions. 4. Mild stable cardiomegaly with trace pericardial effusion. 5. Moderate coronary arterial calcification.
[2024-12-09 12:51] LABS: ABG PH Result 7.21 (7.35-7.45); Alveolar-Arterial Oxygen Gradi 15.4 mmHg (5-10); Arterial Blood Gas Hematocrit 31.1 % (42-52); Base Excess ABG -2.5 mmol/L (-2.0-2.0); Blood Gas Allen Test Pos; Blood Gas Operator Identificat CAK; Blood Gas Sample Site Brachial, right; Blood Gas Sample Type Arterial; Carboxyhemoglobin 1.1 %THgb (0.4-20.1); HCO3 ABG 26.2 mmol/L (22-26); Ionized Calcium Level - ABG 1.2 mmol/L (1.1-1.4); Methemoglobin 0.9 % (0.4-1.5); Oxygen Device BIPAP; Oxygen Saturation ABG 95.9; PO2 ABG 88.9 mmHg (80.0-100.0); PO2 FiO2 Ratio Arterial Blood 222; Potassium Level - ABG 5.4 mmol/L (3.5-5.0); Total Hemoglobin 10.2 g/dL (14-18)
[2024-12-09 12:55] LABS: ABG PCO2 66.1 mmHg (35-45)
[2024-12-09 12:56] LABS: D Dimer 0.47 ug/mLFEU (0-0.59)
[2024-12-09 13:07] LABS: Procalcitonin 0.28 ng/mL (0-0.5)
[2024-12-09] MEDS: etomidate 2 mg/mL INJ SDV 10 mL 20 MG IVP (13:19)
[2024-12-09] MEDS: succinylcholine 20 mg/mL SDV 10mL 100 MG IVP (13:20)
--- NOTE | 2024-12-09 13:23 | XRR_ITS ---
PROCEDURE INFORMATION: Exam: XR Chest Exam date and time: 12/09/2024 1:25 PM Age: 74 years old Clinical indication: Device placement; Ett placement (vent status); Patient HX: Ett/og placement TECHNIQUE: Imaging protocol: Radiologic exam of the chest. Views: 1 view. COMPARISON: CR (CHEST, ) 12/09/2024 9:41 AM FINDINGS: Tubes, catheters and devices: Interval placement of endotracheal tube with the tip approximately 4-5 cm above the corazon. Interval placement of orogastric tube with the tip in the region of the mid to distal stomach. Lungs: Unremarkable. No consolidation. Pleural spaces: Unremarkable. No pleural effusion. No pneumothorax. Heart/Mediastinum: The cardiac silhouette is mildly enlarged. Bones/joints: Unremarkable. XR/XR chest 1V portable [id number] IMPRESSION: 1. Interval placement of endotracheal and orogastric tubes in good position. 2. Stable mild cardiomegaly. 3. No dense focal consolidation or evidence for congestive heart failure.
[2024-12-09] MEDS: fentaNYL 1,000 MCG/100 ML BAG 5 MCG IV (13:25)
[2024-12-09] MEDS: midazolam hcl 100 MG/100 ML BAG IV (13:26)
[2024-12-09] MEDS: propofol 10 mg/mL SDV 20 mL 100 MG IVP (13:30)
[2024-12-09] MEDS: budesonide 0.5 mg/2 mL Neb INHALATION ×2 (13:37→19:58)
[2024-12-09] MEDS: levalbuterol 0.63 mg/3 mL Neb INHALATION ×3 (13:37→19:58)
[2024-12-09] MEDS: ipratropium 0.5 mg/2.5 mL Neb INHALATION ×2 (13:37→19:58)
[2024-12-09] MEDS: ketamine 100 mg/mL Inj 5 mL IVP (14:01)
[2024-12-09] MEDS: enoxaparin 120 mg/0.8 mL Syringe SUBCUT (14:04)
[2024-12-09] MEDS: cefTRIAXone 1,000 mg SDV 1000 MG IVP (14:04)
[2024-12-09] MEDS: FUROsemide 10 mg/mL SDV 10mL 60 MG IVP (14:09)
[2024-12-09] MEDS: methylPREDNISolone sod succ 40 mg/mL INJ IVP ×2 (14:13→18:40)
[2024-12-09] MEDS: pantoprazole 40 mg SDV IVP (14:14)
[2024-12-09] MEDS: sodium chloride 0.9% 500 ML 999 ML IV (14:15)
--- NOTE | 2024-12-09 14:31 | P.HP_ITS ---
Providers/Chief Complaint 2 Admitting Physician: Zohaib Robles MD Primary Care Provider: Adán Lino DO Chief Complaint: sob; ams History of Present Illness Roberta Rouse is a 74 year old male with past medical history of atrial fibrillation, COPD, type 2 diabetes mellitus who was recently discharged on November 30 after having a prolonged hospitalization for symptomatic bradycardia complicated by respiratory failure in setting of COPD exacerbation, cardiogenic shock, acute renal failure to SNF. He was sent into the ER today because of shortness of breath and altered mental status which has been getting worse overnight. In the ER he was found to have an oxygen saturation of 80% on 2 L. ABG was done in which she was found to have hypercapnic respiratory failure with respiratory acidosis and a pH of 7.19 and he was placed on BiPAP. Repeat ABG in 2 hours persistently showed respiratory failure with respiratory acidosis. Examination with patient's son at bedside patient was slightly awake but not coherent, not following directions, trying to grab things and A.R., pulling on his BiPAP with blood pressure of 160 systolic, heart rate of 102 bpm. Goals of care discussions were done in detail with patient's son at bedside. We discussed unfortunately patient is on the highest setting of BiPAP which is AVAPS. Discussed going forward we will be 2 options of to continue with the AVAPS mode while trying to washout CO2 from his body with hope within next 24 hours versus possible need of intubation if AVAPS fails. Son verbalized understanding and states that he does not want anything with chest compressions but would be okay for mechanical ventilator if needed. Repeat ABG was done which showed persistent respiratory acidosis with a pH of 7.21 and hence patient was mechanically intubated. Review of Systems 2 General: Reports: ROS unobtainable due to endotracheal tube and ROS unobtainable due to mental status Medications/Allergies Home Medications Medication Instructions Recorded Confirmed Last Taken Type cetirizine 10 mg capsule (All Day 10 mg PO DAILY PRN allergies 02/15/23 12/09/24 Unknown History Allergy (cetirizine)) fluoxetine 20 mg capsule 20 mg PO DAILY 02/15/23 12/09/24 12/08/24 History fluticasone furoate 50 1 inh inhalation BID 02/15/23 12/09/24 12/08/24 History mcg/actuation blister powder for inhalation insulin lispro 100 unit/mL 5 unit SUBCUT BID 02/15/23 12/09/24 12/08/24 History subcutaneous solution (Humalog U-100 Insulin) mirtazapine 30 mg tablet 30 mg PO DAILY 02/15/23 12/09/24 12/08/24 History tamsulosin 0.4 mg capsule 0.4 mg PO DAILY 02/15/23 12/09/24 12/08/24 History fluticasone 250 mcg-salmeterol 50 1 inh inhalation BID #60 ea 03/30/23 12/09/24 12/08/24 Rx mcg/dose blistr powdr for inhalation (Wixela Inhub) calcitriol 0.25 mcg capsule See Rx Instructions .Route .COMPLEX 10/18/24 12/09/24 12/08/24 History albuterol sulfate 90 mcg/actuation 2 puff inhalation QID 11/17/24 12/09/24 Unknown History aerosol inhaler atorvastatin 40 mg tablet 40 mg PO QPM 11/17/24 12/09/24 12/08/24 History amlodipine 5 mg tablet 5 mg PO DAILY #30 tabs 11/30/24 12/09/24 12/08/24 Rx apixaban 2.5 mg tablet (Eliquis) 2.5 mg PO BID #60 tabs 11/30/24 12/09/24 12/08/24 Rx aspirin 81 mg tablet,delayed 81 mg PO DAILY #30 tabs 11/30/24 12/09/24 12/08/24 Rx release insulin glargine-yfgn 100 unit/mL 15 unit (0.15 mL) SUBCUT DAILY #30 11/30/24 12/09/24 12/08/24 Rx (3 mL) subcutaneous pen mL amiodarone 200 mg tablet (Pacerone) 100 mg (1/2 x 200 mg) PO DAILY #45 12/07/24 12/09/24 Unknown Rx tabs diltiazem HCl 120 mg 120 mg PO DAILY #90 caps 12/07/24 12/09/24 12/08/24 Rx capsule,extended release 12 hr Allergies Allergy/AdvReac Type Severity Reaction Status Date / Time codeine Allergy Unknown rash Verified 10/18/24 11:35 PFSH Acute 2 PFSH: Medical History (Updated 12/09/24 @ 15:45 by Zohaib Robles MD) Anemia Hypomagnesemia Atrial flutter Chronic obstructive pulmonary disease Other specified arthropathy, lower leg Hyperlipidemia, unspecified Other hyperparathyroidism Hyperpotassemia Intermittent explosive disorder Major depressive disorder, recurrent, unspecified Morbid obesity Post-traumatic stress disorder, chronic Chronic kidney disease Type 2 diabetes mellitus with diabetic neuropathy, unspecified Social History Smoking and tobacco/nicotine status: former use of tobacco/nicotine Vitals/I&O/Wt Last Vital Signs Temp 98.0 F 12/09/24 09:16 Pulse 107 H 12/09/24 13:40 Resp 14 12/09/24 13:39 BP 149/80 12/09/24 11:45 Pulse Ox 92 12/09/24 13:39 O2 Del Method Mechanical Ventilation 12/09/24 13:39 O2 Flow Rate 4 12/09/24 09:16 FiO2 40 12/09/24 13:39 12/08/24 12/09/24 12/09/24 22:59 06:59 14:59 Intake Total 5.916 / 5.916 Balance 5.916 / 5.916 Weight last 48 hrs Weight 117.934 kg Physical Exam 2 Narrative: General: AAO x 1, not following directions, incoherent, on BiPAP, GCS E3 M5 V1 HEENT: PERRLA, pupils bilaterally equal and reactive Chest: Normal vesicular breath sounds, no added sounds, equal good air entry bilaterally CVS: S1-S2 regular, no murmurs, no tachycardia, no gallops, no rubs Abdomen: Soft, nontender, no organomegaly, bowel sounds present Neuro: No focal deficits, no facial deformity, power 5/5 in all limbs Urinary Catheter Management: Solomon: Cath Placed During This Visit: yes Urinary Catheter Date of Insertion: 12/09/24 Data 12/09/24 09:57 12/09/24 09:57 Micro: Microbiology 12/09/24 09:58 Blood Culture - Preliminary Blood SPECIMEN COLLECTED 12/09/24 09:57 Blood Culture - Preliminary Blood SPECIMEN COLLECTED A&P Assessment and plan (1) Acute on chronic respiratory failure with hypoxia and hypercapnia: In setting of RSV infection leading to COPD exacerbation. Persistent respiratory acidosis with hypercapnia. Patient intubated. Repeat ABG in 1 hour and adjust ventilator settings accordingly. Maintain sedation with Versed and fentanyl for now. Plan for CT chest. Low concerns for superadded bacterial pneumonia for now. Given significant illness, recent hospitalization for now will cover for hospital-acquired pneumonia with IV vancomycin and Zosyn. Check MRSA swab, sputum culture. If MRSA swab is negative will discontinue vancomycin. Solu-Medrol 40 mg every 6 hour. Pulmicort twice daily, ipratropium, Xopenex every 6 hours Repeat chest x-ray, ABG every morning while patient is on mechanical ventilator. Monitor for improvement in respiratory acidosis. Recent echocardiogram showed an EF of 66% without regional wall motion abnormality, bilateral atrial enlargement. IV Lasix 60 mg one-time. (2) Respiratory syncytial virus (RSV): (3) COPD exacerbation: (4) Respiratory acidosis: (5) Chronic kidney disease: Recently have severe acute kidney injury requiring hemodialysis. Currently creatinine down to 2.8. Medical reconciliation done for nephrotoxic drugs. Monitor BMP daily. Solomon catheterization. Strict input output charting, daily weights. (6) Diabetes mellitus: Appreciate recent A1c. Continue with home dose of Lantus 15 units every morning. Insulin sliding scale low-dose protocol every 6 hours. (7) Bradycardia: Recent admission for significant bradycardia on Cardizem. Discharged on amiodarone. Continue with 100 mg oral amiodarone daily. Hold off on Cardizem. Monitor heart rate. Plan A-fib with RVR: Continue with amiodarone as above. Takes Eliquis 2.5 mg twice daily at home. For now switch over to Lovenox 1 mg/kg body weight daily as per creatinine clearance. Continue other chronic medications including mirtazapine, Flomax, fluoxetine Anesthesia: Sedation with Versed and fentanyl Glycemic control: Glargine 15 units every morning, insulin sliding scale low- dose protocol every 6 hour Nutrition: N.p.o. CODE STATUS: Discussed in detail with patient's DPOA Mr. Hinojosa in person. He does not want any kind of chest compressions but is okay with mechanical ventilation for respiratory failure. Limited resuscitation to mechanical ventilation only. PUD prophylaxis: Protonix 40 mg IV daily DVT prophylaxis: Full dose Lovenox 1 mg/kg body weight daily as per creatinine clearance Discharge planning: Back to SNF once patient is medically stable Admit to ICU. This documentation was created by [email or web address] property assessment monitor software. Every effort was made to ensure accuracy of property assessment monitor. Any obvious errors or omissions should be clarified with the author of the document. Attestations 2 Medical Necessity Statement*: Requires admission for more than 2 midnights for management of respiratory failure with respiratory acidosis in setting of acute on chronic hypoxic and hypercapnic respiratory failure, RSV requiring mechanical ventilation Critical Care Time: The high probability of a clinically significant, sudden or life threatening deterioration of the patient's [pulmonary, cardiac] system(s) required my full and direct attention, intervention and personal management. The critical care time is as shown. This time is in addition to time spent performing any reported procedures but includes the following: [x] Data and vital sign review and interpretation [x] Patient assessment, examination and intervention [x] Documentation [x] Medication orders and management Critical Care Time (min): 90 Coding Level of Care Code Critical Care >/= 30 minutes Critical care time (in minutes): 90 The high probability of a clinically significant, sudden or life threatening deterioration, as referenced in this documentation, required my full and direct attention, intervention and personal management. The critical care time shown is in addition to time spent performing any reported separately billable procedures and includes the following: [x] Data and vital sign review and interpretation [x ] Patient assessment, examination and intervention [x] Medication orders and management [x] Patient/Family updates as able [x] Care Coordination and Documentation. Other Coding Information This patient has a high probability of clinically significant, sudden or life threatening deterioration of the patient's (neurological/pulmonary/cardiac/renal/ID/endocrine) systems required my full, direct attention, the highest level of physician preparedness for urgent intervention and personal management. I managed/supervised life or organ supporting interventions that required frequent physician assessment. I devoted my full attention in the ICU to the direct care of this patient for the period of time indicated above. Time I spent with family or surrogate(s) is included only if the patient was incapable of providing necessary information or participating in decision making. This time includes the following services provided: Telemetry review Mechanical Ventilation Hemodynamic interpretation, assessment and management Review and interpretation of CXR Review and interpretation of lab values Review and interpretation of microbiologic data and culture results Review of medications and administration Review and interpretation of Nutrition requirements and management Discussion of management with other consultants and services Clinical update to family members Diagnoses Acute on chronic respiratory failure with hypoxia and hypercapnia J96.21; J96.22 Respiratory syncytial virus (RSV) B33.8 COPD exacerbation J44.1 Respiratory acidosis E87.29 Chronic kidney disease N18.9 Diabetes mellitus E11.9 Bradycardia R00.1
--- NOTE | 2024-12-09 15:35 | PC.NURSE ---
Intubation pt was moved from room 16 to room 11 to be intubated. pt was given etomidate @ 1319 and succinylcholine at 1320. provider placed tube after confirming on XR the placement is 23 @ the lip. provider ordered fentanyl drip to be started at 50mcg and the versed drip to be started at 2mg. pt was attempting to pull at tubes so provider gave verbal order for 100mg of propofol and then later gave order for ketamine. OG tube placed and confirmed by XR.
--- NOTE | 2024-12-09 15:44 | PC.NURSE ---
100 of propofol and 100 of succs wasted with PAVITHRA Zelaya.
[2024-12-09 15:50] LABS: Glucose Point of Care 275 mg/dL (70-110)
[2024-12-09] MEDS: insulin lispro 100 unit/1 mL SUBCUT ×2 (16:10→21:35)
[2024-12-09] MEDS: piperacillin-tazobactam 3.375 GM in sodium chloride 0.9% (plus) 50 ML IV ×2 (16:11→21:30)
[2024-12-09] MEDS: vancomycin 3,000 MG/600 ML PIGGYBACK 200 MG IV (16:28)
[2024-12-09 16:49] LABS: ABG PH Result 7.22 (7.35-7.45); Arterial Blood Gas Hematocrit 29.9 % (42-52); Base Excess ABG -3.6 mmol/L (-2.0-2.0); Blood Gas Operator Identificat MONRO; Blood Gas Sample Site Radial, left; Blood Gas Sample Type Arterial; Carboxyhemoglobin 1.5 %THgb (0.4-20.1); Fractionated Inspired Oxygen 0.4 %; HCO3 ABG 24.5 mmol/L (22-26); HGB O2 Sat 91.8 % (95-100); Ionized Calcium Level - ABG 1.2 mmol/L (1.1-1.4); Methemoglobin 0.5 % (0.4-1.5); Oxygen Device VENT; Oxygen Saturation ABG 93.6; PO2 ABG 67.9 mmHg (80.0-100.0); Potassium Level - ABG 5.1 mmol/L (3.5-5.0); Total Hemoglobin 9.8 g/dL (14-18)
[2024-12-09 16:50] LABS: ABG PCO2 60.2 mmHg (35-45)
--- NOTE | 2024-12-09 17:28 | PHA.VACGOAL ---
Vancomycin Goal - Goal Vancomycin Goal:: 15-20 mg/L Vancomycin Indication:: Pneumonia - Therapy Current therapy:: Pip/Tazo Day of therpy:: Day [1]of [] . Actual body weight (kg): 104.5 kg - Data Labs: WBC 10.90 10^3/uL (3.29-11.43) 12/09/24 09:57 RBC 3.49 10^6/uL (3.85-5.65) L 12/09/24 09:57 Hgb 10.20 g/dL (11.27-16.99) L 12/09/24 09:57 Hct 34.9 % (37-53) L 12/09/24 09:57 MCV 100.0 fl (82-101) 12/09/24 09:57 MCH 29.2 pg (27-33) 12/09/24 09:57 MCHC 29.2 g/dL (30-55) L 12/09/24 09:57 RDW 14.0 % (12.1-15.1) 12/09/24 09:57 Sodium 141 mmol/L (136-145) 12/09/24 09:57 Potassium 4.9 mmol/L (3.5-5.1) 12/09/24 09:57 Chloride 104 mmol/L (98-107) 12/09/24 09:57 Carbon Dioxide 26 mmol/L (22-29) 12/09/24 09:57 Anion Gap 15.9 (5-19) 12/09/24 09:57 BUN 47 mg/dL (8-23) H 12/09/24 09:57 Creatinine 2.8 mg/dL (0.7-1.2) H 12/09/24 09:57 GFR Calculation Not Reportable 12/09/24 09:57 Treatment plan:: new consult Regimen:: New start vancomycin for pneumonia. No history of vancomycin found. Received 3000 mg load dose. Due to patient's Crcl being <30 ml/min will start patient on pulse dosing. Vancomycin level ordered for 12/10/24 @1630.
[2024-12-09 17:53] LABS: MRSA PCR OZH (swab) NOT DETECTED (Negative)
[2024-12-09] MEDS: propofol 1,000 MG/100 ML INJ 3.14 MG IV (18:37)
[2024-12-09] MEDS: atorvastatin 40 mg Tablet PO (18:43)
--- NOTE | 2024-12-09 19:06 | PC.NURSE ---
Received patient from ER staff at 1510. Patient is intubated. Saturating 97% on 40% FIO2. HR: 96, BP: 137/67. RR: 14. Patient is unresponsive, on 3mg/hr of versed, 100mcg/hr fentanyl.
--- NOTE | 2024-12-09 19:09 | PC.NURSE ---
Pmarmacy communication - Nurse contact Pharmacy, spoke to payal. Questioned 3,000 mg dose of vancomycin due to poor kidney function. Creatnine of 2.8. Pharmacist reviewed dosing for accuracy and stated accurate dose. Vanc trough to be checked in the morning.
--- NOTE | 2024-12-09 19:11 | PC.NURSE ---
[facility] only [facility] for 4 hours at the time of this note. Has rested comfortably in bed. Starting transition from versed to propofol Near shift change. Dr cordova would like to completely transition if possible and to closely watch heart rate and blood pressure during transition. Patient was hypotensive upon arrival, and during a recent hospital stay the patient was bradycardic. This has been communicated to maintenance supervisor 2nd shift nurse.
[2024-12-09 21:37] LABS: Glucose Point of Care 259 mg/dL (70-110)
[2024-12-10] VITALS (87 sets, daily range): BP systolic 105–159; BP diastolic 59–88; PULSE 68–98; RESP 16–18; TEMP 36.2–36.6; O2SAT 89–97
[2024-12-10] MEDS: fentaNYL 1,000 MCG/100 ML BAG 7.5 MCG IV ×3 (00:12→23:20)
[2024-12-10] MEDS: methylPREDNISolone sod succ 40 mg/mL INJ IVP ×4 (00:12→17:52)
[2024-12-10] MEDS: ipratropium 0.5 mg/2.5 mL Neb INHALATION ×4 (01:25→19:19)
[2024-12-10] MEDS: levalbuterol 0.63 mg/3 mL Neb INHALATION ×4 (01:25→19:19)
[2024-12-10 03:39] LABS: Glucose Point of Care 244 mg/dL (70-110)
[2024-12-10] MEDS: insulin lispro 100 unit/1 mL SUBCUT ×4 (03:41→22:03)
[2024-12-10] MEDS: propofol 1,000 MG/100 ML INJ 12.54 MG IV (03:45)
[2024-12-10 04:05] LABS: ABG PCO2 49.2 mmHg (35-45); ABG PH Result 7.28 (7.35-7.45); Alveolar-Arterial Oxygen Gradi 21.3 mmHg (5-10); Arterial Blood Gas Hematocrit 27.9 % (42-52); Base Excess ABG -3.5 mmol/L (-2.0-2.0); Blood Gas Allen Test Pos; Blood Gas Sample Site Radial, left; Blood Gas Sample Type Arterial; Carboxyhemoglobin 0.9 %THgb (0.4-20.1); HCO3 ABG 23.2 mmol/L (22-26); HGB O2 Sat 91.3 % (95-100); Ionized Calcium Level - ABG 1.2 mmol/L (1.1-1.4); Methemoglobin < 0.0 % (0.4-1.5); Oxygen Device VENT; PO2 ABG 63.7 mmHg (80.0-100.0); PO2 FiO2 Ratio Arterial Blood 159; Potassium Level - ABG 4.5 mmol/L (3.5-5.0); Total Hemoglobin 9.1 g/dL (14-18)
[2024-12-10 05:37] LABS: Basophils % 0.1 %; Hematocrit 30.6 % (37-53); Lymphocytes # 0.5 10^3/uL (0.8-4.8); Lymphocytes % 5.5 %; Mean Corpuscular HGB Conc 30.4 g/dL (30-55); Mean Corpuscular Hemoglobin 30.6 pg (27-33); Mean Corpuscular Volume 100.7 fl (82-101); Mean Platelet Volume 11.3 fL (7.4-10.4); Monocytes # 0.2 10^3/uL (0.2-0.9); Monocytes % 2.4 %; Neutrophils # 7.57 10^3/uL (1.8-7.7); Neutrophils % 91.3 %; Nucleated Red Blood Cells % 0 %; Platelet Count 135 10^3/cmm (157-399); Red Blood Count 3.04 10^6/uL (3.85-5.65); Red Cell Distribution Width 14.1 % (12.1-15.1)
[2024-12-10] MEDS: piperacillin-tazobactam 3.375 GM in sodium chloride 0.9% (plus) 50 ML IV ×3 (05:50→21:24)
[2024-12-10 05:56] LABS: Alanine Aminotransferase 36 U/L (0-41); Albumin Level 3.2 g/dL (3.5-5.2); Alkaline Phosphatase 84 U/L (40-130); Anion Gap 21.5 (5-19); Aspartate Amino Transferase 10 U/L (0-40); Blood Urea Nitrogen 56 mg/dL (8-23); Calcium 8.7 mg/dL (8.5-10.5); Carbon Dioxide 22 mmol/L (22-29); Chloride 101 mmol/L (98-107); Creatinine Clr Calc Pharmacy 25.3111; Globulin 2.5 g/dL (1.3-4.6); Glucose 244 mg/dL (65-115); Magnesium 1.5 mg/dL (1.7-2.3); Osmolality Calculated 314 mOsm/kg (285-295); Phosphorus 2.4 mg/dL (2.5-4.5); Potassium 4.5 mmol/L (3.5-5.1); Sodium 140 mmol/L (136-145); Total Bilirubin 0.3 mg/dL (0.15-1.2); Total Protein 5.7 g/dL (6.6-8.7)
--- NOTE | 2024-12-10 06:00 | XRR_ITS ---
PROCEDURE INFORMATION: Exam: XR Chest Exam date and time: 12/10/2024 5:53 AM Age: 74 years old Clinical indication: Patient HX: F/u rsv with resp failure. Intubated. TECHNIQUE: Imaging protocol: Radiologic exam of the chest. Views: 1 view. COMPARISON: CT chest con [id number] 12/09/2024 2:59 PM FINDINGS: Tubes, catheters and devices: Endotracheal tube which terminates at the level of the clavicles. Unchanged enteric tube. Lungs: Hypoinflation with bronchovascular crowding. Mild interstitial prominence. Patchy scattered opacities, better evaluated on prior CT. Pleural spaces: No pleural effusion. No pneumothorax. Heart/Mediastinum: No cardiomegaly. Bones/joints: Degenerative change of the spine and shoulders. XR/XR chest 1V portable [id number] IMPRESSION: 1. Patchy scattered opacities, better evaluated on prior CT. 2. Mild interstitial edema.
[2024-12-10 06:03] LABS: Procalcitonin 0.35 ng/mL (0-0.5)
[2024-12-10 06:14] LABS: Chol HDL Ratio 2.89 mg/dL (1.0-5.00); Cholesterol 133 mg/dL (0-200); HDL Cholesterol 46 mg/dL (60-100); LDL Cholesterol Calculated 57 mg/dL (50-129); LDL HDL Ratio 1.24 RATIO (0.00-3.22); Triglycerides 151 mg/dL (0-150)
[2024-12-10] MEDS: budesonide 0.5 mg/2 mL Neb INHALATION ×2 (07:39→19:19)
[2024-12-10] MEDS: propofol 1,000 MG/100 ML INJ 18.81 MG IV ×3 (08:57→19:09)
[2024-12-10] MEDS: tamsulosin 0.4 mg Capsule PO (09:41)
[2024-12-10] MEDS: mirtazapine 30 mg Tablet PO (09:41)
[2024-12-10] MEDS: fluoxetine 20 mg Capsule PO (09:41)
[2024-12-10] MEDS: aspirin 81 mg EC Tablet PO (09:42)
[2024-12-10] MEDS: docusate sodium 100 mg Capsule PO ×2 (09:42→17:52)
[2024-12-10] MEDS: amiodarone 200 mg Tablet 100 MG PO (09:42)
[2024-12-10 09:55] LABS: Glucose Point of Care 230 mg/dL (70-110)
[2024-12-10] MEDS: insulin glargine 100 units/1 mL 15 UNIT SUBCUT (11:03)
[2024-12-10 11:27] LABS: Vancomycin Random 29.7 ug/mL (20.0-40.0)
[2024-12-10 12:20] LABS: Glucose Point of Care 228 mg/dL (70-110)
[2024-12-10] MEDS: magnesium sulfate premix 1 GM/100 ML PIGGYBACK IV (13:04)
[2024-12-10] MEDS: pantoprazole 40 mg SDV IVP (13:04)
[2024-12-10] MEDS: enoxaparin 120 mg/0.8 mL Syringe 110 MG SUBCUT (13:04)
[2024-12-10 14:54] LABS: Glucose Point of Care 241 mg/dL (70-110)
--- NOTE | 2024-12-10 15:30 | PM.PN ---
Subjective Subjective: No acute events overnight. Patient has remained hemodynamically stable and afebrile. Currently on sedation with propofol and fentanyl. ABG showing mild respiratory acidosis. Currently on FiO2 of 40%, tidal volume of 500 with PEEP of 8. Currently on fentanyl and propofol. Appreciate urine output. Vitals/I&O/Wt Last Vital Signs Temp 97.6 F 12/10/24 14:53 Pulse 83 12/10/24 14:53 Resp 16 12/10/24 14:53 BP 120/61 12/10/24 14:53 Pulse Ox 94 12/10/24 14:53 O2 Del Method Nasal Cannula 12/10/24 14:53 O2 Flow Rate 4 12/09/24 09:16 FiO2 45 12/10/24 13:52 12/10/24 12/10/24 12/10/24 06:59 14:59 22:59 Intake Total 252.068 / 1454.566 290.994 / 290.994 Output Total 600 / 1000 600 / 600 Balance -347.932 / 454.566 -309.006 / -309.006 Weight last 48 hrs Weight 105 kg Weight 105 kg Weight 104.5 kg Weight 117.934 kg Physical Exam Narrative: General: intubated, sedated HEENT: PERRLA, pupils bilaterally equal and reactive Chest: Normal vesicular breath sounds, no added sounds, equal good air entry bilaterally CVS: S1-S2 regular, no murmurs, no tachycardia, no gallops, no rubs Abdomen: Soft, nontender, no organomegaly, bowel sounds present Neuro: No focal deficits, no facial deformity, intubated, sedated Urinary Catheter Management: Solomon: Cath Placed During This Visit: yes Reason for Continuing Indwelling Catheter: Accurate Measurement of Urinary Output in Critically Ill Patients Urinary Catheter Date of Insertion: 12/09/24 Data 12/10/24 04:33 12/10/24 04:33 Micro: Microbiology 12/09/24 13:30 Gram Stain - Final Sputum - Endotracheal Tube Aspirate Sputum Culture - Final Moraxella catarrhalis 12/09/24 10:48 Urine Culture - Preliminary Urine,Clean Catch 12/09/24 09:58 Blood Culture - Preliminary Blood NEGATIVE TO DATE 12/09/24 09:57 Blood Culture - Preliminary Blood NEGATIVE TO DATE A&P Assessment and plan (1) Acute on chronic respiratory failure with hypoxia and hypercapnia: In setting of RSV infection leading to COPD exacerbation. Persistent respiratory acidosis with hypercapnia. Patient intubated. Patient requiring slightly higher oxygen supplementation today. Appreciate ABG. Maintain sedation with propofol and fentanyl for now. MRSA swab negative, follow-up blood culture. Sputum culture growing Moraxella. Discontinue vancomycin. Continue with Zosyn. Add azithromycin. Solu-Medrol 40 mg every 6 hour. Pulmicort twice daily, ipratropium, Xopenex every 6 hours Recent echocardiogram showed an EF of 66% without regional wall motion abnormality, bilateral atrial enlargement. Strict input and output charting, daily weights. (2) Respiratory syncytial virus (RSV): (3) COPD exacerbation: (4) Respiratory acidosis: Resolved. Appreciate ABG. (5) Chronic kidney disease: Recently have severe acute kidney injury requiring hemodialysis. Creatinine 3.2. Was discharged recently at 3.2 as well. Medical reconciliation done for nephrotoxic drugs. Monitor BMP daily. Solomon catheterization. Strict input output charting, daily weights. Monitor vancomycin random levels. Appreciate urine output. Start on normal saline at 50 cc/h. (6) Diabetes mellitus: Appreciate recent A1c. Continue with home dose of Lantus 15 units every morning. Insulin sliding scale low-dose protocol every 6 hours. (7) Bradycardia: Recent admission for significant bradycardia on Cardizem. Discharged on amiodarone. Continue with 100 mg oral amiodarone daily. Hold off on Cardizem. Monitor heart rate. Plan A-fib with RVR: Continue with amiodarone as above. Takes Eliquis 2.5 mg twice daily at home. For now switch over to Lovenox 1 mg/kg body weight daily as per creatinine clearance. Continue other chronic medications including mirtazapine, Flomax, fluoxetine Anesthesia: Sedation propofol and fentanyl Glycemic control: Glargine 15 units every morning, insulin sliding scale low-dose protocol every 6 hour Nutrition: N.p.o. if continued concern remain n.p.o. for next 24 to 48 hours we will plan to start on tube feeds. CODE STATUS: Discussed in detail with patient's DPOA Mr. Hinojosa in person. He does not want any kind of chest compressions but is okay with mechanical ventilation for respiratory failure. Limited resuscitation to mechanical ventilation only. PUD prophylaxis: Protonix 40 mg IV daily DVT prophylaxis: Full dose Lovenox 1 mg/kg body weight daily as per creatinine clearance Discharge planning: Back to SNF once patient is medically stable Continue care at ICU. This documentation was created by [employer] resource management specialist software. Every effort was made to ensure accuracy of resource management specialist. Any obvious errors or omissions should be clarified with the author of the document. Attestations Medical Necessity Statement*: Requires further hospitalization for management of hypercapnic and hypoxic respiratory failure with acidosis in setting of RSV, pneumonia in a patient with history of CKD, recent admission for bradycardia, cardiogenic shock Critical Care Time: The high probability of a clinically significant, sudden or life threatening deterioration of the patient's [pulmonary, renal, cardiac] system(s) required my full and direct attention, intervention and personal management. The critical care time is as shown. This time is in addition to time spent performing any reported procedures but includes the following: [x] Data and vital sign review and interpretation [x] Patient assessment, examination and intervention [x] Documentation [x] Medication orders and management Critical Care Time (min): 80 Coding Level of Care Code Critical Care >/= 30 minutes Critical care time (in minutes): 80 The high probability of a clinically significant, sudden or life threatening deterioration, as referenced in this documentation, required my full and direct attention, intervention and personal management. The critical care time shown is in addition to time spent performing any reported separately billable procedures and includes the following: [x] Data and vital sign review and interpretation [x] Patient assessment, examination and intervention [x] Medication orders and management [x] Patient/Family updates as able [x] Care Coordination and Documentation. Other Coding Information This patient has a high probability of clinically significant, sudden or life threatening deterioration of the patient's (neurological/pulmonary/cardiac/renal/ID/endocrine) systems required my full, direct attention, the highest level of physician preparedness for urgent intervention and personal management. I managed/supervised life or organ supporting interventions that required frequent physician assessment. I devoted my full attention in the ICU to the direct care of this patient for the period of time indicated above. Time I spent with family or surrogate(s) is included only if the patient was incapable of providing necessary information or participating in decision making. This time includes the following services provided: Telemetry review Mechanical Ventilation Hemodynamic interpretation, assessment and management Review and interpretation of CXR Review and interpretation of lab values Review and interpretation of microbiologic data and culture results Review of medications and administration Review and interpretation of Nutrition requirements and management Discussion of management with other consultants and services Clinical update to family members Diagnoses Acute on chronic respiratory failure with hypoxia and hypercapnia J96.21; J96.22 Respiratory syncytial virus (RSV) B33.8 COPD exacerbation J44.1 Respiratory acidosis E87.29 Chronic kidney disease N18.9 Diabetes mellitus E11.9 Bradycardia R00.1
[2024-12-10] MEDS: sodium chloride 0.9% 1,000 ML 50 ML IV (15:57)
[2024-12-10] MEDS: atorvastatin 40 mg Tablet PO (17:52)
[2024-12-10 21:38] LABS: Glucose Point of Care 229 mg/dL (70-110)
[2024-12-11] VITALS (90 sets, daily range): BP systolic 116–179; BP diastolic 53–89; PULSE 65–95; RESP 6–16; TEMP 36.3–36.8; O2SAT 74–100
[2024-12-11] MEDS: methylPREDNISolone sod succ 40 mg/mL INJ IVP ×4 (00:30→17:15)
[2024-12-11] MEDS: propofol 1,000 MG/100 ML INJ 18.81 MG IV ×4 (00:30→20:26)
[2024-12-11] MEDS: levalbuterol 0.63 mg/3 mL Neb INHALATION ×4 (02:07→19:26)
[2024-12-11] MEDS: ipratropium 0.5 mg/2.5 mL Neb INHALATION ×4 (02:07→19:26)
[2024-12-11 02:48] LABS: Glucose Point of Care 221 mg/dL (70-110)
[2024-12-11] MEDS: insulin lispro 100 unit/1 mL SUBCUT ×4 (03:16→21:14)
[2024-12-11 05:10] LABS: Basophils % 0.1 %; Hematocrit 30.1 % (37-53); Lymphocytes # 0.4 10^3/uL (0.8-4.8); Lymphocytes % 4.2 %; Mean Corpuscular HGB Conc 29.6 g/dL (30-55); Mean Corpuscular Hemoglobin 29.9 pg (27-33); Mean Platelet Volume 11.8 fL (7.4-10.4); Monocytes # 0.3 10^3/uL (0.2-0.9); Monocytes % 3.4 %; Neutrophils % 91.2 %; Nucleated Red Blood Cells % 0.2 %; Platelet Count 138 10^3/cmm (157-399); Red Blood Count 2.98 10^6/uL (3.85-5.65); Red Cell Distribution Width 14.4 % (12.1-15.1)
[2024-12-11] MEDS: piperacillin-tazobactam 3.375 GM in sodium chloride 0.9% (plus) 50 ML IV ×3 (05:25→21:14)
[2024-12-11 05:28] LABS: Alanine Aminotransferase 33 U/L (0-41); Albumin Level 3.2 g/dL (3.5-5.2); Alkaline Phosphatase 80 U/L (40-130); Anion Gap 21.7 (5-19); Aspartate Amino Transferase 9 U/L (0-40); Blood Urea Nitrogen 63 mg/dL (8-23); Calcium 8.8 mg/dL (8.5-10.5); Carbon Dioxide 22 mmol/L (22-29); Chloride 105 mmol/L (98-107); Creatinine Clr Calc Pharmacy 27.0578; Globulin 2.2 g/dL (1.3-4.6); Glucose 194 mg/dL (65-115); Magnesium 1.8 mg/dL (1.7-2.3); Osmolality Calculated 321 mOsm/kg (285-295); Phosphorus 4.3 mg/dL (2.5-4.5); Potassium 4.7 mmol/L (3.5-5.1); Sodium 144 mmol/L (136-145); Total Bilirubin 0.3 mg/dL (0.15-1.2); Total Protein 5.4 g/dL (6.6-8.7)
[2024-12-11 05:30] LABS: Vancomycin Random 21.4 ug/mL (20.0-40.0)
--- NOTE | 2024-12-11 06:00 | XRR_ITS ---
PROCEDURE INFORMATION: Exam: XR Chest Exam date and time: 12/11/2024 6:18 AM Age: 74 years old Clinical indication: Device placement; Ett placement (vent status); Patient HX: F/u resp failure. Intubated. Rsv positive. TECHNIQUE: Imaging protocol: Radiologic exam of the chest. Views: 1 view. COMPARISON: CR (CHEST, ) 12/10/2024 5:53 AM FINDINGS: Tubes, catheters and devices: Endotracheal tube and nasogastric tube in place. Lungs: Patchy infiltrates in the lung bases. Pleural spaces: Unremarkable. No pleural effusion. No pneumothorax. Heart/Mediastinum: Unremarkable. No cardiomegaly. Bones/joints: Unremarkable. XR/XR chest 1V portable [id number] IMPRESSION: 1. Endotracheal tube and nasogastric tube in satisfactory position. 2. Patchy infiltrates in the lung bases.
[2024-12-11] MEDS: budesonide 0.5 mg/2 mL Neb INHALATION ×2 (07:36→19:26)
[2024-12-11 08:26] LABS: Glucose Point of Care 195 mg/dL (70-110)
[2024-12-11 08:28] LABS: ABG PCO2 59.8 mmHg (35-45); Alveolar-Arterial Oxygen Gradi 17.7 mmHg (5-10); Arterial Blood Gas Hematocrit 29.3 % (42-52); Base Excess ABG -4.9 mmol/L (-2.0-2.0); Blood Gas Allen Test Pos; Blood Gas Operator Identificat GD; Blood Gas Sample Site Radial, left; Blood Gas Sample Type Arterial; Carboxyhemoglobin 0.8 %THgb (0.4-20.1); HCO3 ABG 23.4 mmol/L (22-26); HGB O2 Sat 92.6 % (95-100); Ionized Calcium Level - ABG 1.2 mmol/L (1.1-1.4); Methemoglobin 1.2 % (0.4-1.5); Oxygen Device VENT; Oxygen Saturation ABG 94.5; PO2 ABG 78.8 mmHg (80.0-100.0); PO2 FiO2 Ratio Arterial Blood 197; Potassium Level - ABG 4.6 mmol/L (3.5-5.0); Total Hemoglobin 9.6 g/dL (14-18)
[2024-12-11] MEDS: aspirin 81 mg EC Tablet PO (08:32)
[2024-12-11] MEDS: docusate sodium 100 mg Capsule PO ×2 (08:32→17:15)
[2024-12-11] MEDS: fluoxetine 20 mg Capsule PO (08:32)
[2024-12-11] MEDS: insulin glargine 100 units/1 mL 15 UNIT SUBCUT (08:32)
[2024-12-11] MEDS: amiodarone 200 mg Tablet 100 MG PO (08:32)
[2024-12-11] MEDS: mirtazapine 30 mg Tablet PO (08:32)
[2024-12-11] MEDS: tamsulosin 0.4 mg Capsule PO (08:32)
[2024-12-11] MEDS: fentaNYL 1,000 MCG/100 ML BAG 10 MCG IV ×2 (08:36→21:46)
[2024-12-11] MEDS: sodium chloride 0.9% 1,000 ML 50 ML IV (08:43)
[2024-12-11] MEDS: amlodipine 5 mg Tablet PO (09:26)
[2024-12-11] MEDS: enoxaparin 120 mg/0.8 mL Syringe 110 MG SUBCUT (12:20)
[2024-12-11] MEDS: pantoprazole 40 mg SDV IVP (12:20)
[2024-12-11 15:10] LABS: Glucose Point of Care 216 mg/dL (70-110)
--- NOTE | 2024-12-11 16:05 | PC.SOCIAL ---
IMM updated IMM dated and initialed, copy given to patient and copy placed in chart.
--- NOTE | 2024-12-11 16:12 | P.PN_ITS ---
Subjective 2 Subjective: No acute events overnight. Patient has remained hemodynamically stable and afebrile. Saturating more than 90%. Currently on ventilator setting of tidal volume of 500, FiO2 of 40%, PEEP of 8. Tidal volume changed to 600 after ABG. Appreciate urine output. Vitals/I&O/Wt Last Vital Signs Temp 97.9 F 12/11/24 12:00 Pulse 87 12/11/24 14:00 Resp 16 12/11/24 14:58 BP 160/82 12/11/24 13:15 Pulse Ox 92 12/11/24 14:58 O2 Del Method Mechanical Ventilation 12/11/24 13:59 O2 Flow Rate 4 12/09/24 09:16 FiO2 40 12/11/24 14:58 12/11/24 12/11/24 12/11/24 06:59 14:59 22:59 Intake Total 358.75 / 531.876 4059.054 / 1080.054 Output Total 150 / 1150 Balance 208.75 / -861.019 1252.054 / 1080.054 Weight last 48 hrs Weight 104.281 kg Weight 105 kg Weight 105 kg Physical Exam 2 Narrative: General: intubated, sedated HEENT: PERRLA, pupils bilaterally equal and reactive Chest: Normal vesicular breath sounds, no added sounds, equal good air entry bilaterally CVS: S1-S2 regular, no murmurs, no tachycardia, no gallops, no rubs Abdomen: Soft, nontender, no organomegaly, bowel sounds present Neuro: No focal deficits, no facial deformity, intubated, sedated Urinary Catheter Management: Solomon: Cath Placed During This Visit: yes Reason for Continuing Indwelling Catheter: Accurate Measurement of Urinary Output in Critically Ill Patients Urinary Catheter Date of Insertion: 12/09/24 Data 12/11/24 04:25 12/11/24 04:25 Micro: Microbiology 12/09/24 10:48 Urine Culture - Final Urine,Clean Catch 12/09/24 13:30 Gram Stain - Final Sputum - Endotracheal Tube Aspirate Sputum Culture - Final Moraxella catarrhalis A&P Assessment and plan (1) Acute on chronic respiratory failure with hypoxia and hypercapnia: In setting of RSV infection leading to COPD exacerbation. Persistent respiratory acidosis with hypercapnia. Patient intubated. Patient requiring slightly higher oxygen supplementation today. Appreciate ABG. Maintain sedation with propofol and fentanyl for now. MRSA swab negative, follow-up blood culture. Sputum culture growing Moraxella. Discontinue vancomycin. Continue with Zosyn. Add azithromycin. Solu-Medrol 40 mg every 6 hour. Pulmicort twice daily, ipratropium, Xopenex every 6 hours Recent echocardiogram showed an EF of 66% without regional wall motion abnormality, bilateral atrial enlargement. Strict input and output charting, daily weights. (2) Respiratory syncytial virus (RSV): (3) COPD exacerbation: (4) Respiratory acidosis: Resolved. Appreciate ABG. (5) Chronic kidney disease: Recently have severe acute kidney injury requiring hemodialysis. Creatinine 3.2. Was discharged recently at 3.2 as well. Medical reconciliation done for nephrotoxic drugs. Monitor BMP daily. Solomon catheterization. Strict input output charting, daily weights. Monitor vancomycin random levels. Appreciate urine output. Start on normal saline at 50 cc/h. (6) Diabetes mellitus: Appreciate recent A1c. Continue with home dose of Lantus 15 units every morning. Insulin sliding scale low-dose protocol every 6 hours. (7) Bradycardia: Recent admission for significant bradycardia on Cardizem. Discharged on amiodarone. Continue with 100 mg oral amiodarone daily. Hold off on Cardizem. Monitor heart rate. Plan A-fib with RVR: Continue with amiodarone as above. Takes Eliquis 2.5 mg twice daily at home. For now switch over to Lovenox 1 mg/kg body weight daily as per creatinine clearance. Continue other chronic medications including mirtazapine, Flomax, fluoxetine Anesthesia: Sedation propofol and fentanyl Glycemic control: Glargine 15 units every morning, insulin sliding scale low- dose protocol every 6 hour Nutrition: Starting tube feeds with Nepro at 10 cc/h, increase 10 cc every 4 hour with goal of 50 cc. Free water flushes 100 cc every 6. CODE STATUS: Discussed in detail with patient's DPOA Mr. Hinojosa in person. He does not want any kind of chest compressions but is okay with mechanical ventilation for respiratory failure. Limited resuscitation to mechanical ventilation only. PUD prophylaxis: Protonix 40 mg IV daily DVT prophylaxis: Full dose Lovenox 1 mg/kg body weight daily as per creatinine clearance Discharge planning: Back to SNF once patient is medically stable Continue care at ICU. Plan for the day: Sedation vacation. Will plan to wean for possible extubation. If not able to extubate will plan to put patient on CPAP mode. Unfortunately patient did not tolerate CPAP mode. Had episodes of apnea even on fentanyl only of 25 without any propofol or Precedex. Patient though worked without apnea for over an hour. Placed back on 10 of propofol and fentanyl 75. Plan for repeat ABG. Follow-up blood culture, sputum culture. Sputum culture growing Moraxella. Add azithromycin. Continue with Zosyn. For now continue with Solu-Medrol. Wean to 40 mg every 8 hourly. Continue with gentle IV hydration with normal saline at 50 cc/h. Blood pressure slightly elevated. Add amlodipine 5 mg oral daily. Monitor BMP daily. Creatinine stable at around 3. Mild uremia today. Continue to monitor. Start on tube feeds with Nepro 10 cc/h, increasing 10 cc every 4 hours with goal of 50 cc. Free water flushes 100 every 6 hours. Will consult dietitian. This documentation was created by [employer] harvesting manager software. Every effort was made to ensure accuracy of harvesting manager. Any obvious errors or omissions should be clarified with the author of the document. Attestations 2 Medical Necessity Statement*: Requires further hospitalization for management of respiratory failure, mechanical ventilation with respiratory and metabolic acidosis in setting of COPD exacerbation, RSV, pneumonia, AIDA on CKD Critical Care Time: The high probability of a clinically significant, sudden or life threatening deterioration of the patient's [cardiac, pulmonary, renal] system(s) required my full and direct attention, intervention and personal management. The critical care time is as shown. This time is in addition to time spent performing any reported procedures but includes the following: [x] Data and vital sign review and interpretation [x] Patient assessment, examination and intervention [x] Documentation [x] Medication orders and management Critical Care Time (min): 80 Coding Level of Care Code Critical Care >/= 30 minutes Critical care time (in minutes): 80 The high probability of a clinically significant, sudden or life threatening deterioration, as referenced in this documentation, required my full and direct attention, intervention and personal management. The critical care time shown is in addition to time spent performing any reported separately billable procedures and includes the following: [x] Data and vital sign review and interpretation [x ] Patient assessment, examination and intervention [x] Medication orders and management [x] Patient/Family updates as able [x] Care Coordination and Documentation. Other Coding Information This patient has a high probability of clinically significant, sudden or life threatening deterioration of the patient's (neurological/pulmonary/cardiac/renal/ID/endocrine) systems required my full, direct attention, the highest level of physician preparedness for urgent intervention and personal management. I managed/supervised life or organ supporting interventions that required frequent physician assessment. I devoted my full attention in the ICU to the direct care of this patient for the period of time indicated above. Time I spent with family or surrogate(s) is included only if the patient was incapable of providing necessary information or participating in decision making. This time includes the following services provided: Telemetry review Mechanical Ventilation Hemodynamic interpretation, assessment and management Review and interpretation of CXR Review and interpretation of lab values Review and interpretation of microbiologic data and culture results Review of medications and administration Review and interpretation of Nutrition requirements and management Discussion of management with other consultants and services Clinical update to family members Diagnoses Acute on chronic respiratory failure with hypoxia and hypercapnia J96.21; J96.22 Respiratory syncytial virus (RSV) B33.8 COPD exacerbation J44.1 Respiratory acidosis E87.29 Chronic kidney disease N18.9 Diabetes mellitus E11.9 Bradycardia R00.1
[2024-12-11 16:54] LABS: ABG PCO2 49.9 mmHg (35-45); ABG PH Result 7.26 (7.35-7.45); Alveolar-Arterial Oxygen Gradi 18.8 mmHg (5-10); Arterial Blood Gas Hematocrit 30.4 % (42-52); Base Excess ABG -4.5 mmol/L (-2.0-2.0); Blood Gas Allen Test Pos; Blood Gas Operator Identificat GD; Blood Gas Sample Site Radial, left; Blood Gas Sample Type Arterial; Carboxyhemoglobin 0.8 %THgb (0.4-20.1); HCO3 ABG 22.5 mmol/L (22-26); HGB O2 Sat 94.5 % (95-100); Ionized Calcium Level - ABG 1.2 mmol/L (1.1-1.4); Methemoglobin 0.8 % (0.4-1.5); Oxygen Device VENT; PO2 ABG 80.1 mmHg (80.0-100.0); PO2 FiO2 Ratio Arterial Blood 200; Potassium Level - ABG 4.5 mmol/L (3.5-5.0); Total Hemoglobin 9.9 g/dL (14-18)
[2024-12-11] MEDS: azithromycin 250 mg Tablet 500 MG PO (17:15)
[2024-12-11] MEDS: atorvastatin 40 mg Tablet PO (17:15)
--- NOTE | 2024-12-11 19:36 | PC.NURSE ---
Fentanyl running at 75 mcg/min @1900 shift change. Adjusted in MAR to reflect current rate.
--- NOTE | 2024-12-11 19:38 | PC.NURSE ---
Propofol running at 25 mcg/kg/min @ 1900 shift change. Adjusted in MAR to reflect current rate.
--- NOTE | 2024-12-11 19:39 | PC.NURSE ---
Fentanyl running at 75 mcg/hr @ 1900 shift change. Adjusted in MAR to reflect current rate.
[2024-12-11 21:11] LABS: Glucose Point of Care 200 mg/dL (70-110)
--- NOTE | 2024-12-11 21:49 | PC.NURSE ---
Waste Wasted 10 mls of fentanyl. Witnessed by PAVITHRA Case.
[2024-12-12] VITALS (59 sets, daily range): BP systolic 118–166; BP diastolic 48–77; PULSE 65–91; RESP 8–16; TEMP 36.3–37.2; O2SAT 90–98; BMI 29.8
[2024-12-12] MEDS: propofol 1,000 MG/100 ML INJ 18.81 MG IV (00:37)
[2024-12-12] MEDS: methylPREDNISolone sod succ 40 mg/mL INJ IVP ×4 (00:38→16:57)
[2024-12-12] MEDS: levalbuterol 0.63 mg/3 mL Neb INHALATION ×4 (01:36→19:46)
[2024-12-12] MEDS: ipratropium 0.5 mg/2.5 mL Neb INHALATION ×4 (01:36→19:46)
[2024-12-12 03:23] LABS: Glucose Point of Care 206 mg/dL (70-110)
[2024-12-12] MEDS: insulin lispro 100 unit/1 mL SUBCUT ×4 (03:27→21:46)
[2024-12-12 04:17] LABS: Basophils % 0.1 %; Hematocrit 29.1 % (37-53); Lymphocytes # 0.4 10^3/uL (0.8-4.8); Lymphocytes % 5.3 %; Mean Corpuscular HGB Conc 29.2 g/dL (30-55); Mean Corpuscular Hemoglobin 29.6 pg (27-33); Mean Corpuscular Volume 101.4 fl (82-101); Monocytes # 0.3 10^3/uL (0.2-0.9); Monocytes % 3.4 %; Neutrophils # 6.69 10^3/uL (1.8-7.7); Neutrophils % 88.8 %; Nucleated Red Blood Cells % 0.3 %; Platelet Count 147 10^3/cmm (157-399); Red Blood Count 2.87 10^6/uL (3.85-5.65); Red Cell Distribution Width 14.7 % (12.1-15.1); White Blood Count 7.54 10^3/uL (3.29-11.43)
[2024-12-12 04:34] LABS: Vancomycin Random 17.3 ug/mL (20.0-40.0)
[2024-12-12 04:42] LABS: Alanine Aminotransferase 27 U/L (0-41); Albumin Level 3.2 g/dL (3.5-5.2); Alkaline Phosphatase 68 U/L (40-130); Anion Gap 23.2 (5-19); Aspartate Amino Transferase 13 U/L (0-40); Carbon Dioxide 20 mmol/L (22-29); Chloride 105 mmol/L (98-107); Creatinine Clr Calc Pharmacy 23.1193; Globulin 1.9 g/dL (1.3-4.6); Glucose 212 mg/dL (65-115); Magnesium 1.9 mg/dL (1.7-2.3); Osmolality Calculated 327 mOsm/kg (285-295); Phosphorus 5.1 mg/dL (2.5-4.5); Potassium 5.2 mmol/L (3.5-5.1); Sodium 143 mmol/L (136-145); Total Bilirubin 0.2 mg/dL (0.15-1.2); Total Protein 5.1 g/dL (6.6-8.7)
[2024-12-12 04:50] LABS: Blood Urea Nitrogen 82 mg/dL (8-23)
[2024-12-12] MEDS: piperacillin-tazobactam 3.375 GM in sodium chloride 0.9% (plus) 50 ML IV ×3 (05:13→21:46)
[2024-12-12] MEDS: sodium chloride 0.9% 1,000 ML 50 ML IV (05:14)
[2024-12-12 05:23] LABS: ABG PCO2 54.9 mmHg (35-45); ABG PH Result 7.21 (7.35-7.45); Alveolar-Arterial Oxygen Gradi 15.7 mmHg (5-10); Arterial Blood Gas Hematocrit 34.9 % (42-52); Base Excess ABG -6.4 mmol/L (-2.0-2.0); Blood Gas Allen Test Pos; Blood Gas Operator Identificat JDB; Blood Gas Sample Site Radial, left; Blood Gas Sample Type Arterial; Carboxyhemoglobin 0.8 %THgb (0.4-20.1); HCO3 ABG 21.8 mmol/L (22-26); Ionized Calcium Level - ABG 1.2 mmol/L (1.1-1.4); Methemoglobin 1.3 % (0.4-1.5); Oxygen Device VENT; PO2 ABG 97.1 mmHg (80.0-100.0); PO2 FiO2 Ratio Arterial Blood 242; Potassium Level - ABG 4.7 mmol/L (3.5-5.0); Total Hemoglobin 11.4 g/dL (14-18)
--- NOTE | 2024-12-12 06:00 | XRR_ITS ---
PROCEDURE INFORMATION: Exam: XR Chest Exam date and time: 12/12/2024 4:45 AM Age: 74 years old Clinical indication: Other: Intubation; Additional info: Intubated TECHNIQUE: Imaging protocol: Radiologic exam of the chest. Views: 1 view. COMPARISON: CR XR chest 1V portable [id number] 12/11/2024 6:18 AM FINDINGS: Tubes, catheters and devices: Nasogastric tube is present with its tip below the level of the film. Endotracheal tube is present with its tip below the clavicles but 8 cm above the corazon. Consider advancement by 4 cm. Lungs: Unremarkable. No consolidation. The lung bases are better aerated on today's exam when compared to prior exam. Pleural spaces: Unremarkable. No pleural effusion. No pneumothorax. Heart/Mediastinum: The heart is slightly enlarged. There is calcified plaque involving the aorta. Bones/joints: Unremarkable. XR/XR chest 1V portable [id number] IMPRESSION: 1. Lines and tubes as above. Consider advancement of endotracheal tube. 2. Cardiomegaly.
[2024-12-12] MEDS: propofol 1,000 MG/100 ML INJ 12.54 MG IV (06:10)
[2024-12-12 08:07] LABS: Glucose Point of Care 209 mg/dL (70-110)
[2024-12-12] MEDS: amiodarone 200 mg Tablet 100 MG PO (08:18)
[2024-12-12] MEDS: azithromycin 250 mg Tablet 500 MG PO (08:19)
[2024-12-12] MEDS: tamsulosin 0.4 mg Capsule PO (08:19)
[2024-12-12] MEDS: amlodipine 5 mg Tablet PO (08:19)
[2024-12-12] MEDS: mirtazapine 30 mg Tablet PO (08:19)
[2024-12-12] MEDS: fluoxetine 20 mg Capsule PO (08:19)
[2024-12-12] MEDS: docusate sodium 100 mg Capsule PO ×2 (08:19→16:58)
[2024-12-12] MEDS: aspirin 81 mg EC Tablet PO (08:19)
[2024-12-12] MEDS: insulin glargine 100 units/1 mL 15 UNIT SUBCUT (08:20)
[2024-12-12] MEDS: fentaNYL 1,000 MCG/100 ML BAG 5 MCG IV (08:24)
[2024-12-12] MEDS: budesonide 0.5 mg/2 mL Neb INHALATION ×2 (08:25→19:46)
[2024-12-12 10:20] LABS: ABG PCO2 48.4 mmHg (35-45); ABG PH Result 7.26 (7.35-7.45); Blood Gas Allen Test Pos; Blood Gas Sample Site Radial, left; Blood Gas Sample Type Arterial; HCO3 ABG 21.9 mmol/L (22-26); HGB O2 Sat 90.1 % (95-100); Ionized Calcium Level - ABG 1.2 mmol/L (1.1-1.4); Methemoglobin 1.5 % (0.4-1.5); Oxygen Saturation ABG 92.4; PO2 ABG 67.2 mmHg (80.0-100.0); Potassium Level - ABG 4.7 mmol/L (3.5-5.0); Total Hemoglobin 9.1 g/dL (14-18)
[2024-12-12 10:22] LABS: Alveolar-Arterial Oxygen Gradi 20.6 mmHg (5-10); Blood Gas Operator Identificat GD; Oxygen Device VENT; PO2 FiO2 Ratio Arterial Blood 168
[2024-12-12] MEDS: pantoprazole 40 mg SDV IVP (12:30)
[2024-12-12] MEDS: enoxaparin 120 mg/0.8 mL Syringe 110 MG SUBCUT (12:30)
--- NOTE | 2024-12-12 13:23 | P.PN_ITS ---
Subjective 2 Subjective: Patient reportedly failed his breathing trial yesterday. He was altered and did not follow commands. Overnight, there were no reported acute events. This morning he remains intubated and sedated which limits history from patient. Medications: Reviewed: Yes Vitals/I&O/Wt Last Vital Signs Temp 98.1 F 12/12/24 08:00 Pulse 78 12/12/24 13:10 Resp 11 L 12/12/24 13:10 BP 163/72 12/12/24 08:30 Pulse Ox 95 12/12/24 13:10 O2 Del Method Mechanical Ventilation 12/12/24 13:10 O2 Flow Rate 4 12/09/24 09:16 FiO2 40 12/12/24 13:10 12/11/24 12/12/24 12/12/24 22:59 06:59 14:59 Intake Total 178.597 / 4638.991 1099.667 / 2607.184 63.25 / 63.25 Output Total 450 / 450 Balance 178.597 / 1278.517 878.667 / 2157.184 63.25 / 63.25 Weight last 48 hrs Weight 105.5 kg Weight 104.281 kg Physical Exam 2 Narrative: General: Patient is intubated and sedated. Head: Normocephalic. Atraumatic. Neck: No JVD. Cardiovascular: RRR. No gallops. No murmurs. Hypertensive. Lungs: Breath sounds are diminished. Breath sounds are coarse throughout lung irizarry. Intubated on mechanical ventilation. Skin: No jaundice. No rashes. Abdomen: Hypoactive bowel sounds, abdomen soft. Genito Urinary: Catheter. Rectal: Rectal exam not performed since no symptoms indicated blood loss. Extremities: No cyanosis or clubbing. Musculoskeletal: No erythematous joints. Neurological: No myoclonus. Urinary Catheter Management: Solomon: Cath Placed During This Visit: yes Reason for Continuing Indwelling Catheter: Accurate Measurement of Urinary Output in Critically Ill Patients Urinary Catheter Date of Insertion: 12/09/24 Data 12/12/24 03:17 12/12/24 03:17 Micro: Microbiology 12/09/24 10:48 Urine Culture - Final Urine,Clean Catch A&P Assessment and plan (1) Respiratory failure: Acute on chronic hypoxic hypercapnic respiratory failure Intubated 12/09 Chest x-ray reviewed, ET tube will need repositioned Failed breathing trial 12/11 Repeat breathing trial today Continue propofol/fentanyl for sedation/analgesia Continue bowel regiment GI and DVT prophylaxis Start trickle feeds today (2) Pneumonia: Respiratory culture with Moraxella catarrhalis Continue Zosyn and azithromycin Optimize respiratory status (3) Respiratory syncytial virus (RSV): Droplet/contact precautions (4) COPD exacerbation: Continue systemic steroids with Solu-Medrol Continue inhaled steroids with Pulmicort Continue scheduled breathing treatments Optimize respiratory status (5) Chronic kidney disease: Patient with advanced kidney disease at baseline He is currently net +2.5 L since admission BUN/creatinine are worsening Will start Lasix drip today Strict I's and O's, daily weights Monitoring renal status closely, may need nephrology consult (6) Acute metabolic encephalopathy: Patient is currently sedated, noted to be encephalopathic during breathing trials Avoid further sedating medications Will monitor mentation today during trial as well (7) Diabetes mellitus: Continue Lantus Sliding-scale insulin correction every 6 hours Avoid hypoglycemia (8) Hypertension: Blood pressure elevated Continue Norvasc (9) Bradycardia: History of bradycardia while on Cardizem Continue home amiodarone Plan DVT prophylaxis: Lovenox Attestations 2 Medical Necessity Statement*: Patient requires ongoing hospitalization for ventilator support, IV antibiotics, IV diuresis, breathing treatments, and life support measures. Critical Care Time: The high probability of a clinically significant, sudden or life threatening deterioration of the patient's respiratory, neuro system(s) required my full and direct attention, intervention and personal management. The critical care time is as shown. This time is in addition to time spent performing any reported procedures but includes the following: [x] Data and vital sign review and interpretation [x] Patient assessment, examination and intervention [x] Documentation [x] Medication orders and management Critical Care Time (min): 60 Coding Level of Care Code Acute Code for [facility] Diagnoses Respiratory failure J96.90 Pneumonia J18.9 Respiratory syncytial virus (RSV) B33.8 COPD exacerbation J44.1 Chronic kidney disease N18.9 Acute metabolic encephalopathy G93.41 Diabetes mellitus E11.9 Hypertension I10 Bradycardia R00.1
--- NOTE | 2024-12-12 13:38 | PC.NUTR ---
Consult for TF recommendations received. When medically appropriate, recommend Nepro 1.8 continuous feed to begin @10mls/hr increasing as tolerated 15mls Q8H until goal rate of 40mls/hr is reached with FWF of 120mls Q4H or per MD discretion.
[2024-12-12 14:02] LABS: Glucose Point of Care 211 mg/dL (70-110)
[2024-12-12] MEDS: FUROsemide 100 MG in sodium chloride 0.9% 40 ML IV (14:35)
[2024-12-12] MEDS: propofol 1,000 MG/100 ML INJ 15.68 MG IV (14:43)
[2024-12-12] MEDS: atorvastatin 40 mg Tablet PO (16:58)
[2024-12-12] MEDS: polyethylene glycol 3350 Pkt 17 gm PO (16:58)
[2024-12-12] MEDS: sennosides 8.6 mg Tablet 17.2 MG PO (16:58)
[2024-12-12 17:38] LABS: Albumin Level 3.1 g/dL (3.5-5.2); Blood Urea Nitrogen 75 mg/dL (8-23); Calcium 8.3 mg/dL (8.5-10.5); Carbon Dioxide 18 mmol/L (22-29); Chloride 105 mmol/L (98-107); Creatinine Clr Calc Pharmacy 24.6519; Glucose 200 mg/dL (65-115); Phosphorus 5.4 mg/dL (2.5-4.5); Sodium 143 mmol/L (136-145)
[2024-12-12 17:40] LABS: Anion Gap 25.4 (5-19); Potassium 5.4 mmol/L (3.5-5.1)
[2024-12-12] MEDS: sodium polystyrene sulfonate 15 gm/60 mL Btl NG-TUBE (18:59)
--- NOTE | 2024-12-12 19:37 | PC.NURSE ---
Propofol running at 35 mcg/kg/min @1900 shift change. Adjusted in MAR to reflect current rate.
[2024-12-12] MEDS: propofol 1,000 MG/100 ML INJ 21.95 MG IV ×2 (19:53→23:44)
[2024-12-12] MEDS: FUROsemide 200 MG in sodium chloride 0.9% (100 ml) 80 ML IV (21:09)
[2024-12-12 21:43] LABS: Glucose Point of Care 250 mg/dL (70-110)
[2024-12-12] MEDS: fentaNYL 1,000 MCG/100 ML BAG 7.5 MCG IV (21:46)
[2024-12-13] VITALS (65 sets, daily range): BP systolic 124–190; BP diastolic 53–119; PULSE 67–105; RESP 14–17; TEMP 36.6–37; O2SAT 88–97
[2024-12-13] MEDS: methylPREDNISolone sod succ 40 mg/mL INJ IVP ×4 (00:28→17:51)
[2024-12-13 00:29] LABS: Anion Gap 22.5 (5-19); Calcium 8.1 mg/dL (8.5-10.5); Carbon Dioxide 20 mmol/L (22-29); Chloride 106 mmol/L (98-107); Creatinine Clr Calc Pharmacy 25.4222; Glucose 259 mg/dL (65-115); Phosphorus 5.4 mg/dL (2.5-4.5); Potassium 4.5 mmol/L (3.5-5.1); Sodium 144 mmol/L (136-145)
[2024-12-13 00:34] LABS: Blood Urea Nitrogen 90 mg/dL (8-23)
[2024-12-13] MEDS: levalbuterol 0.63 mg/3 mL Neb INHALATION ×4 (02:06→19:56)
[2024-12-13] MEDS: ipratropium 0.5 mg/2.5 mL Neb INHALATION ×4 (02:06→19:56)
[2024-12-13 03:33] LABS: Glucose Point of Care 272 mg/dL (70-110)
[2024-12-13] MEDS: propofol 1,000 MG/100 ML INJ 21.95 MG IV ×3 (03:36→21:00)
[2024-12-13] MEDS: insulin lispro 100 unit/1 mL SUBCUT ×4 (03:36→21:04)
[2024-12-13 05:22] LABS: ABG PH Result 7.29 (7.35-7.45); Alveolar-Arterial Oxygen Gradi 19.8 mmHg (5-10); Arterial Blood Gas Hematocrit 35.6 % (42-52); Base Excess ABG -2.7 mmol/L (-2.0-2.0); Blood Gas Allen Test Pos; Blood Gas Operator Identificat JDB; Blood Gas Sample Site Radial, left; Blood Gas Sample Type Arterial; HCO3 ABG 24.3 mmol/L (22-26); HGB O2 Sat 91.2 % (95-100); Ionized Calcium Level - ABG 1.1 mmol/L (1.1-1.4); Methemoglobin 0.7 % (0.4-1.5); Oxygen Device VENT; Oxygen Saturation ABG 92.8; PO2 ABG 70.1 mmHg (80.0-100.0); PO2 FiO2 Ratio Arterial Blood 175; Potassium Level - ABG 4.3 mmol/L (3.5-5.0); Total Hemoglobin 11.6 g/dL (14-18)
[2024-12-13] MEDS: piperacillin-tazobactam 3.375 GM in sodium chloride 0.9% (plus) 50 ML IV ×3 (05:55→22:23)
--- NOTE | 2024-12-13 07:16 | XR_ITS ---
WS: [id number] Exam: XR chest 1V portable [id number] Date/Time of Exam: 12/13/2024 7:52 AM Reason For Exam: Resp failure Comparison 12/12/2024. The lungs are fully expanded and clear. Mild cardiac enlargement unchanged. ET tube remains in good p osition about 6 cm above the corazon. An enteric tube enters the stomach but the tip is out of the fie ld-of-view. No pleural effusion. The mediastinum is normal in contour. Bony structures are intact. XR/XR chest 1V portable [id number] IMPRESSION: 1. Mild cardiac enlargement unchanged. No acute cardiopulmonary finding. 2. ET tube and enteric tube both in satisfactory location.
[2024-12-13 07:59] LABS: Glucose Point of Care 205 mg/dL (70-110)
[2024-12-13] MEDS: budesonide 0.5 mg/2 mL Neb INHALATION ×2 (08:03→19:56)
[2024-12-13] MEDS: azithromycin 250 mg Tablet 500 MG PO (08:12)
[2024-12-13] MEDS: sennosides 8.6 mg Tablet 17.2 MG PO ×2 (08:13→17:52)
[2024-12-13] MEDS: amiodarone 200 mg Tablet 100 MG PO (08:13)
[2024-12-13] MEDS: amlodipine 5 mg Tablet PO (08:13)
[2024-12-13] MEDS: docusate sodium 100 mg Capsule PO ×2 (08:13→17:52)
[2024-12-13] MEDS: aspirin 81 mg EC Tablet PO (08:13)
[2024-12-13] MEDS: tamsulosin 0.4 mg Capsule PO (08:13)
[2024-12-13] MEDS: polyethylene glycol 3350 Pkt 17 gm PO ×2 (08:14→17:52)
[2024-12-13] MEDS: fluoxetine 20 mg Capsule PO (08:14)
[2024-12-13] MEDS: insulin glargine 100 units/1 mL 15 UNIT SUBCUT (08:15)
[2024-12-13] MEDS: fentaNYL 1,000 MCG/100 ML BAG 7.5 MCG IV (10:01)
[2024-12-13] MEDS: dexmedeTOMIDine 0.9 % NaCL 400 MCG/100 ML PREMIX IV (10:04)
[2024-12-13 10:54] LABS: Basophils % 0.2 %; Hematocrit 29.3 % (37-53); Lymphocytes # 0.3 10^3/uL (0.8-4.8); Lymphocytes % 5.1 %; Mean Corpuscular Hemoglobin 29.4 pg (27-33); Mean Platelet Volume 11.8 fL (7.4-10.4); Monocytes # 0.2 10^3/uL (0.2-0.9); Monocytes % 4.1 %; Neutrophils # 4.18 10^3/uL (1.8-7.7); Neutrophils % 85.9 %; Nucleated Red Blood Cells % 0.4 %; Platelet Count 159 10^3/cmm (157-399); Red Blood Count 2.99 10^6/uL (3.85-5.65); Red Cell Distribution Width 14.6 % (12.1-15.1); White Blood Count 4.87 10^3/uL (3.29-11.43)
[2024-12-13] MEDS: propofol 1,000 MG/100 ML INJ 18.81 MG IV (11:02)
[2024-12-13 11:09] LABS: Alanine Aminotransferase 24 U/L (0-41); Albumin Level 3.3 g/dL (3.5-5.2); Alkaline Phosphatase 64 U/L (40-130); Anion Gap 21.6 (5-19); Aspartate Amino Transferase 10 U/L (0-40); Calcium 8.2 mg/dL (8.5-10.5); Carbon Dioxide 23 mmol/L (22-29); Chloride 106 mmol/L (98-107); Globulin 2.3 g/dL (1.3-4.6); Glucose 262 mg/dL (65-115); Magnesium 1.9 mg/dL (1.7-2.3); Osmolality Calculated 341 mOsm/kg (285-295); Potassium 4.6 mmol/L (3.5-5.1); Sodium 146 mmol/L (136-145); Total Bilirubin 0.3 mg/dL (0.15-1.2); Total Protein 5.6 g/dL (6.6-8.7)
[2024-12-13 11:11] LABS: Blood Urea Nitrogen 97 mg/dL (8-23)
[2024-12-13 11:16] LABS: Procalcitonin 0.24 ng/mL (0-0.5)
[2024-12-13 11:21] LABS: Vancomycin Random 14.6 ug/mL (20.0-40.0)
--- NOTE | 2024-12-13 11:51 | PM.PN ---
Subjective Subjective: Patient reportedly failed his breathing trial yesterday. He was altered and did not follow commands. Overnight, there were no reported acute events. This morning he remains intubated and sedated which limits history from patient. Medications: Reviewed: Yes Vitals/I&O/Wt Last Vital Signs Temp 98.6 F 12/13/24 08:00 Pulse 105 H 12/13/24 08:30 Resp 16 12/13/24 11:04 BP 139/66 12/13/24 08:30 Pulse Ox 89 L 12/13/24 11:04 O2 Del Method Mechanical Ventilation 12/13/24 08:00 O2 Flow Rate 4 12/09/24 09:16 FiO2 40 12/13/24 11:04 12/12/24 12/13/24 12/13/24 22:59 06:59 14:59 Intake Total 336.375 / 491.429 603 / 1094.429 241.875 / 241.875 Output Total 800 / 800 1650 / 2450 Balance -463.625 / -308.571 -1047 / -1355.571 241.875 / 241.875 Weight last 48 hrs Weight 103.5 kg Weight 105.5 kg Physical Exam Narrative: General: Patient is intubated and sedated. Head: Normocephalic. Atraumatic. Neck: No JVD. Cardiovascular: RRR. No gallops. No murmurs. Hypertensive. Lungs: Breath sounds are diminished. Breath sounds are coarse throughout lung irizarry. Intubated on mechanical ventilation. Skin: No jaundice. No rashes. Abdomen: Hypoactive bowel sounds, abdomen soft. Genito Urinary: Catheter. Rectal: Rectal exam not performed since no symptoms indicated blood loss. Extremities: No cyanosis or clubbing. Musculoskeletal: No erythematous joints. Neurological: No myoclonus. Urinary Catheter Management: Solomon: Cath Placed During This Visit: yes Reason for Continuing Indwelling Catheter: Accurate Measurement of Urinary Output in Critically Ill Patients Urinary Catheter Date of Insertion: 12/09/24 Data 12/13/24 10:35 12/13/24 10:35 A&P Assessment and plan (1) Respiratory failure: Acute on chronic hypoxic hypercapnic respiratory failure Intubated 12/09 Failed breathing trial 12/11, 12/12 Repeat breathing trial today Continue propofol/fentanyl for sedation/analgesia Continue bowel regiment GI and DVT prophylaxis Continue trickle feeds (2) Pneumonia: Respiratory culture with Moraxella catarrhalis Continue Zosyn and azithromycin Optimize respiratory status (3) Respiratory syncytial virus (RSV): Droplet/contact precautions (4) COPD exacerbation: Continue systemic steroids with Solu-Medrol Continue inhaled steroids with Pulmicort Continue scheduled breathing treatments Optimize respiratory status (5) Chronic kidney disease: Patient with advanced kidney disease at baseline Remains net positive on volume Continue Lasix drip today Strict I's and O's, daily weights Monitoring renal status closely, may need nephrology consult (6) Acute metabolic encephalopathy: Patient is currently sedated, noted to be encephalopathic during breathing trials; reportedly show some improvement Avoid further sedating medications (7) Diabetes mellitus: Continue Lantus Sliding-scale insulin correction every 6 hours Avoid hypoglycemia (8) Hypertension: Continue Norvasc (9) Bradycardia: History of bradycardia while on Cardizem Continue home amiodarone Plan DVT prophylaxis: Lovenox Attestations Medical Necessity Statement*: Patient requires ongoing hospitalization for ventilator support, IV antibiotics, IV diuresis, breathing treatments, and life support measures. Critical Care Time: The high probability of a clinically significant, sudden or life threatening deterioration of the patient's pulmonary, renal, circulatory system(s) required my full and direct attention, intervention and personal management. The critical care time is as shown. This time is in addition to time spent performing any reported procedures but includes the following: [x] Data and vital sign review and interpretation [x] Patient assessment, examination and intervention [x] Documentation [x] Medication orders and management Critical Care Time (min): 45 Coding Level of Care Code Acute Code for [facility] Diagnoses Respiratory failure J96.90 Pneumonia J18.9 Respiratory syncytial virus (RSV) B33.8 COPD exacerbation J44.1 Chronic kidney disease N18.9 Acute metabolic encephalopathy G93.41 Diabetes mellitus E11.9 Hypertension I10 Bradycardia R00.1
[2024-12-13] MEDS: enoxaparin 120 mg/0.8 mL Syringe 110 MG SUBCUT (12:08)
[2024-12-13] MEDS: pantoprazole 40 mg SDV IVP (12:08)
--- NOTE | 2024-12-13 12:23 | PC.SOCIAL ---
IMM Updated Pt is intubated at this time. Provided pt a copy of his IMM. Initialed, dated, & timed a copy & placed in chart.
[2024-12-13 13:58] LABS: Glucose Point of Care 314 mg/dL (70-110)
[2024-12-13] MEDS: FUROsemide 200 MG in sodium chloride 0.9% (100 ml) 80 ML IV (16:25)
[2024-12-13] MEDS: atorvastatin 40 mg Tablet PO (17:51)
[2024-12-13 20:58] LABS: Glucose Point of Care 327 mg/dL (70-110)
[2024-12-14] VITALS (73 sets, daily range): BP systolic 133–181; BP diastolic 61–84; PULSE 63–85; RESP 12–18; TEMP 36.4–36.9; O2SAT 89–98; BMI 29.4
[2024-12-14] MEDS: fentaNYL 1,000 MCG/100 ML BAG 7.5 MCG IV
[2024-12-14] MEDS: propofol 1,000 MG/100 ML INJ 21.95 MG IV ×4 (00:39→13:28)
[2024-12-14] MEDS: methylPREDNISolone sod succ 40 mg/mL INJ IVP ×4 (00:46→17:26)
[2024-12-14] MEDS: ipratropium 0.5 mg/2.5 mL Neb INHALATION ×4 (01:25→20:42)
[2024-12-14] MEDS: levalbuterol 0.63 mg/3 mL Neb INHALATION ×4 (01:25→20:42)
[2024-12-14 03:18] LABS: Glucose Point of Care 305 mg/dL (70-110)
[2024-12-14] MEDS: insulin lispro 100 unit/1 mL SUBCUT ×4 (03:21→20:18)
[2024-12-14 03:38] LABS: ABG PCO2 54.1 mmHg (35-45); ABG PH Result 7.29 (7.35-7.45); Alveolar-Arterial Oxygen Gradi 19.2 mmHg (5-10); Arterial Blood Gas Hematocrit 27.9 % (42-52); Base Excess ABG -0.9 mmol/L (-2.0-2.0); Blood Gas Allen Test Pos; Blood Gas Sample Site Radial, right; Blood Gas Sample Type Arterial; Blood Gas Tidal Volume 0.55; Carboxyhemoglobin 1.1 %THgb (0.4-20.1); HGB O2 Sat 91.9 % (95-100); Ionized Calcium Level - ABG 1.1 mmol/L (1.1-1.4); Methemoglobin 0.5 % (0.4-1.5); Oxygen Device VENT; Oxygen Saturation ABG 93.5; PO2 ABG 71.5 mmHg (80.0-100.0); PO2 FiO2 Ratio Arterial Blood 178; Potassium Level - ABG 4.4 mmol/L (3.5-5.0); Total Hemoglobin 9.1 g/dL (14-18)
--- NOTE | 2024-12-14 04:00 | XRR_ITS ---
PROCEDURE INFORMATION: Exam: XR Chest Exam date and time: 12/14/2024 4:05 AM Age: 74 years old Clinical indication: Dyspnea and shortness of breath; Additional info: Respiratory failure TECHNIQUE: Imaging protocol: Radiologic exam of the chest. Views: 1 view. COMPARISON: CR XR chest 1V portable [id number] 12/13/2024 7:42 AM FINDINGS: Lungs: Mild hypoventilatory changes at the right base. Pleural spaces: Unremarkable. No pleural effusion. No pneumothorax. Heart/Mediastinum: Unremarkable. No cardiomegaly. Bones/joints: Unremarkable. Other findings: Stable life-support. XR/XR chest 1V portable [id number] IMPRESSION: No acute findings.
[2024-12-14 04:44] LABS: Basophils % 0.4 %; Hematocrit 29.2 % (37-53); Lymphocytes # 0.3 10^3/uL (0.8-4.8); Lymphocytes % 6.7 %; Mean Corpuscular HGB Conc 30.1 g/dL (30-55); Mean Corpuscular Hemoglobin 29.8 pg (27-33); Mean Platelet Volume 11.9 fL (7.4-10.4); Monocytes # 0.3 10^3/uL (0.2-0.9); Monocytes % 6.5 %; Neutrophils # 3.77 10^3/uL (1.8-7.7); Neutrophils % 79.1 %; Nucleated Red Blood Cells % 0.6 %; Platelet Count 155 10^3/cmm (157-399); Red Blood Count 2.95 10^6/uL (3.85-5.65); Red Cell Distribution Width 14.5 % (12.1-15.1); White Blood Count 4.77 10^3/uL (3.29-11.43)
[2024-12-14 05:11] LABS: Alanine Aminotransferase 22 U/L (0-41); Alkaline Phosphatase 61 U/L (40-130); Anion Gap 20.6 (5-19); Aspartate Amino Transferase 8 U/L (0-40); Carbon Dioxide 25 mmol/L (22-29); Chloride 106 mmol/L (98-107); Creatinine Clr Calc Pharmacy 24.4364; Globulin 2.5 g/dL (1.3-4.6); Glucose 331 mg/dL (65-115); Magnesium 2.1 mg/dL (1.7-2.3); Osmolality Calculated 352 mOsm/kg (285-295); Phosphorus 6.2 mg/dL (2.5-4.5); Potassium 4.6 mmol/L (3.5-5.1); Sodium 147 mmol/L (136-145); Total Bilirubin 0.3 mg/dL (0.15-1.2); Total Protein 5.5 g/dL (6.6-8.7)
[2024-12-14] MEDS: piperacillin-tazobactam 3.375 GM in sodium chloride 0.9% (plus) 50 ML IV ×3 (05:14→22:18)
[2024-12-14 05:17] LABS: Slide Review Slide Review Perform
[2024-12-14 05:22] LABS: Blood Urea Nitrogen 110 mg/dL (8-23)
[2024-12-14] MEDS: budesonide 0.5 mg/2 mL Neb INHALATION ×2 (07:34→20:42)
[2024-12-14] MEDS: dexmedeTOMIDine 0.9 % NaCL 400 MCG/100 ML PREMIX IV (09:28)
[2024-12-14 10:58] LABS: Glucose Point of Care 446 mg/dL (70-110)
[2024-12-14] MEDS: amiodarone 200 mg Tablet 100 MG PO (11:10)
[2024-12-14] MEDS: insulin glargine 100 units/1 mL 15 UNIT SUBCUT (11:10)
[2024-12-14] MEDS: azithromycin 250 mg Tablet 500 MG PO (11:11)
[2024-12-14] MEDS: aspirin 81 mg EC Tablet PO (11:11)
[2024-12-14] MEDS: fluoxetine 20 mg Capsule PO (11:11)
[2024-12-14] MEDS: amlodipine 5 mg Tablet PO (11:12)
[2024-12-14] MEDS: docusate sodium 100 mg Capsule PO ×2 (11:12→17:25)
[2024-12-14] MEDS: tamsulosin 0.4 mg Capsule PO (11:15)
[2024-12-14] MEDS: sennosides 8.6 mg Tablet 17.2 MG PO ×2 (11:15→17:26)
[2024-12-14] MEDS: polyethylene glycol 3350 Pkt 17 gm PO ×2 (11:36→17:25)
[2024-12-14] MEDS: fentaNYL 1,000 MCG/100 ML BAG 5 MCG IV (13:29)
[2024-12-14] MEDS: FUROsemide 200 MG in sodium chloride 0.9% (100 ml) 80 ML IV (13:39)
[2024-12-14 14:08] LABS: Glucose Point of Care 481 mg/dL (70-110)
--- NOTE | 2024-12-14 15:20 | PM.PN ---
Subjective Subjective: Patient remains intubated and sedated which limits history. No acute events overnight. More hyperglycemic today. Patient accepted to [facility] for which family is in agreement with transfer. Bed pending. Medications: Reviewed: Yes Vitals/I&O/Wt Last Vital Signs Temp 97.7 F 12/14/24 08:00 Pulse 69 12/14/24 13:12 Resp 16 12/14/24 13:10 BP 151/66 12/14/24 07:15 Pulse Ox 93 12/14/24 13:10 O2 Del Method Mechanical Ventilation 12/14/24 13:07 O2 Flow Rate 4 12/09/24 09:16 FiO2 40 12/14/24 13:10 12/14/24 12/14/24 12/14/24 06:59 14:59 22:59 Intake Total 394.625 / 988.599 721.877 / 721.877 Output Total 1350 / 1350 1350 / 1350 Balance -955.375 / -361.401 -628.123 / -628.123 Weight last 48 hrs Weight 104 kg Weight 103.5 kg Physical Exam Narrative: General: Patient is intubated and sedated. Withdraws from stimulation. Head: Normocephalic. Atraumatic. Neck: No JVD. Cardiovascular: RRR. No gallops. No murmurs. Hypertensive. Lungs: Breath sounds are diminished. Breath sounds remain coarse. Intubated on mechanical ventilation. Skin: No jaundice. No rashes. Abdomen: Hypoactive bowel sounds, abdomen soft. Genito Urinary: Catheter. Rectal: Rectal exam not performed since no symptoms indicated blood loss. Extremities: No cyanosis or clubbing. Musculoskeletal: No erythematous joints. Neurological: No myoclonus. Urinary Catheter Management: Solomon: Cath Placed During This Visit: yes Reason for Continuing Indwelling Catheter: Accurate Measurement of Urinary Output in Critically Ill Patients Urinary Catheter Date of Insertion: 12/09/24 Data 12/14/24 04:02 12/14/24 04:02 Micro: Microbiology 12/09/24 09:58 Blood Culture - Final Blood NO GROWTH AFTER 5 DAYS 12/09/24 09:57 Blood Culture - Final Blood NO GROWTH AFTER 5 DAYS A&P Assessment and plan (1) Respiratory failure: Acute on chronic hypoxic hypercapnic respiratory failure Intubated 12/09 Failed breathing trial 12/11, 12/12, 12/13 Continue propofol/fentanyl for sedation/analgesia Continue bowel regiment GI and DVT prophylaxis Continue tube feeds Patient to transfer to [facility] (2) Pneumonia: Respiratory culture with Moraxella catarrhalis Continue Zosyn and azithromycin Optimize respiratory status (3) Respiratory syncytial virus (RSV): Droplet/contact precautions (4) COPD exacerbation: Continue systemic steroids with Solu-Medrol Continue inhaled steroids with Pulmicort Continue scheduled breathing treatments Optimize respiratory status (5) Chronic kidney disease: Patient with advanced kidney disease at baseline Remains net positive on volume Continue Lasix drip today Strict I's and O's, daily weights Monitoring renal status closely, may need nephrology consult (6) Acute metabolic encephalopathy: Serial exams (7) Diabetes mellitus: Continue Lantus, increasing dose today Sliding-scale insulin correction every 6 hours, tightening scale today Avoid hypoglycemia (8) Hypertension: Continue Norvasc (9) Bradycardia: History of bradycardia while on Cardizem Continue home amiodarone Plan DVT prophylaxis: Lovenox Attestations Medical Necessity Statement*: Patient requires ongoing hospitalization for ventilator support, IV antibiotics, IV diuresis, breathing treatments, and life support measures. Critical Care Time: The high probability of a clinically significant, sudden or life threatening deterioration of the patient's pulmonary, renal, circulatory system(s) required my full and direct attention, intervention and personal management. The critical care time is as shown. This time is in addition to time spent performing any reported procedures but includes the following: [x] Data and vital sign review and interpretation [x] Patient assessment, examination and intervention [x] Documentation [x] Medication orders and management Critical Care Time (min): 40 Coding Level of Care Code Acute Code for [facility] Diagnoses Respiratory failure J96.90 Pneumonia J18.9 Respiratory syncytial virus (RSV) B33.8 COPD exacerbation J44.1 Chronic kidney disease N18.9 Acute metabolic encephalopathy G93.41 Diabetes mellitus E11.9 Hypertension I10 Bradycardia R00.1
[2024-12-14] MEDS: enoxaparin 120 mg/0.8 mL Syringe 110 MG SUBCUT (15:58)
[2024-12-14] MEDS: pantoprazole 40 mg SDV IVP (15:58)
[2024-12-14] MEDS: propofol 1,000 MG/100 ML INJ 37.62 MG IV ×3 (16:33→22:17)
[2024-12-14 16:49] LABS: Glucose Point of Care 343 mg/dL (70-110)
[2024-12-14] MEDS: atorvastatin 40 mg Tablet PO (17:25)
[2024-12-14] MEDS: hyDRALAzine 20 mg/mL INJ 1 mL 10 MG IVP (17:26)
[2024-12-14] MEDS: dexmedeTOMIDine 0.9 % NaCL 400 MCG/100 ML PREMIX 7.82 MCG IV (19:36)
[2024-12-14 20:00] LABS: Glucose Point of Care 302 mg/dL (70-110)
--- NOTE | 2024-12-14 22:43 | PC.NURSE ---
Tube Feed Dr. Nascimento notified of patient's gastric residual of 400 ml. Order received to hold tube feed for 4 hours.
[2024-12-15] VITALS (62 sets, daily range): BP systolic 113–185; BP diastolic 60–115; PULSE 60–139; RESP 9–31; TEMP 36.5; O2SAT 90–95; BMI 28.7
[2024-12-15 00:10] LABS: Glucose Point of Care 271 mg/dL (70-110)
[2024-12-15] MEDS: methylPREDNISolone sod succ 40 mg/mL INJ IVP ×4 (00:19→19:28)
[2024-12-15] MEDS: hyDRALAzine 20 mg/mL INJ 1 mL 10 MG IVP ×3 (00:23→22:05)
[2024-12-15] MEDS: insulin lispro 100 unit/1 mL SUBCUT ×6 (00:25→21:13)
[2024-12-15] MEDS: fentaNYL 1,000 MCG/100 ML BAG 2.5 MCG IV (01:00)
[2024-12-15] MEDS: ipratropium 0.5 mg/2.5 mL Neb INHALATION ×4 (02:59→20:18)
[2024-12-15] MEDS: levalbuterol 0.63 mg/3 mL Neb INHALATION ×4 (02:59→20:18)
[2024-12-15 03:20] LABS: Glucose Point of Care 259 mg/dL (70-110)
--- NOTE | 2024-12-15 03:23 | PC.NURSE ---
Gastric Residual Patient's gastric residual 275 ml at 0245 while his blood sugar is 259. Dr. Nascimento notified; orders received to remain holding tube feed and administer only [address] of the protocol dose for 0400.
--- NOTE | 2024-12-15 04:00 | XRR_ITS ---
PROCEDURE INFORMATION: Exam: XR Chest Exam date and time: 12/15/2024 4:16 AM Age: 74 years old Clinical indication: Shortness of breath; Additional info: Respiratory failure TECHNIQUE: Imaging protocol: Radiologic exam of the chest. Views: 1 view. COMPARISON: CR (CHEST, ) 12/14/2024 4:05 AM FINDINGS: Tubes, catheters and devices: Enteric tube traverses midline, side fenestration and catheter tip not within the field of view. Endotracheal tube terminates 4.4 cm from the corazon. Lungs: Interval improvement of the aeration of the lung bases. Pleural spaces: Unremarkable. No pleural effusion. No pneumothorax. Heart/Mediastinum: Unremarkable. No cardiomegaly. Bones/joints: Unremarkable. XR/XR chest 1V portable [id number] IMPRESSION: 1. Medical devices as above. 2. Interval improvement in aeration of the lungs.
[2024-12-15] MEDS: propofol 1,000 MG/100 ML INJ 25.08 MG IV (04:06)
[2024-12-15 04:48] LABS: ABG PH Result 7.32 (7.35-7.45); Alveolar-Arterial Oxygen Gradi 12.3 mmHg (5-10); Arterial Blood Gas Hematocrit 31.8 % (42-52); Base Excess ABG 1.2 mmol/L (-2.0-2.0); Blood Gas Allen Test Pos; Blood Gas Operator Identificat SAM; Blood Gas Sample Site Radial, right; Blood Gas Sample Type Arterial; Carboxyhemoglobin 1.2 %THgb (0.4-20.1); HCO3 ABG 27.9 mmol/L (22-26); HGB O2 Sat 90.7 % (95-100); Ionized Calcium Level - ABG 1.2 mmol/L (1.1-1.4); Methemoglobin 0.2 % (0.4-1.5); Oxygen Device VENT; PO2 ABG 65.2 mmHg (80.0-100.0); PO2 FiO2 Ratio Arterial Blood 203; Potassium Level - ABG 4.2 mmol/L (3.5-5.0); Total Hemoglobin 10.4 g/dL (14-18)
[2024-12-15 04:51] LABS: Hematocrit 32.2 % (37-53); Mean Corpuscular HGB Conc 30.4 g/dL (30-55); Mean Corpuscular Hemoglobin 29.8 pg (27-33); Mean Corpuscular Volume 97.9 fl (82-101); Mean Platelet Volume 12.2 fL (7.4-10.4); Platelet Count 150 10^3/cmm (157-399); Red Blood Count 3.29 10^6/uL (3.85-5.65); Red Cell Distribution Width 14.3 % (12.1-15.1); White Blood Count 6.47 10^3/uL (3.29-11.43)
[2024-12-15] MEDS: propofol 1,000 MG/100 ML INJ 15.68 MG IV ×2 (05:08→10:43)
[2024-12-15 05:12] LABS: Alanine Aminotransferase 23 U/L (0-41); Albumin Level 3.2 g/dL (3.5-5.2); Alkaline Phosphatase 59 U/L (40-130); Anion Gap 23.5 (5-19); Aspartate Amino Transferase 9 U/L (0-40); Calcium 8.3 mg/dL (8.5-10.5); Carbon Dioxide 25 mmol/L (22-29); Chloride 105 mmol/L (98-107); Creatinine Clr Calc Pharmacy 26.0703; Globulin 2.6 g/dL (1.3-4.6); Glucose 260 mg/dL (65-115); Magnesium 2.1 mg/dL (1.7-2.3); Phosphorus 5.7 mg/dL (2.5-4.5); Potassium 4.5 mmol/L (3.5-5.1); Sodium 149 mmol/L (136-145); Total Bilirubin 0.3 mg/dL (0.15-1.2); Total Protein 5.8 g/dL (6.6-8.7)
[2024-12-15 05:25] LABS: Blood Urea Nitrogen 123 mg/dL (8-23); Osmolality Calculated 356 mOsm/kg (285-295)
[2024-12-15 05:44] LABS: Slide Review Slide Review Perform
[2024-12-15 05:45] LABS: Absolute Neutrophil 4.8 10^3/cmm (1.4-6.5); Absolute Segmented Neutrophil 4.5 10/cmm (1.6-7.1); Anisocytosis 1+; Band Neutrophils Absolute 0.3 10^3/cmm (0.0-1.2); Eosinophils 0 %; Lymphocytes 11 %; Monocytes Absolute 0.4 10^3/cmm (0.1-0.6); Platelet Estimate Normal (Normal); Segmented Neutrophils 70 %; Total Cells Counted 100 (0-100)
[2024-12-15] MEDS: piperacillin-tazobactam 3.375 GM in sodium chloride 0.9% (plus) 50 ML IV ×3 (05:52→22:05)
[2024-12-15] MEDS: dexmedeTOMIDine 0.9 % NaCL 400 MCG/100 ML PREMIX 10.43 MCG IV (05:53)
[2024-12-15] MEDS: budesonide 0.5 mg/2 mL Neb INHALATION ×2 (07:35→20:18)
[2024-12-15 07:42] LABS: Glucose Point of Care 251 mg/dL (70-110)
[2024-12-15] MEDS: amlodipine 5 mg Tablet PO (08:33)
[2024-12-15] MEDS: sennosides 8.6 mg Tablet 17.2 MG PO (08:33)
[2024-12-15] MEDS: tamsulosin 0.4 mg Capsule PO (08:33)
[2024-12-15] MEDS: amiodarone 200 mg Tablet 100 MG PO (08:33)
[2024-12-15] MEDS: aspirin 81 mg EC Tablet PO (08:33)
[2024-12-15] MEDS: azithromycin 250 mg Tablet 500 MG PO (08:33)
[2024-12-15] MEDS: fluoxetine 20 mg Capsule PO (08:34)
[2024-12-15] MEDS: polyethylene glycol 3350 Pkt 17 gm PO (08:34)
[2024-12-15] MEDS: FUROsemide 200 MG in sodium chloride 0.9% (100 ml) 80 ML IV (08:36)
--- NOTE | 2024-12-15 10:26 | P.PN_ITS ---
Subjective 2 Subjective: Met with case management this morning. Informed there is no bed at [facility] available currently. Patient remains intubated and sedated. Will proceed with breathing treatment today. Medications: Reviewed: Yes Vitals/I&O/Wt Last Vital Signs Temp 97.7 F 12/15/24 04:30 Pulse 74 12/15/24 09:30 Resp 16 12/15/24 09:21 BP 174/79 12/15/24 09:30 Pulse Ox 90 12/15/24 09:30 O2 Del Method Mechanical Ventilation 12/15/24 07:41 O2 Flow Rate 4 12/09/24 09:16 FiO2 40 12/15/24 09:21 12/14/24 12/15/24 12/15/24 22:59 06:59 14:59 Intake Total 1268.031 / 2461.615 429.412 / 2891.027 94.75 / 94.75 Output Total 1750 / 4850 1325 / 6175 Balance -481.969 / -2388.385 -895.588 / -3283.973 94.75 / 94.75 Weight last 48 hrs Weight 101.5 kg Weight 104 kg Physical Exam 2 Narrative: General: Patient is intubated and sedated. Head: Normocephalic. Atraumatic. Neck: No JVD. Cardiovascular: RRR. No gallops. No murmurs. Hypertensive. Lungs: Breath sounds are diminished. Breath sounds coarse. Intubated on mechanical ventilation. Skin: No jaundice. No rashes. Abdomen: Hypoactive bowel sounds, abdomen soft. Genito Urinary: Catheter. Extremities: No cyanosis or clubbing. Musculoskeletal: No erythematous joints. Neurological: No myoclonus. Urinary Catheter Management: Solomon: Cath Placed During This Visit: yes Reason for Continuing Indwelling Catheter: Accurate Measurement of Urinary Output in Critically Ill Patients Urinary Catheter Date of Insertion: 12/09/24 Data 12/15/24 04:18 12/15/24 04:18 Micro: Microbiology 12/09/24 09:58 Blood Culture - Final Blood NO GROWTH AFTER 5 DAYS 12/09/24 09:57 Blood Culture - Final Blood NO GROWTH AFTER 5 DAYS A&P Assessment and plan (1) Respiratory failure: Acute on chronic hypoxic hypercapnic respiratory failure Intubated 12/09 Failed multiple SBTs Continue propofol/fentanyl for sedation/analgesia Continue bowel regiment GI and DVT prophylaxis Holding TF for SBT Proceed w/ SBT today (2) Pneumonia: Respiratory culture with Moraxella catarrhalis Continue Zosyn and azithromycin Optimize respiratory status (3) Respiratory syncytial virus (RSV): Droplet/contact precautions (4) COPD exacerbation: Continue systemic steroids with Solu-Medrol Continue inhaled steroids with Pulmicort Continue scheduled breathing treatments Optimize respiratory status (5) Chronic kidney disease: Patient with advanced kidney disease at baseline Continue Lasix drip Now net negative on I&Os Strict I's and O's, daily weights Monitoring renal status closely (6) Acute metabolic encephalopathy: Serial exams (7) Diabetes mellitus: Continue Lantus, adjust again Sliding-scale insulin correction every 6 hours, tightening scale again Avoid hypoglycemia (8) Hypertension: Continue Norvasc, increase frequency d/t uncontrolled BP Hydralazine PRN (9) Bradycardia: History of bradycardia while on Cardizem Continue home amiodarone Plan DVT prophylaxis: Lovenox Attestations 2 Medical Necessity Statement*: Patient requires ongoing hospitalization for ventilator support, IV antibiotics, IV diuresis, breathing treatments, and life support measures. Critical Care Time: The high probability of a clinically significant, sudden or life threatening deterioration of the patient's pulmonary, renal, circulatory system(s) required my full and direct attention, intervention and personal management. The critical care time is as shown. This time is in addition to time spent performing any reported procedures but includes the following: [x] Data and vital sign review and interpretation [x] Patient assessment, examination and intervention [x] Documentation [x] Medication orders and management Critical Care Time (min): 35 Coding Level of Care Code Acute Code for [facility] Diagnoses Respiratory failure J96.90 Pneumonia J18.9 Respiratory syncytial virus (RSV) B33.8 COPD exacerbation J44.1 Chronic kidney disease N18.9 Acute metabolic encephalopathy G93.41 Diabetes mellitus E11.9 Hypertension I10 Bradycardia R00.1
[2024-12-15 11:22] LABS: Glucose Point of Care 207 mg/dL (70-110)
[2024-12-15] MEDS: pantoprazole 40 mg SDV IVP (12:56)
[2024-12-15] MEDS: enoxaparin 120 mg/0.8 mL Syringe 110 MG SUBCUT (12:57)
[2024-12-15] MEDS: dexmedeTOMIDine 0.9 % NaCL 400 MCG/100 ML PREMIX 7.82 MCG IV (14:22)
--- NOTE | 2024-12-15 15:56 | PC.SOCIAL ---
IMM updated IMM dated and initialed and placed in chart and copy given to patient
[2024-12-15 16:50] LABS: Glucose Point of Care 220 mg/dL (70-110)
[2024-12-15 21:05] LABS: Glucose Point of Care 148 mg/dL (70-110)
[2024-12-16] VITALS (61 sets, daily range): BP systolic 100–177; BP diastolic 57–116; PULSE 80–128; RESP 16–33; TEMP 36.4; O2SAT 87–96
[2024-12-16] MEDS: insulin lispro 100 unit/1 mL SUBCUT ×2 (00:33→09:16)
[2024-12-16 00:34] LABS: Glucose Point of Care 163 mg/dL (70-110)
[2024-12-16] MEDS: methylPREDNISolone sod succ 40 mg/mL INJ IVP ×4 (00:35→17:55)
[2024-12-16] MEDS: morphine 4 mg/mL SDV 1 mL 2 MG IVP ×2 (01:30→20:46)
[2024-12-16] MEDS: dexmedeTOMIDine 0.9 % NaCL 400 MCG/100 ML PREMIX 10.43 MCG IV (02:56)
[2024-12-16] MEDS: ipratropium 0.5 mg/2.5 mL Neb INHALATION ×4 (03:19→20:02)
[2024-12-16] MEDS: levalbuterol 0.63 mg/3 mL Neb INHALATION ×4 (03:19→20:01)
[2024-12-16] MEDS: FUROsemide 200 MG in sodium chloride 0.9% (100 ml) 80 ML IV (03:33)
[2024-12-16 03:59] LABS: Glucose Point of Care 135 mg/dL (70-110)
--- NOTE | 2024-12-16 04:00 | XRR_ITS ---
PROCEDURE INFORMATION: Exam: XR Chest Exam date and time: 12/16/2024 4:05 AM Age: 74 years old Clinical indication: Other: F/u resp failure; F/u for resp failure. PT on bipap. Rsv positive. ; Additional info: Respiratory failure TECHNIQUE: Imaging protocol: Radiologic exam of the chest. Views: 1 view. COMPARISON: CR (CHEST, ) 12/15/2024 4:16 AM FINDINGS: Lungs: Unremarkable. No consolidation. Pleural spaces: Unremarkable. No pleural effusion. No pneumothorax. Heart/Mediastinum: Unremarkable. No cardiomegaly. Bones/joints: Unremarkable. Other findings: Patient is status post extubation. XR/XR chest 1V portable [id number] IMPRESSION: Status post extubation, otherwise, stable examination.
[2024-12-16 05:02] LABS: ABG PCO2 50.8 mmHg (35-45); ABG PH Result 7.37 (7.35-7.45); Alveolar-Arterial Oxygen Gradi 12.7 mmHg (5-10); Arterial Blood Gas Hematocrit 35.5 % (42-52); Blood Gas Allen Test Pos; Blood Gas Operator Identificat SAM; Blood Gas Sample Site Radial, right; Blood Gas Sample Type Arterial; HCO3 ABG 29.1 mmol/L (22-26); HGB O2 Sat 95.6 % (95-100); Ionized Calcium Level - ABG 1.1 mmol/L (1.1-1.4); Methemoglobin 0.4 % (0.4-1.5); Oxygen Device BIPAP; Oxygen Saturation ABG 96.9; PO2 ABG 90.9 mmHg (80.0-100.0); PO2 FiO2 Ratio Arterial Blood 259; Potassium Level - ABG 4.5 mmol/L (3.5-5.0); Total Hemoglobin 11.6 g/dL (14-18)
[2024-12-16] MEDS: piperacillin-tazobactam 3.375 GM in sodium chloride 0.9% (plus) 50 ML IV ×3 (05:53→23:03)
[2024-12-16 07:56] LABS: Glucose Point of Care 196 mg/dL (70-110)
[2024-12-16] MEDS: budesonide 0.5 mg/2 mL Neb INHALATION ×2 (09:08→20:02)
[2024-12-16] MEDS: hyDRALAzine 20 mg/mL INJ 1 mL 10 MG IVP ×3 (09:15→19:47)
[2024-12-16] MEDS: insulin glargine 100 units/1 mL 24 UNIT SUBCUT (09:16)
--- NOTE | 2024-12-16 09:26 | P.PN_ITS ---
Subjective 2 Subjective: Patient extubated 12/15. He is encephalopathic overnight. He is BiPAP dependent which is typical for him in his early postextubation state. He is unable to provide any history due to encephalopathy and BiPAP dependent state. Medications: Reviewed: Yes Vitals/I&O/Wt Last Vital Signs Temp 97.7 F 12/15/24 04:30 Pulse 98 12/16/24 09:25 Resp 21 H 12/16/24 09:08 BP 167/90 12/16/24 08:00 Pulse Ox 95 12/16/24 09:24 O2 Del Method BiPAP 12/16/24 09:08 O2 Flow Rate 4 12/09/24 09:16 FiO2 35 12/16/24 09:24 12/15/24 12/16/24 12/16/24 22:59 06:59 14:59 Intake Total 1086.463 / 1491.021 236.958 / 1727.979 Output Total 900 / 2200 1000 / 3200 Balance 186.463 / -708.979 -763.042 / -1472.021 Weight last 48 hrs Weight 100 kg Weight 101.5 kg Physical Exam 2 Narrative: General: Patient awake. Severely encephalopathic. On BiPAP. Ill-appearing. Head: Normocephalic. Atraumatic. Neck: No JVD. Cardiovascular: RRR. No gallops. No murmurs. Hypertensive. Lungs: Breath sounds are diminished with moderate air movement. Breath sounds coarse. On BiPAP. Skin: No jaundice. No rashes. Abdomen: Hypoactive bowel sounds, abdomen soft. Genito Urinary: Catheter. Extremities: No cyanosis or clubbing. Musculoskeletal: No erythematous joints. Neurological: No myoclonus. Moves all extremities. Encephalopathic. Urinary Catheter Management: Solomon: Cath Placed During This Visit: yes Reason for Continuing Indwelling Catheter: Accurate Measurement of Urinary Output in Critically Ill Patients Urinary Catheter Date of Insertion: 12/09/24 Data 12/15/24 04:18 12/15/24 04:18 A&P Assessment and plan (1) Encephalopathy: Patient is severely encephalopathic secondary to acute metabolic encephalopathy and delirious Continue restraints as needed for patient safety Continue Precedex drip May need sitter pending clinical course Supportive care (2) Respiratory failure: Acute on chronic hypoxic hypercapnic respiratory failure Intubated 12/09; extubated 12/15 Continue noninvasive mechanical ventilation Continue bowel regiment GI and DVT prophylaxis Treating underlying pneumonia and reactive airway disease ABGs as needed (3) Pneumonia: Respiratory culture with Moraxella catarrhalis Continue Zosyn and azithromycin Optimize respiratory status (4) Respiratory syncytial virus (RSV): Droplet/contact precautions (5) COPD exacerbation: Continue systemic steroids with Solu-Medrol Continue inhaled steroids with Pulmicort Continue scheduled breathing treatments (6) Chronic kidney disease: Patient with advanced kidney disease at baseline; hypnatremia Continue Lasix drip Today's labs are still pending Strict I's and O's, daily weights (7) Diabetes mellitus: Continue Lantus Sliding-scale insulin correction every 6 hours Avoid hypoglycemia (8) Hypertension: Continue Norvasc once oral intake resumes Start scheduled IV hydralazine for now Hydralazine PRN (9) Bradycardia: History of bradycardia while on Cardizem Continue home amiodarone Plan DVT prophylaxis: Lovenox Attestations 2 Medical Necessity Statement*: Patient requires ongoing hospitalization for non-invasive ventilator support, IV antibiotics, IV diuresis, IV Precedex drip, breathing treatments, and supportive care measures. Critical Care Time: The high probability of a clinically significant, sudden or life threatening deterioration of the patient's pulmonary, renal, circulatory system(s) required my full and direct attention, intervention and personal management. The critical care time is as shown. This time is in addition to time spent performing any reported procedures but includes the following: [x] Data and vital sign review and interpretation [x] Patient assessment, examination and intervention [x] Documentation [x] Medication orders and management Critical Care Time (min): 33 Coding Level of Care Code Acute Code for [facility] Diagnoses Encephalopathy G93.40 Respiratory failure J96.90 Pneumonia J18.9 Respiratory syncytial virus (RSV) B33.8 COPD exacerbation J44.1 Chronic kidney disease N18.9 Diabetes mellitus E11.9 Hypertension I10 Bradycardia R00.1
[2024-12-16] MEDS: dexmedeTOMIDine 0.9 % NaCL 400 MCG/100 ML PREMIX 13.04 MCG IV ×2 (12:00→19:46)
[2024-12-16] MEDS: pantoprazole 40 mg SDV IVP (13:09)
[2024-12-16] MEDS: enoxaparin 120 mg/0.8 mL Syringe 110 MG SUBCUT (13:10)
--- NOTE | 2024-12-16 13:29 | PC.SLP ---
GUARD CHIEF evaluation attempted; patient on biPAP and nursing requested speech evaluation be conducted tomorrow 12/17/24.
[2024-12-16 13:47] LABS: Glucose Point of Care 135 mg/dL (70-110)
[2024-12-16 18:20] LABS: Glucose Point of Care 100 mg/dL (70-110)
[2024-12-16 20:14] LABS: Glucose Point of Care 97 mg/dL (70-110)
[2024-12-17] VITALS (59 sets, daily range): BP systolic 98–166; BP diastolic 52–100; PULSE 74–111; RESP 16–35; TEMP 36.2–36.8; O2SAT 88–100; BMI 27.6
[2024-12-17 01:05] LABS: Glucose Point of Care 79 mg/dL (70-110)
[2024-12-17] MEDS: hyDRALAzine 20 mg/mL INJ 1 mL 10 MG IVP ×4 (01:35→20:08)
[2024-12-17] MEDS: methylPREDNISolone sod succ 40 mg/mL INJ IVP ×4 (01:35→18:58)
[2024-12-17] MEDS: ipratropium 0.5 mg/2.5 mL Neb INHALATION ×4 (02:06→21:03)
[2024-12-17] MEDS: levalbuterol 0.63 mg/3 mL Neb INHALATION ×4 (02:06→21:03)
[2024-12-17] MEDS: dexmedeTOMIDine 0.9 % NaCL 400 MCG/100 ML PREMIX 15.64 MCG IV ×2 (02:42→17:06)
[2024-12-17 03:43] LABS: Glucose Point of Care 64 mg/dL (70-110)
[2024-12-17 03:50] LABS: Basophils % 0.4 %; Hematocrit 35.1 % (37-53); Lymphocytes # 0.7 10^3/uL (0.8-4.8); Lymphocytes % 7.3 %; Mean Corpuscular HGB Conc 29.6 g/dL (30-55); Mean Corpuscular Hemoglobin 29.1 pg (27-33); Mean Corpuscular Volume 98.3 fl (82-101); Mean Platelet Volume 12.8 fL (7.4-10.4); Neutrophils # 7.38 10^3/uL (1.8-7.7); Neutrophils % 75.4 %; Nucleated Red Blood Cells % 0.2 %; Platelet Count 141 10^3/cmm (157-399); Red Blood Count 3.57 10^6/uL (3.85-5.65); Red Cell Distribution Width 14.5 % (12.1-15.1)
[2024-12-17] MEDS: dextrose 10% 125 ML 750 ML IV (03:52)
[2024-12-17 04:08] LABS: Slide Review Slide Review Perform
[2024-12-17 04:19] LABS: Alanine Aminotransferase 30 U/L (0-41); Albumin Level 3.4 g/dL (3.5-5.2); Alkaline Phosphatase 52 U/L (40-130); Anion Gap 24.4 (5-19); Aspartate Amino Transferase 23 U/L (0-40); Calcium 8.9 mg/dL (8.5-10.5); Carbon Dioxide 29 mmol/L (22-29); Chloride 114 mmol/L (98-107); Creatinine Clr Calc Pharmacy 21.4583; Glucose 62 mg/dL (65-115); Magnesium 2.6 mg/dL (1.7-2.3); Potassium 4.4 mmol/L (3.5-5.1); Total Bilirubin 0.5 mg/dL (0.15-1.2); Total Protein 6.4 g/dL (6.6-8.7)
[2024-12-17 04:30] LABS: Glucose Point of Care 126 mg/dL (70-110)
[2024-12-17 04:41] LABS: Osmolality Calculated 386 mOsm/kg (285-295)
[2024-12-17 04:43] LABS: Blood Urea Nitrogen 158 mg/dL (8-23)
[2024-12-17 04:44] LABS: Phosphorus 8.3 mg/dL (2.5-4.5); Sodium 163 mmol/L (136-145)
[2024-12-17] MEDS: piperacillin-tazobactam 3.375 GM in sodium chloride 0.9% (plus) 50 ML IV ×3 (05:45→21:45)
[2024-12-17] MEDS: FUROsemide 200 MG in sodium chloride 0.9% (100 ml) 80 ML IV (06:52)
[2024-12-17] MEDS: dextrose 5% 1,000 ML 75 ML IV ×2 (07:48→20:15)
[2024-12-17 08:26] LABS: Glucose Point of Care 110 mg/dL (70-110)
[2024-12-17] MEDS: budesonide 0.5 mg/2 mL Neb INHALATION ×2 (08:48→21:03)
--- NOTE | 2024-12-17 10:53 | PC.SLP ---
Attempted SENIOR ENGINEER evaluation. Patient unresponsive per nursing and will hold SENIOR ENGINEER evaluation until tomorrow.
[2024-12-17] MEDS: dexmedeTOMIDine 0.9 % NaCL 400 MCG/100 ML PREMIX 13.04 MCG IV (11:00)
[2024-12-17 11:15] LABS: Glucose Point of Care 182 mg/dL (70-110)
[2024-12-17] MEDS: insulin lispro 100 unit/1 mL SUBCUT ×3 (11:54→20:14)
[2024-12-17] MEDS: pantoprazole 40 mg SDV IVP (12:43)
[2024-12-17] MEDS: enoxaparin 120 mg/0.8 mL Syringe 110 MG SUBCUT (12:43)
--- NOTE | 2024-12-17 13:01 | P.PN_ITS ---
Subjective 2 Subjective: Patient remains encephalopathic, similar to yesterday. Unable to provide history due to encephalopathy. He is BiPAP dependent. Medications: Reviewed: Yes Vitals/I&O/Wt Last Vital Signs Temp 97.8 F 12/17/24 04:00 Pulse 91 12/17/24 11:52 Resp 35 H 12/17/24 08:51 BP 114/65 12/17/24 06:00 Pulse Ox 83 L 12/17/24 11:52 O2 Del Method BiPAP 12/17/24 08:51 O2 Flow Rate 4 12/09/24 09:16 FiO2 35 12/17/24 11:52 12/16/24 12/17/24 12/17/24 22:59 06:59 14:59 Intake Total 189.989 / 309.568 359.253 / 668.821 125.758 / 125.758 Output Total 1700 / 2900 Balance 189.989 / -890.432 -1340.747 / -2231.179 125.758 / 125.758 Weight last 48 hrs Weight 97.5 kg Weight 100 kg Physical Exam 2 Narrative: General: Patient awake but remains severely encephalopathic. On BiPAP support. Head: Normocephalic. Atraumatic. Neck: No JVD. Cardiovascular: RRR. No gallops. No murmurs. Lungs: Air movement is moderate. Breath sounds are coarse bilaterally. Tachypneic. Remains on BiPAP. Skin: No jaundice. No rashes. Abdomen: Hypoactive bowel sounds, abdomen soft. Genito Urinary: Catheter. Extremities: No cyanosis or clubbing. Musculoskeletal: No erythematous joints. Neurological: No myoclonus. Moves all extremities. Encephalopathic. Urinary Catheter Management: Solomon: Cath Placed During This Visit: yes Reason for Continuing Indwelling Catheter: Accurate Measurement of Urinary Output in Critically Ill Patients Urinary Catheter Date of Insertion: 12/09/24 Data 12/17/24 02:37 12/17/24 02:37 A&P Assessment and plan (1) Encephalopathy: Patient is severely encephalopathic secondary to acute metabolic encephalopathy and delirium Continue restraints as needed for patient safety May need sitter pending clinical course Patient remain n.p.o. due to severe aspiration risk Hopefully can consult speech therapy soon if mentation improves (2) Respiratory failure: Acute on chronic hypoxic hypercapnic respiratory failure Intubated 12/09; extubated 12/15 Continue noninvasive mechanical ventilation Continue bowel regiment GI and DVT prophylaxis Treating underlying pneumonia and reactive airway disease ABGs as needed (3) Pneumonia: Respiratory culture with Moraxella catarrhalis Continue Zosyn and azithromycin Optimize respiratory status (4) Respiratory syncytial virus (RSV): Droplet/contact precautions (5) COPD exacerbation: Continue systemic steroids with Solu-Medrol Continue inhaled steroids with Pulmicort Continue scheduled breathing treatments (6) Chronic kidney disease: Patient with advanced kidney disease at baseline Strict I's and O's, daily weights Hypernatremia secondary to overdiuresis Stop Lasix drip Start D5W, monitor for fluid overload, plan to discontinue soon as possible Repeat labs this afternoon (7) Diabetes mellitus: Continue Lantus Sliding-scale insulin correction every 6 hours Avoid hypoglycemia (8) Hypertension: Continue Norvasc once oral intake resumes Continue scheduled IV hydralazine for now, monitor for hypotension Hydralazine PRN (9) Bradycardia: History of bradycardia while on Cardizem Continue home amiodarone Plan DVT prophylaxis: Lovenox Attestations 2 Medical Necessity Statement*: Patient requires ongoing hospitalization for non-invasive ventilator support, IV antibiotics, D5W infusion, IV Precedex drip, breathing treatments, and supportive care measures. Critical Care Time: The high probability of a clinically significant, sudden or life threatening deterioration of the patient's pulmonary, renal, circulatory, neuro system(s) required my full and direct attention, intervention and personal management. The critical care time is as shown. This time is in addition to time spent performing any reported procedures but includes the following: [x] Data and vital sign review and interpretation [x] Patient assessment, examination and intervention [x] Documentation [x] Medication orders and management Critical Care Time (min): 40 Coding Level of Care Code Acute Code for [facility] Diagnoses Encephalopathy G93.40 Respiratory failure J96.90 Pneumonia J18.9 Respiratory syncytial virus (RSV) B33.8 COPD exacerbation J44.1 Chronic kidney disease N18.9 Diabetes mellitus E11.9 Hypertension I10 Bradycardia R00.1
--- NOTE | 2024-12-17 15:10 | XRR_ITS ---
PROCEDURE INFORMATION: Exam: XR Chest Exam date and time: 12/17/2024 3:41 PM Age: 74 years old Clinical indication: Device placement; Picc confirmation only; Additional info: Picc insertion, i'll call when ready TECHNIQUE: Imaging protocol: Radiologic exam of the chest. Views: 1 view. COMPARISON: CR (CHEST, ) 12/16/2024 4:05 AM FINDINGS: Tubes, catheters and devices: Tip of the right upper extremity PICC is in the superior cavoatrial junction. Lungs: Unremarkable. No consolidation. Pleural spaces: Unremarkable. No pleural effusion. No pneumothorax. Heart/Mediastinum: Unremarkable. No cardiomegaly. Vasculature: There are aortic arch calcifications. Bones/joints: Unremarkable. XR/XR chest 1V portable [id number] IMPRESSION: 1. No acute cardiopulmonary process. 2. Tip of the right upper extremity PICC is in the superior cavoatrial junction.
[2024-12-17 15:27] LABS: Glucose Point of Care 174 mg/dL (70-110)
[2024-12-17] MEDS: morphine 4 mg/mL SDV 1 mL 2 MG IVP (15:34)
[2024-12-17 17:00] LABS: Albumin Level 3.4 g/dL (3.5-5.2); Calcium 8.3 mg/dL (8.5-10.5); Carbon Dioxide 27 mmol/L (22-29); Chloride 110 mmol/L (98-107); Glucose 207 mg/dL (65-115); Sodium 158 mmol/L (136-145)
[2024-12-17 17:06] LABS: Anion Gap 26.5 (5-19); Potassium 5.5 mmol/L (3.5-5.1)
[2024-12-17 17:07] LABS: Blood Urea Nitrogen 161 mg/dL (8-23); Phosphorus 8.7 mg/dL (2.5-4.5)
[2024-12-17 18:34] LABS: Glucose Point of Care 218 mg/dL (70-110)
[2024-12-17 18:57] LABS: Albumin Level 3.4 g/dL (3.5-5.2); Anion Gap 24.8 (5-19); Calcium 8.6 mg/dL (8.5-10.5); Carbon Dioxide 28 mmol/L (22-29); Chloride 112 mmol/L (98-107); Creatinine Clr Calc Pharmacy 23.0902; Glucose 225 mg/dL (65-115); Potassium 4.8 mmol/L (3.5-5.1); Sodium 160 mmol/L (136-145)
[2024-12-17] MEDS: calcium gluconate 0.9% NaCL 1 GM/50 ML PREMIX IV (18:58)
[2024-12-17 19:07] LABS: Blood Urea Nitrogen 164 mg/dL (8-23); Phosphorus 8.7 mg/dL (2.5-4.5)
[2024-12-17 20:02] LABS: Glucose Point of Care 210 mg/dL (70-110)
[2024-12-17] MEDS: dexmedeTOMIDine 0.9 % NaCL 400 MCG/100 ML PREMIX 23.46 MCG IV (21:35)
[2024-12-18] VITALS (58 sets, daily range): BP systolic 104–163; BP diastolic 57–104; PULSE 71–96; RESP 16–32; TEMP 36.2; O2SAT 87–96
[2024-12-18 00:03] LABS: Glucose Point of Care 177 mg/dL (70-110)
[2024-12-18] MEDS: methylPREDNISolone sod succ 40 mg/mL INJ IVP ×4 (00:06→18:30)
[2024-12-18] MEDS: insulin lispro 100 unit/1 mL SUBCUT ×4 (00:08→19:52)
[2024-12-18] MEDS: dexmedeTOMIDine 0.9 % NaCL 400 MCG/100 ML PREMIX 28.68 MCG IV (00:52)
[2024-12-18] MEDS: hyDRALAzine 20 mg/mL INJ 1 mL 10 MG IVP ×4 (01:07→18:29)
[2024-12-18] MEDS: OLANZapine 10 mg VIAL IM ×2 (01:29→01:37)
[2024-12-18] MEDS: water for injection-sterile 10 ML 600 ML (01:36)
[2024-12-18] MEDS: levalbuterol 0.63 mg/3 mL Neb INHALATION ×4 (03:23→19:33)
[2024-12-18] MEDS: ipratropium 0.5 mg/2.5 mL Neb INHALATION ×4 (03:23→19:33)
[2024-12-18 03:34] LABS: Glucose Point of Care 190 mg/dL (70-110)
[2024-12-18] MEDS: dexmedeTOMIDine 0.9 % NaCL 400 MCG/100 ML PREMIX 26.07 MCG IV ×5 (04:08→22:03)
[2024-12-18 04:49] LABS: ABG PCO2 47.2 mmHg (35-45); ABG PH Result 7.39 (7.35-7.45); Alveolar-Arterial Oxygen Gradi 15.3 mmHg (5-10); Base Excess ABG 2.6 mmol/L (-2.0-2.0); Blood Gas Allen Test Pos; Blood Gas Operator Identificat SAM; Blood Gas Sample Site Radial, right; Blood Gas Sample Type Arterial; HCO3 ABG 28.3 mmol/L (22-26); HGB O2 Sat 92.3 % (95-100); Ionized Calcium Level - ABG 1.2 mmol/L (1.1-1.4); Methemoglobin 1.2 % (0.4-1.5); Oxygen Device BIPAP; Oxygen Saturation ABG 94.4; PO2 ABG 72.4 mmHg (80.0-100.0); PO2 FiO2 Ratio Arterial Blood 206; Potassium Level - ABG 4.1 mmol/L (3.5-5.0); Total Hemoglobin 13.1 g/dL (14-18)
[2024-12-18 05:10] LABS: Basophils % 0.2 %; Hematocrit 36.8 % (37-53); Lymphocytes # 0.5 10^3/uL (0.8-4.8); Lymphocytes % 4.8 %; Mean Corpuscular HGB Conc 29.3 g/dL (30-55); Mean Corpuscular Hemoglobin 29.3 pg (27-33); Mean Corpuscular Volume 99.7 fl (82-101); Mean Platelet Volume 13.6 fL (7.4-10.4); Monocytes # 0.7 10^3/uL (0.2-0.9); Monocytes % 6.6 %; Neutrophils # 8.35 10^3/uL (1.8-7.7); Neutrophils % 84.7 %; Nucleated Red Blood Cells % 0.2 %; Platelet Count 114 10^3/cmm (157-399); Red Blood Count 3.69 10^6/uL (3.85-5.65); Red Cell Distribution Width 14.4 % (12.1-15.1); White Blood Count 9.85 10^3/uL (3.29-11.43)
[2024-12-18 05:41] LABS: Alanine Aminotransferase 28 U/L (0-41); Albumin Level 3.3 g/dL (3.5-5.2); Alkaline Phosphatase 53 U/L (40-130); Aspartate Amino Transferase 14 U/L (0-40); Calcium 8.6 mg/dL (8.5-10.5); Carbon Dioxide 28 mmol/L (22-29); Chloride 113 mmol/L (98-107); Creatinine Clr Calc Pharmacy 23.0902; Globulin 2.8 g/dL (1.3-4.6); Glucose 186 mg/dL (65-115); Magnesium 2.7 mg/dL (1.7-2.3); Phosphorus 7.3 mg/dL (2.5-4.5); Sodium 160 mmol/L (136-145); Total Bilirubin 0.5 mg/dL (0.15-1.2); Total Protein 6.1 g/dL (6.6-8.7)
[2024-12-18 06:01] LABS: Anion Gap 23.7 (5-19); Blood Urea Nitrogen 166 mg/dL (8-23); Osmolality Calculated 390 mOsm/kg (285-295); Potassium 4.7 mmol/L (3.5-5.1)
[2024-12-18] MEDS: piperacillin-tazobactam 3.375 GM in sodium chloride 0.9% (plus) 50 ML IV ×3 (06:30→21:28)
[2024-12-18] MEDS: budesonide 0.5 mg/2 mL Neb INHALATION ×2 (08:15→19:33)
--- NOTE | 2024-12-18 09:00 | PC.NURSE ---
899-Dexmedetomidine increased from 1 mcg/kg/hr to 1.2 mcg/kg/hr because pt continued unhooking tubing to BiPap mask. Would not accept charting on JAN.
[2024-12-18] MEDS: insulin glargine 100 units/1 mL 24 UNIT SUBCUT (09:29)
[2024-12-18] MEDS: dextrose 5% 1,000 ML 75 ML IV ×2 (09:35→22:42)
[2024-12-18 09:45] LABS: Glucose Point of Care 175 mg/dL (70-110)
[2024-12-18] MEDS: lanolin oint 7 gm 1 APPLIC TOPICAL (09:52)
--- NOTE | 2024-12-18 10:00 | PC.NURSE ---
Pt unable to remain alert enough to safely attempt to swallow morning meds. Attempted oral care first with Lanolin and mouth swabs. Pt unable to follow direction or continue to keep eyes open. Dr aguileraied.
--- NOTE | 2024-12-18 12:05 | PC.NURSE ---
1145-Pt not pulling at BiPap mask as much. Sitter seems to be able to redirect pt when attempting. Will attempt to decrease Dexmedetomidine from 1.2 mcg/kg/hr to 1 mcg/kg/hr in hopes of pt becoming more alert.
--- NOTE | 2024-12-18 13:44 | PC.SOCIAL ---
IMM Updated No questions voiced. Provided pt a copy. Initialed, dated, & timed copy in chart.
[2024-12-18 14:30] LABS: Glucose Point of Care 141 mg/dL (70-110)
[2024-12-18] MEDS: enoxaparin 100 mg/mL Syringe SUBCUT (14:34)
[2024-12-18] MEDS: pantoprazole 40 mg SDV IVP (14:34)
--- NOTE | 2024-12-18 16:25 | XRR_ITS ---
PROCEDURE INFORMATION: Exam: XR Chest Exam date and time: 12/18/2024 4:38 PM Age: 74 years old Clinical indication: Device placement; Ng tube; Additional info: Ng tube placement TECHNIQUE: Imaging protocol: Radiologic exam of the chest. Views: 1 view. COMPARISON: CR (CHEST, ) 12/17/2024 3:41 PM FINDINGS: Limitations: Suboptimal image quality due to motion artifact. Tubes, catheters and devices: Endotracheal tube tip is approximately 3 cm above the corazon. Orogastric tube courses below the diaphragm and off field of view. Right arm PICC is in similar position. Lungs: Mild bibasilar atelectasis, [id number]. No new airspace disease. Pleural spaces: Unremarkable. No pleural effusion. No pneumothorax. Heart/Mediastinum: Stable cardiomediastinal silhouette. Bones/joints: Unremarkable. XR/XR chest 1V portable [id number] IMPRESSION: 1. Support hardware as above. 2. No acute findings.
--- NOTE | 2024-12-18 17:08 | PC.SLP ---
Patient is not alert enough to participate in CONTACT [employer]ING [employer]ER assessment at this time. CONTACT L[employer] FLASHING P[employer]CHER will try to work with the patient tomorrow.
--- NOTE | 2024-12-18 17:33 | P.PN_ITS ---
Subjective 2 Subjective: patient currently on Bipap, attempt to remove Bipap earlier today resulted in increased work of breathing , na at 160 Medications: Reviewed: Yes Vitals/I&O/Wt Last Vital Signs Temp 97.1 F L 12/18/24 07:00 Pulse 95 12/18/24 16:30 Resp 21 H 12/18/24 16:30 BP 129/77 12/18/24 16:30 Pulse Ox 87 L 12/18/24 16:30 O2 Del Method BiPAP 12/18/24 13:15 O2 Flow Rate 4 12/09/24 09:16 FiO2 35 12/18/24 13:29 12/18/24 12/18/24 12/18/24 06:59 14:59 22:59 Intake Total 239.111 / 5956.884 8463.341 / 1227.341 98.631 / 1325.972 Balance 239.111 / 551.298 5916.341 / 1227.341 98.631 / 1325.972 Weight last 48 hrs Weight 97.5 kg Weight 97.5 kg Physical Exam 2 Narrative: General: lethagic, obtunded, does not follow any commands HEENT: PERRLA, pupils bilaterally equal and reactive, pallors not present Chest: Normal vesicular breath sounds, no added sounds, equal good air entry bilaterally CVS: S1-S2 regular, no murmurs, no tachycardia, no gallops, no rubs Abdomen: Soft, nontender, no organomegaly, bowel sounds present Neuro: lethargic, obtunded, does not follow any commands Urinary Catheter Management: Solomon: Cath Placed During This Visit: yes Reason for Continuing Indwelling Catheter: Accurate Measurement of Urinary Output in Critically Ill Patients Urinary Catheter Date of Insertion: 12/09/24 Data 12/19/24 03:50 12/19/24 12:52 A&P Assessment and plan (1) Encephalopathy: Patient is severely encephalopathic secondary to acute metabolic encephalopathy and delirium Continue restraints as needed for patient safety May need sitter pending clinical course Patient remain n.p.o. due to severe aspiration risk Hopefully can consult speech therapy soon if mentation improves (2) Respiratory failure: Acute on chronic hypoxic hypercapnic respiratory failure Intubated 12/09; extubated 12/15 Continue noninvasive mechanical ventilation Continue bowel regiment GI and DVT prophylaxis Treating underlying pneumonia and reactive airway disease ABGs as needed (3) Pneumonia: Respiratory culture with Moraxella catarrhalis Continue Zosyn and azithromycin Optimize respiratory status (4) Respiratory syncytial virus (RSV): Droplet/contact precautions (5) COPD exacerbation: Continue systemic steroids with Solu-Medrol Continue inhaled steroids with Pulmicort Continue scheduled breathing treatments (6) Chronic kidney disease: Patient with advanced kidney disease at baseline Strict I's and O's, daily weights Hypernatremia secondary to overdiuresis Stop Lasix drip Start D5W, monitor for fluid overload, plan to discontinue soon as possible Repeat labs this afternoon (7) Diabetes mellitus: Continue Lantus Sliding-scale insulin correction every 6 hours Avoid hypoglycemia (8) Hypertension: Continue Norvasc once oral intake resumes Continue scheduled IV hydralazine for now, monitor for hypotension Hydralazine PRN (9) Bradycardia: History of bradycardia while on Cardizem Continue home amiodarone Plan DVT prophylaxis: Lovenox 12/18/24: Chart reveiwed, remains obtunded. Na at [address] N[address] today, start free water flushes via NGT with 250 cc every 6 hrs. Trend Na with initiation of free water boluses. Plan to start TPN for nutrition. Hold off on tube feeding for now while pending residual check, prefer to use NGT for free water flushes preferentially for now. continue Bipap ventilation Attestations 2 Medical Necessity Statement*: Patient requires ongoing hospitalization for non-invasive ventilator support, IV antibiotics, D5W infusion, IV Precedex drip, breathing treatments, and supportive care measures. Critical Care Time: The high probability of a clinically significant, sudden or life threatening deterioration of the patient's pulmonary, renal, circulatory, neuro system(s) required my full and direct attention, intervention and personal management. The critical care time is as shown. This time is in addition to time spent performing any reported procedures but includes the following: [x] Data and vital sign review and interpretation [x] Patient assessment, examination and intervention [x] Documentation [x] Medication orders and management Critical Care Time (min): 40 Coding Level of Care Code Acute Code for Chg Fwd High MDM includes number and complexity of problems actively addressed during encounter, amount and/or complexity of data reviewed/ordered and described risk of complication, morbidity or mortality of management as documented Diagnoses Encephalopathy G93.40 Respiratory failure J96.90 Pneumonia J18.9 Respiratory syncytial virus (RSV) B33.8 COPD exacerbation J44.1 Chronic kidney disease N18.9 Diabetes mellitus E11.9 Hypertension I10 Bradycardia R00.1
[2024-12-18] MEDS: dexmedeTOMIDine 0.9 % NaCL 400 MCG/100 ML PREMIX 33.89 MCG IV (18:30)
[2024-12-18] MEDS: amlodipine 5 mg Tablet PO (18:31)
[2024-12-18] MEDS: polyethylene glycol 3350 Pkt 17 gm PO (18:31)
[2024-12-18] MEDS: atorvastatin 40 mg Tablet PO (18:31)
[2024-12-18] MEDS: docusate sodium 100 mg Capsule PO (18:31)
[2024-12-18] MEDS: sennosides 8.6 mg Tablet 17.2 MG PO (18:31)
[2024-12-18 18:51] LABS: Glucose Point of Care 201 mg/dL (70-110)
[2024-12-18 19:51] LABS: Glucose Point of Care 183 mg/dL (70-110)
[2024-12-18 21:52] LABS: Alanine Aminotransferase 24 U/L (0-41); Alkaline Phosphatase 50 U/L (40-130); Aspartate Amino Transferase 10 U/L (0-40); Calcium 8.5 mg/dL (8.5-10.5); Chloride 115 mmol/L (98-107); Creatinine Clr Calc Pharmacy 28.0381; Globulin 2.7 g/dL (1.3-4.6); Glucose 210 mg/dL (65-115); Potassium 4.3 mmol/L (3.5-5.1); Sodium 157 mmol/L (136-145); Total Bilirubin 0.5 mg/dL (0.15-1.2); Total Protein 5.7 g/dL (6.6-8.7)
[2024-12-18 21:58] LABS: Anion Gap 19.3 (5-19); Carbon Dioxide 27 mmol/L (22-29); Osmolality Calculated 381 mOsm/kg (285-295)
[2024-12-18 22:00] LABS: Blood Urea Nitrogen 156 mg/dL (8-23)
[2024-12-19] VITALS (51 sets, daily range): BP systolic 95–163; BP diastolic 55–102; PULSE 61–111; RESP 16–30; TEMP 35.9–36.4; O2SAT 80–96
[2024-12-19 00:33] LABS: Glucose Point of Care 163 mg/dL (70-110)
[2024-12-19] MEDS: insulin lispro 100 unit/1 mL SUBCUT ×5 (00:41→15:57)
[2024-12-19] MEDS: hyDRALAzine 20 mg/mL INJ 1 mL 10 MG IVP ×3 (00:41→18:19)
[2024-12-19] MEDS: methylPREDNISolone sod succ 40 mg/mL INJ IVP ×4 (00:41→18:04)
[2024-12-19] MEDS: dexmedeTOMIDine 0.9 % NaCL 400 MCG/100 ML PREMIX 28.68 MCG IV (01:19)
[2024-12-19] MEDS: ipratropium 0.5 mg/2.5 mL Neb INHALATION ×4 (02:12→20:59)
[2024-12-19] MEDS: levalbuterol 0.63 mg/3 mL Neb INHALATION ×4 (02:13→20:59)
[2024-12-19] MEDS: dexmedeTOMIDine 0.9 % NaCL 400 MCG/100 ML PREMIX 31.28 MCG IV (04:18)
[2024-12-19 05:26] LABS: Glucose Point of Care 173 mg/dL (70-110)
[2024-12-19 05:35] LABS: Basophils % 0.3 %; Hematocrit 35.3 % (37-53); Lymphocytes # 0.3 10^3/uL (0.8-4.8); Lymphocytes % 4.4 %; Mean Corpuscular HGB Conc 29.7 g/dL (30-55); Mean Corpuscular Hemoglobin 29.6 pg (27-33); Mean Corpuscular Volume 99.4 fl (82-101); Mean Platelet Volume 13.5 fL (7.4-10.4); Monocytes # 0.4 10^3/uL (0.2-0.9); Monocytes % 5.5 %; Neutrophils # 6.72 10^3/uL (1.8-7.7); Neutrophils % 87.6 %; Nucleated Red Blood Cells % 0 %; Platelet Count 86 10^3/cmm (157-399); Red Blood Count 3.55 10^6/uL (3.85-5.65); Red Cell Distribution Width 14.3 % (12.1-15.1); White Blood Count 7.67 10^3/uL (3.29-11.43)
[2024-12-19 06:13] LABS: Alanine Aminotransferase 22 U/L (0-41); Alkaline Phosphatase 47 U/L (40-130); Aspartate Amino Transferase 11 U/L (0-40); Calcium 8.3 mg/dL (8.5-10.5); Carbon Dioxide 26 mmol/L (22-29); Chloride 115 mmol/L (98-107); Creatinine Clr Calc Pharmacy 30.1949; Globulin 2.3 g/dL (1.3-4.6); Glucose 172 mg/dL (65-115); Sodium 158 mmol/L (136-145); Total Bilirubin 0.4 mg/dL (0.15-1.2); Total Protein 5.3 g/dL (6.6-8.7)
[2024-12-19 06:25] LABS: Anion Gap 20.9 (5-19); Osmolality Calculated 379 mOsm/kg (285-295); Potassium 3.9 mmol/L (3.5-5.1)
[2024-12-19] MEDS: piperacillin-tazobactam 3.375 GM in sodium chloride 0.9% (plus) 50 ML IV ×3 (06:25→21:43)
[2024-12-19 06:29] LABS: Blood Urea Nitrogen 150 mg/dL (8-23)
[2024-12-19] MEDS: dexmedeTOMIDine 0.9 % NaCL 400 MCG/100 ML PREMIX 26.07 MCG IV (08:30)
[2024-12-19] MEDS: budesonide 0.5 mg/2 mL Neb INHALATION ×2 (08:34→20:59)
[2024-12-19] MEDS: amiodarone 200 mg Tablet 100 MG PO (08:58)
[2024-12-19] MEDS: tamsulosin 0.4 mg Capsule PO (08:59)
[2024-12-19] MEDS: azithromycin 250 mg Tablet 500 MG PO (08:59)
[2024-12-19] MEDS: fluoxetine 20 mg Capsule PO (08:59)
[2024-12-19] MEDS: amlodipine 5 mg Tablet PO ×2 (08:59→18:04)
[2024-12-19] MEDS: sennosides 8.6 mg Tablet 17.2 MG PO ×2 (08:59→18:04)
[2024-12-19] MEDS: polyethylene glycol 3350 Pkt 17 gm PO ×2 (09:00→18:04)
[2024-12-19 09:16] LABS: Glucose Point of Care 156 mg/dL (70-110)
[2024-12-19] MEDS: insulin glargine 100 units/1 mL 24 UNIT SUBCUT (10:05)
[2024-12-19 11:33] LABS: Glucose Point of Care 177 mg/dL (70-110)
[2024-12-19] MEDS: dexmedeTOMIDine 0.9 % NaCL 400 MCG/100 ML PREMIX 20.86 MCG IV (12:16)
[2024-12-19] MEDS: pantoprazole 40 mg SDV IVP (12:17)
[2024-12-19] MEDS: enoxaparin 100 mg/mL Syringe SUBCUT (12:24)
[2024-12-19] MEDS: dextrose 5% 1,000 ML 75 ML IV (12:37)
--- NOTE | 2024-12-19 13:05 | PC.NURSE ---
THis morning, patient was taken off of bipap. Nurse was able to decrease precedex. Patient became more awake. oriented to name, , and location.
[2024-12-19 13:36] LABS: Alanine Aminotransferase 25 U/L (0-41); Albumin Level 3.1 g/dL (3.5-5.2); Alkaline Phosphatase 52 U/L (40-130); Aspartate Amino Transferase 13 U/L (0-40); Calcium 8.3 mg/dL (8.5-10.5); Carbon Dioxide 26 mmol/L (22-29); Chloride 112 mmol/L (98-107); Creatinine Clr Calc Pharmacy 31.4027; Globulin 2.5 g/dL (1.3-4.6); Glucose 192 mg/dL (65-115); Sodium 154 mmol/L (136-145); Total Bilirubin 0.5 mg/dL (0.15-1.2); Total Protein 5.6 g/dL (6.6-8.7)
[2024-12-19 13:46] LABS: Blood Urea Nitrogen 144 mg/dL (8-23); Osmolality Calculated 370 mOsm/kg (285-295)
[2024-12-19 15:37] LABS: Glucose Point of Care 171 mg/dL (70-110)
--- NOTE | 2024-12-19 17:35 | P.PN_ITS ---
Subjective 2 Subjective: patient currently on Bipap, attempt to remove Bipap earlier today resulted in increased work of breathing , na at 160 Medications: Reviewed: Yes Vitals/I&O/Wt Last Vital Signs Temp 97 F L 12/19/24 15:30 Pulse 87 12/19/24 16:00 Resp 18 12/19/24 16:00 BP 141/63 12/19/24 16:00 Pulse Ox 93 12/19/24 16:00 O2 Del Method Heated High Flow 12/19/24 15:30 O2 Flow Rate 60 12/19/24 16:00 FiO2 50 12/19/24 16:00 12/19/24 12/19/24 12/19/24 06:59 14:59 22:59 Intake Total 730.269 / 3532.540 1526.061 / 1526.061 22.550 / 1548.611 Output Total 200 / 200 Balance 730.269 / 2232.540 1326.061 / 1326.061 22.550 / 1348.611 Weight last 48 hrs Weight 97.5 kg Weight 97.5 kg Physical Exam 2 Narrative: General: lethagic, obtunded, does not follow any commands HEENT: PERRLA, pupils bilaterally equal and reactive, pallors not present Chest: Normal vesicular breath sounds, no added sounds, equal good air entry bilaterally CVS: S1-S2 regular, no murmurs, no tachycardia, no gallops, no rubs Abdomen: Soft, nontender, no organomegaly, bowel sounds present Neuro: lethargic, obtunded, does not follow any commands Urinary Catheter Management: Solomon: Cath Placed During This Visit: yes Reason for Continuing Indwelling Catheter: Accurate Measurement of Urinary Output in Critically Ill Patients Urinary Catheter Date of Insertion: 12/09/24 Data 12/19/24 03:50 12/19/24 12:52 A&P Assessment and plan (1) Encephalopathy: Patient is severely encephalopathic secondary to acute metabolic encephalopathy and delirium Continue restraints as needed for patient safety May need sitter pending clinical course Patient remain n.p.o. due to severe aspiration risk Hopefully can consult speech therapy soon if mentation improves (2) Respiratory failure: Acute on chronic hypoxic hypercapnic respiratory failure Intubated 12/09; extubated 12/15 Continue noninvasive mechanical ventilation Continue bowel regiment GI and DVT prophylaxis Treating underlying pneumonia and reactive airway disease ABGs as needed (3) Pneumonia: Respiratory culture with Moraxella catarrhalis Continue Zosyn and azithromycin Optimize respiratory status (4) Respiratory syncytial virus (RSV): Droplet/contact precautions (5) COPD exacerbation: Continue systemic steroids with Solu-Medrol Continue inhaled steroids with Pulmicort Continue scheduled breathing treatments (6) Chronic kidney disease: Patient with advanced kidney disease at baseline Strict I's and O's, daily weights Hypernatremia secondary to overdiuresis Stop Lasix drip Start D5W, monitor for fluid overload, plan to discontinue soon as possible Repeat labs this afternoon (7) Diabetes mellitus: Continue Lantus Sliding-scale insulin correction every 6 hours Avoid hypoglycemia (8) Hypertension: Continue Norvasc once oral intake resumes Continue scheduled IV hydralazine for now, monitor for hypotension Hydralazine PRN (9) Bradycardia: History of bradycardia while on Cardizem Continue home amiodarone Plan DVT prophylaxis: Lovenox 12/18/24: Chart reveiwed, remains obtunded. Na at [address] today, start free water flushes via NGT with 250 cc every 6 hrs. Trend Na with initiation of free water boluses. Plan to start TPN for nutrition. Hold off on tube feeding for now while pending residual check, prefer to use NGT for free water flushes preferentially for now. continue Bipap ventilation 12/19/24: 74 year old male with past medical history of atrial fibrillation, COPD, type 2 diabetes mellitus who was recently discharged on November 30 after having a prolonged hospitalization for symptomatic bradycardia complicated by respiratory failure in setting of COPD exacerbation, cardiogenic shock, acute renal failure to SNF. Admitted here currently since 12/09 after p/w SOB and AMS. HE was found to have acute on chronic hypercpaneic hypoxic resp failure and was intubated, eventually getting extubated on 12/15. He was found to be RSV +. Sputum cx showed moraxella catarrhalis, patient has been treated with Zosyn and azithromycin since Dec 09, 2024. Additionally he is receiving high dose steroids with meythprednisone 60mg iv every 6 hrs since admission in addition to scheuled nebulization with duoneb and budesonide. Hospital course has been complicated by CKD with AIDA. He was started on Lasix drip on 12/12. He has had persisting encephalopathy since extubation on 12/15 and also has had hypernatremia with Na peaking at 163. Lasix gtt has been discontinued. Yesterday, NGT was placed again and patient was started on free water flushes. It appears he had been receing free water flushes presviosuly when intubated, but since then has not been receing it due to lack of NGT. These have been resumed yesterday, Na today trending down at 154. Patient is more awake today but continues to be very lethargic. Precdex was tapered down today and patient was able to state his name, Age, but did not know where he was. At the time of my asessment in Am, he asked specifically for water and to get a break from Bipap. We will attept to transition him to heated high flow today. Precedex has been continued for patient to tolerate Bipap; with transition to HHF, hope that he can be weaned off precedex. CXR from 12/18 showing bibasilar atelactasis, no major consolidation. Last ABG from yesterday with improved hypercapnea, normal pH. D/c Azithromycin today, has completed 10 days course, D/c zosyn as completing 10 days. Taper steroids from methylpred q6h to q8h. Hold D5W as Na correcting to 154 today. Continue 250 cc every 6 hrs free water flushes. Starting TPN today for nutrition. Failed swallow eval today. Hoepful that patient's mental status will continue to improve with improving Na and he may be able to tolerate po inatake this admission. PDMP PDMP Reviewed: Not Reviewed Attestations 2 Medical Necessity Statement*: Patient requires ongoing hospitalization for non-invasive ventilator support, IV Precedex drip, breathing treatments, d/c abx and closely monitor, treatment of hypernatremia Critical Care Time: The high probability of a clinically significant, sudden or life threatening deterioration of the patient's pulmonary, renal, circulatory, neuro system(s) required my full and direct attention, intervention and personal management. The critical care time is as shown. This time is in addition to time spent performing any reported procedures but includes the following: [x] Data and vital sign review and interpretation [x] Patient assessment, examination and intervention [x] Documentation [x] Medication orders and management Critical Care Time (min): 75 Coding Level of Care Code Critical Care >/= 30 minutes Diagnoses Encephalopathy G93.40 Respiratory failure J96.90 Pneumonia J18.9 Respiratory syncytial virus (RSV) B33.8 COPD exacerbation J44.1 Chronic kidney disease N18.9 Diabetes mellitus E11.9 Hypertension I10 Bradycardia R00.1
[2024-12-19] MEDS: atorvastatin 40 mg Tablet PO (18:04)
[2024-12-19] MEDS: [UNRECOGNIZED DRUG - REMARK] 10 ML IV (18:51)
--- NOTE | 2024-12-19 19:21 | PC.NURSE ---
Shift Summary: Patient was titrated off of precedex. Is oriented to person and placed. SPeech therapy reccomends ice chips only. Started on Parenteral nutrition. PN will need to be tritated at 0300.
[2024-12-19 20:09] LABS: Glucose Point of Care 116 mg/dL (70-110)
[2024-12-19 23:04] LABS: Alanine Aminotransferase 33 U/L (0-41); Albumin Level 2.9 g/dL (3.5-5.2); Alkaline Phosphatase 59 U/L (40-130); Aspartate Amino Transferase 23 U/L (0-40); Calcium 8.5 mg/dL (8.5-10.5); Carbon Dioxide 24 mmol/L (22-29); Chloride 110 mmol/L (98-107); Creatinine Clr Calc Pharmacy 29.0765; Globulin 2.7 g/dL (1.3-4.6); Glucose 142 mg/dL (65-115); Sodium 152 mmol/L (136-145); Total Bilirubin 0.5 mg/dL (0.15-1.2); Total Protein 5.6 g/dL (6.6-8.7)
[2024-12-19 23:13] LABS: Osmolality Calculated 366 mOsm/kg (285-295)
[2024-12-19 23:15] LABS: Blood Urea Nitrogen 151 mg/dL (8-23)
--- NOTE | 2024-12-19 23:21 | PC.NURSE ---
Critical value results Dr. Nascimento instructed this nurse not to report critical BUN levels to him.
[2024-12-20] VITALS (34 sets, daily range): BP systolic 97–156; BP diastolic 50–101; PULSE 88–115; RESP 18–28; TEMP 36.7–36.8; O2SAT 89–96
[2024-12-20 00:11] LABS: Glucose Point of Care 129 mg/dL (70-110)
[2024-12-20] MEDS: hyDRALAzine 20 mg/mL INJ 1 mL 10 MG IVP ×3 (00:18→13:08)
[2024-12-20] MEDS: ipratropium 0.5 mg/2.5 mL Neb INHALATION ×3 (01:32→13:15)
[2024-12-20] MEDS: levalbuterol 0.63 mg/3 mL Neb INHALATION ×3 (01:32→13:15)
[2024-12-20 02:59] LABS: Glucose Point of Care 136 mg/dL (70-110)
[2024-12-20] MEDS: methylPREDNISolone sod succ 40 mg/mL INJ IVP ×2 (03:00→10:49)
[2024-12-20 04:24] LABS: Glucose Point of Care 162 mg/dL (70-110)
[2024-12-20] MEDS: insulin lispro 100 unit/1 mL SUBCUT ×3 (04:25→13:14)
[2024-12-20 06:36] LABS: Alanine Aminotransferase 35 U/L (0-41); Albumin Level 3.2 g/dL (3.5-5.2); Alkaline Phosphatase 61 U/L (40-130); Anion Gap 23.2 (5-19); Aspartate Amino Transferase 16 U/L (0-40); Calcium 8.6 mg/dL (8.5-10.5); Carbon Dioxide 25 mmol/L (22-29); Chloride 109 mmol/L (98-107); Creatinine Clr Calc Pharmacy 25.3247; Globulin 2.4 g/dL (1.3-4.6); Glucose 179 mg/dL (65-115); Potassium 4.2 mmol/L (3.5-5.1); Sodium 153 mmol/L (136-145); Total Bilirubin 0.5 mg/dL (0.15-1.2); Total Protein 5.6 g/dL (6.6-8.7)
[2024-12-20 06:46] LABS: Osmolality Calculated 372 mOsm/kg (285-295)
[2024-12-20 06:47] LABS: Blood Urea Nitrogen 156 mg/dL (8-23)
[2024-12-20 07:03] LABS: Basophils # 0.1 10^3/uL (0.0-0.1); Basophils % 0.4 %; Eosinophils % 0.1 %; Hematocrit 36.8 % (37-53); Lymphocytes # 0.8 10^3/uL (0.8-4.8); Lymphocytes % 4.8 %; Mean Corpuscular HGB Conc 29.6 g/dL (30-55); Mean Corpuscular Hemoglobin 29.8 pg (27-33); Mean Corpuscular Volume 100.5 fl (82-101); Mean Platelet Volume 13.8 fL (7.4-10.4); Neutrophils # 13.47 10^3/uL (1.8-7.7); Neutrophils % 83.8 %; Nucleated Red Blood Cells % 0 %; Platelet Count 126 10^3/cmm (157-399); Red Blood Count 3.66 10^6/uL (3.85-5.65); Red Cell Distribution Width 14.2 % (12.1-15.1); White Blood Count 16.06 10^3/uL (3.29-11.43)
[2024-12-20 07:18] LABS: Slide Review Slide Review Perform
[2024-12-20 07:58] LABS: Glucose Point of Care 157 mg/dL (70-110)
[2024-12-20] MEDS: fluoxetine 20 mg Capsule PO (08:02)
[2024-12-20] MEDS: polyethylene glycol 3350 Pkt 17 gm PO (08:02)
[2024-12-20] MEDS: tamsulosin 0.4 mg Capsule PO (08:02)
[2024-12-20] MEDS: sennosides 8.6 mg Tablet 17.2 MG PO (08:02)
[2024-12-20] MEDS: amlodipine 5 mg Tablet PO (08:02)
[2024-12-20] MEDS: amiodarone 200 mg Tablet 100 MG PO (08:02)
[2024-12-20] MEDS: acetaminophen 325 mg Tablet 650 MG PO (08:03)
[2024-12-20] MEDS: budesonide 0.5 mg/2 mL Neb INHALATION (08:25)
--- NOTE | 2024-12-20 09:57 | PC.SOCIAL ---
IMM Updated Updated pt on IMM. No questions voiced. Provided pt a copy. Initialed, dated, & timed copy in chart.
[2024-12-20] MEDS: insulin glargine 100 units/1 mL 24 UNIT SUBCUT (10:47)
[2024-12-20] MEDS: dextrose 5% 1,000 ML 75 ML IV (10:51)
[2024-12-20] MEDS: pantoprazole 40 mg SDV IVP (13:06)
[2024-12-20] MEDS: enoxaparin 100 mg/mL Syringe SUBCUT (13:09)
[2024-12-20 13:14] LABS: Glucose Point of Care 223 mg/dL (70-110)
--- NOTE | 2024-12-20 14:01 | PC.NURSE ---
Patient is being transferred to [facility]. Nurse called report to nimco ARSHAD at [facility]. supervisor patching requested [facility] to complete transfer.
--- NOTE | 2024-12-20 14:06 | PC.NURSE ---
[facility] arrived and picked up patient at approximately 1345. Belongings bag including clothing was sent with the patient. NUrse called [facility] and advised them of EMS departure. Nurse called ashish christine (son), and alerted him to transfer.
--- NOTE | 2024-12-20 14:39 | P.TS_ITS ---
Transfer Summary Providers Date of Admission: 12/09/24 10:53 Date of Discharge/Transfer: 12/20/24 Attending Provider at Admission: Zohaib Robles MD Attending Provider at Transfer: Eugenie Junior MD Primary Care Provider: Adán Lino DO Transfer Plans: Anticipated date of transfer: 12/20/24 . Receiving Facility: [facility] . Receiving Provider: Wanda Chen NP . Diagnoses at Discharge Discharge Diagnosis (1) Encephalopathy: Status: Acute (2) Respiratory failure: Status: Acute (3) Pneumonia: Status: Acute (4) Respiratory syncytial virus (RSV): Status: Acute (5) COPD exacerbation: Status: Acute (6) Chronic kidney disease: Status: Chronic (7) Diabetes mellitus: Status: Acute (8) Hypertension: Status: Acute (9) Bradycardia: Status: Acute Reason for Visit Reason for Visit sob; ams Hospital Course Hospital Course 74 year old male with past medical history of atrial fibrillation, COPD, type 2 diabetes mellitus who was recently discharged on November 30 after having a prolonged hospitalization for symptomatic bradycardia complicated by respiratory failure in setting of COPD exacerbation, cardiogenic shock, acute renal failure and discharged to SNF. Admitted here currently since 12/09 after p/w SOB and AMS. HE was found to have acute on chronic hypercpaneic hypoxic resp failure and was intubated, eventually getting extubated on 12/15. He was found to be RSV +. Sputum cx showed moraxella catarrhalis, patient has been treated with Zosyn and azithromycin since Dec 09, 2024 for 10 days until 12/19/24. Additionally he was receiving high dose steroids with meythprednisone 60mg iv every 6 hrs since admission in addition to scheuled nebulization with duoneb and budesonide. This was tapered to q8h yesterday on 01/08/25. Hospital course has been complicated by CKD with AIDA. He was started on Lasix drip on 12/12, which has since been stopped due to hypernatremia and patient being euvolemic. He has had persisting encephalopathy since extubation on 12/15 and also has had hypernatremia with Na peaking at 163. He has been Bipap dependent with unsuccessful attempts at weaning. on 12/19, he was transitioned to heated high flow with high 02 requirements of 50% fi02 at 60lpm. He will need continued 02 weaning. NGT was placed on 12/18 and patient was started on free water flushes along with intermittement d5w depending on Na trend. Na today trending down at 153. Patient is more awake today but continues to be very lethargic. with precedex being turned down, he was able to answer simple questions like his name, age, realized that he is in a hospital. Asking for water, taking off bipap etc. He has failed swallow evals due to extreme lethargy. Tpn started on 12/19, with hope to transition to tube feeding once consistently able to tolerate being off Bipap. CXR from 12/18 showing bibasilar atelactasis, no major consolidation. He is being transitioned to LTAC today for continued oxygen weaning, contniued assessment for swallowing, TPN vs tube feeds, extreme deconditioning, electrolyte management. Physical Exam Narrative: General: chronically ill appearing, lethargic, wakes up to calling name, atempts to reply in conversation however unable to follow commands due to lethargy HEENT: PERRLA, pupils bilaterally equal and reactive, pallors not present Chest: scattered crackles B/L lung bases CVS: S1-S2 regular, no murmurs, no tachycardia, no gallops, no rubs Abdomen: Soft, nontender, no organomegaly, bowel sounds present Neuro: lethargic, does not follwo commands, attempts to make fists, etc Urinary Catheter Management: Solomon: Cath Placed During This Visit: yes Reason for Continuing Indwelling Catheter: Accurate Measurement of Urinary Output in Critically Ill Patients Urinary Catheter Date of Insertion: 12/09/24 TS Data Studies Completed and Pending Completed Studies During Hospitalization Category Date Time Status CT chest wo con 06085 Stat Cat Scan 12/09/24 12:41 Completed CXRP [XR chest 1V portable [id number]] Routine Exams 12/13/24 07:16 Completed CXRP [XR chest 1V portable [id number]] Routine Exams 12/17/24 15:10 Completed CXRP [XR chest 1V portable [id number]] Routine Exams 12/18/24 16:25 Completed CXRP [XR chest 1V portable [id number]] Stat Exams 12/09/24 13:23 Completed XR chest 1V portable [id number] QAM Exams 12/10/24 06:00 Completed XR chest 1V portable [id number] QAM Exams 12/11/24 06:00 Completed XR chest 1V portable [id number] QAM Exams 12/12/24 06:00 Completed XR chest 1V portable [id number] Routine Exams 12/14/24 04:00 Completed XR chest 1V portable [id number] Routine Exams 12/15/24 04:00 Completed XR chest 1V portable [id number] Routine Exams 12/16/24 04:00 Completed XR chest 1V portable [id number] Stat Exams 12/09/24 09:34 Completed Laboratory Last Values WBC 16.06 10^3/uL (3.29-11.43) H 12/20/24 06:04 Corrected WBC Cancelled 12/13/24 04:33 RBC 3.66 10^6/uL (3.85-5.65) L 12/20/24 06:04 Hgb 10.90 g/dL (11.27-16.99) L 12/20/24 06:04 Hct 36.8 % (37-53) L 12/20/24 06:04 MCV 100.5 fl (82-101) 12/20/24 06:04 MCH 29.8 pg (27-33) 12/20/24 06:04 MCHC 29.6 g/dL (30-55) L 12/20/24 06:04 RDW 14.2 % (12.1-15.1) 12/20/24 06:04 Plt Count 126 10^3/cmm (157-399) L D 12/20/24 06:04 MPV 13.8 fL (7.4-10.4) H 12/20/24 06:04 Gran % Cancelled 12/13/24 04:33 Neut % (Auto) 83.8 % 12/20/24 06:04 Lymph % (Auto) 4.8 % 12/20/24 06:04 [place] % (Auto) 6.0 % 12/20/24 06:04 Eos % (Auto) 0.1 % 12/20/24 06:04 Baso % (Auto) 0.4 % 12/20/24 06:04 Neut # (Auto) 13.47 10^3/uL (1.8-7.7) H 12/20/24 06:04 Lymph # (Auto) 0.8 10^3/uL (0.8-4.8) 12/20/24 06:04 [place] # (Auto) 1.0 10^3/uL (0.2-0.9) H 12/20/24 06:04 Eos # (Auto) 0.0 10^3/uL (0.0-0.8) 12/20/24 06:04 Baso # (Auto) 0.1 10^3/uL (0.0-0.1) 12/20/24 06:04 Absolute Gran (auto) Cancelled 12/13/24 04:33 Nucleated RBC % (auto) 0 % 12/20/24 06:04 Total Counted 100 (0-100) 12/15/24 04:18 Atypical Lymphs % Not Reportable 12/15/24 04:18 Absolute Neutrophils 4.8 10^3/cmm (1.4-6.5) 12/15/24 04:18 Segmented Neutrophils 70 % 12/15/24 04:18 Band Neutrophils 4.0 % 12/15/24 04:18 Lymphocytes (Manual) 11 % 12/15/24 04:18 Monocytes (Manual) 6.0 % 12/15/24 04:18 Absolute Monocytes 0.4 10^3/cmm (0.1-0.6) 12/15/24 04:18 Eosinophils (Manual) 0 % 12/15/24 04:18 Absolute Eosinophils 0.0 10^3/cmm (0.0-0.7) 12/15/24 04:18 Basophils (Manual) 0.0 % 12/15/24 04:18 Absolute Basophils 0.0 10^3/cmm (0.0-0.2) 12/15/24 04:18 Metamyelocytes 2.0 % 12/15/24 04:18 Myelocytes 5.0 % 12/15/24 04:18 Promyelocytes 2.0 % 12/15/24 04:18 Nucleated RBCs # 0.0 /100WBC 12/20/24 06:04 Platelet Estimate Normal (Normal) 12/15/24 04:18 Anisocytosis 1+ H 12/15/24 04:18 D-Dimer 0.47 ug/mLFEU (0-0.59) 12/09/24 09:57 Specimen Type Arterial 12/18/24 04:36 Sample Site Radial, right 12/18/24 04:36 ABG pH 7.39 (7.35-7.45) 12/18/24 04:36 ABG pCO2 47.2 mmHg (35-45) H 12/18/24 04:36 ABG pO2 72.4 mmHg (80.0-100.0) L 12/18/24 04:36 ABG PO2/FiO2 Ratio 206 12/18/24 04:36 ABG HCO3 28.3 mmol/L (22-26) H 12/18/24 04:36 ABG O2 Saturation 94.4 12/18/24 04:36 ABG Base Excess 2.6 mmol/L (-2.0-2.0) H 12/18/24 04:36 Severino Test Pos 12/18/24 04:36 A-a O2 Gradient 15.3 mmHg (5-10) H 12/18/24 04:36 Hematocrit 40.0 % (42-52) L 12/18/24 04:36 Hgb O2 Saturation 92.3 % (95-100) L 12/18/24 04:36 Carboxyhemoglobin 1.0 %THgb (0.4-20.1) 12/18/24 04:36 Methemoglobin 1.2 % (0.4-1.5) 12/18/24 04:36 Total Hemoglobin 13.1 g/dL (14-18) L 12/18/24 04:36 Sodium 165.0 mmol/L (131-143) H 12/18/24 04:36 Potassium 4.1 mmol/L (3.5-5.0) 12/18/24 04:36 Glucose 195.0 mg/dL (70-115) H 12/18/24 04:36 Ionized Calcium 1.2 mmol/L (1.1-1.4) 12/18/24 04:36 O2 Delivery Device Bipap 12/18/24 04:36 O2 Liters/Min 4.0 % 12/09/24 09:40 FiO2 35.0 % 12/18/24 04:36 Tidal Volume 0.50 12/16/24 04:50 PEEP 8.0 cmH20 12/16/24 04:50 CPAP 8.0 cmH20 12/15/24 04:36 Rn Prior Authorization ID Jaron 12/18/24 04:36 Sodium 153 mmol/L (136-145) H 12/20/24 06:04 Potassium 4.2 mmol/L (3.5-5.1) 12/20/24 06:04 Chloride 109 mmol/L (98-107) H 12/20/24 06:04 Carbon Dioxide 25 mmol/L (22-29) 12/20/24 06:04 Anion Gap 23.2 (5-19) H 12/20/24 06:04 BUN 156 mg/dL (8-23) H* 12/20/24 06:04 Creatinine 3.1 mg/dL (0.7-1.2) H 12/20/24 06:04 GFR Calculation Not Reportable 12/20/24 06:04 Glucose 179 mg/dL (65-115) H 12/20/24 06:04 POC Glucose 223 mg/dL (70-110) H 12/20/24 13:06 Calculated Osmolality 372 mOsm/kg (285-295) H 12/20/24 06:04 Lactic Acid 0.9 mmol/L (0.5-2.2) 12/09/24 09:57 Calcium 8.6 mg/dL (8.5-10.5) 12/20/24 06:04 Phosphorus 7.3 mg/dL (2.5-4.5) H 12/18/24 04:37 Magnesium 2.7 mg/dL (1.7-2.3) H 12/18/24 04:37 Total Bilirubin 0.5 mg/dL (0.15-1.2) 12/20/24 06:04 AST 16 U/L (0-40) 12/20/24 06:04 ALT 35 U/L (0-41) 12/20/24 06:04 Alkaline Phosphatase 61 U/L (40-130) 12/20/24 06:04 NT-Pro-B Natriuret Pep 832 pg/mL (0-450) H 12/09/24 09:57 Total Protein 5.6 g/dL (6.6-8.7) L 12/20/24 06:04 Albumin 3.2 g/dL (3.5-5.2) L 12/20/24 06:04 Globulin 2.4 g/dL (1.3-4.6) 12/20/24 06:04 Triglycerides 151 mg/dL (0-150) H 12/10/24 04:33 Cholesterol 133 mg/dL (0-200) 12/10/24 04:33 LDL Cholesterol, Calc 57 mg/dL (50-129) 12/10/24 04:33 HDL Cholesterol 46 mg/dL (60-100) L 12/10/24 04:33 LDL/HDL Ratio 1.24 RATIO (0.00-3.22) 12/10/24 04:33 Cholesterol/HDL Ratio 2.89 mg/dL (1.0-5.00) 12/10/24 04:33 Procalcitonin 0.24 ng/mL (0-0.5) 12/13/24 10:35 Urine Color Yellow (Yellow) 12/09/24 10:48 Urine Appearance Clear (CLEAR) 12/09/24 10:48 Urine pH 5.0 (5-7) 12/09/24 10:48 Ur Specific Andrew 1.015 (1.005-1.030) 12/09/24 10:48 Urine Protein 1+ (Negative) A 12/09/24 10:48 Urine Glucose (UA) Negative (Normal) 12/09/24 10:48 Urine Ketones Negative (Negative) 12/09/24 10:48 Urine Blood Negative (Negative) 12/09/24 10:48 Urine Nitrate Negative (Negative) 12/09/24 10:48 Urine Bilirubin Negative (Negative) 12/09/24 10:48 Urine Urobilinogen 0.2 mg/dL (Negative) 12/09/24 10:48 Ur Leukocyte Esterase 1+ (Negative) A 12/09/24 10:48 Urine RBC 3-5 /hpf (0-2) 12/09/24 10:48 Urine WBC 21-50 /hpf (0-5) H 12/09/24 10:48 Ur Squamous Epith Cells 0-5 /hpf (0-5) 12/09/24 10:48 Amorphous Sediment Not Reportable 12/09/24 10:48 Urine Bacteria None seen /hpf (NONE) 12/09/24 10:48 Hyaline Casts 9.91 /lpf 12/09/24 10:48 Urine Yeast 1+ /hpf H 12/09/24 10:48 Nasal MRSA (PCR) Not detected (Negative) 12/09/24 16:20 Random Vancomycin 14.6 ug/mL (20.0-40.0) L 12/13/24 10:35 Coronavirus (PCR) Negative (Negative) 12/09/24 09:57 Influenza A (PCR) Negative (Negative) 12/09/24 09:57 Influenza Type B (PCR) Negative (Negative) 12/09/24 09:57 RSV (PCR) Positive (Negative) A 12/09/24 09:[address] 12/09/24 12:41 IMPRESSION: 1. Interval placement of endotracheal and orogastric tubes in good position. 2. Reticulonodular infiltrates within the bilateral lower lobes and posterior upper and middle lobes with mild patchy density at the left lung apex compatible with multifocal pneumonia. Previously seen dense consolidation within the bilateral lower lobes is less pronounced compared to the prior study. 3. Interval resolution of bilateral pleural effusions. 4. Mild stable cardiomegaly with trace pericardial effusion. 5. Moderate coronary arterial calcification. Chest X-Ray 12/18/24 16:25 IMPRESSION: 1. Support hardware as above. 2. No acute findings. Radiology Impressions Chest CT 12/09/24 12:41 IMPRESSION: 1. Interval placement of endotracheal and orogastric tubes in good position. 2. Reticulonodular infiltrates within the bilateral lower lobes and posterior upper and middle lobes with mild patchy density at the left lung apex compatible with multifocal pneumonia. Previously seen dense consolidation within the bilateral lower lobes is less pronounced compared to the prior study. 3. Interval resolution of bilateral pleural effusions. 4. Mild stable cardiomegaly with trace pericardial effusion. 5. Moderate coronary arterial calcification. Chest X-Ray 12/18/24 16:25 IMPRESSION: 1. Support hardware as above. 2. No acute findings. Laboratory Results WBC 16.06 10^3/uL (3.29-11.43) H 12/20/24 06:04 Corrected WBC Cancelled 12/13/24 04:33 RBC 3.66 10^6/uL (3.85-5.65) L 12/20/24 06:04 Hgb 10.90 g/dL (11.27-16.99) L 12/20/24 06:04 Hct 36.8 % (37-53) L 12/20/24 06:04 MCV 100.5 fl (82-101) 12/20/24 06:04 MCH 29.8 pg (27-33) 12/20/24 06:04 MCHC 29.6 g/dL (30-55) L 12/20/24 06:04 RDW 14.2 % (12.1-15.1) 12/20/24 06:04 Plt Count 126 10^3/cmm (157-399) L D 12/20/24 06:04 MPV 13.8 fL (7.4-10.4) H 12/20/24 06:04 Gran % Cancelled 12/13/24 04:33 Neut % (Auto) 83.8 % 12/20/24 06:04 Lymph % (Auto) 4.8 % 12/20/24 06:04 [place] % (Auto) 6.0 % 12/20/24 06:04 Eos % (Auto) 0.1 % 12/20/24 06:04 Baso % (Auto) 0.4 % 12/20/24 06:04 Neut # (Auto) 13.47 10^3/uL (1.8-7.7) H 12/20/24 06:04 Lymph # (Auto) 0.8 10^3/uL (0.8-4.8) 12/20/24 06:04 [place] # (Auto) 1.0 10^3/uL (0.2-0.9) H 12/20/24 06:04 Eos # (Auto) 0.0 10^3/uL (0.0-0.8) 12/20/24 06:04 Baso # (Auto) 0.1 10^3/uL (0.0-0.1) 12/20/24 06:04 Absolute Gran (auto) Cancelled 12/13/24 04:33 Nucleated RBC % (auto) 0 % 12/20/24 06:04 Total Counted 100 (0-100) 12/15/24 04:18 Atypical Lymphs % Not Reportable 12/15/24 04:18 Absolute Neutrophils 4.8 10^3/cmm (1.4-6.5) 12/15/24 04:18 Segmented Neutrophils 70 % 12/15/24 04:18 Band Neutrophils 4.0 % 12/15/24 04:18 Lymphocytes (Manual) 11 % 12/15/24 04:18 Monocytes (Manual) 6.0 % 12/15/24 04:18 Absolute Monocytes 0.4 10^3/cmm (0.1-0.6) 12/15/24 04:18 Eosinophils (Manual) 0 % 12/15/24 04:18 Absolute Eosinophils 0.0 10^3/cmm (0.0-0.7) 12/15/24 04:18 Basophils (Manual) 0.0 % 12/15/24 04:18 Absolute Basophils 0.0 10^3/cmm (0.0-0.2) 12/15/24 04:18 Metamyelocytes 2.0 % 12/15/24 04:18 Myelocytes 5.0 % 12/15/24 04:18 Promyelocytes 2.0 % 12/15/24 04:18 Nucleated RBCs # 0.0 /100WBC 12/20/24 06:04 Platelet Estimate Normal (Normal) 12/15/24 04:18 Anisocytosis 1+ H 12/15/24 04:18 D-Dimer 0.47 ug/mLFEU (0-0.59) 12/09/24 09:57 Specimen Type Arterial 12/18/24 04:36 Sample Site Radial, right 12/18/24 04:36 ABG pH 7.39 (7.35-7.45) 12/18/24 04:36 ABG pCO2 47.2 mmHg (35-45) H 12/18/24 04:36 ABG pO2 72.4 mmHg (80.0-100.0) L 12/18/24 04:36 ABG PO2/FiO2 Ratio 206 12/18/24 04:36 ABG HCO3 28.3 mmol/L (22-26) H 12/18/24 04:36 ABG O2 Saturation 94.4 12/18/24 04:36 ABG Base Excess 2.6 mmol/L (-2.0-2.0) H 12/18/24 04:36 Severino Test Pos 12/18/24 04:36 A-a O2 Gradient 15.3 mmHg (5-10) H 12/18/24 04:36 Hematocrit 40.0 % (42-52) L 12/18/24 04:36 Hgb O2 Saturation 92.3 % (95-100) L 12/18/24 04:36 Carboxyhemoglobin 1.0 %THgb (0.4-20.1) 12/18/24 04:36 Methemoglobin 1.2 % (0.4-1.5) 12/18/24 04:36 Total Hemoglobin 13.1 g/dL (14-18) L 12/18/24 04:36 Sodium 165.0 mmol/L (131-143) H 12/18/24 04:36 Potassium 4.1 mmol/L (3.5-5.0) 12/18/24 04:36 Glucose 195.0 mg/dL (70-115) H 12/18/24 04:36 Ionized Calcium 1.2 mmol/L (1.1-1.4) 12/18/24 04:36 O2 Delivery Device Bipap 12/18/24 04:36 O2 Liters/Min 4.0 % 12/09/24 09:40 FiO2 35.0 % 12/18/24 04:36 Tidal Volume 0.50 12/16/24 04:50 PEEP 8.0 cmH20 12/16/24 04:50 CPAP 8.0 cmH20 12/15/24 04:36 Rn Prior Authorization ID Jaron 12/18/24 04:36 Sodium 153 mmol/L (136-145) H 12/20/24 06:04 Potassium 4.2 mmol/L (3.5-5.1) 12/20/24 06:04 Chloride 109 mmol/L (98-107) H 12/20/24 06:04 Carbon Dioxide 25 mmol/L (22-29) 12/20/24 06:04 Anion Gap 23.2 (5-19) H 12/20/24 06:04 BUN 156 mg/dL (8-23) H* 12/20/24 06:04 Creatinine 3.1 mg/dL (0.7-1.2) H 12/20/24 06:04 GFR Calculation Not Reportable 12/20/24 06:04 Glucose 179 mg/dL (65-115) H 12/20/24 06:04 POC Glucose 223 mg/dL (70-110) H 12/20/24 13:06 Calculated Osmolality 372 mOsm/kg (285-295) H 12/20/24 06:04 Lactic Acid 0.9 mmol/L (0.5-2.2) 12/09/24 09:57 Calcium 8.6 mg/dL (8.5-10.5) 12/20/24 06:04 Phosphorus 7.3 mg/dL (2.5-4.5) H 12/18/24 04:37 Magnesium 2.7 mg/dL (1.7-2.3) H 12/18/24 04:37 Total Bilirubin 0.5 mg/dL (0.15-1.2) 12/20/24 06:04 AST 16 U/L (0-40) 12/20/24 06:04 ALT 35 U/L (0-41) 12/20/24 06:04 Alkaline Phosphatase 61 U/L (40-130) 12/20/24 06:04 NT-Pro-B Natriuret Pep 832 pg/mL (0-450) H 12/09/24 09:57 Total Protein 5.6 g/dL (6.6-8.7) L 12/20/24 06:04 Albumin 3.2 g/dL (3.5-5.2) L 12/20/24 06:04 Globulin 2.4 g/dL (1.3-4.6) 12/20/24 06:04 Triglycerides 151 mg/dL (0-150) H 12/10/24 04:33 Cholesterol 133 mg/dL (0-200) 12/10/24 04:33 LDL Cholesterol, Calc 57 mg/dL (50-129) 12/10/24 04:33 HDL Cholesterol 46 mg/dL (60-100) L 12/10/24 04:33 LDL/HDL Ratio 1.24 RATIO (0.00-3.22) 12/10/24 04:33 Cholesterol/HDL Ratio 2.89 mg/dL (1.0-5.00) 12/10/24 04:33 Procalcitonin 0.24 ng/mL (0-0.5) 12/13/24 10:35 Urine Color Yellow (Yellow) 12/09/24 10:48 Urine Appearance Clear (CLEAR) 12/09/24 10:48 Urine pH 5.0 (5-7) 12/09/24 10:48 Ur Specific Andrew 1.015 (1.005-1.030) 12/09/24 10:48 Urine Protein 1+ (Negative) A 12/09/24 10:48 Urine Glucose (UA) Negative (Normal) 12/09/24 10:48 Urine Ketones Negative (Negative) 12/09/24 10:48 Urine Blood Negative (Negative) 12/09/24 10:48 Urine Nitrate Negative (Negative) 12/09/24 10:48 Urine Bilirubin Negative (Negative) 12/09/24 10:48 Urine Urobilinogen 0.2 mg/dL (Negative) 12/09/24 10:48 Ur Leukocyte Esterase 1+ (Negative) A 12/09/24 10:48 Urine RBC 3-5 /hpf (0-2) 12/09/24 10:48 Urine WBC 21-50 /hpf (0-5) H 12/09/24 10:48 Ur Squamous Epith Cells 0-5 /hpf (0-5) 12/09/24 10:48 Amorphous Sediment Not Reportable 12/09/24 10:48 Urine Bacteria None seen /hpf (NONE) 12/09/24 10:48 Hyaline Casts 9.91 /lpf 12/09/24 10:48 Urine Yeast 1+ /hpf H 12/09/24 10:48 Nasal MRSA (PCR) Not detected (Negative) 12/09/24 16:20 Random Vancomycin 14.6 ug/mL (20.0-40.0) L 12/13/24 10:35 Coronavirus (PCR) Negative (Negative) 12/09/24 09:57 Influenza A (PCR) Negative (Negative) 12/09/24 09:57 Influenza Type B (PCR) Negative (Negative) 12/09/24 09:57 RSV (PCR) Positive (Negative) A 12/09/24 09:57 Recent Clincial Data Last Vital Signs Temp 98.2 F 12/20/24 09:30 Pulse 102 H 12/20/24 14:17 Resp 24 H 12/20/24 13:30 BP 129/69 12/20/24 14:17 Pulse Ox 92 12/20/24 14:17 O2 Del Method Heated High Flow 12/20/24 13:15 O2 Flow Rate 60 12/20/24 13:15 FiO2 50 12/20/24 13:15 Vital Signs Temp Pulse Pulse Resp Resp BP Pulse Ox 12/20/24 14:17 102 H 129/69 92 12/20/24 14:00 129/69 12/20/24 13:45 108 H 12/20/24 13:30 108 H 24 H 143/77 12/20/24 13:15 109 H 20 H 92 12/20/24 13:00 101 H 25 H 150/72 92 12/20/24 12:30 101 H 24 H 150/72 90 12/20/24 12:00 99 24 H 136/69 90 12/20/24 11:30 106 H 25 H 136/69 90 12/20/24 11:12 101 H 20 H 12/20/24 11:00 109 H 20 H 118/56 92 12/20/24 10:30 103 H 24 H 129/74 94 12/20/24 10:00 105 H 23 H 110/57 94 12/20/24 09:30 98.2 F 112 H 22 H 119/54 93 12/20/24 09:00 96 22 H 97/50 91 12/20/24 08:30 100 23 H 148/101 89 L 12/20/24 08:00 102 H 23 H 106/83 92 12/20/24 08:00 103 H 20 H 89 L 12/20/24 08:00 109 H 20 H 12/20/24 07:30 103 H 24 H 131/71 95 12/20/24 07:00 101 H 21 H 139/64 96 12/20/24 06:30 23 H 135/78 94 12/20/24 06:00 110 H 27 H 129/71 95 12/20/24 06:00 109 H 12/20/24 06:00 98.1 F 12/20/24 05:30 108 H 20 H 129/71 95 12/20/24 05:00 114 H 22 H 141/72 93 12/20/24 04:30 107 H 22 H 134/79 94 12/20/24 04:00 88 20 H 12/20/24 04:00 109 H 26 H 139/63 94 12/20/24 03:30 112 H 25 H 151/78 92 12/20/24 03:00 110 H 24 H 151/78 91 Pulse Ox O2 Del Method O2 Flow Rate O2 Flow Rate FiO2 FiO2 12/20/24 14:17 12/20/24 14:00 12/20/24 13:45 12/20/24 13:30 12/20/24 13:15 Heated High Flow 60 50 12/20/24 13:00 12/20/24 12:30 12/20/24 12:00 12/20/24 11:30 12/20/24 11:12 90 60 50 12/20/24 11:00 12/20/24 10:30 12/20/24 10:00 12/20/24 09:30 Heated High Flow 60 50 12/20/24 09:00 12/20/24 08:30 12/20/24 08:00 12/20/24 08:00 Heated High Flow 60 50 12/20/24 08:00 89 L 60 50 12/20/24 07:30 12/20/24 07:00 12/20/24 06:30 12/20/24 06:00 12/20/24 06:00 12/20/24 06:00 12/20/24 05:30 12/20/24 05:00 12/20/24 04:30 12/20/24 04:00 93 60 60 12/20/24 04:00 12/20/24 03:30 12/20/24 03:00 Intake & Output/Weight 12/18/24 12/19/24 12/20/24 12/21/24 06:59 06:59 06:59 06:59 Intake Total 1556.889 / 3883.634 5260.540 / 3532.540 3259.040 / 3259.040 250 / 250 Output Total 950 / 950 1300 / 1300 600 / 600 Balance 606.889 / 857.943 3195.540 / 2232.540 2659.040 / 2659.040 250 / 250 Weight 97.5 kg 97.5 kg 97 kg Vitals Last Vital Signs Temp 98.2 F 12/20/24 09:30 Pulse 102 H 12/20/24 14:17 Resp 24 H 12/20/24 13:30 BP 129/69 12/20/24 14:17 Pulse Ox 92 12/20/24 14:17 O2 Del Method Heated High Flow 12/20/24 13:15 O2 Flow Rate 60 12/20/24 13:15 FiO2 50 12/20/24 13:15 TS Medications Medications Discontinued Medications Acetaminophen (Acetaminophen 325 Mg Tablet) 650 mg PO Q6H PRN PRN Reason: Mild/Mod Pain Or Temp >/= 101 Last Admin: 12/20/24 08:03 Dose: 650 mg Albuterol Sulfate (Albuterol 2.5 Mg/3 Ml Neb) 10 mg INHALATION ONCE ONE Stop: 12/09/24 09:35 Last Admin: 12/09/24 09:44 Dose: 10 mg Albuterol Sulfate (Albuterol 2.5 Mg/3 Ml Neb) Confirm Administered Dose 7.5 mg .ROUTE .STK-MED ONE Stop: 12/09/24 09:51 Last Admin: 12/10/24 10:32 Dose: Not Given Amiodarone HCl (Amiodarone 200 Mg Tablet) 100 mg PO DAILY [facility] Last Admin: 12/20/24 08:02 Dose: 100 mg Amlodipine Besylate (Amlodipine 5 Mg Tablet) 5 mg PO DAILY [facility] Last Admin: 12/15/24 08:33 Dose: 5 mg Amlodipine Besylate (Amlodipine 5 Mg Tablet) 5 mg PO BID [facility] Last Admin: 12/20/24 08:02 Dose: 5 mg Aspirin (Aspirin 81 Mg Ec Tablet) 81 mg PO DAILY [facility] Last Admin: 12/20/24 08:03 Dose: Not Given Atorvastatin Calcium (Atorvastatin 40 Mg Tablet) 40 mg PO QPM [facility] Last Admin: 12/19/24 18:04 Dose: 40 mg Azithromycin (Azithromycin 250 Mg Tablet) 500 mg PO DAILY [facility]; Protocol Stop: 12/21/24 16:19 Last Admin: 12/19/24 08:59 Dose: 500 mg Budesonide (Budesonide 0.5 Mg/2 Ml Neb) 0.5 mg INHALATION BID.RESPIRATORY [facility] Last Admin: 12/20/24 08:25 Dose: 0.5 mg Ceftriaxone Sodium (Ceftriaxone 1,000 Mg Sdv) 1,000 mg IVP ONCE ONE; Protocol Stop: 12/09/24 12:27 Last Admin: 12/09/24 14:04 Dose: 1,000 mg Ceftriaxone Sodium (Ceftriaxone 1,000 Mg Sdv) 1,000 mg IVP Q24H [facility]; Protocol Last Admin: 12/09/24 14:15 Dose: Not Given Chlorhexidine Gluconate (Chlorhexidine Gluconate 4% Btl 118 Ml) 1 applic TOPICA L DAILY PRN PRN Reason: For Nightly Bath Dexamethasone (Dexamethasone 10 Mg/Ml Inj) 10 mg IM ONCE ONE Stop: 12/09/24 09:35 Last Admin: 12/09/24 10:30 Dose: 10 mg Docusate Sodium (Docusate Sodium 100 Mg Capsule) 100 mg PO BID [facility] Last Admin: 12/20/24 08:04 Dose: Not Given Enoxaparin Sodium (Enoxaparin 120 Mg/0.8 Ml Syringe) 120 mg SUBCUT Q24H [facility] Last Admin: 12/09/24 14:04 Dose: 120 mg Enoxaparin Sodium (Enoxaparin 120 Mg/0.8 Ml Syringe) 110 mg SUBCUT Q24H [facility] Last Admin: 12/17/24 12:43 Dose: 110 mg Enoxaparin Sodium (Enoxaparin 100 Mg/Ml Syringe) 100 mg SUBCUT Q24H [facility] Last Admin: 12/20/24 13:09 Dose: 100 mg Etomidate (Etomidate 2 Mg/Ml Inj Sdv 10 Ml) 20 mg IVP NOW ONE Stop: 12/09/24 13:03 Last Admin: 12/09/24 13:19 Dose: 20 mg Fluoxetine HCl (Fluoxetine 20 Mg Capsule) 20 mg PO DAILY [facility] Last Admin: 12/20/24 08:02 Dose: 20 mg Furosemide (Furosemide 10 Mg/Ml Sdv 10ml) 60 mg IVP ONCE ONE Stop: 12/09/24 12:45 Last Admin: 12/09/24 14:09 Dose: 60 mg Furosemide (Furosemide 10 Mg/Ml Sdv 10ml) Confirm Administered Dose 200 mg .ROUTE .STK-MED ONE Stop: 12/16/24 03:19 Glucagon (Glucagon 1 Mg/Ml Kit 1 Ml) 1 mg IM ONCE PRN; Protocol PRN Reason: Adult Acute Hypoglycemia Nursing Prot. Hydralazine HCl (Hydralazine 20 Mg/Ml Inj 1 Ml) 10 mg IVP Q4H PRN PRN Reason: SBP>160mmHg or DBP>110mmHG Last Admin: 12/15/24 22:05 Dose: 10 mg Hydralazine HCl (Hydralazine 20 Mg/Ml Inj 1 Ml) 10 mg IVP Q6H [facility] Last Admin: 12/20/24 13:08 Dose: 10 mg Fentanyl (Sublimaze) 1,000 mcg in 100 mls @ 0 mls/hr IV .Q0M [facility]; Protocol Last Titration: 12/15/24 15:42 Dose: Infused Midazolam HCl (Versed) 100 mg in 100 mls @ 0 mls/hr IV .Q0M [facility]; Protocol Last Titration: 12/10/24 14:24 Dose: Infused Sodium Chloride (Sodium Chloride 0.9%) 500 mls @ 999 mls/hr IV .Q31M [facility] Sodium Chloride (Sodium Chloride 0.9%) 500 mls @ 999 mls/hr IV .Q31M [facility] Stop: 12/09/24 14:45 Last Infusion: 12/09/24 15:36 Dose: Infused Dextrose (D5w) 500 mls @ 0 mls/hr IV ONCE PRN; Protocol PRN Reason: Adult Acute Hypoglycemia Prot Dextrose (D10w) 125 mls @ 750 mls/hr IV PRN PRN; Protocol PRN Reason: Adult Acute Hypoglycemia Nursing Protocol Last Infusion: 12/17/24 04:08 Dose: Infused Dextrose (D10w) 250 mls @ 1,000 mls/hr IV PRN PRN; Protocol PRN Reason: Adult Acute Hypoglycemia Nursing Protocol Piperacillin Sod/Tazobactam (Sod 3.375 gm/ Sodium Chloride) 50 mls @ 100 mls/hr IV ONCE ONE Stop: 12/09/24 16:29 Last Infusion: 12/09/24 19:08 Dose: Infused Piperacillin Sod/Tazobactam (Sod 3.375 gm/ Sodium Chloride) 50 mls @ 12.5 mls/hr IV Q8H [facility] Last Infusion: 12/20/24 02:58 Dose: Infused Vancomycin HCl (Vancocin) 3,000 mg in 600 mls @ 200 mls/hr IV ONCE ONE Stop: 12/09/24 19:29 Last Infusion: 12/09/24 19:46 Dose: Infused Propofol (Diprivan) 1,000 mg in 100 mls @ 0 mls/hr IV .Q0M [facility]; Protocol Last Titration: 12/15/24 15:41 Dose: Infused Magnesium Sulfate/Dextrose (Magnesium Sulfate Premix) 1 gm in 100 mls @ 200 mls/hr IV ONCE ONE Stop: 12/10/24 11:43 Last Infusion: 12/10/24 16:28 Dose: Infused Sodium Chloride (Sodium Chloride 0.9%) 1,000 mls @ 50 mls/hr IV .Q20H [facility] Last Infusion: 12/15/24 20:40 Dose: Infused Dexmedetomidine/Sodium Chloride (Precedex) 400 mcg in 100 mls @ 0 mls/hr IV .Q0M [facility]; Protocol Last Titration: 12/19/24 20:48 Dose: Infused Furosemide 100 mg/ Sodium (Chloride) 50 mls @ 5 mls/hr IV .Q10H [facility]; Protocol Last Titration: 12/12/24 20:26 Dose: Infused Furosemide 200 mg/ Sodium (Chloride) 100 mls @ 5 mls/hr IV .Q20H [facility]; Protocol Last Admin: 12/17/24 06:52 Dose: 5 ml/hr, 5 mls/hr Sodium Chloride (Sodium Chloride 0.9% (100 Ml)) Confirm Administered Dose 100 mls @ as directed .ROUTE .[facility] ONE Stop: 12/16/24 03:21 Last Admin: 12/16/24 03:50 Dose: Not Given Dextrose (D5w) 1,000 mls @ 75 mls/hr IV .[id number] [facility] Last Admin: 12/20/24 10:51 Dose: 75 mls/hr Calcium Gluconate/Sodium Chloride (Calcium Gluconate 0.9% Nacl) 1 gm in 50 mls @ 50 mls/hr IV ONCE ONE Stop: 12/17/24 19:07 Last Infusion: 12/17/24 21:12 Dose: Infused Sterile Water (Water) Confirm Administered Dose 10 mls @ as directed .ROUTE .[facility] ONE Stop: 12/18/24 01:25 Last Infusion: 12/18/24 01:38 Dose: Infused Amino Acids (Clinimix 4.25%-5% (No Lytes)) 1,000 mls @ 42 mls/hr IV .[id number] [facility] Amino Acids (Clinimix 4.25%-5% Solution) 2,000 mls @ 42 mls/hr IV .Q24H [facility] Last Infusion: 12/20/24 03:03 Dose: 20 mls/hr Insulin Glargine (Insulin Glargine 100 Units/1 Ml) 15 unit SUBCUT DAILY [facility] Last Admin: 12/10/24 11:03 Dose: 15 unit Insulin Glargine (Insulin Glargine 100 Units/1 Ml) 15 unit SUBCUT DAILY [facility] Last Admin: 12/14/24 11:10 Dose: 15 unit Insulin Glargine (Insulin Glargine 100 Units/1 Ml) 20 unit SUBCUT DAILY [facility] Last Admin: 12/15/24 20:40 Dose: Not Given Insulin Glargine (Insulin Glargine 100 Units/1 Ml) 24 unit SUBCUT DAILY [facility] Last Admin: 12/20/24 10:47 Dose: 24 unit Insulin Human Lispro (Insulin Lispro 100 Unit/1 Ml) 0 unit SUBCUT Q6H [facility]; Protocol Last Admin: 12/14/24 11:09 Dose: 14 unit Insulin Human Lispro (Insulin Lispro 100 Unit/1 Ml) 0 unit SUBCUT Q4H [facility]; Protocol Last Admin: 12/20/24 13:14 Dose: 8 unit Ipratropium [place] (Ipratropium 0.5 Mg/2.5 Ml Neb) 0.5 mg INHALATION Q6H.RESP [facility] Last Admin: 12/20/24 13:15 Dose: 0.5 mg Ketamine HCl (Ketamine 100 Mg/Ml Inj 5 Ml) 100 mg IVP ONCE ONE Stop: 12/09/24 13:59 Last Admin: 12/09/24 14:01 Dose: 100 mg Lactulose (Lactulose Oral Liq 20 Gm/30 Ml Udc) 10 gm PO DAILY PRN; Protocol PRN Reason: Constipation (see protocol) Lanolin (Lanolin Oint 7 Gm) 1 applic TOPICAL PRN PRN PRN Reason: DRYNESS Last Admin: 12/18/24 09:52 Dose: 1 applic Levalbuterol HCl (Levalbuterol 0.63 Mg/3 Ml Neb) 0.63 mg INHALATION Q6H.RESP [facility] Last Admin: 12/20/24 13:15 Dose: 0.63 mg Magnesium Hydroxide (Magnesium Hydroxide 30 Ml Udc) 30 ml PO DAILY PRN; Protocol PRN Reason: Constipation (see protocol) Methylprednisolone Sodium Succinate (Methylprednisolone Sod Succ 40 Mg/Ml Inj) 40 mg IVP Q6H [facility] Last Admin: 12/19/24 18:04 Dose: 40 mg Methylprednisolone Sodium Succinate (Methylprednisolone Sod Succ 40 Mg/Ml Inj) 40 mg IVP Q8H [facility] Last Admin: 12/20/24 10:49 Dose: 40 mg Mirtazapine (Mirtazapine 30 Mg Tablet) 30 mg PO DAILY [facility] Last Admin: 12/12/24 08:19 Dose: 30 mg Morphine Sulfate (Morphine 4 Mg/Ml Sdv 1 Ml) 2 mg IVP Q4H PRN PRN Reason: SEVERE PAIN Morphine Sulfate (Morphine 4 Mg/Ml Sdv 1 Ml) 2 mg IVP ONCE ONE Stop: 12/16/24 01:15 Last Admin: 12/16/24 01:30 Dose: 2 mg Morphine Sulfate (Morphine 4 Mg/Ml Sdv 1 Ml) 2 mg IVP Q4H PRN PRN Reason: Severe Pain, air hunger Last Admin: 12/17/24 15:34 Dose: 2 mg Olanzapine (Olanzapine 10 Mg Vial) 10 mg IM ONCE ONE Stop: 12/18/24 01:18 Last Admin: 12/18/24 01:37 Dose: 10 mg Olanzapine (Olanzapine 10 Mg Vial) Confirm Administered Dose 10 mg .ROUTE .STK- MED ONE Stop: 12/18/24 01:25 Ondansetron HCl (Ondansetron 2 Mg/Ml Sdv 2 Ml) 4 mg IVP Q6H PRN PRN Reason: vomiting, or N/V if npo Pantoprazole Sodium (Pantoprazole 40 Mg Sdv) 40 mg IVP Q24H [facility] Last Admin: 12/20/24 13:06 Dose: 40 mg Pharmacy Consult (Pharmacy Consult For Fall Risk) 1 each XX ONCE ONE; Protocol Stop: 12/14/24 10:09 Polyethylene Glycol (Polyethylene Glycol 3350 Pkt 17 Gm) 17 gm PO BID [facility] Last Admin: 12/20/24 08:02 Dose: 17 gm Potassium Chloride (Potassium Chloride Oral Liq 20 Meq/15 Ml Udc) 40 meq PO ONCE ONE Stop: 12/13/24 11:16 Last Admin: 12/13/24 12:24 Dose: Not Given Propofol (Propofol 10 Mg/Ml Sdv 20 Ml) 100 mg IVP ONCE ONE Stop: 12/09/24 13:36 Last Admin: 12/09/24 13:30 Dose: 100 mg Senna (Sennosides 8.6 Mg Tablet) 17.2 mg PO BID [facility] Last Admin: 12/20/24 08:02 Dose: 17.2 mg Sodium Polystyrene Sulfonate (Sodium Polystyrene Sulfonate 15 Gm/60 Ml Btl) 15 gm NG-TUBE ONCE ONE Stop: 12/12/24 18:01 Last Admin: 12/12/24 18:59 Dose: 15 gm Succinylcholine Chloride (Succinylcholine 20 Mg/Ml Sdv 10ml) 100 mg IVP NOW ONE Stop: 12/09/24 13:03 Last Admin: 12/09/24 13:20 Dose: 100 mg Tamsulosin HCl (Tamsulosin 0.4 Mg Capsule) 0.4 mg PO DAILY [facility] Last Admin: 12/20/24 08:02 Dose: 0.4 mg Vancomycin HCl (Vancomycin 1,000 Mg Sdv (Pharmacy Mix)) 0 mg XX PRN PRN PRN Reason: Pharmacy to Dose Allergies codeine Allergy (Unknown, Verified 10/18/24 11:35) rash Home Medications cetirizine 10 mg capsule (All Day Allergy (cetirizine)) 10 mg PO DAILY PRN allergies 02/15/23 [History Confirmed 12/09/24] fluoxetine 20 mg capsule 20 mg PO DAILY 02/15/23 [History Confirmed 12/09/24] fluticasone furoate 50 mcg/actuation blister powder for inhalation 1 inh inhalation BID 02/15/23 [History Confirmed 12/09/24] insulin lispro 100 unit/mL subcutaneous solution (Humalog U-100 Insulin) 5 unit SUBCUT BID 02/15/23 [History Confirmed 12/09/24] mirtazapine 30 mg tablet 30 mg PO DAILY 02/15/23 [History Confirmed 12/09/24] tamsulosin 0.4 mg capsule 0.4 mg PO DAILY 02/15/23 [History Confirmed 12/09/24] fluticasone 250 mcg-salmeterol 50 mcg/dose blistr powdr for inhalation (Wixela Inhub) 1 inh inhalation BID #60 ea 03/30/23 [Rx Confirmed 12/09/24] calcitriol 0.25 mcg capsule See Rx Instructions .Route .COMPLEX 10/18/24 [History Confirmed 12/09/24] albuterol sulfate 90 mcg/actuation aerosol inhaler 2 puff inhalation QID 11/17/24 [History Confirmed 12/09/24] atorvastatin 40 mg tablet 40 mg PO QPM 11/17/24 [History Confirmed 12/09/24] amlodipine 5 mg tablet 5 mg PO DAILY #30 tabs 11/30/24 [Rx Confirmed 12/09/24] apixaban 2.5 mg tablet (Eliquis) 2.5 mg PO BID #60 tabs 11/30/24 [Rx Confirmed 12/09/24] aspirin 81 mg tablet,delayed release 81 mg PO DAILY #30 tabs 11/30/24 [Rx Confi rmed 12/09/24] insulin glargine-yfgn 100 unit/mL (3 mL) subcutaneous pen 15 unit (0.15 mL) SUBCUT DAILY #30 mL 11/30/24 [Rx Confirmed 12/09/24] amiodarone 200 mg tablet (Pacerone) 100 mg (1/2 x 200 mg) PO DAILY #45 tabs 12/07/24 [Rx Confirmed 12/09/24] diltiazem HCl 120 mg capsule,extended release 12 hr 120 mg PO DAILY #90 caps 12/14/24 [Rx] Discharge Plan Discharge Patient Disposition: Xfer SNF Condition: Stable Prescriptions: No Action fluticasone propion-salmeterol [Wixela Inhub] 250-50 mcg/dose blister with device 1 inh inhalation BID Qty: 60 6RF fluoxetine 20 mg capsule 20 mg PO DAILY insulin lispro [Humalog U-100 Insulin] 100 unit/mL solution 5 unit SUBCUT BID All Day Allergy (cetirizine) 10 mg capsule 10 mg PO DAILY PRN (Reason: allergies) fluticasone furoate 50 mcg/actuation blister with device 1 inh inhalation BID mirtazapine 30 mg tablet 30 mg PO DAILY tamsulosin 0.4 mg capsule 0.4 mg PO DAILY amiodarone [Pacerone] 200 mg tablet 100 mg PO DAILY Qty: 45 3RF diltiazem HCl 120 mg capsule,extended release 12 hr 120 mg PO DAILY Qty: 90 3RF Rx Instructions: 12/07/24 decreased from diltiazem 240mg calcitriol 0.25 mcg Capsule See Rx Instructions .ROUTE .COMPLEX Rx Instructions: Take 1 capsule by mouth on Wednesday, Wednesday, and Wednesday. atorvastatin 40 mg Tablet 40 mg PO QPM albuterol sulfate 90 mcg/actuation Hfa Aerosol Inhaler 2 puff INHALATION QID insulin glargine-yfgn 100 unit/mL (3 mL) Insulin Pen 15 unit SUBCUT DAILY Qty: 30 0RF amlodipine 5 mg tablet 5 mg PO DAILY Qty: 30 0RF aspirin 81 mg Tablet,Delayed Release (Dr/Ec) 81 mg PO DAILY Qty: 30 0RF Eliquis 2.5 mg tablet 2.5 mg PO BID Qty: 60 0RF Discharge Orders: Transfer Out of Facility (Order); Ordered 12/20/24 Ordered By: Eugenie Junior Referrals: [facility] [Outside] Adán Lino DO [Primary Care Provider] - Patient Instructions: Opioid Safety Transfer Attestations Time Spent in Transfer Care: greater than 30 min Quality Metrics Clinical Quality Measures [ No reported AMI, CVA or VTE this stay] Coding Level of Care Code Acute Code for Chg Fwd Diagnoses Encephalopathy G93.40 Respiratory failure J96.90 Pneumonia J18.9 Respiratory syncytial virus (RSV) B33.8 COPD exacerbation J44.1 Chronic kidney disease N18.9 Diabetes mellitus E11.9 Hypertension I10 Bradycardia R00.1
== END 2024-12-20 14:00 | DRG 207 ==
LOC: ER 13:25 → ICU 14:20
PROVIDERS: Family Medicine; Internal Medicine; Admitting Provider Student in an Organized Health Care Education/Training Program; Emergency Provider Physician Assistant Medical; PCP Emergency Medicine Emergency Medical Services; Visit Provider Student in an Organized Health Care Education/Training Program
DX: J96.22 Acute and chronic respiratory failure with hypercapnia (principal); G93.41 Metabolic encephalopathy; J15.69 Pneumonia due to other Gram-negative bacteria; J44.1 Chronic obstructive pulmonary disease with (acute) exacerbation; J44.0 Chronic obstructive pulmonary disease with (acute) lower respiratory infection; N17.9 Acute kidney failure, unspecified; E87.0 Hyperosmolality and hypernatremia; J98.11 Atelectasis; F33.9 Major depressive disorder, recurrent, unspecified; J96.21 Acute and chronic respiratory failure with hypoxia; B97.4 Respiratory syncytial virus as the cause of diseases classified elsewhere; E11.22 Type 2 diabetes mellitus with diabetic chronic kidney disease; I12.9 Hypertensive chronic kidney disease with stage 1 through stage 4 chronic kidney disease, or unspecified chronic kidney disease; N18.9 Chronic kidney disease, unspecified; E11.40 Type 2 diabetes mellitus with diabetic neuropathy, unspecified; E11.65 Type 2 diabetes mellitus with hyperglycemia; R00.1 Bradycardia, unspecified; I48.91 Unspecified atrial fibrillation; Z87.891 Personal history of nicotine dependence; F43.12 Post-traumatic stress disorder, chronic; F63.81 Intermittent explosive disorder; E21.3 Hyperparathyroidism, unspecified; E78.5 Hyperlipidemia, unspecified; Z66 Do not resuscitate; Z79.01 Long term (current) use of anticoagulants; Z79.82 Long term (current) use of aspirin; Z79.4 Long term (current) use of insulin
CPT/HCPCS: 36415; 36416; 36573; 36592; 36600; 51702; 71045; 71250; 80051; 80053; 80061; 80069; 80202; 81001; 82330; 82805; 82962; 83605; 83735; 83880; 84100; 84145; 85007; 85025; 85378; 87040; 87070; 87077; 87086; 87205; 87637; 92523; 92526; 92610; 93005; 94002; 94003; 94640; 94660; 94799; 96365; 96366; 96367; 96372; 96374; 96375; 96376; 99291; 99292; A4222; A4570; B4189; J0330; J0360; J0612; J0696; J1100; J1650; J1815; J1940; J2250; J2270; J2470; J2543; J2704; J2919; J3010; J3370; J3475; J3490; J7030; J7040; J7070; J7613; J7614; J7626; J7644; J7799; Q0144